=== PATIENT | male | born 1965 | race Caucasian/White ===

== ENCOUNTER → 2020-09-06 07:31 | Outpatient (BNVA) | payer OTHER, SELFPAY | PROVIDERS: PCP Internal Medicine; Referring Provider Internal Medicine; Visit Provider Internal Medicine Endocrinology, Diabetes & Metabolism | DX: E10.40 Type 1 diabetes mellitus with diabetic neuropathy, unspecified (principal); E10.319 Type 1 diabetes mellitus with unspecified diabetic retinopathy without macular edema; E29.1 Testicular hypofunction; E21.3 Hyperparathyroidism, unspecified; I10 Essential (primary) hypertension; E55.9 Vitamin D deficiency, unspecified; I25.10 Atherosclerotic heart disease of native coronary artery without angina pectoris; M81.0 Age-related osteoporosis without current pathological fracture; Z87.891 Personal history of nicotine dependence; Z79.899 Other long term (current) drug therapy | CPT/HCPCS: 99214 ==

== ENCOUNTER → 2020-10-17 13:52 | Outpatient (BNVA) | payer OTHER, SELFPAY | PROVIDERS: PCP Internal Medicine; Referring Provider Internal Medicine; Visit Provider Urology | DX: Z76.89 Persons encountering health services in other specified circumstances (principal) ==

== ENCOUNTER 2021-01-02 12:59 | Outpatient (REF) | payer OTHER, SELFPAY ==
[2021-01-02 14:35] LABS: Anion Gap 12 (12-20); Blood Urea Nitrogen 18 mg/dL (9-16); Calcium 9.3 mg/dL (8.4-10.2); Carbon Dioxide 26 mmol/L (22-29); Chloride 103 mmol/L (96-108); Estimated Glomerular Filt Rate 48; Phosphorus 2.6 mg/dL (2.7-4.5); Potassium 4.3 mmol/L (3.3-5.1); Sodium 137 mmol/L (135-145)
[2021-01-02 14:53] LABS: Renal w Reflex Lab Use Only Order verified
== END 2021-01-02 13:00 | disposition home or self-care (01) ==
LOC: HO.LAB 12:59
PROVIDERS: PCP Internal Medicine; Visit Provider Internal Medicine Nephrology
DX: I12.9 Hypertensive chronic kidney disease with stage 1 through stage 4 chronic kidney disease, or unspecified chronic kidney disease (principal); N18.30 Chronic kidney disease, stage 3 unspecified; R80.9 Proteinuria, unspecified; E10.29 Type 1 diabetes mellitus with other diabetic kidney complication
CPT/HCPCS: 36415; 80051; 82310; 82565; 84100; 84520

== ENCOUNTER 2021-03-10 11:28 | Outpatient (REF) | payer OTHER, SELFPAY ==
[2021-03-10 12:19] LABS: Hematocrit 39.5 % (42-52); Hemoglobin 13.6 g/dl (14.0-18.0)
[2021-03-10 13:09] LABS: Albumin Level 4.2 g/dL (3.5-5.0); Calcium 9.6 mg/dL (8.4-10.2); Cholesterol 109 mg/dL; HDL Cholesterol 52 mg/dL; LDL Cholesterol Calculated 42 mg/dl; Triglycerides 79 mg/dL
[2021-03-10 13:13] LABS: Alanine Aminotransferase 23 U/L (0-40); Albumin Level 4.2 g/dL (3.5-5.0); Alkaline Phosphatase 127 U/L (39-117); Anion Gap 13 (12-20); Aspartate Amino Transferase 19 U/L (5-37); Bilirubin Total 0.6 mg/dL (0.0-1.0); Blood Urea Nitrogen 21 mg/dL (9-16); Calcium 9.7 mg/dL (8.4-10.2); Carbon Dioxide 26 mmol/L (22-29); Chloride 104 mmol/L (96-108); Estimated Glomerular Filt Rate 47; Glucose Fasting 224 mg/dL (60-99); Potassium 4.7 mmol/L (3.3-5.1); Sodium 138 mmol/L (135-145); Total Protein 6.4 g/dL (6.5-8.0)
[2021-03-10 13:19] LABS: Phosphorus 3.1 mg/dL (2.7-4.5)
[2021-03-10 13:21] LABS: PSA,Total (Free>4and<10) 1.58 ng/mL (0.00-4.00); Vitamin D 25-OH Total 20.4 ng/mL (>30)
[2021-03-10 13:41] LABS: Renal w Reflex Lab Use Only Order verified
[2021-03-11 07:32] LABS: Follicle Stimulating Hormone 6.3 mIU/mL (1.6-8.0); Lutenizing Hormone 4.6 mIU/mL (1.5-9.3)
[2021-03-11 08:47] LABS: Sex Hormone Binding Globulin 80 nmol/L (22-77)
[2021-03-11 12:22] LABS: Calcium (PTHI) 9.6 mg/dL (8.6-10.3); PTHI 63 pg/mL (14-64)
[2021-03-12 21:37] LABS: Collagen Type I C-Telopeptide 142 pg/mL (87-345)
[2021-03-13 11:07] LABS: Alkaline Phosphatase Bone 10.4 mcg/L (7.6-14.9)
[2021-03-13 19:37] LABS: Testosterone-Albumin 4.3 g/dL (3.6-5.1); Testosterone-Bioavailable 98.9 ng/dL (110.0-575.0); Testosterone-Free 50.2 pg/mL (46.0-224.0); Testosterone-SHBG 58 nmol/L (22-77); Testosterone-Total 595 ng/dL (250-1100)
[2021-03-15 11:36] LABS: Testosterone, Free 60.4 pg/mL (35.0-155.0); Testosterone, Total 616 ng/dL (250-1100)
== END 2021-03-10 11:29 | disposition home or self-care (01) ==
LOC: HO.LAB 11:28
PROVIDERS: Absent Provider Internal Medicine Nephrology; PCP Internal Medicine; Visit Provider Internal Medicine Endocrinology, Diabetes & Metabolism
DX: I12.9 Hypertensive chronic kidney disease with stage 1 through stage 4 chronic kidney disease, or unspecified chronic kidney disease (principal); E10.22 Type 1 diabetes mellitus with diabetic chronic kidney disease; N18.30 Chronic kidney disease, stage 3 unspecified; E29.1 Testicular hypofunction; M81.0 Age-related osteoporosis without current pathological fracture; R80.9 Proteinuria, unspecified
CPT/HCPCS: 36415; 80053; 80061; 82040; 82306; 82310; 82523; 83001; 83002; 83970; 84075; 84100; 84153; 84270; 84402; 84403; 85014; 85018

== ENCOUNTER → 2021-03-11 15:11 | Outpatient (BNVA) | payer OTHER, SELFPAY | PROVIDERS: PCP Internal Medicine; Visit Provider Internal Medicine Endocrinology, Diabetes & Metabolism | DX: M81.0 Age-related osteoporosis without current pathological fracture (principal); E21.3 Hyperparathyroidism, unspecified; E29.1 Testicular hypofunction | CPT/HCPCS: 99212 ==

== ENCOUNTER → 2021-04-30 15:14 | Outpatient (BNVA) | payer OTHER, SELFPAY | PROVIDERS: PCP Internal Medicine; Visit Provider Internal Medicine | DX: I25.10 Atherosclerotic heart disease of native coronary artery without angina pectoris (principal); I25.2 Old myocardial infarction; E10.8 Type 1 diabetes mellitus with unspecified complications | CPT/HCPCS: 93005; 99212 ==

== ENCOUNTER 2021-05-05 11:38 | Day surgery (SDC) | payer OTHER, SELFPAY ==
[2021-05-01 09:22] VITALS: BMI 23.6
--- NOTE | 2021-05-01 16:52 | MHC.SHP ---
Pre-Procedural Eval Section A The patient is an INPATIENT: No The History & Physical has been completed within 30 days and I have reviewed it.: Yes Section B Chief Complaint: Other Mechanical Complications Allergies: Allergies Allergy/AdvReac Type Severity Reaction Status Date / Time No Known Allergies Allergy Unverified 04/30/21 15:25 Plan Diagnosis/Plan: Unchanged I have reviewed the history and physical and performed a pertinent physical examination on my patient. No changes have occurred unless specified.
--- NOTE | 2021-05-02 13:40 | HO.ANESPROP2 ---
Documented by User: Astrid Marquez 05/02/21 13:43 HPI - Anesthesia Eval Consult details Narrative: 55yo M for Left Scleral Buckle Revision PCP cleared Stable at yearly routine cardiac visit 04/30/21 Insulin pump in situ PMFSH Active Problems Active Problems: All Active Problems (Updated 05/02/21 @ 09:27 by Samira Quispe MD) Disorder of eye, left (Acute) Pre-op evaluation (Acute) Erectile dysfunction (Acute) Bladder outlet obstruction (Acute) Atherosclerotic cardiovascular disease (Acute) Type 1 diabetes mellitus with unspecified complications (Acute) History of non-ST elevation myocardial infarction (NSTEMI) (Acute) Hypogonadism in male (Acute) Hypogonadism (Acute) Blind left eye (Acute) Depression (Acute) Hypertension (Acute) Dyslipidemia (Acute) Diabetic neuropathy associated with type 1 diabetes mellitus (Acute) Coronary artery disease (Acute) Diabetic retinopathy associated with type 1 diabetes mellitus (Acute) Diabetes type 1, controlled (Acute) Osteoporosis (Acute) Hyperparathyroidism (Acute) Past Medical History Medical History Blind left eye Chronic renal insufficiency Coronary artery disease COVID-19 vaccine administered Depression Diabetes type 1, controlled Diabetic neuropathy associated with type 1 diabetes mellitus Diabetic retinopathy associated with type 1 diabetes mellitus Dyslipidemia Hx of fracture of tibia Hx of retinal detachment Hyperparathyroidism Hypertension Hypogonadism Hypogonadism in male Low vitamin B12 level Myocardial infarction Osteoporosis Family History Family History Father Cancer CVD (cardiovascular disease) Mother CVD (cardiovascular disease) Hypertension High cholesterol Surgical History Surgical History History of surgery Hx of colonoscopy Hx of excision of epidermal inclusion cyst Hx of eye surgery Hx of knee surgery Social History Social History Are you a primary acute care nurse to a significant other at home: No Do you presently have visiting nurse or other home services: Yes (has [employer]) Patient Tobacco Use Status: Former Tobacco user Quit Date: 2017 Tobacco use type: Cigarette Years Smoked: 28 Use of substances other than those prescribed or required for medical reasons: No Have you been hit, kicked, punched, or otherwise hurt by someone within the past year? If so, by whom?: No Are you DNR?: No Advance Directives Information Provided: No Advance Directives on File: No Recently lost weight without trying: No Eating poorly because of decreased appetite: No Nutrition Risks: No Nutritional Risk Poor oral hygiene: No (upper & lower partial) Meds Allergies Allergy/AdvReac Type Severity Reaction Status Date / Time No Known Allergies Allergy Unverified 05/02/21 09:09 Active Medications: Current Medications Generic Name Dose Route Start Last Admin Trade Name Mariah PRN Reason Stop Dose Admin Povidone Iodine 1 appl 05/05/21 00:01 Povidone Iodine 5 % Ophth Soln 30 Ml Bottle EYE-LEFT PREOP PRN Pre-Op Surgical Implant Prophy Tetracaine HCl 1 drop 05/05/21 00:01 Tetracaine Hcl/Pf 0.5% Oph Rachel 4 Ml Drops EYE-LEFT 05/05/21 00:02 PREOP ONE Home Medications Medication Instructions Recorded Confirmed Last Taken Type aspirin 81 mg tablet,delayed 81 mg PO DAILY 09/06/20 05/02/21 Unknown History release insulin lispro 100 unit/mL 1 sliding scale dose SUBCUT 09/06/20 05/02/21 Unknown History subcutaneous solution USEASDIRECTD lisinopril 2.5 mg tablet 2.5 mg PO DAILY 09/06/20 05/02/21 Unknown History triamcinolone acetonide 0.1 % appl TOPICAL DAILY PRN 02/26/21 05/02/21 Unknown History topical cream atorvastatin 40 mg PO BEDTIME 05/01/21 05/02/21 Unknown History bupropion HCl 150 mg PO BEDTIME 05/01/21 05/02/21 Unknown History Exam Exam Date and Time: May 02, 2021 1340 Height,Weight and Vital Signs: Height 5 ft 9 in Weight 72.575 kg Pertinent Lab Results Pertinent Lab Results: Laboratory Tests 05/21/20 03/10/21 03/10/21 10:45 11:50 11:50 WBC 6.0 Hgb 13.6 L Hct 39.5 L Plt Count 334 Sodium 138 Potassium 4.7 Chloride 104 Carbon Dioxide 26 BUN 21 H Creatinine 1.54 H Narrative Narrative: echocardiogram from 2019 with LVEF of 60-65% and otherwise unremarkable, no wall motion abnormalities EKG 04/30/21 shows sinus rhythm at 93/Min; no significant ST-T changes and otherwise unremarkable. Assessment and Plan Assessment Anesthesia Assessment: Chart Reviewed Documented by User: Matt Bejarano MD 05/05/21 12:57 PMFSH Past Medical History Medical History Blind left eye Chronic renal insufficiency Coronary artery disease COVID-19 vaccine administered Depression Diabetes type 1, controlled Diabetic neuropathy associated with type 1 diabetes mellitus Diabetic retinopathy associated with type 1 diabetes mellitus Dyslipidemia Hx of fracture of tibia Hx of retinal detachment Hyperparathyroidism Hypertension Hypogonadism Hypogonadism in male Low vitamin B12 level Myocardial infarction Osteoporosis Family History Family History Father Cancer CVD (cardiovascular disease) Mother CVD (cardiovascular disease) Hypertension High cholesterol Surgical History Surgical History History of surgery Hx of colonoscopy Hx of excision of epidermal inclusion cyst Hx of eye surgery Hx of knee surgery Social History Social History Are you a primary acute care nurse to a significant other at home: No Do you presently have visiting nurse or other home services: Yes (has [employer]) Patient Tobacco Use Status: Former Tobacco user Quit Date: 2017 Tobacco use type: Cigarette Years Smoked: 28 Use of substances other than those prescribed or required for medical reasons: No Have you been hit, kicked, punched, or otherwise hurt by someone within the past year? If so, by whom?: No Are you DNR?: No Advance Directives Information Provided: No Advance Directives on File: No Recently lost weight without trying: No Eating poorly because of decreased appetite: No Nutrition Risks: No Nutritional Risk Poor oral hygiene: No (upper & lower partial) Meds Allergies Allergy/AdvReac Type Severity Reaction Status Date / Time No Known Allergies Allergy Unverified 05/02/21 09:09 Home Medications Medication Instructions Recorded Confirmed Last Taken Type aspirin 81 mg tablet,delayed 81 mg PO DAILY 09/06/20 05/02/21 Unknown History release insulin lispro 100 unit/mL 1 sliding scale dose SUBCUT 09/06/20 05/02/21 Unknown History subcutaneous solution USEASDIRECTD lisinopril 2.5 mg tablet 2.5 mg PO DAILY 09/06/20 05/02/21 Unknown History triamcinolone acetonide 0.1 % appl TOPICAL DAILY PRN 02/26/21 05/02/21 Unknown History topical cream atorvastatin 40 mg PO BEDTIME 05/01/21 05/02/21 Unknown History bupropion HCl 150 mg PO BEDTIME 05/01/21 05/02/21 Unknown History Assessment and Plan Assessment Anesthesia Assessment: Anesthesia Plan Discussed and Chart Reviewed Final Anesthetic Review NPO: Yes ASA Class: III Final Preanesthetic Review: No Changes in Pt Med Stat, Meds/Allgs Chart Reviewed, Consent Obtained/Reviewed and Anes Risks/Benef Reviewed Patient Risk: Intermediate Procedure Risk: Low Anesthetic Plan Anesthetic Plan: MAC: Disposition: Standard PACU
[2021-05-05 12:41] VITALS: BP 166/85; PULSE 88; RESP 16; TEMP 36.5; O2SAT 97
[2021-05-05] MEDS: Lactated Ringers 500 ML 50 ML IV (12:48)
--- NOTE | 2021-05-05 12:49 | PC.NURSE ---
TETRACAINE TO BFE GIVEN IN THE OR PER CRYSTAL FULTON RN.
--- NOTE | 2021-05-05 14:10 | HO.PNOPHT ---
Ophthalmology Procedure Procedure Date of Service: 05/05/21 Ophthalmology Viscoelastic: Not Applicable Ophthalmology Lenses: Not Applicable Procedure Notes: Pre Op Dx; Exposed Scleral Buckle OS Post Op Dx; Same Anesthesia: MAC with Local Procedure: Removal of Sccleral Sponge with closure of Conjunctival laceration left eye After obtaining Informed consent the patient was brought to the OR. The left eye was prepped and draped in the usual fashion. Attention was directected to the left eye, a lid speculum was placed followed by injection of Lidocaine 1%, 0.5ml. subconjunctivally. The exposed was grasped with forceps.and removed. The conjunctival laceration was closed with a running 6-0 Vicryl suture. The speculum waq sremoved and Maxitrol Prashanth. placed. The patient tolerated the procedure and will be seen in F?U.
[2021-05-05 14:15] VITALS: BP 143/54; PULSE 76; RESP 18; TEMP 36.2; O2SAT 97
== END 2021-05-05 14:33 | disposition home or self-care (01) ==
PROVIDERS: PCP Internal Medicine; Visit Provider Ophthalmology
PROC: (CPT 67120; principal; 2021-05-05 14:10)
DX: T85.328A Displacement of other ocular prosthetic devices, implants and grafts, initial encounter (principal); S05.32XA Ocular laceration without prolapse or loss of intraocular tissue, left eye, initial encounter; Y83.2 Surgical operation with anastomosis, bypass or graft as the cause of abnormal reaction of the patient, or of later complication, without mention of misadventure at the time of the procedure; Y92.9 Unspecified place or not applicable
CPT/HCPCS: 67120; 65270; J2250; J3010

== ENCOUNTER 2021-07-04 15:45 | Outpatient (REF) | payer OTHER, SELFPAY | END 2021-07-04 15:46 | disposition home or self-care (01) | LOC: HO.LAB 15:45 | PROVIDERS: PCP Internal Medicine; Visit Provider Urology | DX: Z13.89 Encounter for screening for other disorder (principal) ==

== ENCOUNTER 2021-07-09 06:00 | Outpatient (REF) | payer OTHER, SELFPAY ==
--- NOTE | ~2021-07-09 | XR_ITS ---
EXAMINATION: XR HAND, LEFT CLINICAL INFORMATION: Left hand pain. COMPARISON: None TECHNIQUE: PA, lateral, and oblique views of the left hand. FINDINGS: The bones and soft tissues are normal. No fracture. Alignment is anatomic. Joint spaces are maintained. No erosions or soft tissue calcifications. XR/XR hand LT min 3V IMPRESSION: Unremarkable examination.
== END 2021-07-09 06:01 | disposition home or self-care (01) ==
LOC: HO.HOSX 06:00
PROVIDERS: Visit Provider Physician Assistant
DX: M65.312 Trigger thumb, left thumb (principal); Z87.891 Personal history of nicotine dependence
CPT/HCPCS: 20600; 73130; 99202; J1020

== ENCOUNTER 2021-07-09 15:34 | Outpatient (REF) | payer OTHER, SELFPAY ==
[2021-07-09 16:23] LABS: Anion Gap 13 (12-20); Blood Urea Nitrogen 22 mg/dL (9-16); Calcium 9.7 mg/dL (8.4-10.2); Carbon Dioxide 23 mmol/L (22-29); Chloride 106 mmol/L (96-108); Estimated Glomerular Filt Rate 43; Potassium 4.8 mmol/L (3.3-5.1); Sodium 137 mmol/L (135-145)
[2021-07-09 17:44] LABS: Protein/Creatinine Ratio, Ur 0.05 (<0.2); Total Protein Urine Random 10 mg/dL (<12)
== END 2021-07-09 15:35 | disposition home or self-care (01) ==
LOC: HO.LAB 15:34
PROVIDERS: PCP Internal Medicine; Visit Provider Internal Medicine Nephrology
DX: N18.31 Chronic kidney disease, stage 3a (principal)
CPT/HCPCS: 36415; 80051; 82310; 82565; 84156; 84520

== ENCOUNTER → 2021-10-21 14:30 | Outpatient (BNVA) | payer OTHER, SELFPAY | PROVIDERS: PCP Internal Medicine; Visit Provider Urology | DX: E11.69 Type 2 diabetes mellitus with other specified complication (principal); N52.1 Erectile dysfunction due to diseases classified elsewhere | CPT/HCPCS: 99212 ==

== ENCOUNTER 2022-01-01 16:36 | Outpatient (REF) | payer OTHER, SELFPAY ==
[2022-01-01 18:14] LABS: Anion Gap 11 (12-20); Blood Urea Nitrogen 16 mg/dL (9-16); Carbon Dioxide 28 mmol/L (22-29); Chloride 107 mmol/L (96-108); Estimated Glomerular Filt Rate 54; Sodium 141 mmol/L (135-145)
== END 2022-01-01 16:37 | disposition home or self-care (01) ==
LOC: HO.LAB 16:36
PROVIDERS: PCP Internal Medicine; Visit Provider Internal Medicine Nephrology
DX: N18.31 Chronic kidney disease, stage 3a (principal)
CPT/HCPCS: 36415; 80051; 82310; 82565; 84520

== ENCOUNTER → 2022-01-21 15:06 | Outpatient (BNVA) | payer OTHER, SELFPAY | PROVIDERS: PCP Internal Medicine; Visit Provider Urology | DX: N52.9 Male erectile dysfunction, unspecified (principal); E10.42 Type 1 diabetes mellitus with diabetic polyneuropathy; E10.22 Type 1 diabetes mellitus with diabetic chronic kidney disease; E10.319 Type 1 diabetes mellitus with unspecified diabetic retinopathy without macular edema; I12.9 Hypertensive chronic kidney disease with stage 1 through stage 4 chronic kidney disease, or unspecified chronic kidney disease; I25.10 Atherosclerotic heart disease of native coronary artery without angina pectoris; N18.9 Chronic kidney disease, unspecified; H54.62 Unqualified visual loss, left eye, normal vision right eye; E29.1 Testicular hypofunction; E53.8 Deficiency of other specified B group vitamins; M81.0 Age-related osteoporosis without current pathological fracture; F17.210 Nicotine dependence, cigarettes, uncomplicated | CPT/HCPCS: 51798; 99212 ==

== ENCOUNTER 2022-01-27 14:02 | Outpatient (REF) | payer OTHER, SELFPAY ==
[2022-01-27 15:18] LABS: Alanine Aminotransferase 23 U/L (0-40); Albumin Level 4.3 g/dL (3.5-5.0); Alkaline Phosphatase 86 U/L (39-117); Anion Gap 11 (12-20); Aspartate Amino Transferase 21 U/L (5-37); Bilirubin Total 0.6 mg/dL (0.0-1.0); Blood Urea Nitrogen 14 mg/dL (9-16); Calcium 10.1 mg/dL (8.4-10.2); Carbon Dioxide 25 mmol/L (22-29); Chloride 106 mmol/L (96-108); Estimated Glomerular Filt Rate 50; Glucose Random 105 mg/dL (60-115); Potassium 4.4 mmol/L (3.3-5.1); Sodium 138 mmol/L (135-145); Total Protein 6.6 g/dL (6.5-8.0)
[2022-01-27 15:25] LABS: PSA,Total (Free>4and<10) 1.83 ng/mL (0.00-4.00); Vitamin D 25-OH Total 31.5 ng/mL (>30)
[2022-01-28 08:46] LABS: Lutenizing Hormone 3.3 mIU/mL (1.5-9.3); Sex Hormone Binding Globulin 75 nmol/L (22-77)
[2022-01-31 09:36] LABS: Testosterone-Albumin 4.4 g/dL (3.6-5.1); Testosterone-Free 52.2 pg/mL (46.0-224.0); Testosterone-SHBG 73 nmol/L (22-77); Testosterone-Total 750 ng/dL (250-1100)
[2022-01-31 16:31] LABS: Collagen Type I C-Telopeptide 125 pg/mL (87-345)
[2022-01-31 18:27] LABS: Testosterone, Free 71.1 pg/mL (35.0-155.0); Testosterone, Total 718 ng/dL (250-1100)
== END 2022-01-27 14:03 | disposition home or self-care (01) ==
LOC: HO.LAB 14:02
PROVIDERS: PCP Internal Medicine; Visit Provider Internal Medicine Endocrinology, Diabetes & Metabolism
DX: Z12.5 Encounter for screening for malignant neoplasm of prostate (principal); E29.1 Testicular hypofunction; M81.0 Age-related osteoporosis without current pathological fracture
CPT/HCPCS: 36415; 80053; 82306; 82523; 83001; 83002; 84153; 84270; 84402; 84403

== ENCOUNTER 2022-01-28 15:19 | Outpatient (REF) | payer OTHER, SELFPAY ==
[2022-02-04 06:26] LABS: N-Telopeptide 17 (9-60); NTXCreaRU 76 mg/dL (20-320)
== END 2022-01-28 15:20 | disposition home or self-care (01) ==
LOC: HO.LNP 15:19
PROVIDERS: Visit Provider Internal Medicine Endocrinology, Diabetes & Metabolism
DX: M81.0 Age-related osteoporosis without current pathological fracture (principal)
CPT/HCPCS: 82523

== ENCOUNTER → 2022-02-23 15:07 | Outpatient (BNVA) | payer OTHER, SELFPAY | PROVIDERS: PCP Internal Medicine; Visit Provider Internal Medicine Endocrinology, Diabetes & Metabolism | DX: M81.0 Age-related osteoporosis without current pathological fracture (principal) | CPT/HCPCS: 99212 ==

== ENCOUNTER 2022-02-26 08:11 | Outpatient (REF) | payer OTHER, SELFPAY ==
--- NOTE | ~2022-02-26 | MM_ITS ---
EXAMINATION: BONE DENSITOMETRY CLINICAL INDICATION: Age-related osteoporosis without current pathological fracture. COMPARISON: Baseline BD dated 11/07/2019. TECHNIQUE: Using a [employer] DXA System (software version: 13.1) manufactured by [employer], dual-energy x-ray absorptiometry was performed of the lumbar spine and left hip. The images are of good technical quality. Summary results are attached. FINDINGS: AP SPINE L1-L4: Current: BMD 1.118 g/cm2, Z-score -0.5, T-score -0.8, normal, 4.1% increase from baseline (<5% change is not significant). Baseline: BMD 1.074 g/cm2. LEFT FEMUR, NECK: Current: BMD 0.675 g/cm2, Z-score -2.1, T-score -3.0, osteoporosis. Baseline: BMD 0.676 g/cm2. LEFT FEMUR, TOTAL: Current: BMD 0.735 g/cm2, Z-score -2.1, T-score -2.5, osteoporosis, 2.2% increase from baseline (<5% change is not significant). Baseline: BMD 0.719 g/cm2. IDENTIFIED RISK FACTORS: Secondary osteoporosis, history of fracture (adult), osteoporosis, renal, height loss, low calcium intake. HISTORY OF FRACTURE: Lower leg. MEDICATIONS: Calcium supplements or multivitamin, vitamin D. MM/XR DEXA axial skeleton IMPRESSION: 1. DIAGNOSIS: Osteoporosis based on the lowest T-score value of -3.0 in the femoral neck applying World Health Organization criteria. 2. 10-YEAR FRACTURE RISK PREDICTION, FRAX: According to the guidelines, FRAX calculation should only be performed on patients in the osteopenia bone density category. Therefore, FRAX was not performed on this patient. 3. Treatment Recommendations: NOF guidelines recommend consideration for treatment in postmenopausal women and men age 50 and older presenting with the following: -A hip or vertebral (clinical or morphometric) fracture. -T-score less than or equal to -2.5 at the femoral neck or spine after appropriate evaluation to exclude secondary causes. -Low bone mass at the hip or spine and a 10-year fracture probability by FRAX of greater than or equal to 3% for hip fracture or greater than or equal to 20% for major osteoporotic fracture based on the [place] adapted WHO algorithm. 4. Other Recommendations: All treatment decisions require clinical judgment and consideration of individual patient factors, including patient preferences, comorbidities, previous drug use, risk factors not captured in the FRAX model (e.g. frailty, falls, vitamin D deficiency, increased bone turnover, interval significant decline in bone density) and possible under or overestimation of fracture risk by FRAX. Additional medical evaluation for secondary cause of low bone mineral density may be appropriate. FUTURE SCAN RECOMMENDATION: People with diagnosed cases of osteoporosis or at high risk for fracture should have regular bone mineral density tests. For patients eligible for Medicare, routine testing is allowed once every 2 years. The testing frequency can be increased to one year for patients who have rapidly progressing disease, those who are receiving or discontinuing medical therapy to restore bone mass, or have additional risk factors.
== END 2022-02-26 08:12 | disposition home or self-care (01) ==
LOC: HO.MAMMO 08:11
PROVIDERS: Visit Provider Internal Medicine Endocrinology, Diabetes & Metabolism
DX: Z13.820 Encounter for screening for osteoporosis (principal); M81.0 Age-related osteoporosis without current pathological fracture; Z87.81 Personal history of (healed) traumatic fracture; Z79.899 Other long term (current) drug therapy
CPT/HCPCS: 77080

== ENCOUNTER → 2022-05-04 12:48 | Outpatient (BNVA) | payer OTHER, SELFPAY | PROVIDERS: PCP Internal Medicine; Referring Provider Internal Medicine; Visit Provider Internal Medicine | DX: I25.10 Atherosclerotic heart disease of native coronary artery without angina pectoris (principal); I25.2 Old myocardial infarction; E10.8 Type 1 diabetes mellitus with unspecified complications | CPT/HCPCS: 93005; 99212 ==

== ENCOUNTER → 2022-06-09 09:14 | Outpatient (REF) | payer OTHER, SELFPAY ==
--- NOTE | ~2022-06-09 | NM_ITS ---
Exercise Myocardial perfusion study Indication: Exertional shortness of breath with atherosclerotic heart disease to evaluate for myocardial ischemia Technique: The patient was brought in for an exercise perfusion study on 06/09/2022. Patient performed exercise as per Willard protocol and was injected 25 mCi of sestamibi was given intravenously one target HR was achieved. Images were obtained using the SPECT gamma camera interlaced with the gating device. Images were obtained in supine position. Resting perfusion study was performed on 06/10/2022. Patient was administered 25 mCi of sestamibi intravenously at rest. Images were then obtained in supine position. Images obtained with and without CT attenuation. Total DLP 78 mGy-cm. Images were processed with the software and compared side to side in short axis, horizontal long axis and vertical long axis views. Findings: The stress perfusion study showed non attenuated images show mildly reduced uptake in the inferior and apical wall of the LV myocardium. Remainder of the LV myocardium is normally perfused. Attenuation corrected images show mildly reduced uptake in the apex of the LV myocardium.. The gated study shows normal LV systolic function with calculated LVEF of 70%. LV cavity is normal in size. The gated study shows normal systolic wall thickening and contraction of all segments. There is no transient ischemic dilation. Resting study shows non attenuated images show improved uptake in the inferior and apical wall of the LV myocardium. Attenuation corrected images show improved uptake in the apical wall of the LV myocardium.. Gating at rest reveals normal systolic wall motion with ejection fraction at 70%. The findings are consistent with reversible apical defect suggestive of ischemia and possible inferior ischemia. NM/NM cardiolite stress test Impression: 1. Mild intensity apical ischemia with equivocal inferior wall ischemia 2. Gated LVEF is 70% 3. Transient ischemic dilatation not present Stress EKG is equivocal for ischemia
--- NOTE | 2022-06-09 09:18 | CA_ITS ---
Acquisition Time: 2022-06-09 09:24:37 Total Exercise Time: 00:05:59 Test Indications: Dyspnea Medications: ASA ATORVASTATIN BUPROPION ALENDRONATE INSULIN LISINOPRIL TADALFIL SILDENAFIL Protocol: DALIA Max HR: 144 BPM 89% of Pred: 161 BPM Max BP: 164/076 mmHG Max Work Load: 7.0 METS Exercise nuclear stress test using Dalia protocol, total of 5 min 59 se, METS 7and TAPHR up to 89%. Pt c/o SOB at the end of the second stage resolved in recovery. Mild scooped ST depressions seen in leads 2,3 and V3-V5. No CP. Nuclear images to follow. Normotensive response to exercise Test reviewed with Dr. Singletary Referred By: Darryl Leong Overread By: Olga Lidia Hendricks NP
== END ==
LOC: HO.CARD 09:14
PROVIDERS: Visit Provider Internal Medicine
DX: I25.10 Atherosclerotic heart disease of native coronary artery without angina pectoris (principal); E10.8 Type 1 diabetes mellitus with unspecified complications
CPT/HCPCS: 78452; 93017; A9500

== ENCOUNTER → 2022-06-30 13:05 | Outpatient (REF) | payer OTHER, SELFPAY ==
--- NOTE | 2022-06-30 13:08 | CA_ITS ---
Transthoracic Echocardiogram Patient (Last, First, Middle): Servando Tan M Gender: Male Date of : 1965 Age: 57 Procedure Date: 06/30/2022 Procedure Type: Transthoracic Echocardiogram Location: OP Height: 175.26 cm Weight: 74.84 kg BSA: 1.90 m2 Heart Rate: 72 bpm BP: 128 / 64 mmHg Prop Maker: SB Referring MD: Darryl Leong MD Parking Patroller: Jaswinder Singletary MD Symptoms: I25.10 - Atherosclerotic heart disease of [place] coronary artery without... Study Quality: Adequate ECG Rhythm: Sinus Conclusions: - 1. Normal LV systolic and diastolic function 2. Normal cardiac valvular Doppler 3. No gross pericardial effusion Findings Left Ventricle Normal left ventricular size, thickness, and systolic function. The visually estimated ejection fraction is between 60-65%. Spectral Doppler is indicative of a normal filling pattern. Peak GLS is -19.6%, within normal limits Right Ventricle Normal right ventricular cavity size and systolic function. Atria The left atrium is normal in size. There is lipomatous hypertrophy of the interatrial septum. There is no evidence of interatrial shunt. The right atrium is normal in size. Aortic Valve Normal aortic valve structure and function. There is no aortic valve stenosis. There is no aortic valve regurgitation. Mitral Valve Normal mitral valve structure and function. There is trace mitral valve regurgitation. There is no mitral valve stenosis. Pulmonic Valve The pulmonic valve was not well visualized. Tricuspid Valve Likely normal tricuspid valve structure and function. Tricuspid regurgitation envelope is inadequate for calculation of right ventricular systolic pressure. Normal right atrial pressure. Great Vessels All visible segments of the aorta are normal in size. The pulmonary artery was not well visualized. Venous The inferior vena cava is normal in size and collapses greater than 50% with inspiration. Pericardium/Pleural There is no evidence of pericardial effusion. Measurements 2D Linear Measurements IVSd: 0.96 0.6-0.9/0.6-1.0 cm LVIDd: 4.20 3.9-5.3/4.2-5.9 cm LVIDd Index: 2.21 2.4-3.2/2.2-3.1 cm/m2 LVIDs: 2.78 2.0-3.6 cm LVPWd: 0.85 0.7-1.1 cm LA Diam: 3.60 2.7-3.8/3.0-4.0 cm LAIDs Index: 1.89 1.5-2.3 cm/m2 LV Mass: 148.60 67-162/88-224 g LV Mass Index: 78.21 43-95/49-115 g/m2 LVOT Diam: 2.20 3.0+(-)1.3 cm 2D Systolic Function EF 4C: 64.50 >55% EF 2C: 55.50 >55% EF BiP: 60.20 >55% Mitral Valve MV Pk E: 1.06 MV PK A: 0.71 MV Decel Time: 162.00 E/A: 1.50 E'Lateral: 8.59 E'Medial: 7.18 E/E' Med: 14.80 E/E' Lat: 12.30 PHT: 48.00 MVA PHT: 4.58 Decel Bullitt: 6.53 Aortic Valve AoV Pk Raymundo: 1.01 AoV Mn Raymundo: 0.73 AoV VTI: 0.22 AoV Pk Grad: 4.00 Aov Mn Grad: 2.00 ALANA Cont.VTI: 3.91 LVOT LVOT Pk Raymundo: 0.89 LVOT Mn Raymundo: 0.64 LVOT VTI: 0.22 LVOT Pk Grad: 3.00 LVOT Mn Grad: 2.00 LVOT Diam: 2.20 LVOT Area: 3.80 Diastolic Function MV Pk E: 1.06 MV Pk A: 0.71 E/A: 1.50 E'Medial: 7.18 E/E' Med: 14.80 E' Laterial: 8.59 E/E' Lat: 12.30 Right Ventricle TAPSE (mm): 19.10 TVS' Raymundo: 16.80 Tricuspid Valve RA Press: 3.00 Great Vessels Aorta Sinus of Valsalva: 3.60 2.0-3.5 cm Ao Asc: 3.10 2.1-3.4 cm Pulmonary Veins Pulm Vein S/D 1.40 Pulmonary Valve PV Pk Raymundo: 0.74 Peak PV Grad: 2.00 Updated in Other Vendor System with Status of Final Jaswinder Singletary MD electronically signed on 07/01/2022 3:41:31 PM with status of Final
== END ==
LOC: HO.CARD 13:05
PROVIDERS: Visit Provider Internal Medicine
DX: I25.10 Atherosclerotic heart disease of native coronary artery without angina pectoris (principal)
CPT/HCPCS: 93306; 93356

== ENCOUNTER 2022-08-17 14:37 | Outpatient (REF) | payer OTHER, SELFPAY ==
[2022-08-17 15:44] LABS: Anion Gap 15 (12-20); Blood Urea Nitrogen 15 mg/dL (9-16); Calcium 10.1 mg/dL (8.4-10.2); Carbon Dioxide 24 mmol/L (22-29); Chloride 101 mmol/L (96-108); Estimated Glomerular Filt Rate 48; Potassium 4.8 mmol/L (3.3-5.1); Sodium 135 mmol/L (135-145)
[2022-08-17 15:56] LABS: Creatinine Urine 75.13 mg/dL; Total Protein Urine Random < 7 mg/dL (<12)
== END 2022-08-17 14:38 | disposition home or self-care (01) ==
LOC: HO.LAB 14:37
PROVIDERS: PCP Internal Medicine; Visit Provider Internal Medicine Nephrology
DX: N18.31 Chronic kidney disease, stage 3a (principal)
CPT/HCPCS: 36415; 80051; 82310; 82565; 84156; 84520

== ENCOUNTER 2022-09-25 14:32 | Outpatient (REF) | payer OTHER, SELFPAY ==
[2022-09-25 14:43] LABS: MANUAL DIFF FLAG NO
[2022-09-25 14:47] LABS: Basophils Absolute Auto 0.1 X10*3/uL (0.0-0.2); Basophils Percent Auto 0.8 % (0-2); Eosinophils Absolute Auto 0.4 X10*3/uL (0.0-0.4); Eosinophils Percent Auto 5.5 % (0-4); Hematocrit 38.6 % (42.0-52.0); Hemoglobin 13.5 g/dl (14.0-18.0); Imm Gran Abs Auto 0.04 X10*3/uL (0.00-0.03); Imm Gran Pct Auto 0.5 % (0.0-0.4); Lymphocytes Absolute Auto 1.2 X10*3/uL (1.2-4.9); Lymphocytes Percent Auto 16.4 % (20-40); Mean Corpuscular Hemoglobin 31.1 pg (27.0-33.0); Mean Corpuscular Volume 88.9 fL (80.0-98.0); Monocytes Absolute Auto 0.7 X10*3/uL (0.1-1.2); Monocytes Percent Auto 9.1 % (2-11); Neutrophils Absolute Auto 5.1 x10*3/uL (2.0-8.3); Neutrophils Percent Auto 67.7 % (45-73); Platelet Count 343 X10*3/uL (160-400); Red Blood Count 4.34 X10*6/uL (4.60-5.80); Red Cell Distribution Width 13.2 % (11.0-16.0); White Blood Count 7.5 X10*3/uL (4.8-10.8)
[2022-09-25 14:58] LABS: INTERNATIONAL NORM RATIO 0.9 (0.9-1.1)
[2022-09-25 15:14] LABS: Anion Gap 15 (12-20); Blood Urea Nitrogen 14 mg/dL (9-16); Calcium 9.5 mg/dL (8.4-10.2); Carbon Dioxide 25 mmol/L (22-29); Chloride 107 mmol/L (96-108); Estimated Glomerular Filt Rate 50; Glucose Random 111 mg/dL (60-115); Potassium 4.7 mmol/L (3.3-5.1); Sodium 142 mmol/L (135-145)
== END 2022-09-25 14:33 | disposition home or self-care (01) ==
LOC: HO.LAB 14:32
PROVIDERS: PCP Internal Medicine; Visit Provider Nurse Practitioner Family
DX: I25.10 Atherosclerotic heart disease of native coronary artery without angina pectoris (principal)
CPT/HCPCS: 36415; 80048; 85025; 85610

== ENCOUNTER 2022-10-31 10:52 | Outpatient (REF) | payer OTHER, SELFPAY ==
[2022-10-31 10:59] LABS: MANUAL DIFF FLAG NO
[2022-10-31 11:01] LABS: Basophils Absolute Auto 0.1 X10*3/uL (0.0-0.2); Eosinophils Absolute Auto 0.5 X10*3/uL (0.0-0.4); Eosinophils Percent Auto 7.4 % (0-4); Hematocrit 41.1 % (42.0-52.0); Hemoglobin 14.3 g/dl (14.0-18.0); Imm Gran Abs Auto 0.02 X10*3/uL (0.00-0.03); Imm Gran Pct Auto 0.3 % (0.0-0.4); Lymphocytes Absolute Auto 1.4 X10*3/uL (1.2-4.9); Lymphocytes Percent Auto 19.3 % (20-40); Mean Corpuscular HGB Conc 34.8 g/dl (31.0-36.0); Mean Corpuscular Hemoglobin 31.5 pg (27.0-33.0); Mean Corpuscular Volume 90.5 fL (80.0-98.0); Monocytes Absolute Auto 0.7 X10*3/uL (0.1-1.2); Monocytes Percent Auto 10.1 % (2-11); Neutrophils Absolute Auto 4.4 x10*3/uL (2.0-8.3); Neutrophils Percent Auto 61.9 % (45-73); Platelet Count 309 X10*3/uL (160-400); Red Blood Count 4.54 X10*6/uL (4.60-5.80); Red Cell Distribution Width 13.4 % (11.0-16.0)
[2022-10-31 11:08] LABS: INTERNATIONAL NORM RATIO 0.9 (0.9-1.1); Prothrombin Time 10.3 SEC (10.0-13.1)
[2022-10-31 11:17] LABS: Anion Gap 14 (12-20); Blood Urea Nitrogen 14 mg/dL (9-16); Calcium 9.9 mg/dL (8.4-10.2); Carbon Dioxide 29 mmol/L (22-29); Chloride 105 mmol/L (96-108); Estimated Glomerular Filt Rate 44; Glucose Random 128 mg/dL (60-115); Potassium 4.7 mmol/L (3.3-5.1); Sodium 143 mmol/L (135-145)
== END 2022-10-31 10:53 | disposition home or self-care (01) ==
LOC: HO.LAB 10:52
PROVIDERS: PCP Internal Medicine; Visit Provider Internal Medicine
DX: Z01.818 Encounter for other preprocedural examination (principal); R94.39 Abnormal result of other cardiovascular function study
CPT/HCPCS: 36415; 80048; 85025; 85610

== ENCOUNTER 2022-11-13 12:07 | Outpatient (REF) | payer OTHER, SELFPAY ==
[2022-11-13 13:03] LABS: Anion Gap 15 (12-20); Blood Urea Nitrogen 18 mg/dL (9-16); Calcium 10.1 mg/dL (8.4-10.2); Carbon Dioxide 26 mmol/L (22-29); Chloride 103 mmol/L (96-108); Estimated Glomerular Filt Rate 40; Glucose Random 143 mg/dL (60-115); Potassium 4.5 mmol/L (3.3-5.1); Sodium 139 mmol/L (135-145)
== END 2022-11-13 12:08 | disposition home or self-care (01) ==
LOC: HO.LAB 12:07
PROVIDERS: PCP Internal Medicine; Visit Provider Nurse Practitioner Family
DX: R94.39 Abnormal result of other cardiovascular function study (principal)
CPT/HCPCS: 36415; 80048

== ENCOUNTER → 2022-11-19 14:01 | Outpatient (BNVA) | payer OTHER, SELFPAY | PROVIDERS: PCP Internal Medicine; Referring Provider Internal Medicine; Visit Provider Nurse Practitioner Family | DX: I25.10 Atherosclerotic heart disease of native coronary artery without angina pectoris (principal); I10 Essential (primary) hypertension; R94.39 Abnormal result of other cardiovascular function study; Z98.890 Other specified postprocedural states | CPT/HCPCS: 99212 ==

== ENCOUNTER 2023-02-15 14:51 | Outpatient (REF) | payer OTHER, SELFPAY ==
[2023-01-21 13:15] VITALS: BP 118/64; BP 146/82; BMI 25.2
[2023-02-15 15:58] LABS: Anion Gap 13 (12-20); Blood Urea Nitrogen 10 mg/dL (9-16); Calcium 9.3 mg/dL (8.4-10.2); Carbon Dioxide 26 mmol/L (22-29); Chloride 109 mmol/L (96-108); Estimated Glomerular Filt Rate 56; Potassium 4.9 mmol/L (3.3-5.1); Sodium 143 mmol/L (135-145)
[2023-02-15 17:32] LABS: Creatinine Urine 182.39 mg/dL; Microalbum/Creatinine Ratio Ur 11.5 ug/mg cr
== END 2023-02-15 14:52 | disposition home or self-care (01) ==
LOC: HO.LAB 14:51
PROVIDERS: PCP Internal Medicine; Visit Provider Internal Medicine Nephrology
DX: N18.31 Chronic kidney disease, stage 3a (principal)
CPT/HCPCS: 36415; 80051; 82043; 82310; 82565; 84520

== ENCOUNTER → 2023-03-01 11:16 | Outpatient (BNVA) | payer OTHER, SELFPAY ==
[2023-01-21 13:15] VITALS: BP 118/64; BP 146/82
[2023-02-19 06:57] VITALS: BP 114/52; BMI 29.9
== END ==
PROVIDERS: PCP Internal Medicine; Referring Provider Internal Medicine; Visit Provider Internal Medicine
DX: I25.10 Atherosclerotic heart disease of native coronary artery without angina pectoris (principal); E10.8 Type 1 diabetes mellitus with unspecified complications
CPT/HCPCS: 93005; 99212

== ENCOUNTER → 2023-03-25 16:16 | Outpatient (BNVA) | payer OTHER, SELFPAY ==
[2023-01-21 13:15] VITALS: BP 118/64; BP 146/82
[2023-03-16 07:45] VITALS: BP 122/58; BMI 29.9
== END ==
PROVIDERS: PCP Internal Medicine; Visit Provider Internal Medicine Endocrinology, Diabetes & Metabolism
DX: M81.0 Age-related osteoporosis without current pathological fracture (principal)
CPT/HCPCS: 99212

== ENCOUNTER → 2023-03-30 14:57 | Outpatient (BNVA) | payer OTHER, SELFPAY ==
[2023-01-21 13:15] VITALS: BP 118/64; BP 146/82
[2023-03-16 07:45] VITALS: BP 122/58; BMI 29.9
== END ==
PROVIDERS: PCP Internal Medicine; Visit Provider Nurse Practitioner Family
DX: G47.10 Hypersomnia, unspecified (principal); R53.83 Other fatigue; E10.8 Type 1 diabetes mellitus with unspecified complications; E10.40 Type 1 diabetes mellitus with diabetic neuropathy, unspecified; E10.319 Type 1 diabetes mellitus with unspecified diabetic retinopathy without macular edema; I25.2 Old myocardial infarction; I10 Essential (primary) hypertension; Z95.5 Presence of coronary angioplasty implant and graft
CPT/HCPCS: 99202

== ENCOUNTER 2023-03-31 14:51 | Outpatient (REF) | payer OTHER, SELFPAY ==
[2023-01-21 13:15] VITALS: BP 118/64; BP 146/82
[2023-03-16 07:45] VITALS: BP 122/58; BMI 29.9
[2023-03-31 16:43] LABS: Folate 6.9 ng/mL (> or = 4.0); TSH reflex Free T4 1.05 uIU/mL (0.32-4.0); Vitamin B12 418 pg/mL (200-900)
[2023-04-04 15:58] LABS: Vitamin D 25-OH, D2 17 ng/mL; Vitamin D 25-OH, D3 20 ng/mL; Vitamin D 25-OH, Total 37 ng/mL (30-100)
[2023-04-08 05:58] LABS: N-Telopeptide 14 (9-60); NTXCreaRU 148 mg/dL (20-320)
== END 2023-03-31 14:52 | disposition home or self-care (01) ==
LOC: HO.LAB 14:51
PROVIDERS: Internal Medicine Endocrinology, Diabetes & Metabolism; PCP Internal Medicine; Visit Provider Nurse Practitioner Family
DX: G47.10 Hypersomnia, unspecified (principal); R53.83 Other fatigue; M81.0 Age-related osteoporosis without current pathological fracture
CPT/HCPCS: 36415; 82306; 82523; 82607; 82746; 84443

== ENCOUNTER 2023-04-16 15:43 | Emergency (ER) | payer OTHER, SELFPAY ==
[2023-01-21 13:15] VITALS: BP 118/64; BP 146/82
[2023-04-16 15:44] VITALS: BP 118/60; BMI 25.6
[2023-04-16 16:10] LABS: MANUAL DIFF FLAG NO
--- NOTE | 2023-04-16 16:11 | PC.NURSE ---
Initial blood glocuse in ED = 49. Patti Jaime MD to bedside. Pt. alert, skin pink, conversing.
[2023-04-16] MEDS: Dextrose 10 % 250 ML 750 ML IV ×2 (16:12→17:25)
[2023-04-16 16:14] LABS: Basophils Absolute Auto 0.1 X10*3/uL (0.0-0.2); Basophils Percent Auto 0.6 % (0-2); Eosinophils Absolute Auto 0.5 X10*3/uL (0.0-0.4); Eosinophils Percent Auto 4.6 % (0-4); Hematocrit 40.4 % (42.0-52.0); Hemoglobin 13.5 g/dl (14.0-18.0); Imm Gran Abs Auto 0.06 X10*3/uL (0.00-0.03); Imm Gran Pct Auto 0.6 % (0.0-0.4); Lymphocytes Percent Auto 10.7 % (20-40); Mean Corpuscular HGB Conc 33.4 g/dl (31.0-36.0); Mean Corpuscular Hemoglobin 31.1 pg (27.0-33.0); Mean Corpuscular Volume 93.1 fL (80.0-98.0); Mean Platelet Volume 10.3 fL (9.4-12.4); Monocytes Absolute Auto 0.9 X10*3/uL (0.1-1.2); Monocytes Percent Auto 9.3 % (2-11); Neutrophils Absolute Auto 7.2 x10*3/uL (2.0-8.3); Neutrophils Percent Auto 74.2 % (45-73); Platelet Count 362 X10*3/uL (160-400); Red Blood Count 4.34 X10*6/uL (4.60-5.80); Red Cell Distribution Width 13.3 % (11.0-16.0); White Blood Count 9.7 X10*3/uL (4.8-10.8)
--- NOTE | 2023-04-16 16:14 | PC.NURSE ---
D10 250cc bag administered per JAN.
--- NOTE | 2023-04-16 16:14 | PC.NURSE ---
Shabana Yee MD at bedside to reassess pt.
[2023-04-16 16:19] VITALS: BP 153/63; PULSE 70; RESP 14; O2SAT 100
--- NOTE | 2023-04-16 16:19 | ED_ITS ---
HPI - General Adult General Chief complaint: General Medical Stated complaint: hypogliceimia Time Seen by Provider: 04/16/23 16:05 Source: patient Mode of arrival: wheelchair Limitations: no limitations History of Present Illness HPI narrative: Patient comes to the emergency room complaining of low blood sugar. Patient is known to be type 1 diabetic, uses an insulin pump. Patient states that before coming to the hospital, he was in cardiac rehab doing exercises. His glucose monitor indicated him that his glucose was low, patient could also feel that he was a bit shaky. Patient states that he has a new insulin pump, it is supposed to only infuse basal insulin but not boluses. His glucometer indicated him that he received and a unit bolus which is not supposed to, 8 units of insulin aspart. Patient states that he immediately drank some juice and a crackers while he was in rehab. Even after eating, his glucose improved to 58. At this time, patient feeling better. Related Data Home Medications Medication Instructions Recorded Confirmed aspirin 81 mg tablet,delayed 81 mg PO DAILY 09/06/20 03/01/23 release (Adult Aspirin Regimen) lisinopril 2.5 mg tablet 2.5 mg PO DAILY 09/06/20 03/01/23 insulin lispro 100 unit/mL 60 sliding scale dose subcut 11/19/22 03/01/23 subcutaneous solution (Admelog USEASDIRECTD U-100 Insulin lispro) atorvastatin 80 mg tablet 80 mg PO DAILY 03/01/23 03/01/23 Previous Rx's Medication Instructions Recorded ticagrelor 90 mg tablet (Brilinta) 90 mg PO BID 90 days #180 tabs 09/29/22 alendronate 70 mg tablet 70 mg PO QWEEK #12 tabs 10/06/22 metoprolol succinate 25 mg 25 mg PO DAILY #90 tabs 12/02/22 tablet,extended release 24 hr bupropion HCl 300 mg 24 hr tablet, 300 mg PO BEDTIME 90 days #90 tabs 01/19/23 extended release calcium carbonate 500 mg calcium 500 mg PO BID #60 tabs 03/01/23 (1,250 mg) tablet glucagon 1 mg solution for 1 mg subcut Q20M PRN hypoglycemia 04/16/23 injection (GlucaGen HypoKit) #1 ea Allergies Allergy/AdvReac Type Severity Reaction Status Date / Time No Known Allergies Allergy Verified 03/30/23 15:08 Review of Systems Review of Systems: Constitutional : No Weight loss, No Fever, No Chills, No Night Sweats, No Fatigue, No Malaise ENT/Mouth : No Hearing loss, No Ear Pain, No Nasal Congestion, No Sinus Pain, No Hoarseness, No sore throat, No Rhinorrhea, No Swallowing Difficulty Eyes: No Eye Pain, No Swelling, No Redness, No Foreign Body, No Discharge, No Vision Changes Cardiovascular : No Chest Pain, No SOB, No Dyspnea on Exertion, No Orthopnea, No Edema, No Palpitations Respiratory : No Cough, No Sputum, No Wheezing, No Smoke Exposure, No Dyspnea Gastrointestinal : No Nausea, No Vomiting, No Diarrhea, No Constipation, No abdominal Pain, No Hematochezia, No Melena Genitourinary : no irregular bleeding, No Dysuria, No Urinary Frequency, No Hematuria, No Urinary Incontinence, No Urgency, No Flank Pain, No Urinary Flow Changes, No Hesitancy Musculoskeletal : No joint pain, No Myalgias, No Joint Swelling Skin : No Skin Lesions, No rash Neuro : No Weakness, No Numbness, No Paresthesias, No Loss of Consciousness, No Dizziness, No Headache Psych : No Anxiety/Panic, No Depression, No SI/HI/AH/VH, No Social Issues, Heme/Lymph: No Bruising, No Bleeding,No Lymphadenopathy Endocrine : No Polyuria, No Polydipsia, No Temperature Intolerance complaining of feeling jittery/hypoglycemic PMFSH Past Medical History Medical History Blind left eye Chronic renal insufficiency Coronary artery disease COVID-19 vaccine administered Depression Diabetes type 1, controlled Diabetic neuropathy associated with type 1 diabetes mellitus Diabetic retinopathy associated with type 1 diabetes mellitus Dyslipidemia Hx of fracture of tibia Hx of retinal detachment Hyperparathyroidism Hypertension Hypogonadism Hypogonadism in male Low vitamin B12 level Myocardial infarction Osteoporosis Surgical History H/O heart artery stent History of surgery Hx of colonoscopy Hx of excision of epidermal inclusion cyst Hx of eye surgery Hx of knee surgery S/P eye surgery Family History Family History Father Cancer CVD (cardiovascular disease) Mother CVD (cardiovascular disease) Hypertension High cholesterol Social History Social History Housing: Apartment Are you a primary human services care specialist to a significant other at home: No Do you presently have visiting nurse or other home services: Yes (has [employer]) Alcohol intake: never Patient Tobacco Use Status: Former Tobacco user Quit Date: 2017 Tobacco use type: Cigarette Years Smoked: 28 Smoked in Last 30 Days: No e-Cigarette/Vaping Use: Currently Using Use of substances other than those prescribed or required for medical reasons: No Advance Directives: No Advance Directives Information Provided: Yes Current occupational status: disabled Current occupation: rt handed Cognitive needs: No Hearing needs: No Vision needs: No Physical Exam ED Vital Signs: Vital Signs - 24 hr 04/16/23 16:19 04/16/23 16:27 04/16/23 18:10 Temperature 98.0 F 97.9 F Pulse Rate 70 72 71 Respiratory Rate 14 16 12 Blood Pressure 153/63 H 153/68 H 141/63 H Pulse Oximetry 100 100 100 Oxygen Delivery Method Room Air Room Air Room Air 04/16/23 19:03 Temperature 98.3 F Pulse Rate 66 Respiratory Rate 17 Blood Pressure 147/61 H Pulse Oximetry 100 Oxygen Delivery Method Room Air BMI result Body Mass Index 26.6 Const Other: Appearance: Alert. Oriented X3. No acute distress. Eyes: Pupils equal, round and reactive to light. ENT: Pharynx normal. Neck: Normal inspection. Neck supple. No lymph nodes noted. No crepitus CVS: Normal heart rate and rhythm. Pulses normal. Normal S1 and S2 Respiratory: No respiratory distress. Breath sounds normal. No Wheezing. No rales Abdomen: Soft and nontender. No rigidity. No distention. Skin: Skin warm and dry. Normal skin color. Normal skin turgor. Extremities: No lower extremity edema. No Lacerations. No Rash Neuro: Oriented X 3. No motor deficit. No sensory deficit. Moving all extremities. No slurred speech. CN 2 through 12 grossly intact Psych: calm, cooperative, normal affect Course Course Course Narrative: -patient receiving D10 IV fluids. -Glucose check at 16:26 was 121 -patient finished a bolus of D10. Glucose was rechecked, it dropped again to 74. Patient on getting another bolus of D10 (D50 equivalent) and starting IV infusion of D10 as well Medications Administered Generic Name Dose Route Start Last Admin Trade Name Mariah PRN Reason Stop Dose Admin Dextrose 1,000 mls @ 75 mls/hr 04/16/23 17:15 04/16/23 19:49 D10 IVCONT 0 mls/hr .[id number] ADAMARIS Infusion Dextrose 250 mls @ 750 mls/hr 04/16/23 17:13 04/16/23 17:58 D10 IV Infused Q15M PRN Infusion per Hypoglycemia Standing Ord. Discontinued Medications Generic Name Dose Route Start Last Admin Trade Name Freq PRN Reason Stop Dose Admin Dextrose 250 mls @ 750 mls/hr 04/16/23 15:51 04/16/23 16:55 D10 IV Infused Q15M PRN Infusion per Hypoglycemia Standing Ord. Medical Decision Making Medical Decision Making [facility] Narrative: -patient has been off D10 for over an hour, patient's glucose is now stable. -glucose check at 20:46 was 286. -patient shut off his pump, states that within less than 24 hours he can get a new pump from the company or insulin. Patient asymptomatic Lab Data 04/16/23 16:02 04/16/23 16:02 Labs: Lab Results 04/16/23 04/16/23 04/16/23 Range/Units 15:50 16:02 16:02 WBC 9.7 (4.8-10.8) X10*3/uL RBC 4.34 L (4.60-5.80) X10*6/uL Hgb 13.5 L (14.0-18.0) g/dl Hct 40.4 L (42.0-52.0) % MCV 93.1 (80.0-98.0) fL MCH 31.1 (27.0-33.0) pg MCHC 33.4 (31.0-36.0) g/dl RDW 13.3 (11.0-16.0) % Plt Count 362 (160-400) X10*3/uL MPV 10.3 (9.4-12.4) fL Immature Gran % (Auto) 0.6 H (0.0-0.4) % Neut % (Auto) 74.2 H (45-73) % Lymph % (Auto) 10.7 L (20-40) % [place] % (Auto) 9.3 (2-11) % Eos % (Auto) 4.6 H (0-4) % Baso % (Auto) 0.6 (0-2) % Lymph # (Auto) 1.0 L (1.2-4.9) X10*3/uL [place] # (Auto) 0.9 (0.1-1.2) X10*3/uL Eos # (Auto) 0.5 H (0.0-0.4) X10*3/uL Baso # (Auto) 0.1 (0.0-0.2) X10*3/uL Abs Immat Gran (auto) 0.06 H (0.00-0.03) X10*3/uL Absolute Neuts (auto) 7.2 (2.0-8.3) x10*3/uL Absolute Nucleated RBC 0.000 (0.0-0.012) X10*3/uL Nucleated RBC % (auto) 0.0 (0.0-0.2) /100WBC Sodium 143 (135-145) mmol/L Potassium 4.9 (3.3-5.1) mmol/L Chloride 107 (96-108) mmol/L Carbon Dioxide 29 (22-29) mmol/L Anion Gap 12 (12-20) BUN 13 (9-16) mg/dL Creatinine 1.35 (0.5-1.4) mg/dL Estim Creat Clear Calc 60.8 Estimated GFR 54 POC Glucose 49 L* (60-115) mg/dL Random Glucose 41 L* (60-115) mg/dL Calcium 10.0 D (8.4-10.2) mg/dL Total Bilirubin 0.9 (0.0-1.0) mg/dL AST 29 (5-37) U/L ALT 23 (0-40) U/L Alkaline Phosphatase 82 (39-117) U/L Total Protein 6.4 L (6.5-8.0) g/dL Albumin 4.1 (3.5-5.0) g/dL Lipase 23 (8-78) U/L Urine Color Urine Appearance Urine pH (5.0-9.0) Ur Specific [place] (1.005-1.025) Urine Protein (Neg-Trace) mg/dL Urine Glucose (UA) (Negative) mg/dL Urine Ketones (Negative) mg/dL Urine Blood (Negative) Urine Nitrite (Negative) Ur Leukocyte Esterase (Negative) 04/16/23 04/16/23 04/16/23 Range/Units 16:22 16:24 16:39 WBC (4.8-10.8) X10*3/uL RBC (4.60-5.80) X10*6/uL Hgb (14.0-18.0) g/dl Hct (42.0-52.0) % MCV (80.0-98.0) fL MCH (27.0-33.0) pg MCHC (31.0-36.0) g/dl RDW (11.0-16.0) % Plt Count (160-400) X10*3/uL MPV (9.4-12.4) fL Immature Gran % (Auto) (0.0-0.4) % Neut % (Auto) (45-73) % Lymph % (Auto) (20-40) % [place] % (Auto) (2-11) % Eos % (Auto) (0-4) % Baso % (Auto) (0-2) % Lymph # (Auto) (1.2-4.9) X10*3/uL [place] # (Auto) (0.1-1.2) X10*3/uL Eos # (Auto) (0.0-0.4) X10*3/uL Baso # (Auto) (0.0-0.2) X10*3/uL Abs Immat Gran (auto) (0.00-0.03) X10*3/uL Absolute Neuts (auto) (2.0-8.3) x10*3/uL Absolute Nucleated RBC (0.0-0.012) X10*3/uL Nucleated RBC % (auto) (0.0-0.2) /100WBC Sodium (135-145) mmol/L Potassium (3.3-5.1) mmol/L Chloride (96-108) mmol/L Carbon Dioxide (22-29) mmol/L Anion Gap (12-20) BUN (9-16) mg/dL Creatinine (0.5-1.4) mg/dL Estim Creat Clear Calc Estimated GFR POC Glucose 120 H 121 H 128 H (60-115) mg/dL Random Glucose (60-115) mg/dL Calcium (8.4-10.2) mg/dL Total Bilirubin (0.0-1.0) mg/dL AST (5-37) U/L ALT (0-40) U/L Alkaline Phosphatase (39-117) U/L Total Protein (6.5-8.0) g/dL Albumin (3.5-5.0) g/dL Lipase (8-78) U/L Urine Color Urine Appearance Urine pH (5.0-9.0) Ur Specific [place] (1.005-1.025) Urine Protein (Neg-Trace) mg/dL Urine Glucose (UA) (Negative) mg/dL Urine Ketones (Negative) mg/dL Urine Blood (Negative) Urine Nitrite (Negative) Ur Leukocyte Esterase (Negative) 04/16/23 04/16/23 04/16/23 Range/Units 16:59 17:27 17:55 WBC (4.8-10.8) X10*3/uL RBC (4.60-5.80) X10*6/uL Hgb (14.0-18.0) g/dl Hct (42.0-52.0) % MCV (80.0-98.0) fL MCH (27.0-33.0) pg MCHC (31.0-36.0) g/dl RDW (11.0-16.0) % Plt Count (160-400) X10*3/uL MPV (9.4-12.4) fL Immature Gran % (Auto) (0.0-0.4) % Neut % (Auto) (45-73) % Lymph % (Auto) (20-40) % [place] % (Auto) (2-11) % Eos % (Auto) (0-4) % Baso % (Auto) (0-2) % Lymph # (Auto) (1.2-4.9) X10*3/uL [place] # (Auto) (0.1-1.2) X10*3/uL Eos # (Auto) (0.0-0.4) X10*3/uL Baso # (Auto) (0.0-0.2) X10*3/uL Abs Immat Gran (auto) (0.00-0.03) X10*3/uL Absolute Neuts (auto) (2.0-8.3) x10*3/uL Absolute Nucleated RBC (0.0-0.012) X10*3/uL Nucleated RBC % (auto) (0.0-0.2) /100WBC Sodium (135-145) mmol/L Potassium (3.3-5.1) mmol/L Chloride (96-108) mmol/L Carbon Dioxide (22-29) mmol/L Anion Gap (12-20) BUN (9-16) mg/dL Creatinine (0.5-1.4) mg/dL Estim Creat Clear Calc Estimated GFR POC Glucose 74 154 H 142 H (60-115) mg/dL Random Glucose (60-115) mg/dL Calcium (8.4-10.2) mg/dL Total Bilirubin (0.0-1.0) mg/dL AST (5-37) U/L ALT (0-40) U/L Alkaline Phosphatase (39-117) U/L Total Protein (6.5-8.0) g/dL Albumin (3.5-5.0) g/dL Lipase (8-78) U/L Urine Color Urine Appearance Urine pH (5.0-9.0) Ur Specific [place] (1.005-1.025) Urine Protein (Neg-Trace) mg/dL Urine Glucose (UA) (Negative) mg/dL Urine Ketones (Negative) mg/dL Urine Blood (Negative) Urine Nitrite (Negative) Ur Leukocyte Esterase (Negative) 04/16/23 04/16/23 04/16/23 Range/Units 18:24 19:16 19:25 WBC (4.8-10.8) X10*3/uL RBC (4.60-5.80) X10*6/uL Hgb (14.0-18.0) g/dl Hct (42.0-52.0) % MCV (80.0-98.0) fL MCH (27.0-33.0) pg MCHC (31.0-36.0) g/dl RDW (11.0-16.0) % Plt Count (160-400) X10*3/uL MPV (9.4-12.4) fL Immature Gran % (Auto) (0.0-0.4) % Neut % (Auto) (45-73) % Lymph % (Auto) (20-40) % [place] % (Auto) (2-11) % Eos % (Auto) (0-4) % Baso % (Auto) (0-2) % Lymph # (Auto) (1.2-4.9) X10*3/uL [place] # (Auto) (0.1-1.2) X10*3/uL Eos # (Auto) (0.0-0.4) X10*3/uL Baso # (Auto) (0.0-0.2) X10*3/uL Abs Immat Gran (auto) (0.00-0.03) X10*3/uL Absolute Neuts (auto) (2.0-8.3) x10*3/uL Absolute Nucleated RBC (0.0-0.012) X10*3/uL Nucleated RBC % (auto) (0.0-0.2) /100WBC Sodium (135-145) mmol/L Potassium (3.3-5.1) mmol/L Chloride (96-108) mmol/L Carbon Dioxide (22-29) mmol/L Anion Gap (12-20) BUN (9-16) mg/dL Creatinine (0.5-1.4) mg/dL Estim Creat Clear Calc Estimated GFR POC Glucose 148 H 173 H (60-115) mg/dL Random Glucose (60-115) mg/dL Calcium (8.4-10.2) mg/dL Total Bilirubin (0.0-1.0) mg/dL AST (5-37) U/L ALT (0-40) U/L Alkaline Phosphatase (39-117) U/L Total Protein (6.5-8.0) g/dL Albumin (3.5-5.0) g/dL Lipase (8-78) U/L Urine Color Yellow Urine Appearance Clear Urine pH 7.0 (5.0-9.0) Ur Specific [place] <= 1.005 (1.005-1.025) Urine Protein Negative (Neg-Trace) mg/dL Urine Glucose (UA) 100 H (Negative) mg/dL Urine Ketones Negative (Negative) mg/dL Urine Blood Negative (Negative) Urine Nitrite Negative (Negative) Ur Leukocyte Esterase Negative (Negative) 04/16/23 04/16/23 04/16/23 Range/Units 19:47 20:23 20:46 WBC (4.8-10.8) X10*3/uL RBC (4.60-5.80) X10*6/uL Hgb (14.0-18.0) g/dl Hct (42.0-52.0) % MCV (80.0-98.0) fL MCH (27.0-33.0) pg MCHC (31.0-36.0) g/dl RDW (11.0-16.0) % Plt Count (160-400) X10*3/uL MPV (9.4-12.4) fL Immature Gran % (Auto) (0.0-0.4) % Neut % (Auto) (45-73) % Lymph % (Auto) (20-40) % [place] % (Auto) (2-11) % Eos % (Auto) (0-4) % Baso % (Auto) (0-2) % Lymph # (Auto) (1.2-4.9) X10*3/uL [place] # (Auto) (0.1-1.2) X10*3/uL Eos # (Auto) (0.0-0.4) X10*3/uL Baso # (Auto) (0.0-0.2) X10*3/uL Abs Immat Gran (auto) (0.00-0.03) X10*3/uL Absolute Neuts (auto) (2.0-8.3) x10*3/uL Absolute Nucleated RBC (0.0-0.012) X10*3/uL Nucleated RBC % (auto) (0.0-0.2) /100WBC Sodium (135-145) mmol/L Potassium (3.3-5.1) mmol/L Chloride (96-108) mmol/L Carbon Dioxide (22-29) mmol/L Anion Gap (12-20) BUN (9-16) mg/dL Creatinine (0.5-1.4) mg/dL Estim Creat Clear Calc Estimated GFR POC Glucose 245 H 275 H 286 H (60-115) mg/dL Random Glucose (60-115) mg/dL Calcium (8.4-10.2) mg/dL Total Bilirubin (0.0-1.0) mg/dL AST (5-37) U/L ALT (0-40) U/L Alkaline Phosphatase (39-117) U/L Total Protein (6.5-8.0) g/dL Albumin (3.5-5.0) g/dL Lipase (8-78) U/L Urine Color Urine Appearance Urine pH (5.0-9.0) Ur Specific [place] (1.005-1.025) Urine Protein (Neg-Trace) mg/dL Urine Glucose (UA) (Negative) mg/dL Urine Ketones (Negative) mg/dL Urine Blood (Negative) Urine Nitrite (Negative) Ur Leukocyte Esterase (Negative) Critical Care Time Critical Care Time Critical Care Time: Yes Total Critical Care Time: 60 Attestation: I have personally provided critical care time. Time includes review of lab data, radiology results, discussion with consultants, and monitoring for potential decompensation. Intervention performed as documented. Discharge Plan Discharge Clinical Impression: Accidental overdose of insulin Patient Disposition: Home, Self-Care Instructions: Hypoglycemia in a Person with Diabetes (ED) Additional Instructions: Please follow-up with your primary care physician tomorrow. If you have any worsening or new symptoms, please return to the emergency room or call 911 Prescriptions: New GlucaGen HypoKit 1 mg recon soln 1 mg subcut Q20M PRN (Reason: hypoglycemia) Qty: 1 0RF Rx Instructions: until target blood sugar attained. Use only in case of severe hypoglycemia, and not being able to eat or drink No Action Brilinta 90 mg tablet 90 mg PO BID 90 Days Qty: 180 3RF alendronate 70 mg tablet 70 mg PO QWEEK Qty: 12 2RF metoprolol succinate 25 mg tablet extended release 24 hr 25 mg PO DAILY Qty: 90 3RF calcium carbonate 500 mg calcium (1,250 mg) tablet 500 mg PO BID Qty: 60 6RF bupropion HCl 300 mg tablet extended release 24 hr 300 mg PO BEDTIME 90 Days Qty: 90 3RF lisinopril 2.5 mg tablet 2.5 mg PO DAILY aspirin [Adult Aspirin Regimen] 81 mg tablet,delayed release (DR/EC) 81 mg PO DAILY insulin lispro [Admelog U-100 Insulin lispro] 100 unit/mL solution 60 sliding scale dose subcut USEASDIRECTD Rx Instructions: via insulin pump atorvastatin 80 mg tablet 80 mg PO DAILY
--- NOTE | 2023-04-16 16:24 | PC.NURSE ---
Rechecked pt.'s POC x2 with Shabana Yee MD at bedside. POC on left hand was 120. Rechecked again immediately after on the right hand to compare sides per MD verbal orders, and that POC result was 121. MD aware and will continue to monitor POCs Q15 minutes.
[2023-04-16 16:27] VITALS: BP 153/68; PULSE 72; RESP 16; TEMP 36.7; O2SAT 100; BMI 26.6
[2023-04-16 16:30] LABS: Alanine Aminotransferase 23 U/L (0-40); Albumin Level 4.1 g/dL (3.5-5.0); Alkaline Phosphatase 82 U/L (39-117); Anion Gap 12 (12-20); Aspartate Amino Transferase 29 U/L (5-37); Bilirubin Total 0.9 mg/dL (0.0-1.0); Blood Urea Nitrogen 13 mg/dL (9-16); Carbon Dioxide 29 mmol/L (22-29); Chloride 107 mmol/L (96-108); Creatinine Clr Calc Pharmacy 60.8; Estimated Glomerular Filt Rate 54; Glucose Random 41 mg/dL (60-115); Lipase 23 U/L (8-78); Potassium 4.9 mmol/L (3.3-5.1); Sodium 143 mmol/L (135-145); Total Protein 6.4 g/dL (6.5-8.0)
--- NOTE | 2023-04-16 16:41 | PC.NURSE ---
Repeat POC 128. Shabana Yee MD notified and aware.
[2023-04-16 16:43] LABS: Glucose, Whole Blood 121 mg/dL (60-115)
[2023-04-16 16:43] LABS: Glucose, Whole Blood 49 mg/dL (60-115)
[2023-04-16 16:43] LABS: Glucose, Whole Blood 120 mg/dL (60-115)
[2023-04-16 16:44] LABS: Glucose, Whole Blood 128 mg/dL (60-115)
--- NOTE | 2023-04-16 17:00 | PC.NURSE ---
Rechecked pt.'s POC. POC down to 74 from 128. aware
[2023-04-16 17:03] LABS: Glucose, Whole Blood 74 mg/dL (60-115)
--- NOTE | 2023-04-16 17:05 | PC.NURSE ---
MD Joselito verbal orders- hang seocnd bag of D10 250cc. Awaiting MAR orders at this time.
[2023-04-16 17:32] LABS: Glucose, Whole Blood 154 mg/dL (60-115)
--- NOTE | 2023-04-16 17:32 | PC.NURSE ---
Repeat POC 154. still wants ordered D10 infusion. Called nursing wireline supervisor for 1L bag of D10 and awaiting its delivery to department at this time.
[2023-04-16] MEDS: Dextrose 10 % 1,000 ML 75 ML IVCONT (17:48)
[2023-04-16 17:58] LABS: Glucose, Whole Blood 142 mg/dL (60-115)
[2023-04-16 18:10] VITALS: BP 141/63; PULSE 71; RESP 12; TEMP 36.6; O2SAT 100
--- NOTE | 2023-04-16 18:26 | MHC.EDTECH ---
POC 148. Dr. Yee and GARTH perkins.
[2023-04-16 18:28] LABS: Glucose, Whole Blood 148 mg/dL (60-115)
[2023-04-16 19:03] VITALS: BP 147/61; PULSE 66; RESP 17; TEMP 36.8; O2SAT 100
[2023-04-16 19:21] LABS: Glucose, Whole Blood 173 mg/dL (60-115)
[2023-04-16 19:36] LABS: Appearance Urine Clear; Color Urine Yellow; Glucose Urine UA 100 mg/dL (Negative); Leukocyte Esterase Urine Negative (Negative); Nitrite Urine Negative (Negative); Specific Gravity - Urine <= 1.005 (1.005-1.025); Urine Blood Negative (Negative); Urine Ketones Negative (Negative); Urine Protein Negative (Neg-Trace)
--- NOTE | 2023-04-16 19:46 | PC.NURSE ---
this rn checked poc @ [address] sequeira order. poc 173. this rn made dr shah aware. per dr alyssa haas to do poc checks every 30 minutes.
--- NOTE | 2023-04-16 19:50 | PC.NURSE ---
poc recheck 245 at this time this rn made dr shah aware of poc result. per dr shah order. pause D10 gtt and recheck poc in 30 minutes
[2023-04-16 19:51] LABS: Glucose, Whole Blood 245 mg/dL (60-115)
[2023-04-16 20:27] LABS: Glucose, Whole Blood 275 mg/dL (60-115)
--- NOTE | 2023-04-16 20:39 | PC.NURSE ---
poc rechecked @ 2022 poc [address] shah made aware of poc result. per dr shah recheck poc in 20 minutes
[2023-04-16 20:49] LABS: Glucose, Whole Blood 286 mg/dL (60-115)
[2023-04-16 21:10] VITALS: BP 150/72; PULSE 77; RESP 13; TEMP 36.9; O2SAT 100
--- NOTE | 2023-04-16 21:14 | PC.NURSE ---
pt calm and cooperative. iv removed. vss. skin pwd. pt ambulatory at discharge. pt provided with discharge packet. pt verbalized understanding of discharge plan
== END 2023-04-16 21:17 | disposition home or self-care (01) ==
PROVIDERS: Emergency Medicine Emergency Medical Services; Emergency Provider Emergency Medicine; PCP Internal Medicine
DX: T38.3X1A Poisoning by insulin and oral hypoglycemic [antidiabetic] drugs, accidental (unintentional), initial encounter (principal); E10.649 Type 1 diabetes mellitus with hypoglycemia without coma; I25.10 Atherosclerotic heart disease of native coronary artery without angina pectoris; I10 Essential (primary) hypertension; Y92.9 Unspecified place or not applicable; Z79.899 Other long term (current) drug therapy; Z79.4 Long term (current) use of insulin; Z87.891 Personal history of nicotine dependence
CPT/HCPCS: 36415; 80053; 81003; 82947; 83690; 85025; 96365; 96366; 99284

== ENCOUNTER → 2023-05-06 20:30 | Outpatient (REF) | payer OTHER, SELFPAY ==
[2023-04-16 15:44] VITALS: BP 118/60; BMI 25.6
[2023-05-04 12:01] VITALS: BP 102/46; BP 134/60
== END ==
LOC: HO.SL 20:30
PROVIDERS: PCP Internal Medicine; Visit Provider Nurse Practitioner Family
DX: G47.33 Obstructive sleep apnea (adult) (pediatric) (principal)
CPT/HCPCS: 95810

== ENCOUNTER 2023-06-08 13:38 | Outpatient (AMB) | payer OTHER, SELFPAY ==
[2023-05-04 12:01] VITALS: BP 102/46; BP 134/60
[2023-06-08 13:39] VITALS: BP 120/76; PULSE 74; O2SAT 98; BMI 25.7
--- NOTE | 2023-06-08 13:39 | A.OFFPC_ITS ---
Vital Signs 06/08/23 13:39 Height 5 ft 10 in Weight 179 lb BMI 25.7 BP 120/76 Pulse 74 Pulse Source Pulse Oximeter Pulse Oximetry (%) 98 Oxygen Delivery Method Room Air Intake Visit Reasons: PE Allergies No Known Allergies Allergy (Verified 06/08/23 13:41) Medication List - Last Reconciled 06/08/23 by Samira Quispe MD alendronate 70 mg PO QWEEK aspirin (Adult Aspirin Regimen) 81 mg PO DAILY atorvastatin 80 mg PO DAILY glucagon (GlucaGen HypoKit) 1 mg subcut Q20M PRN insulin lispro (Admelog U-100 Insulin lispro) 60 sliding scale doses subcut USEASDIRECTD lisinopril 2.5 mg PO DAILY metoprolol succinate ER 25 mg PO DAILY ticagrelor (Brilinta) 90 mg PO BID 90 days Tobacco use date assessed: 06/08/23 Dental Screening Dental Screen Date: 06/08/23 Did you have a dental problem in the last 6 months where you did not have access to dental care?: No Was dental information given to patient?: No HPI PE HPI Details Physical exam appointment Patient is he had a colonoscopy 2 years ago He has stop taking Wellbutrin that he was taking for excessive sleep But since he has started using CPAP machine he is feeling better and has stop taking the medication No medications are coming from this office Labs are being done through cardiology office as per patient PFS Medical History Blind left eye Chronic renal insufficiency Coronary artery disease COVID-19 vaccine administered Depression Diabetes type 1, controlled Diabetic neuropathy associated with type 1 diabetes mellitus Diabetic retinopathy associated with type 1 diabetes mellitus Dyslipidemia Hx of fracture of tibia Hx of retinal detachment Hyperparathyroidism Hypertension Hypogonadism Hypogonadism in male Low vitamin B12 level Myocardial infarction Osteoporosis Surgical History H/O heart artery stent History of surgery Hx of colonoscopy Hx of excision of epidermal inclusion cyst Hx of eye surgery Hx of knee surgery S/P eye surgery Family History Father Cancer CVD (cardiovascular disease) Mother CVD (cardiovascular disease) Hypertension High cholesterol Social History Housing: Apartment Are you a primary child care to a significant other at home: No Do you presently have visiting nurse or other home services: Yes (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 How often do you have a drink containing alcohol?: Never 3. How often do you have six or more drinks on one occasion?: Never Total Score: 0 Score Reviewed/Action Taken: Yes PARMINDER-7 AMB Questionnaire PARMINDER-7 Date PARMINDER - 7 assessed: 09/01/22 Source: Developed by Drs. Jenaro Lopez, Adina Artis, Juancarlos Xiao and colleagues, with an educational alida from [employer]. Review of Systems Const Denies chills, Denies fever(s) and Denies headache(s) ENT Denies headache(s), Denies nasal discharge, Denies nasal obstruction, Denies odynophagia and Denies sinus pain Card Denies chest pain at rest and Denies chest pain with activity Resp Denies cough and Denies hemoptysis GI Denies diarrhea, Denies odynophagia, Denies vomiting and Denies hematemesis Reports as per HPI Musc Denies abnormal gait Skin/Breast Reports as per HPI Neuro Denies Neuro-related abnormal movements, Denies Abnormal speech present, Denies abnormal gait, Denies headache(s) and Denies Sensory deficit (Neuro) Psych Denies mood swings and Denies paranoia Endo Reports as per HPI Bimal/Lymph Reports as per HPI Aller/Immun Reports as per HPI Physical exam (Primary Care) Vital Signs: Last Vital Signs Pulse 74 06/08/23 13:39 BP 120/76 06/08/23 13:39 Pulse Ox 98 06/08/23 13:39 Oxygen Delivery Method Room Air 06/08/23 13:39 BMI result Body Mass Index 25.7 Tobacco/Smoking Status: Tobacco use Status Tobacco use date assessed 06/08/23 06/08/23 13:40 Patient Tobacco Use Status Former Tobacco user 06/08/23 13:40 Tobacco use type Cigarette 06/08/23 13:40 e-Cigarette/Vaping Use Currently Using 06/08/23 13:40 Thrive Assessment: Date of Thrive Assessment Date Thrive assessed 09/01/22 06/08/23 13:40 Const General: cooperative, comfortable and no acute distress Orientation/consciousness: patient oriented x3 HENMT Head: Yes normocephalic and Yes atraumatic Neck Neck: Yes supple and No lymphadenopathy Thyroid: Thyroid normal Lymphatic: no lymphadenopathy noted Resp Effort & Inspection: normal respiratory effort and able to speak in complete sentences Auscultation: clear to auscultation bilaterally Cardio Heart sounds: S1 normal heart sound present and S2 normal heart sound present GI Palpation (GI): Soft to palpation and nontender Auscultation: normal bowel sounds General: Yes no CVA tenderness Back/Spine/Pelvis Back: no CVA tenderness Skin General skin exam: elasticity normal and turgor normal Neuro General: patient oriented x3 and gait normal Speech: No Abnormal speech present Sensory Exam: No Sensory deficit (Neuro) Coordination: tandem gait normal and Romberg test negative Extrem General: Yes normal exam except as noted and No edema Assessment and Plan Assessment & Plan (1) Annual physical exam: Code(s): Z00.00 - Encounter for general adult medical examination without abnormal findings Plan Physical exam appointment Patient is he had a colonoscopy 2 years ago He has stop taking Wellbutrin that he was taking for excessive sleep But since he has started using CPAP machine he is feeling better and has stop taking the medication No medications are coming from this office Labs are being done through cardiology office as per patient Coding Level of Care Code Est Pt Prev Care 40-64y(28851) Diagnoses Annual physical exam Z00.00
== END 2023-06-08 14:42 | disposition home or self-care (01) ==
PROVIDERS: Visit Provider Internal Medicine
DX: Z00.00 Encounter for general adult medical examination without abnormal findings (principal)
CPT/HCPCS: 99396

== ENCOUNTER 2023-06-22 15:07 | Outpatient (AMB) | payer OTHER, SELFPAY ==
[2023-01-21 13:15] VITALS: BP 118/64; BP 146/82
[2023-03-16 07:45] VITALS: BP 122/58; BMI 29.9
[2023-05-04 12:01] VITALS: BP 102/46; BP 134/60
--- NOTE | 2023-06-22 15:09 | A.OFFVIS_ITS ---
Intake Vital Signs 06/22/23 15:12 BP 122/60 Blood Pressure Location Rt brachial Position Sitting Pulse 79 Pulse Source Pulse Oximeter Pulse Oximetry (%) 96 Oxygen Delivery Method Room Air Intake Visit Reasons: 2 mnts f/u for sleep - Confirmed Intake Note: Patient presents for 2 month follow up Allergies No Known Allergies Allergy (Verified 06/22/23 15:11) HPI HPI Comments History of Present Illness Details 58 y/o male patient presents for follow up of sleep study. The PSG sleep study result was significant for mild degree of sleep apnea. The AHI was 7/hr and oxygen liborio was 88%. Pt started APAP [id number]. The CPAP compliance and therapy response ( 05/24/23-06/22/23 )reviewed. The usage days 21 days, and the average usage hours 7 hours 20 min. The mean pressure was 7.0 and the AHI was 2.2/hr. Pt reports that he has not taking a nap since he start using CPAP. He sleeps well from 3-4 am to 1 pm, that is his routine sleep schedule. He is more physically active during daytime, able to spend more time outside. [facility] Medical History Blind left eye Chronic renal insufficiency Coronary artery disease COVID-19 vaccine administered Depression Diabetes type 1, controlled Diabetic neuropathy associated with type 1 diabetes mellitus Diabetic retinopathy associated with type 1 diabetes mellitus Dyslipidemia Hx of fracture of tibia Hx of retinal detachment Hyperparathyroidism Hypertension Hypogonadism Hypogonadism in male Low vitamin B12 level Myocardial infarction Osteoporosis Surgical History H/O heart artery stent History of surgery Hx of colonoscopy Hx of excision of epidermal inclusion cyst Hx of eye surgery Hx of knee surgery S/P eye surgery Family History Father Cancer CVD (cardiovascular disease) Mother CVD (cardiovascular disease) Hypertension High cholesterol Social History Housing: Apartment Are you a primary memory care director to a significant other at home: No Do you presently have visiting nurse or other home services: Yes (has HOME HEALTH PHYSICAL THERAPIST) Alcohol intake: never Patient Tobacco Use Status: Former Tobacco user Quit Date: 2017 Tobacco use type: Cigarette Years Smoked: 28 e-Cigarette/Vaping Use: Currently Using Current occupational status: disabled Current occupation: rt handed Cognitive needs: No Hearing needs: No Vision needs: No Review of Systems Const All systems reviewed & are unremarkable except as noted in HPI and below ENT Reports Normal hearing present Neuro Reports Normal hearing present Physical Exam Vital Signs: Last Vital Signs Pulse 79 06/22/23 15:12 BP 122/60 06/22/23 15:12 Pulse Ox 96 06/22/23 15:12 Oxygen Delivery Method Room Air 06/22/23 15:12 Const General: cooperative Nutritional Appearance: average body habitus Orientation/consciousness: patient oriented x3 Neck Neck: Yes full ROM and Yes supple Resp Effort & Inspection: normal respiratory effort and able to speak in complete sentences Neuro Other: left eye blind. General: patient oriented x3 Cranial nerves: Yes Normal facial strength present, Yes Midline tongue present, Yes Symmetric palate elevation present, Yes Normal hearing present, Yes Ability to bilaterally rotate head present and Yes Ability to bilaterally elevate shoulders present Cognition (Neuro): normal cognition Motor exam (neuro): 5/5 motor strength present throughout, Pronator motor function not present and no tremor noted Psych Appearance: grossly normal Mental Status: mental status grossly normal Affect: normal affect Attitude: cooperative Assessment & Plan Assessment & Plan (1) ERIC on CPAP: Code(s): G47.33 - Obstructive sleep apnea (adult) (pediatric) Plan Continue to use APAP [id number] as patient experiences good clinical result, better quality sleep and less daytime tiredness. Stressed compliance, use CPAP nightly and more than 4 hours. Clean mask and tubing regularly. Continue to practice good sleep hygiene and active during daytime. Coding Level of Care Code Est Pt Level 3 (77731) Diagnoses ERIC on CPAP G47.33
[2023-06-22 15:12] VITALS: BP 122/60; PULSE 79; O2SAT 96
== END 2023-06-22 15:23 | disposition home or self-care (01) ==
LOC: HO.HSMC 15:07
PROVIDERS: PCP Internal Medicine; Visit Provider Nurse Practitioner Family
DX: G47.33 Obstructive sleep apnea (adult) (pediatric) (principal)
CPT/HCPCS: 99213

== ENCOUNTER → 2023-06-22 15:07 | Outpatient (BNVA) | payer OTHER, SELFPAY ==
[2023-05-04 12:01] VITALS: BP 102/46; BP 134/60
== END ==
PROVIDERS: PCP Internal Medicine; Visit Provider Nurse Practitioner Family
DX: G47.33 Obstructive sleep apnea (adult) (pediatric) (principal); Z99.89 Dependence on other enabling machines and devices
CPT/HCPCS: 99212

== ENCOUNTER 2023-07-28 15:44 | Outpatient (AMB) | payer OTHER, SELFPAY ==
[2023-05-04 12:01] VITALS: BP 102/46; BP 134/60
--- NOTE | 2023-07-28 15:52 | MHC.OFFVIS ---
Intake Intake Visit Reasons: ED- yearly follow up Intake Note: Patient is present for Follow Up Urology Med: none Antibiotic Allergy:None Blood Thinner: Aspirin Pharmacy: [facility] Allergies No Known Allergies Allergy (Verified 07/28/23 15:56) HPI HPI Comments History of Present Illness Details Servando is a pleasant male. He is a patient of Dr. Quispe. He seen for the following urologic issues - erectile dysfunction Current sexual activity is on hold Will call when needs refill Discussed normal testosterone and PSA 12 month follow-up Prior PSA 03/19 1.6, 02/17 1.8 T 620 normal pituitary hormones HbA1c 05/19 7.1 Erectile dysfunction: Diabetic type 1 He presents today for for continued evaluation and management of erectile dysfunction Symptoms have been present for/since since 2015. Procedure(s)/Diagnosis causing dysfunction include diabetes - type 1 for 50 years. Current treatment includes daily tadalafil 10 mg - with on demand sildenafil Treatment side effects include none Prior therapies include oral medications - attenuated response to maximum dose sildenafil At this time he experiences erections 10/15 are partial and adequate for vaginal penetration, that undergo detumesence prior to penetration, ABIMBOLA 12-16 Mild-Moderate ED /18 , are partial and adequate for vaginal penetration. Nocturnal erections do occur. Currently they are in a stable relationship. Associated problems hypertension Yes diabetes Yes - longstanding type 1 diabetic since age 2 Medications include(s) antidepressant medication, antihypertensive medication. Overall he is satisfied with the current management. Therapeutic plan includes trial daily tadalafil PFSH Medical History Blind left eye Chronic renal insufficiency Coronary artery disease COVID-19 vaccine administered Depression Diabetes type 1, controlled Diabetic neuropathy associated with type 1 diabetes mellitus Diabetic retinopathy associated with type 1 diabetes mellitus Dyslipidemia Hx of fracture of tibia Hx of retinal detachment Hyperparathyroidism Hypertension Hypogonadism Hypogonadism in male Low vitamin B12 level Myocardial infarction Osteoporosis Surgical History H/O heart artery stent History of surgery Hx of colonoscopy Hx of excision of epidermal inclusion cyst Hx of eye surgery Hx of knee surgery S/P eye surgery Family History Father Cancer CVD (cardiovascular disease) Mother CVD (cardiovascular disease) Hypertension High cholesterol Social History Housing: Apartment Are you a primary care information associate to a significant other at home: No Do you presently have visiting nurse or other home services: Yes (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) Alcohol intake: never Patient Tobacco Use Status: Former Tobacco user Quit Date: 2017 Tobacco use type: Cigarette Years Smoked: 28 e-Cigarette/Vaping Use: Currently Using Current occupational status: disabled Current occupation: rt handed Cognitive needs: No Hearing needs: No Vision needs: No Review of Systems Const Denies chills and Denies fever(s) Card Reports no additional complaints and Denies syncope Resp Denies cough GI Denies abdominal pain and Denies heartburn Reports as per HPI and Denies change in libido Neuro Denies syncope Psych Denies change in libido Endo Denies change in libido Physical Exam Const General: cooperative, healthy appearing, comfortable and no acute distress Orientation/consciousness: patient oriented x3 HEENT Face and sinus: Yes normal facial exam Mouth: moist mucous membranes Neck Neck: Yes normal visual inspection, Yes full ROM and Yes trachea midline Chest Chest palpation & inspection: normal inspection of the chest Resp Effort & Inspection: normal respiratory effort, able to speak in complete sentences and no respiratory distress GI Inspection: Yes normal to inspection Back/Spine/Pelvis Cervical Spine: normal cervical lordosis Thoracic/Lumbar Spine: thoracic and lumbar spine normal to inspection Skin General skin exam: no rashes or lesions noted Neuro General: patient oriented x3, gait normal, tone normal and moves all extremities Extrem General: Yes normal to inspection and Yes capillary refill normal Assessment & Plan Assessment & Plan (1) Erectile dysfunction due to diabetes mellitus: Code(s): E11.69 - Type 2 diabetes mellitus with other specified complication; N52.1 - Erectile dysfunction due to diseases classified elsewhere Plan Twelve month follow-up Patient Instructions: Imaging studies, laboratory and physical exam results were discussed and reviewed in detail. No major barriers to patient understanding were identified. An opportunity to ask questions regarding the treatment plan was provided. All questions were answered. The patient expressed understanding and agreement with the above treatment plan. The patient is aware they should contact our office by phone for worsening of their current condition or the appearance of new urologic symptoms. Compliance is encouraged with any medications and followup testing that is ordered. It is a privilege to participate in the urologic care of your patient. If you have any questions or concerns regarding treatment for the above conditions, or other urologic issues, please do not hesitate to contact me. The office telephone contact is [phone]. This note is constructed using voice recognition software. While every effort has been made to ensure accuracy deaf/hard of hearing specialist errors may have been included. Yours sincerely, Dr Wilfrido Hurst MD, [facility] - Urology Providers of Expert, Compassionate Care for the Genitourinary System Coding Level of Care Code Est Pt Level 4 (61212) Diagnoses Erectile dysfunction due to diabetes mellitus E11.69; N52.1
== END 2023-07-28 16:09 | disposition home or self-care (01) ==
PROVIDERS: PCP Internal Medicine; Visit Provider Urology
DX: E11.69 Type 2 diabetes mellitus with other specified complication (principal); N52.1 Erectile dysfunction due to diseases classified elsewhere
CPT/HCPCS: 99213

== ENCOUNTER → 2023-07-28 15:44 | Outpatient (BNVA) | payer OTHER, SELFPAY ==
[2023-05-04 12:01] VITALS: BP 102/46; BP 134/60
== END ==
PROVIDERS: Visit Provider Urology

== ENCOUNTER 2023-08-23 17:00 | Outpatient (REF) | payer OTHER, SELFPAY ==
[2023-05-04 12:01] VITALS: BP 102/46; BP 134/60
[2023-08-23 18:05] LABS: Anion Gap 12 (12-20); Blood Urea Nitrogen 13 mg/dL (9-16); Calcium 9.6 mg/dL (8.4-10.2); Carbon Dioxide 23 mmol/L (22-29); Chloride 107 mmol/L (96-108); Estimated Glomerular Filt Rate 59; Potassium 5.2 mmol/L (3.3-5.1); Sodium 137 mmol/L (135-145)
[2023-08-23 18:07] LABS: Creatinine Urine 124.07 mg/dL; Protein/Creatinine Ratio, Ur 0.08 (<0.2); Total Protein Urine Random 10 mg/dL (<12)
== END 2023-08-23 17:01 | disposition home or self-care (01) ==
LOC: HO.LAB 17:00
PROVIDERS: PCP Internal Medicine; Visit Provider Internal Medicine Nephrology
DX: N18.31 Chronic kidney disease, stage 3a (principal)
CPT/HCPCS: 36415; 80051; 82310; 82565; 82570; 84156; 84520

== ENCOUNTER 2023-12-07 12:37 | Outpatient (AMB) | payer OTHER, SELFPAY ==
[2023-01-21 13:15] VITALS: BP 118/64; BP 146/82
[2023-02-19 06:57] VITALS: BP 114/52; BMI 29.9
[2023-05-04 12:01] VITALS: BP 102/46; BP 134/60
--- NOTE | 2023-12-07 12:42 | MHC.OFFVIS ---
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: No Accompanied by: Self / Same As Patient Allergies No Known Allergies Allergy (Verified 07/28/23 15:56) Medication List - Last Reconciled 12/07/23 by Darryl Leong MD aspirin (Adult Aspirin Regimen) 81 mg PO DAILY atorvastatin 80 mg PO DAILY calcium carbonate (Oyster Shell Calcium 500) 500 mg PO BID glucagon (GlucaGen HypoKit) 1 mg subcut Q20M PRN insulin lispro (Admelog U-100 Insulin lispro) 60 sliding scale doses subcut USEASDIRECTD insulin pump cart,automated,BT (Omnipod 5 G6 Pods (Gen 5) subcutaneous cartridge) As directed lisinopril 2.5 mg PO DAILY metoprolol succinate ER 25 mg PO DAILY tadalafil 10 mg PO DAILY 30 days ticagrelor (Brilinta) 90 mg PO BID 90 days HPI HPI Comments History of Present Illness Details Servando returns for follow-up regarding coronary disease. Due to long history of type 1 diabetes, he underwent ischemia workup. He was also complaining of shortness of breath with activity. Stress test was positive, and that in turn led to coronary CTA and diagnostic catheterization. He has undergone multivessel PCI about a year ago. Since last seen, generally doing well. No anginal-type symptoms. Sometimes he feel as though he can not take a deep breath but sounds very nonspecific. No clear-cut angina or anginal equivalents otherwise. Compliant with all his medications. PENDING SALE TO [facility] Medical History Blind left eye Chronic renal insufficiency Coronary artery disease COVID-19 vaccine administered Depression Diabetes type 1, controlled Diabetic neuropathy associated with type 1 diabetes mellitus Diabetic retinopathy associated with type 1 diabetes mellitus Dyslipidemia Hx of fracture of tibia Hx of retinal detachment Hyperparathyroidism Hypertension Hypogonadism Hypogonadism in male Low vitamin B12 level Myocardial infarction Osteoporosis Surgical History H/O heart artery stent S/P eye surgery History of surgery Hx of eye surgery Hx of knee surgery Hx of excision of epidermal inclusion cyst Hx of colonoscopy Family History Father Cancer CVD (cardiovascular disease) Mother CVD (cardiovascular disease) Hypertension High cholesterol Social History Housing: Apartment Are you a primary care management associate to a significant other at home: No Do you presently have visiting nurse or other home services: Yes (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 LACQUERER) Alcohol intake: never Patient Tobacco Use Status: Former Tobacco user Quit Date: 2017 Tobacco use type: Cigarette Years Smoked: 28 e-Cigarette/Vaping Use: Currently Using Current occupational status: disabled Current occupation: rt handed Cognitive needs: No Hearing needs: No Vision needs: No Review of Systems Const Denies weakness ENT Denies dizziness Card Denies chest pain, Denies chest pain with activity, Denies syncope, Denies rapid heart rate, Denies pedal edema, Denies edema, Denies leg edema, Denies lightheadedness, Denies palpitations, Reports dyspnea, Reports dyspnea on exertion and Denies orthopnea Resp Denies cough, Reports dyspnea and Reports dyspnea on exertion GI Denies hematochezia and Denies change in stool character Musc Denies abnormal gait, Denies muscle cramps, Denies muscle weakness, Denies numbness, Denies radiating pain into limb and Denies tingling Neuro Denies abnormal gait, Denies dizziness, Denies syncope, Denies numbness, Denies tingling and Denies weakness Endo Denies palpitations Physical Exam Vital Signs: Last Vital Signs Pulse 74 12/07/23 12:43 BP 120/56 L 12/07/23 12:43 BMI result Body Mass Index 26.8 Const General: comfortable and no acute distress Orientation/consciousness: patient oriented x3 HEENT Other: Unremarkable Head: Yes normal to inspection Neck Neck: Yes normal visual inspection Chest Chest palpation & inspection: normal inspection of the chest Resp Auscultation: clear to auscultation bilaterally Cardio Palpation: normal PMI Heart sounds: S1 normal heart sound present, S2 normal heart sound present, no gallops, no murmurs and no rubs GI Palpation (GI): Soft to palpation Back/Spine/Pelvis Other: unremarkable Skin General skin exam: no rashes or lesions noted Neuro General: patient oriented x3 Extrem General: Yes normal to inspection Psych Mental Status: mental status grossly normal Assessment & Plan Assessment & Plan (1) Atherosclerotic cardiovascular disease: Code(s): I25.10 - Atherosclerotic heart disease of [place] coronary artery without angina pectoris (2) Type 1 diabetes mellitus with unspecified complications: Code(s): E10.8 - Type 1 diabetes mellitus with unspecified complications Plan Cardiac studies summarized as below. Myocardial perfusion imaging study shows mild intensity apical ischemia/equivocal inferior wall ischemia. In the coronary CTA, multivessel disease identified as well as a patent foramina ovale. Cardiac catheterization data reviewed. He has undergone PCI to LAD, circumflex and RCA. Clinically, he is doing okay and does not have any recurrent concerning symptoms. We can continue aspirin indefinitely, but as it has been more than a year since PCI, we can stop the Brilinta. We discussed about this today. Continue beta-blockers and high-dose statins. Lipids well controlled. LDL 42 mg/dL. Triglycerides 79 mg/dL. Optimal diabetes control. Follow-up in 6 months time. Medications: Refilled metoprolol succinate ER 25 mg PO DAILY 90 tabs 3RF Discontinued ticagrelor (Brilinta) Discontinued Reason: Doctor's Order 90 mg PO BID 90 days 180 tabs 3RF Coding Level of Care Code Est Pt Level 4 (20806) Diagnoses Atherosclerotic cardiovascular disease I25.10 Type 1 diabetes mellitus with unspecified complications E10.8
[2023-12-07 12:43] VITALS: BP 120/56; PULSE 74; BMI 26.8
== END 2023-12-07 12:58 | disposition home or self-care (01) ==
PROVIDERS: Visit Provider Internal Medicine
DX: I25.10 Atherosclerotic heart disease of native coronary artery without angina pectoris (principal); E10.8 Type 1 diabetes mellitus with unspecified complications
CPT/HCPCS: 99214

== ENCOUNTER → 2023-12-07 12:37 | Outpatient (BNVA) | payer OTHER, SELFPAY ==
[2023-05-04 12:01] VITALS: BP 102/46; BP 134/60
== END ==
PROVIDERS: Visit Provider Internal Medicine
DX: I25.10 Atherosclerotic heart disease of native coronary artery without angina pectoris (principal); E10.8 Type 1 diabetes mellitus with unspecified complications
CPT/HCPCS: 99212

== ENCOUNTER 2024-02-08 13:18 | Outpatient (REF) | payer OTHER, SELFPAY ==
[2023-05-04 12:01] VITALS: BP 102/46; BP 134/60
[2024-02-08 14:23] LABS: Estimated Average Glucose 151 mg/dL; Hemoglobin A1c % 6.9 % (<6.0)
[2024-02-08 14:48] LABS: Anion Gap 9 (12-20); Blood Urea Nitrogen 11 mg/dL (9-16); Carbon Dioxide 28 mmol/L (22-29); Chloride 109 mmol/L (96-108); Estimated Glomerular Filt Rate > 60; Potassium 4.6 mmol/L (3.3-5.1); Sodium 141 mmol/L (135-145)
[2024-02-08 14:54] LABS: Creatinine Urine 184.65 mg/dL; Protein/Creatinine Ratio, Ur 0.06 (<0.2); Total Protein Urine Random 11 mg/dL (<12)
== END 2024-02-08 13:19 | disposition home or self-care (01) ==
LOC: HO.LAB 13:18
PROVIDERS: PCP Internal Medicine; Visit Provider Internal Medicine Nephrology
DX: N18.30 Chronic kidney disease, stage 3 unspecified (principal)
CPT/HCPCS: 36415; 80051; 82565; 82570; 83036; 84156; 84520

== ENCOUNTER 2024-02-09 15:08 | Outpatient (AMB) | payer OTHER, SELFPAY ==
[2023-05-04 12:01] VITALS: BP 102/46; BP 134/60
--- NOTE | 2024-02-09 15:12 | HO.NEPHOV ---
HPI HPI Comments History of Present Illness Details I had the privilege of seeing Servando in follow-up of his chronic kidney disease. His blood sugar is pretty well controlled. He is on insulin pump. He does not have any significant proteinuria. He denies taking nonsteroidal anti-inflammatories. His blood pressure has been at goal. He has no urinary symptoms or orthostatic symptoms. He does not have any chest pain, shortness of breath, hypoglycemia, pedal edema, hematuria, shortness of breath or any new symptoms. He is compliant with his medications. There were no active issues at the time this office visit [facility] Medical History Blind left eye Chronic renal insufficiency Coronary artery disease COVID-19 vaccine administered Depression Diabetes type 1, controlled Diabetic neuropathy associated with type 1 diabetes mellitus Diabetic retinopathy associated with type 1 diabetes mellitus Dyslipidemia Hx of fracture of tibia Hx of retinal detachment Hyperparathyroidism Hypertension Hypogonadism Hypogonadism in male Low vitamin B12 level Myocardial infarction Osteoporosis Surgical History H/O heart artery stent S/P eye surgery History of surgery Hx of eye surgery Hx of knee surgery Hx of excision of epidermal inclusion cyst Hx of colonoscopy Family History Father Cancer CVD (cardiovascular disease) Mother CVD (cardiovascular disease) Hypertension High cholesterol Social History Housing: Apartment Are you a primary laboratory animal care veterinarian to a significant other at home: No Do you presently have visiting nurse or other home services: Yes (has DIRECTOR SELECTION AND ADMINISTRATION) Alcohol intake: never Patient Tobacco Use Status: Former Tobacco user Quit Date: 2017 Tobacco use type: Cigarette Years Smoked: 28 e-Cigarette/Vaping Use: Currently Using Current occupational status: disabled Current occupation: rt handed Cognitive needs: No Hearing needs: No Vision needs: No Vital Signs 02/09/24 15:14 Height 5 ft 9 in Weight 180 lb 6 oz BMI 26.6 BP 110/60 Blood Pressure Location Lt brachial Position Sitting Pulse 70 Pulse Source Pulse Oximeter Pulse Oximetry (%) 96 Oxygen Delivery Method Room Air Physical Exam Vital Signs: Last Vital Signs Pulse 70 02/09/24 15:14 BP 110/60 02/09/24 15:14 Pulse Ox 96 02/09/24 15:14 Oxygen Delivery Method Room Air 02/09/24 15:14 BMI result Body Mass Index 26.6 Const General: comfortable and no acute distress Orientation/consciousness: patient oriented x3 HEENT Head: Yes normocephalic Mouth: Normal oral and palatal mucosa present Neck Neck: Yes supple Resp Auscultation: clear to auscultation bilaterally Cardio Jugular venous distension: no JVD Rate: regular rate GI Palpation (GI): Soft to palpation Auscultation: normal bowel sounds General: Yes no CVA tenderness Back/Spine/Pelvis Back: no CVA tenderness Skin General skin exam: no rashes or lesions noted Neuro General: patient oriented x3 and moves all extremities Extrem General: Yes no pedal edema Assessment & Plan Assessment & Plan (1) CKD (chronic kidney disease) stage 3, GFR 30-59 ml/min: Code(s): N18.30 - Chronic kidney disease, stage 3 unspecified Qualifiers: Chronic kidney disease stage 3 subtype: stage 3a (GFR 45-59) Qualified Code(s): N18.31 - Chronic kidney disease, stage 3a (2) Hypertension: Code(s): I10 - Essential (primary) hypertension Qualifiers: Hypertension type: primary hypertension Qualified Code(s): I10 - Essential (primary) hypertension Plan Servando is type 1 diabetic. His renal functions are stable. He does not have any proteinuria. He is on KAELYN-inhibitor. His serum potassium is normal. He is on insulin pump. He maintains good hydration. He avoids nonsteroidal anti-inflammatories. He has history of coronary artery disease needing stenting. He is not a candidate for Innobits or Endovention. I did not make any medication changes today. I discussed all his lab work in detail. I answered all his questions. Follow-up appointment given. Orders: Orders Creatinine 02/09/24 N18.30 - Chronic kidney disease, stage 3 unspecified Blood Urea Nitrogen 02/09/24 N18.30 - Chronic kidney disease, stage 3 unspecified Electrolytes 02/09/24 N18.30 - Chronic kidney disease, stage 3 unspecified Protein Creatinine Ratio, Ur 02/09/24 N18.30 - Chronic kidney disease, stage 3 unspecified Coding Level of Care Code Est Pt Level 4 (03917) Diagnoses Stage 3a chronic kidney disease N18.31 Chronic kidney disease stage 3 subtype: stage 3a (GFR 45-59) Primary hypertension I10 Hypertension type: primary hypertension Results Reviewed Nephrology Results: Hgb 13.5 g/dl (14.0-18.0) L 04/16/23 WBC 9.7 X10*3/uL (4.8-10.8) 04/16/23 Plt Count 362 X10*3/uL (160-400) 04/16/23 Sodium 141 mmol/L (135-145) 02/08/24 Potassium 4.6 mmol/L (3.3-5.1) 02/08/24 Chloride 109 mmol/L (96-108) H 02/08/24 Carbon Dioxide 28 mmol/L (22-29) 02/08/24 BUN 11 mg/dL (9-16) 02/08/24 Creatinine 1.20 mg/dL (0.5-1.4) 02/08/24 Calcium 9.6 mg/dL (8.4-10.2) 08/23/23 Urine Protein Negative mg/dL (Neg-Trace) 04/16/23 Urine Creatinine 184.65 mg/dL 02/08/24 Protein/Creatinin Ratio 0.06 (<0.2) 02/08/24
[2024-02-09 15:14] VITALS: BP 110/60; PULSE 70; O2SAT 96; BMI 26.6
== END 2024-02-09 15:48 | disposition home or self-care (01) ==
PROVIDERS: PCP Internal Medicine; Visit Provider Internal Medicine Nephrology
DX: N18.31 Chronic kidney disease, stage 3a (principal); I10 Essential (primary) hypertension
CPT/HCPCS: 99214

== ENCOUNTER → 2024-02-09 15:08 | Outpatient (BNVA) | payer OTHER, SELFPAY ==
[2023-05-04 12:01] VITALS: BP 102/46; BP 134/60
== END ==
PROVIDERS: PCP Internal Medicine; Visit Provider Internal Medicine Nephrology
DX: I12.9 Hypertensive chronic kidney disease with stage 1 through stage 4 chronic kidney disease, or unspecified chronic kidney disease (principal); E10.22 Type 1 diabetes mellitus with diabetic chronic kidney disease; N18.30 Chronic kidney disease, stage 3 unspecified; Z96.41 Presence of insulin pump (external) (internal); Z79.4 Long term (current) use of insulin
CPT/HCPCS: 99212

== ENCOUNTER 2024-03-31 13:43 | Outpatient (REF) | payer OTHER, SELFPAY ==
[2023-05-04 12:01] VITALS: BP 102/46; BP 134/60
--- NOTE | ~2024-03-31 | MM_ITS ---
EXAMINATION: BONE DENSITOMETRY CLINICAL INDICATION: Age-related osteoporosis without current pathological fracture. COMPARISON: Previous BD dated 02/26/2022 and baseline BD dated 11/07/2019. TECHNIQUE: Using a [employer] DXA System (software version: 13.1) manufactured by [employer], dual-energy x-ray absorptiometry was performed of the lumbar spine and left hip. The images are of good technical quality. Summary results are attached. FINDINGS: LEFT FEMUR, NECK: Current: BMD 0.722 g/cm2, Z-score -1.7, T-score -2.7, osteoporosis. Prior: BMD 0.675 g/cm2. Baseline: BMD 0.676 g/cm2. LEFT FEMUR, TOTAL: Current: BMD 0.764 g/cm2, Z-score -1.8, T-score -2.3, osteopenia, 3.9% increase from previous, 6.3% increase from baseline (<5% change is not significant). Prior: BMD 0.735 g/cm2. Baseline: BMD 0.719 g/cm2. AP SPINE L1-L3 (excluding L4): The data of L1-L4 has been changed to exclude the L4 vertebral body, because metallic artifact at this level may cause overestimation of lumbar spine density. Current: BMD 1.191 g/cm2, Z-score 0.2, T-score -0.2, normal, 10.8% increase from previous, 16.8% increase from baseline (<5% change is not significant). Prior: BMD 1.075 g/cm2. Baseline: BMD 1.020 g/cm2. IDENTIFIED RISK FACTORS: Height loss, history of fracture (adult), osteoporosis, kidney disease, secondary osteoporosis (type 1 diabetes). HISTORY OF FRACTURE: Other. MEDICATIONS: Calcium, bisphosphonate. MM/XR DEXA axial skeleton IMPRESSION: 1. DIAGNOSIS: Osteoporosis based on the lowest T-score value of -2.7 in the femoral neck applying World Health Organization criteria. 2. 10-YEAR FRACTURE RISK PREDICTION, FRAX: According to the guidelines, FRAX calculation should only be performed on patients in the osteopenia bone density category. Therefore, FRAX was not performed on this patient. 3. Treatment Recommendations: NOF guidelines recommend consideration for treatment in postmenopausal women and men age 50 and older presenting with the following: -A hip or vertebral (clinical or morphometric) fracture. -T-score less than or equal to -2.5 at the femoral neck or spine after appropriate evaluation to exclude secondary causes. -Low bone mass at the hip or spine and a 10-year fracture probability by FRAX of greater than or equal to 3% for hip fracture or greater than or equal to 20% for major osteoporotic fracture based on the [place] adapted WHO algorithm. 4. Other Recommendations: All treatment decisions require clinical judgment and consideration of individual patient factors, including patient preferences, comorbidities, previous drug use, risk factors not captured in the FRAX model (e.g. frailty, falls, vitamin D deficiency, increased bone turnover, interval significant decline in bone density) and possible under or overestimation of fracture risk by FRAX. Additional medical evaluation for secondary cause of low bone mineral density may be appropriate. FUTURE SCAN RECOMMENDATION: People with diagnosed cases of osteoporosis or at high risk for fracture should have regular bone mineral density tests. For patients eligible for Medicare, routine testing is allowed once every 2 years. The testing frequency can be increased to one year for patients who have rapidly progressing disease, those who are receiving or discontinuing medical therapy to restore bone mass, or have additional risk factors.
== END 2024-03-31 13:44 | disposition home or self-care (01) ==
LOC: HO.MAMMO 13:43
PROVIDERS: PCP Internal Medicine; Visit Provider Internal Medicine Endocrinology, Diabetes & Metabolism
DX: Z13.820 Encounter for screening for osteoporosis (principal); M81.0 Age-related osteoporosis without current pathological fracture
CPT/HCPCS: 77080

== ENCOUNTER 2024-04-18 14:43 | Outpatient (AMB) | payer OTHER, SELFPAY ==
[2023-05-04 12:01] VITALS: BP 102/46; BP 134/60
[2024-04-18 14:45] VITALS: BP 88/42; PULSE 74; BMI 27.1
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
== END 2024-04-18 14:58 | disposition home or self-care (01) ==
PROVIDERS: PCP Internal Medicine; Visit Provider Internal Medicine Endocrinology, Diabetes & Metabolism
DX: M81.0 Age-related osteoporosis without current pathological fracture (principal)
CPT/HCPCS: 99213

== ENCOUNTER → 2024-04-18 14:43 | Outpatient (BNVA) | payer OTHER, SELFPAY ==
[2023-05-04 12:01] VITALS: BP 102/46; BP 134/60
== END ==
PROVIDERS: PCP Internal Medicine; Visit Provider Internal Medicine Endocrinology, Diabetes & Metabolism
DX: M81.0 Age-related osteoporosis without current pathological fracture (principal)
CPT/HCPCS: 99212

== ENCOUNTER 2024-06-09 12:37 | Outpatient (AMB) | payer OTHER, SELFPAY ==
[2023-05-04 12:01] VITALS: BP 102/46; BP 134/60
[2024-06-09 12:39] VITALS: BP 106/46; PULSE 71; O2SAT 98; BMI 25.1
--- NOTE | 2024-06-09 12:39 | MHC.PC.OV ---
Vital Signs 06/09/24 12:39 Height 5 ft 9 in Weight 170 lb 4 oz BMI 25.1 BP 106/46 L Blood Pressure Location Rt brachial Position Sitting Pulse 71 Pulse Source Pulse Oximeter Pulse Oximetry (%) 98 Oxygen Delivery Method Room Air Intake Visit Reasons: Annual PE Allergies No Known Allergies Allergy (Verified 06/09/24 12:42) Medication List - Last Reconciled 06/09/24 by Samira Quispe MD alendronate 70 mg PO QWEEK aspirin (Adult Aspirin Regimen) 81 mg PO DAILY atorvastatin 80 mg PO DAILY calcium carbonate (Oyster Shell Calcium 500) 500 mg PO BID clopidogrel (Plavix) 75 mg PO DAILY glucagon (GlucaGen HypoKit) 1 mg subcut Q20M PRN insulin lispro (Admelog U-100 Insulin lispro) 60 sliding scale doses subcut USEASDIRECTD insulin pump cart,automated,BT (Omnipod 5 G6 Pods (Gen 5) subcutaneous cartridge) As directed lisinopril 2.5 mg PO DAILY metoprolol succinate ER 25 mg PO DAILY Tobacco use date assessed: 06/09/24 Dental Screening Dental Screen Date: 06/09/24 Did you have a dental visit in the last 12 months?: No Did you have a dental problem in the last 6 months where you did not have access to dental care?: No Was dental information given to patient?: Patient has dentist HPI Annual PE HPI Details Physical exam appointment Patient is he had a colonoscopy 3 years ago, 2020 using CPAP machine he is feeling better No medications are coming from this office Labs are being done through cardiology office as per patient For osteoporosis patient is seeing Dr. Carrasco [facility], [facility] [place] [facility], last hemoglobin A1c was 6.9 in January of this year Last cardiology visit Dr. Leong was early this year Patient underwent cardiac workup, Stress test was positive, and that in turn led to coronary CTA and diagnostic catheterization. He has undergone multivessel PCI 2022 He is now doing well Physical exam 1 year [facility] Medical History Hx of fracture of tibia Hx of retinal detachment Chronic renal insufficiency COVID-19 vaccine administered Myocardial infarction Low vitamin B12 level Hypogonadism in male Hypogonadism Blind left eye Depression Hypertension Dyslipidemia Diabetic neuropathy associated with type 1 diabetes mellitus Coronary artery disease Diabetic retinopathy associated with type 1 diabetes mellitus Diabetes type 1, controlled Osteoporosis Hyperparathyroidism Surgical History H/O heart artery stent S/P eye surgery History of surgery Hx of eye surgery Hx of knee surgery Hx of excision of epidermal inclusion cyst Hx of colonoscopy Family History Father Cancer CVD (cardiovascular disease) Mother CVD (cardiovascular disease) Hypertension High cholesterol Social History Housing: Apartment Are you a primary home care and home health aides teacher to a significant other at home: No Do you presently have visiting nurse or other home services: Yes (has ADVERTISING SALES 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 How often do you have a drink containing alcohol?: Never 3. How often do you have six or more drinks on one occasion?: Never Total Score: 0 Score Reviewed/Action Taken: Yes PARMINDER-7 AMB Questionnaire PARMINDER-7 Date PARMINDER - 7 assessed: 09/01/22 Source: Developed by Drs. Jenaro Lopez, Adina Artis, Juancarlos Xiao and colleagues, with an educational alida from [employer]. Review of Systems Const Denies chills, Denies fever(s) and Denies headache(s) ENT Denies headache(s), Denies nasal discharge, Denies nasal obstruction, Denies odynophagia and Denies sinus pain Card Denies chest pain at rest and Denies chest pain with activity Resp Denies cough and Denies hemoptysis GI Denies diarrhea, Denies odynophagia, Denies vomiting and Denies hematemesis Reports as per HPI Musc Denies abnormal gait Skin/Breast Reports as per HPI Neuro Denies Neuro-related abnormal movements, Denies Abnormal speech present, Denies abnormal gait, Denies headache(s) and Denies Sensory deficit (Neuro) Psych Denies mood swings and Denies paranoia Endo Reports as per HPI Bimal/Lymph Reports as per HPI Aller/Immun Reports as per HPI Physical exam (Primary Care) Vital Signs: Last Vital Signs Pulse 71 06/09/24 12:39 BP 106/46 L 06/09/24 12:39 Pulse Ox 98 06/09/24 12:39 Oxygen Delivery Method Room Air 06/09/24 12:39 BMI result Body Mass Index 25.1 Tobacco/Smoking Status: Tobacco use Status Tobacco use date assessed 06/09/24 06/09/24 12:42 Patient Tobacco Use Status Former Tobacco user 06/09/24 12:42 Tobacco use type Cigarette 06/09/24 12:42 e-Cigarette/Vaping Use Currently Using 06/09/24 12:42 Thrive Assessment: Date of Thrive Assessment Date Thrive assessed 09/01/22 06/09/24 12:42 Const General: cooperative, comfortable and no acute distress Orientation/consciousness: patient oriented x3 HENMT Head: Yes normocephalic and Yes atraumatic Neck Neck: Yes supple and No lymphadenopathy Thyroid: Thyroid normal Lymphatic: no lymphadenopathy noted Resp Effort & Inspection: normal respiratory effort and able to speak in complete sentences Auscultation: clear to auscultation bilaterally Cardio Heart sounds: S1 normal heart sound present and S2 normal heart sound present GI Palpation (GI): Soft to palpation and nontender Auscultation: normal bowel sounds General: Yes no CVA tenderness Back/Spine/Pelvis Back: no CVA tenderness Skin General skin exam: elasticity normal and turgor normal Neuro General: patient oriented x3 and gait normal Speech: No Abnormal speech present Sensory Exam: No Sensory deficit (Neuro) Coordination: tandem gait normal and Romberg test negative Extrem General: Yes normal exam except as noted and No edema Assessment and Plan Assessment & Plan (1) Annual physical exam: Code(s): Z00.00 - Encounter for general adult medical examination without abnormal findings Plan Physical exam appointment Patient is he had a colonoscopy 3 years ago, 2020 using CPAP machine he is feeling better No medications are coming from this office Labs are being done through cardiology office as per patient For osteoporosis patient is seeing Dr. Carrasco [facility], [facility] [place] for diabetes management, last hemoglobin A1c was 6.9 in January of this year Last cardiology visit Dr. Leong was early this year Patient underwent cardiac workup, Stress test was positive, and that in turn led to coronary CTA and diagnostic catheterization. He has undergone multivessel PCI 2022 He is now doing well Physical exam 1 year Coding Level of Care Code Est Pt Prev Care 40-64y(36878) Diagnoses Annual physical exam Z00.00
== END 2024-06-09 13:06 | disposition home or self-care (01) ==
PROVIDERS: PCP Internal Medicine; Visit Provider Internal Medicine
DX: Z00.00 Encounter for general adult medical examination without abnormal findings (principal)
CPT/HCPCS: 99396

== ENCOUNTER 2024-07-26 15:48 | Outpatient (AMB) | payer OTHER, SELFPAY ==
[2023-05-04 12:01] VITALS: BP 102/46; BP 134/60
--- NOTE | 2024-07-26 16:31 | A.OFFVIS_ITS ---
Intake Visit Reasons: 1y follow up Allergies No Known Allergies Allergy (Verified 06/09/24 12:42) Medication List - Last Reconciled 07/26/24 by Wilfrido Hurst MD alendronate 70 mg PO QWEEK aspirin (Adult Aspirin Regimen) 81 mg PO DAILY atorvastatin 80 mg PO DAILY calcium carbonate (Oyster Shell Calcium 500) 500 mg PO BID clopidogrel (Plavix) 75 mg PO DAILY glucagon (GlucaGen HypoKit) 1 mg subcut Q20M PRN insulin lispro (Admelog U-100 Insulin lispro) 60 sliding scale doses subcut USEASDIRECTD insulin pump cart,automated,BT (Omnipod 5 G6 Pods (Gen 5) subcutaneous cartridge) As directed lisinopril 2.5 mg PO DAILY metoprolol succinate ER 25 mg PO DAILY HPI Comments Details: Servando is a pleasant male. He is a patient of Dr. Quispe. He seen for the following urologic issues - erectile dysfunction - lower urinary tract symptoms Urgency and control of bladder have improved substantially with tadalafil Uses 10 mg tadalafil every 2-3 days Also effective for erections Would like refill 12 month follow-up Prior PSA 03/19 1.6, 02/17 1.8 T 620 normal pituitary hormones HbA1c 05/19 7.1, 02/19 6.9% Erectile dysfunction: Diabetic type 1 He presents today for for continued evaluation and management of erectile dysfunction Symptoms have been present for/since since 2015. Procedure(s)/Diagnosis causing dysfunction include diabetes - type 1 for 50 years. Current treatment includes daily tadalafil 10 mg - with on demand sildenafil Treatment side effects include none Prior therapies include oral medications - attenuated response to maximum dose sildenafil At this time he experiences erections 10/15 are partial and adequate for vaginal penetration, that undergo detumesence prior to penetration, ABIMBOLA 12-16 Mild-Moderate ED 10/16 , are partial and adequate for vaginal penetration. Nocturnal erections do occur. Currently they are in a stable relationship. Associated problems hypertension Yes diabetes Yes - longstanding type 1 diabetic since age 2 Medications include(s) antidepressant medication, antihypertensive medication. Overall he is satisfied with the current management. Therapeutic plan includes trial daily tadalafil PFSH Medical History Hx of fracture of tibia Hx of retinal detachment Chronic renal insufficiency COVID-19 vaccine administered Myocardial infarction Low vitamin B12 level Hypogonadism in male Hypogonadism Blind left eye Depression Hypertension Dyslipidemia Diabetic neuropathy associated with type 1 diabetes mellitus Coronary artery disease Diabetic retinopathy associated with type 1 diabetes mellitus Diabetes type 1, controlled Osteoporosis Hyperparathyroidism Surgical History H/O heart artery stent S/P eye surgery History of surgery Hx of eye surgery Hx of knee surgery Hx of excision of epidermal inclusion cyst Hx of colonoscopy Family History Father Cancer CVD (cardiovascular disease) Mother CVD (cardiovascular disease) Hypertension High cholesterol Social History Housing: Apartment Are you a primary critical care cns to a significant other at home: No Do you presently have visiting nurse or other home services: Yes (has GROUP RESERVATIONS COORDINATOR) Alcohol intake: never Patient Tobacco Use Status: Former Tobacco user Tobacco use type: Cigarette Years Smoked: 28 e-Cigarette/Vaping Use: Currently Using Current occupational status: disabled Current occupation: rt handed Cognitive needs: No Hearing needs: No Vision needs: No Review of Systems Const Denies chills and Denies fever(s) Card Reports no additional complaints and Denies syncope Resp Denies cough GI Denies abdominal pain and Denies heartburn Reports as per HPI and Denies change in libido Neuro Denies syncope Psych Denies change in libido Endo Denies change in libido Physical Exam Const General: cooperative, healthy appearing, comfortable and no acute distress Orientation/consciousness: patient oriented x3 HEENT Face and sinus: Yes normal facial exam Mouth: moist mucous membranes Neck Neck: Yes normal visual inspection, Yes full ROM and Yes trachea midline Chest Chest palpation & inspection: normal inspection of the chest Resp Effort & Inspection: normal respiratory effort, able to speak in complete sentences and no respiratory distress GI Inspection: Yes normal to inspection Back/Spine/Pelvis Cervical Spine: normal cervical lordosis Thoracic/Lumbar Spine: thoracic and lumbar spine normal to inspection Skin General skin exam: no rashes or lesions noted Neuro General: patient oriented x3, gait normal, tone normal and moves all extremities Extrem General: Yes normal to inspection and Yes capillary refill normal Assessment & Plan Assessment & Plan (1) Erectile dysfunction due to diabetes mellitus: Code(s): E11.69 - Type 2 diabetes mellitus with other specified complication; N52.1 - Erectile dysfunction due to diseases classified elsewhere Category: Medical (2) Bladder outlet obstruction: Code(s): N32.0 - Bladder-neck obstruction Category: Medical Plan Twelve month follow-up Medications: New tadalafil 10 mg PO DAILY 90 days 90 tabs 1RF sexual activity E11.69 - Type 2 diabetes mellitus with other specified complication, N52.1 - Erectile dysfunction due to diseases classified elsewhere Patient Instructions: Imaging studies, laboratory and physical exam results were discussed and reviewed in detail. No major barriers to patient understanding were identified. An opportunity to ask questions regarding the treatment plan was provided. All questions were answered. The patient expressed understanding and agreement with the above treatment plan. The patient is aware they should contact our office by phone for worsening of their current condition or the appearance of new urologic symptoms. Compliance is encouraged with any medications and followup testing that is ordered. It is a privilege to participate in the urologic care of your patient. If you have any questions or concerns regarding treatment for the above conditions, or other urologic issues, please do not hesitate to contact me. The office telephone contact is [phone]. This note is constructed using voice recognition software. While every effort has been made to ensure accuracy press tender star signal errors may have been included. Yours sincerely, Dr Wilfrido Hurst MD, [facility] - Urology Providers of Expert, Compassionate Care for the Genitourinary System Coding Level of Care Code Est Pt Level 4 (23108) Diagnoses Erectile dysfunction due to diabetes mellitus E11.69; N52.1 Bladder outlet obstruction N32.0
== END 2024-07-26 16:39 | disposition home or self-care (01) ==
PROVIDERS: PCP Internal Medicine; Visit Provider Urology
DX: E11.69 Type 2 diabetes mellitus with other specified complication (principal); N52.1 Erectile dysfunction due to diseases classified elsewhere; N32.0 Bladder-neck obstruction
CPT/HCPCS: 99214

== ENCOUNTER → 2024-07-26 15:48 | Outpatient (BNVA) | payer OTHER, SELFPAY ==
[2023-05-04 12:01] VITALS: BP 102/46; BP 134/60
== END ==
PROVIDERS: PCP Internal Medicine; Visit Provider Urology
DX: E10.69 Type 1 diabetes mellitus with other specified complication (principal); N52.1 Erectile dysfunction due to diseases classified elsewhere; N32.0 Bladder-neck obstruction; Z96.41 Presence of insulin pump (external) (internal); Z79.4 Long term (current) use of insulin; Z79.899 Other long term (current) drug therapy
CPT/HCPCS: 99212

== ENCOUNTER 2024-08-03 13:17 | Outpatient (REF) | payer OTHER, SELFPAY ==
[2023-05-04 12:01] VITALS: BP 102/46; BP 134/60
[2024-08-03 15:30] LABS: Creatinine Urine 134.43 mg/dL; Total Protein Urine Random < 7 mg/dL (<12)
[2024-08-09 15:38] LABS: N-Telopeptide 25 (see note); NTXCreaRU 131 mg/dL (20-320)
== END 2024-08-03 13:18 | disposition home or self-care (01) ==
LOC: HO.LAB 13:17
PROVIDERS: Internal Medicine Endocrinology, Diabetes & Metabolism; PCP Internal Medicine; Visit Provider Internal Medicine Nephrology
DX: M81.0 Age-related osteoporosis without current pathological fracture (principal); N18.30 Chronic kidney disease, stage 3 unspecified
CPT/HCPCS: 82523; 82570; 84156

== ENCOUNTER 2024-08-07 14:44 | Outpatient (AMB) | payer OTHER, SELFPAY ==
[2023-05-04 12:01] VITALS: BP 102/46; BP 134/60
[2024-08-07 15:01] VITALS: BP 114/52; PULSE 76; BMI 24.4
--- NOTE | 2024-08-07 15:01 | A.OFFVIS_ITS ---
Vital Signs 08/07/24 15:01 Height 5 ft 9 in Weight 165 lb 5.547 oz BMI 24.4 BP 114/52 L Blood Pressure Location Lt brachial Position Sitting Pulse 76 Pulse Source Monitor Intake Visit Reasons: 6 month follow up rs from 07/17/24 Neurological Surgeon Required: No Allergies No Known Allergies Allergy (Verified 08/07/24 15:02) Medication List - Last Reconciled 08/07/24 by Bozena Todd, SENIOR CONSTRUCTION MANAGER-C alendronate 70 mg PO QWEEK aspirin (Adult Aspirin Regimen) 81 mg PO DAILY atorvastatin 80 mg PO DAILY calcium carbonate (Oyster Shell Calcium 500) 500 mg PO BID clopidogrel (Plavix) 75 mg PO DAILY glucagon (GlucaGen HypoKit) 1 mg subcut Q20M PRN insulin lispro (Admelog U-100 Insulin lispro) 60 sliding scale doses subcut USEASDIRECTD insulin pump cart,automated,BT (Omnipod 5 G6 Pods (Gen 5) subcutaneous cartridge) As directed lisinopril 2.5 mg PO DAILY metoprolol succinate ER 25 mg PO DAILY tadalafil 10 mg PO DAILY 90 days HPI HPI 6 month follow up rs from 07/17/24: Details: Servando is a 59-year-old male with past medical history of hypertension, hyperlipidemia, diabetes, prior smoking, CAD with multivessel coronary stents who presents for follow-up. Today he reports he has been doing well since his last visit 12/07/2023. Denies any chest discomfort at rest or with activity. He denies shortness of breath, PND, orthopnea or edema. No lightheadedness, presyncope, syncope, falls. He reports good activity tolerance. He is working on projects in his home and works on his car. He takes all his meds as directed. [facility] Medical History Hx of fracture of tibia Hx of retinal detachment Chronic renal insufficiency COVID-19 vaccine administered Myocardial infarction Low vitamin B12 level Hypogonadism in male Hypogonadism Blind left eye Depression Hypertension Dyslipidemia Diabetic neuropathy associated with type 1 diabetes mellitus Coronary artery disease Diabetic retinopathy associated with type 1 diabetes mellitus Diabetes type 1, controlled Osteoporosis Hyperparathyroidism Surgical History H/O heart artery stent S/P eye surgery History of surgery Hx of eye surgery Hx of knee surgery Hx of excision of epidermal inclusion cyst Hx of colonoscopy Family History Father Cancer CVD (cardiovascular disease) Mother CVD (cardiovascular disease) Hypertension High cholesterol Social History Housing: Apartment Are you a primary daytime caregiver to a significant other at home: No Do you presently have visiting nurse or other home services: Yes (has INSTRUCTOR HAIRSPRING) Alcohol intake: never Patient Tobacco Use Status: Former Tobacco user Tobacco use type: Cigarette Years Smoked: 28 e-Cigarette/Vaping Use: Currently Using Current occupational status: disabled Current occupation: rt handed Cognitive needs: No Hearing needs: No Vision needs: No Review of Systems Const All systems reviewed & are unremarkable except as noted in HPI and below ENT Denies dizziness Card Denies chest pain, Denies chest pain at rest, Denies chest pain with activity, Denies rapid heart rate, Denies pedal edema, Denies edema, Denies leg edema, Denies lightheadedness, Denies palpitations, Denies dyspnea, Denies dyspnea on exertion and Denies orthopnea Resp Denies cough, Denies dyspnea and Denies dyspnea on exertion GI Denies hematochezia and Denies change in stool character Musc Denies abnormal gait, Denies limited range of motion, Denies muscle cramps, Denies muscle weakness, Denies numbness, Denies radiating pain into limb, Denies stiffness and Denies tingling Neuro Denies abnormal gait, Denies dizziness, Denies numbness and Denies tingling Endo Denies palpitations Physical Exam Vital Signs: Last Vital Signs Pulse 76 08/07/24 15:01 BP 114/52 L 08/07/24 15:01 BMI result Body Mass Index 24.4 Const General: cooperative, healthy appearing, comfortable and no acute distress Orientation/consciousness: patient oriented x3 Neck Neck: Yes normal visual inspection Resp Effort & Inspection: normal respiratory effort Auscultation: clear to auscultation bilaterally, no crackles, no rales, no rhonchi and no wheezes Cardio Jugular venous distension: no JVD Rate: regular rate Rhythm: regular rhythm Heart sounds: S1 normal heart sound present, S2 normal heart sound present, no murmurs and no rubs Neuro General: patient oriented x3 Extrem General: Yes normal to inspection, No no pedal edema and No calf tenderness Psych Appearance: grossly normal Mental Status: mental status grossly normal Speech and movement: Normal speech and movement present Office Procedures EKG Details: Today, read by me, normal sinus rhythm, no acute ST or T-wave abnormalities, QTC 396 milliseconds [id number], Complete Assessment & Plan Assessment & Plan (1) Coronary artery disease: Code(s): I25.10 - Atherosclerotic heart disease of [place] coronary artery without angina pectoris Category: Medical Plan: History of CAD. In 2021 he had increasing shortness of breath with activity. His nuclear stress test was abnormal followed by CTA of the coronary arteries showing at least moderate CAD. He had cardiac catheterization 09/29/2022 showing mid LAD, 1st OM and mid RCA each with significant stenosis, ALYCIA was placed to the RCA at that time. He had a repeat cardiac catheterization on 11/03/2022 and ALYCIA was placed to the mid LAD and 1st OM. He has done well since that time. Last echo was 06/30/2022 showing normal EF, normal valves. Today he reports no anginal symptoms. He has good activity tolerance. He has longstanding history of diabetes type 1 and tells me it has been under control. His blood pressure is well controlled at 114/52. Will have him continue on aspirin indefinitely, continue Plavix. Continue high-dose atorvastatin with ideal LDL goal less than 70. Cholesterol had been well controlled but I do not see a recent lipid profile, will order. Continue metoprolol XL and low-dose lisinopril. Signs and symptoms of angina reviewed. Cardiology follow-up 6 months, sooner if needed. (2) S/P cardiac catheterization: Comment: 11/03/2022, angioplasty and ALYCIA placed to the mid LAD, angioplasty and ALYCIA placed to the 1st OM Code(s): Z98.890 - Other specified postprocedural states Category: Surgical Plan: As above (3) S/P cardiac catheterization: Comment: 09/29/2022, left main normal, mid LAD 90% stenosis, left circumflex 1st OM 70% stenosis, RCA mid 95% stenosis, balloon angioplasty and ALYCIA placed. Code(s): Z98.890 - Other specified postprocedural states Category: Surgical Plan: As above (4) Stented coronary artery: Code(s): Z95.5 - Presence of coronary angioplasty implant and graft Category: Surgical Plan: Stents in the RCA, lad and 1st OM (5) Hypertension: Code(s): I10 - Essential (primary) hypertension Category: Medical Qualifiers: Hypertension type: primary hypertension Qualified Code(s): I10 - Essential (primary) hypertension Plan: Well controlled. No med changes made (6) Dyslipidemia: Code(s): E78.5 - Hyperlipidemia, unspecified Category: Medical Plan: [place] LDL goal less than 70. Will order a fasting lipid profile. (7) Type 1 diabetes mellitus with unspecified complications: Code(s): E10.8 - Type 1 diabetes mellitus with unspecified complications Category: Medical Plan: Hemoglobin A1c goal less than 7. Labs done 02/08/2024 showed hemoglobin A1c 6.9. Followed by his PCP. Plan Time spent on chart review, documentation, interview and assessment Orders: Orders Lipid Panel 08/07/24 Z95.5 - Presence of coronary angioplasty implant and graft Coding Level of Care Code Est Pt Level 4 (63563) Diagnoses Coronary artery disease I25.10 S/P cardiac catheterization Z98.890 Stented coronary artery Z95.5 Primary hypertension I10 Hypertension type: primary hypertension Dyslipidemia E78.5 Type 1 diabetes mellitus with unspecified complications E10.8 CPT Codes EKG - CPT: [id number], Complete ([id number]) Time Spent (min) 30
== END 2024-08-07 15:34 | disposition home or self-care (01) ==
PROVIDERS: PCP Internal Medicine; Visit Provider Nurse Practitioner Family
DX: I25.10 Atherosclerotic heart disease of native coronary artery without angina pectoris (principal); Z98.890 Other specified postprocedural states
CPT/HCPCS: 93010; 99214

== ENCOUNTER → 2024-08-07 14:44 | Outpatient (BNVA) | payer OTHER, SELFPAY ==
[2023-05-04 12:01] VITALS: BP 102/46; BP 134/60
== END ==
PROVIDERS: PCP Internal Medicine; Visit Provider Nurse Practitioner Family
DX: I10 Essential (primary) hypertension (principal); E78.5 Hyperlipidemia, unspecified; I25.10 Atherosclerotic heart disease of native coronary artery without angina pectoris; E10.8 Type 1 diabetes mellitus with unspecified complications; Z87.891 Personal history of nicotine dependence; Z95.5 Presence of coronary angioplasty implant and graft; Z98.890 Other specified postprocedural states
CPT/HCPCS: 93005; 99212

== ENCOUNTER 2024-08-11 14:48 | Outpatient (AMB) | payer OTHER, SELFPAY ==
[2023-05-04 12:01] VITALS: BP 102/46; BP 134/60
--- NOTE | 2024-08-11 15:00 | HO.NEPHOV ---
Vital Signs 08/11/24 15:02 Height 5 ft 9 in Weight 166 lb BMI 24.5 BP 100/60 Blood Pressure Location Rt brachial Position Sitting Pulse 74 Pulse Source Pulse Oximeter Pulse Oximetry (%) 98 Oxygen Delivery Method Room Air Intake Visit Reasons: CKD/ 6 MO FU- Conf Physical Fitness Teacher Required: No Accompanied by: Self / Same As Patient Allergies No Known Allergies Allergy (Verified 08/11/24 15:03) HPI Comments Details: I had the privilege of seeing Servando in follow-up of his chronic kidney disease. His blood sugar is pretty well controlled. He is on insulin pump. He does not have any significant proteinuria. He denies taking nonsteroidal anti-inflammatories. His blood pressure has been at goal. He has no urinary symptoms or orthostatic symptoms. He does not have any chest pain, shortness of breath, hypoglycemia, pedal edema, hematuria, shortness of breath or any new symptoms. He is compliant with his medications. There were no active issues at the time this office visit [facility] Medical History Hx of fracture of tibia Hx of retinal detachment Chronic renal insufficiency COVID-19 vaccine administered Myocardial infarction Low vitamin B12 level Hypogonadism in male Hypogonadism Blind left eye Depression Hypertension Dyslipidemia Diabetic neuropathy associated with type 1 diabetes mellitus Coronary artery disease Diabetic retinopathy associated with type 1 diabetes mellitus Diabetes type 1, controlled Osteoporosis Hyperparathyroidism Surgical History H/O heart artery stent S/P eye surgery History of surgery Hx of eye surgery Hx of knee surgery Hx of excision of epidermal inclusion cyst Hx of colonoscopy Family History Father Cancer CVD (cardiovascular disease) Mother CVD (cardiovascular disease) Hypertension High cholesterol Social History Housing: Apartment Are you a primary animal care attendant to a significant other at home: No Do you presently have visiting nurse or other home services: Yes (has BIOCHEMISTRY SPECIALIST) Alcohol intake: never Patient Tobacco Use Status: Former Tobacco user Tobacco use type: Cigarette Years Smoked: 28 e-Cigarette/Vaping Use: Currently Using Current occupational status: disabled Current occupation: rt handed Cognitive needs: No Hearing needs: No Vision needs: No Review of Systems Const All systems reviewed & are unremarkable except as noted in HPI and below Physical Exam Vital Signs: Last Vital Signs Pulse 74 08/11/24 15:02 BP 100/60 08/11/24 15:02 Pulse Ox 98 08/11/24 15:02 Oxygen Delivery Method Room Air 08/11/24 15:02 BMI result Body Mass Index 24.5 Const General: comfortable and no acute distress Orientation/consciousness: patient oriented x3 HEENT Head: Yes normocephalic Mouth: Normal oral and palatal mucosa present Eyes EOM: EOMs intact bilaterally Neck Neck: Yes supple Resp Auscultation: clear to auscultation bilaterally Cardio Jugular venous distension: no JVD Rate: regular rate GI Palpation (GI): Soft to palpation Auscultation: normal bowel sounds General: Yes no CVA tenderness Back/Spine/Pelvis Back: no CVA tenderness Skin General skin exam: no rashes or lesions noted Neuro General: patient oriented x3 and moves all extremities Extrem General: Yes no pedal edema Results Reviewed Nephrology Results: Urine Creatinine 131 mg/dL (20-320) 08/03/24 Protein/Creatinin Ratio TNP 08/03/24 Assessment & Plan Assessment & Plan (1) CKD (chronic kidney disease) stage 3, GFR 30-59 ml/min: Code(s): N18.30 - Chronic kidney disease, stage 3 unspecified Category: Medical Qualifiers: Chronic kidney disease stage 3 subtype: stage 3a (GFR 45-59) Qualified Code(s): N18.31 - Chronic kidney disease, stage 3a Plan Servando is type 1 diabetic. His renal functions are stable. He does not have any proteinuria. He is on KAELYN-inhibitor. His serum potassium is normal. He is on insulin pump. He maintains good hydration. He avoids nonsteroidal anti-inflammatories. He has history of coronary artery disease needing stenting. He is not a candidate for EQO or IMAGINATE - [employer]. I did not make any medication changes today. I discussed all his lab work in detail. I answered all his questions. Follow-up appointment given. Orders: Orders Creatinine 8 Months N18.31 - Chronic kidney disease, stage 3a Electrolytes 8 Months N18.31 - Chronic kidney disease, stage 3a Blood Urea Nitrogen Today N18.31 - Chronic kidney disease, stage 3a Creatinine Today N18.31 - Chronic kidney disease, stage 3a Blood Urea Nitrogen 8 Months N18.31 - Chronic kidney disease, stage 3a Protein Creatinine Ratio, Ur 8 Months N18.31 - Chronic kidney disease, stage 3a Electrolytes Today N18.31 - Chronic kidney disease, stage 3a Coding Level of Care Code Est Pt Level 4 (86202) Diagnoses Stage 3a chronic kidney disease N18.31 Chronic kidney disease stage 3 subtype: stage 3a (GFR 45-59)
[2024-08-11 15:02] VITALS: BP 100/60; PULSE 74; O2SAT 98; BMI 24.5
== END 2024-08-11 15:37 | disposition home or self-care (01) ==
PROVIDERS: PCP Internal Medicine; Visit Provider Internal Medicine Nephrology
DX: N18.31 Chronic kidney disease, stage 3a (principal)
CPT/HCPCS: 99214

== ENCOUNTER → 2024-08-11 14:48 | Outpatient (BNVA) | payer OTHER, SELFPAY ==
[2023-05-04 12:01] VITALS: BP 102/46; BP 134/60
== END ==
PROVIDERS: PCP Internal Medicine; Visit Provider Internal Medicine Nephrology
DX: E11.22 Type 2 diabetes mellitus with diabetic chronic kidney disease (principal); N18.31 Chronic kidney disease, stage 3a; Z96.41 Presence of insulin pump (external) (internal); Z79.4 Long term (current) use of insulin
CPT/HCPCS: 99212

== ENCOUNTER 2025-01-11 23:42 | Emergency (ER) | payer OTHER, SELFPAY ==
[2023-05-04 12:01] VITALS: BP 102/46; BP 134/60
--- NOTE | ~2025-01-11 | XR_ITS ---
CLINICAL HISTORY: shortness of breath 1 view chest x-ray Comparison: CR - CHEST 2 VIEWS - 10/03/18 17:00 EST Findings: Minimal right basilar atelectasis. No significant pleural effusion or pneumothorax. Heart size is normal. No acute fracture. IMPRESSION: Minimal right basilar atelectasis. This document has been electronically signed by: Farooq Marquis MD on 01/12/2025 02:57:22
[2025-01-11 23:55] VITALS: BP 85/45; BP 86/47; PULSE 88; PULSE 93; RESP 15; TEMP 36.7; O2SAT 100; O2SAT 99; BMI 24.3
--- NOTE | 2025-01-12 00:09 | ECG_ITS ---
Test Reason : dizziness Blood Pressure : */* mmHG Vent. Rate : 86 BPM Atrial Rate : 86 BPM P-R Int : 160 ms QRS Dur : 74 ms QT Int : 348 ms P-R-T Axes : 82 62 64 degrees QTcB Int : 416 ms Normal sinus rhythm Normal ECG When compared with ECG of 02-Sep-2011 06:57, MANUAL COMPARISON REQUIRED PREVIOUS ECG IS INCOMPATIBLE Referred By: Generic ED Physician Electronically Signed By: TREASURE YANCEY MD
[2025-01-12 00:25] VITALS: BP 100/52; PULSE 87; RESP 11
[2025-01-12 00:44] LABS: Basophils Absolute Auto 0.1 X10*3/uL (0.0-0.2); Basophils Percent Auto 0.7 % (0-2); Eosinophils Absolute Auto 0.3 X10*3/uL (0.0-0.4); Eosinophils Percent Auto 3.8 % (0-4); Hematocrit 32.7 % (42.0-52.0); Imm Gran Abs Auto 0.05 X10*3/uL (0.00-0.03); Imm Gran Pct Auto 0.6 % (0.0-0.4); Lymphocytes Absolute Auto 0.8 X10*3/uL (1.2-4.9); Lymphocytes Percent Auto 9.1 % (20-40); MANUAL DIFF FLAG NO; Mean Corpuscular HGB Conc 33.6 g/dl (31.0-36.0); Mean Corpuscular Hemoglobin 26.6 pg (27.0-33.0); Mean Corpuscular Volume 79.2 fL (80.0-98.0); Mean Platelet Volume 9.9 fL (9.4-12.4); Monocytes Absolute Auto 0.6 X10*3/uL (0.1-1.2); Monocytes Percent Auto 6.8 % (2-11); Neutrophils Absolute Auto 6.9 x10*3/uL (2.0-8.3); Platelet Count 373 X10*3/uL (160-400); Red Blood Count 4.13 X10*6/uL (4.60-5.80); Red Cell Distribution Width 13.9 % (11.0-16.0); White Blood Count 8.7 X10*3/uL (4.8-10.8)
[2025-01-12 01:04] LABS: Alanine Aminotransferase 21 U/L (0-40); Albumin Level 4.3 g/dL (3.5-5.0); Anion Gap 16 (12-20); Aspartate Amino Transferase 24 U/L (5-37); B Type Natriuretic Peptide < 10 pg/mL (<100); Bilirubin Total 0.4 mg/dL (0.0-1.0); Blood Urea Nitrogen 21 mg/dL (9-16); Calcium 11.1 mg/dL (8.4-10.2); Carbon Dioxide 25 mmol/L (22-29); Chloride 104 mmol/L (96-108); Creatinine Clr Calc Pharmacy 37.8; Estimated Glomerular Filt Rate 33; Glucose Random 127 mg/dL (60-115); Potassium 4.8 mmol/L (3.3-5.1); Sodium 140 mmol/L (135-145); Total Protein 7.1 g/dL (6.5-8.0); Troponin-I High Sensitivity 5.6 ng/L (<3.5-35.0)
[2025-01-12 01:22] LABS: Alkaline Phosphatase 70 U/L (39-117)
--- NOTE | 2025-01-12 01:45 | ED_ITS ---
HPI - General Adult General Chief complaint: Dizziness Stated complaint: lightheaded, hx of cardio issues Time Seen by Provider: 01/12/25 01:45 History of Present Illness ED Provider: Ovidio ROJAS narrative: The patient is a type 1 diabetic with an insulin pump. He says he did a fair amount of outdoor work today and then went inside and tried to do some indoor projects. He says that he was sitting down using his hands doing projects when he started to feel that he was having intermittent episodes of lightheadedness and shortness of breath. Ultimately he called his girlfriend and he described his symptoms. She told him to call an ambulance and he was brought to the hospital. He has a history of coronary disease. He says he has several coronary stents. He says he does not think he has ever actually had a heart attack. Ultimately he called 911 and was found to be hypotensive by paramedics. He denies a fever. He denies cough or sputum. He denies abdominal pain, nausea, vomiting. He says aside from the feeling of lightheadedness he does not feel ill or unwell otherwise. Related Data Home Medications ?Medication ?Instructions ?Recorded ?Confirmed insulin lispro 100 unit/mL 60 sliding scale dose subcut 11/19/22 08/07/24 subcutaneous solution (Admelog USEASDIRECTD U-100 Insulin lispro) insulin pump cart,automated,BT #5 ea 07/28/23 08/07/24 (Omnipod 5 G6 Pods (Gen 5) subcutaneous cartridge) Previous Rx's ?Medication ?Instructions ?Recorded glucagon 1 mg solution for 1 mg subcut Q20M PRN hypoglycemia 04/16/23 injection (GlucaGen HypoKit) #1 ea metoprolol succinate 25 mg 25 mg PO DAILY #90 tabs 12/07/23 tablet,extended release 24 hr alendronate 70 mg tablet 70 mg PO QWEEK #12 tabs 02/18/24 calcium carbonate (Oyster Shell 500 mg PO BID #180 tabs 04/18/24 Calcium 500) atorvastatin 80 mg tablet 80 mg PO DAILY #90 tabs 04/28/24 aspirin 81 mg tablet,delayed 81 mg PO DAILY #90 tabs 06/05/24 release (Adult Aspirin Regimen) tadalafil 10 mg tablet 10 mg PO DAILY sexual activity 90 07/26/24 days #90 tabs lisinopril 2.5 mg tablet 2.5 mg PO DAILY #90 tabs 08/25/24 clopidogrel 75 mg tablet 75 mg PO DAILY #90 tabs 11/28/24 Allergies Allergy/AdvReac Type Severity Reaction Status Date / Time No Known Allergies Allergy Verified 01/12/25 00:12 Review of Systems 2 Review of Systems: Yes all other systems are reviewed and are negative PMFSH Past Medical History Medical History Hx of fracture of tibia Hx of retinal detachment Chronic renal insufficiency COVID-19 vaccine administered Myocardial infarction Low vitamin B12 level Hypogonadism in male Hypogonadism Blind left eye Depression Hypertension Dyslipidemia Diabetic neuropathy associated with type 1 diabetes mellitus Coronary artery disease Diabetic retinopathy associated with type 1 diabetes mellitus Diabetes type 1, controlled Osteoporosis Hyperparathyroidism Surgical History H/O heart artery stent S/P eye surgery History of surgery Hx of eye surgery Hx of knee surgery Hx of excision of epidermal inclusion cyst Hx of colonoscopy Family History Family History Father Cancer CVD (cardiovascular disease) Mother CVD (cardiovascular disease) Hypertension High cholesterol Social History Social History Housing: Apartment Are you a primary manager care to a significant other at home: No Do you presently have visiting nurse or other home services: Yes (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) Alcohol intake: never Patient Tobacco Use Status: Former Tobacco user Tobacco use type: Cigarette Years Smoked: 28 Smoked in Last 30 Days: No e-Cigarette/Vaping Use: Currently Using Advance Directives: No Advance Directives Information Provided: Yes Do you have a plan to hurt others: No Plan Current occupational status: disabled Current occupation: rt handed Cognitive needs: No Hearing needs: No Vision needs: No Physical Exam ED Vital Signs: Vital Signs - 24 hr 01/11/25 23:55 01/12/25 00:25 01/12/25 02:00 Temperature 98.1 F Pulse Rate 93 87 80 Respiratory Rate 15 11 L 15 Blood Pressure 85/45 L 100/52 L 114/62 Pulse Oximetry 99 Oxygen Delivery Method Room Air 01/12/25 04:00 01/12/25 06:21 Temperature 97.8 F Pulse Rate 77 88 Respiratory Rate 11 L 16 Blood Pressure 113/52 L 125/62 Pulse Oximetry 96 Oxygen Delivery Method Room Air BMI result Body Mass Index 24.3 Const Other: The patient is a very pleasant 59-year-old. He is awake and alert. He looks somewhat chronically ill but he did not seem obviously acutely ill. HENMT Other: Face is symmetrical. Mucous membranes moist. Eyes Other: Right eye shows a round pupil with good eye movements and a clear conjunctiva. Left eye is prosthetic. Neck Neck: Yes full ROM, Yes no lymphadenopathy and Yes no JVD Resp Effort & Inspection: normal respiratory effort Auscultation: clear to auscultation bilaterally Cardio Rate: regular rate Rhythm: regular rhythm Heart sounds: S1 normal heart sound present and S2 normal heart sound present GI Other: Abdomen is soft and nontender Skin Other: Skin is pale and dry Neuro Other: The patient is awake and alert with a normal mental status. He has a prosthetic left eye. Cranial nerves are otherwise unremarkable. He moves his extremities normally and appropriately. Extrem Other: He has some mild pitting edema both lower legs. He says this is chronic. Medications Administered Discontinued Medications Generic Name Dose Route Start Last Admin Trade Name Freq PRN Reason Stop Dose Admin Sodium Chloride 1,000 mls @ 999 mls/hr 01/12/25 02:00 01/12/25 03:21 Ns IV 01/12/25 03:00 Infused .Q1H1M ADAMARIS Infusion Lactated Ringer's 1,000 mls @ 999 mls/hr 01/12/25 03:00 01/12/25 07:11 Lr IV 01/12/25 04:00 Infused .Q1H1M ADAMARIS Infusion Lactated Ringer's 1,000 mls @ 999 mls/hr 01/12/25 04:45 01/12/25 07:11 Lr IV 01/12/25 05:45 Infused .Q1H1M ADAMARIS Infusion Magnesium Sulfate 2 gm in 50 mls @ 150 mls/hr 01/12/25 07:02 01/12/25 07:18 Magnesium Sulfate/H2o IV 01/12/25 07:21 150 mls/hr ONCE ONE Administration Medical Decision Making Medical Decision Making MDM Narrative: The patient is a type 1 diabetic who has an insulin pump and I believe he normally manages his diabetes quite well. He presents with a sense of lightheadedness and some intermittent feelings of shortness of breath. He was hypotensive. He has no chest pain. EKG is nonischemic. His labs show creatinine of 2.05 and a BUN of 21. These are higher than his baseline. His baseline creatinine seems to be around 1.2-1.3. He was given 3 L of crystalloid in the emergency department. He felt much better. He no longer felt lightheaded. Blood pressure improved. He was also given magnesium replacement. His troponins are flat. He does not seem infected or septic. 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 Zhang. I will advise him to hold his lisinopril until he follows up with his instrument and controls technician. Lab Data 01/12/25 00:39 01/12/25 06:21 Labs: Lab Results 01/12/25 01/12/25 01/12/25 Range/Units 00:39 02:39 06:21 WBC 8.7 (4.8-10.8) X10*3/uL RBC 4.13 L (4.60-5.80) X10*6/uL Hgb 11.0 L (14.0-18.0) g/dl Hct 32.7 L (42.0-52.0) % MCV 79.2 L (80.0-98.0) fL MCH 26.6 L (27.0-33.0) pg MCHC 33.6 (31.0-36.0) g/dl RDW 13.9 (11.0-16.0) % Plt Count 373 (160-400) X10*3/uL MPV 9.9 (9.4-12.4) fL Immature Gran % (Auto) 0.6 H (0.0-0.4) % Neut % (Auto) 79.0 H (45-73) % Lymph % (Auto) 9.1 L (20-40) % [place] % (Auto) 6.8 (2-11) % Eos % (Auto) 3.8 (0-4) % Baso % (Auto) 0.7 (0-2) % Lymph # (Auto) 0.8 L (1.2-4.9) X10*3/uL [place] # (Auto) 0.6 (0.1-1.2) X10*3/uL Eos # (Auto) 0.3 (0.0-0.4) X10*3/uL Baso # (Auto) 0.1 (0.0-0.2) X10*3/uL Abs Immat Gran (auto) 0.05 H (0.00-0.03) X10*3/uL Absolute Neuts (auto) 6.9 (2.0-8.3) x10*3/uL Absolute Nucleated RBC 0.000 (0.0-0.012) X10*3/uL Nucleated RBC % (auto) 0.0 (0.0-0.2) /100WBC Sodium 140 138 (135-145) mmol/L Potassium 4.8 5.0 (3.3-5.1) mmol/L Chloride 104 107 (96-108) mmol/L Carbon Dioxide 25 23 (22-29) mmol/L Anion Gap 16 13 (12-20) BUN 21 H 21 H (9-16) mg/dL Creatinine 2.05 H 1.51 H (0.5-1.4) mg/dL Estim Creat Clear Calc 37.8 51.3 Estimated GFR 33 47 Random Glucose 127 H 125 H (60-115) mg/dL Calcium 11.1 H D 9.3 D (8.4-10.2) mg/dL Magnesium 1.3 L* (1.6-2.6) mg/dL Total Bilirubin 0.4 (0.0-1.0) mg/dL AST 24 (5-37) U/L ALT 21 (0-40) U/L Alkaline Phosphatase 70 (39-117) U/L Troponin I High Sens 5.6 5.4 (<3.5-35.0) ng/L B-Natriuretic Peptide < 10 (<100) pg/mL Total Protein 7.1 (6.5-8.0) g/dL Albumin 4.3 (3.5-5.0) g/dL Influenza Type A (PCR) NEGATIVE (Negative) Influenza Type B (PCR) NEGATIVE (Negative) RSV RNA Qual (PCR) NEGATIVE (Negative) SARS-CoV-2 RNA (RT-PCR) NEGATIVE (Negative) Discharge Plan Discharge Clinical Impression: Lightheadedness, Acute dehydration, Hypomagnesemia, Type 1 diabetes Patient Disposition: Home, Self-Care Additional Instructions: I think you were fairly dehydrated. You were given IV fluids to correct this. Also your magnesium level was somewhat low. You were given IV magnesium as well. Please plan on contacting your regular doctor and your kidney doctor to arrange prompt follow up to discuss this episode further. My hope is that you will be seen either by your regular doctor or your kidney doctor next week for a recheck and repeat labs. In the meantime continue your usual medications with the exception of your lisinopril. Please hold your lisinopril until you speak to your primary care doctor or your kidney doctor. Drink a lot of fluids. Return to the emergency room if you feel significantly worse. Prescriptions: No Action alendronate 70 mg tablet 70 mg PO QWEEK Qty: 12 5RF atorvastatin 80 mg tablet 80 mg PO DAILY Qty: 90 3RF aspirin [Adult Aspirin Regimen] 81 mg tablet,delayed release (DR/EC) 81 mg PO DAILY Qty: 90 3RF lisinopril 2.5 mg tablet 2.5 mg PO DAILY Qty: 90 3RF clopidogrel 75 mg tablet 75 mg PO DAILY Qty: 90 3RF GlucaGen HypoKit 1 mg recon soln 1 mg subcut Q20M PRN (Reason: hypoglycemia) Qty: 1 0RF Rx Instructions: until target blood sugar attained. Use only in case of severe hypoglycemia, and not being able to eat or drink insulin lispro [Admelog U-100 Insulin lispro] 100 unit/mL solution 60 sliding scale dose subcut USEASDIRECTD Rx Instructions: via insulin pump (DME) Omnipod 5 G6 Pods (Gen 5) Cartridge See Rx Instructions subcut Q OTHER DAY Qty: 5 Rx Instructions: As directed metoprolol succinate 25 mg tablet extended release 24 hr 25 mg PO DAILY Qty: 90 3RF tadalafil 10 mg tablet 10 mg PO DAILY 90 Days Qty: 90 1RF calcium carbonate [Oyster Shell Calcium 500] 500 mg calcium (1,250 mg) tablet 500 mg PO BID Qty: 180 2RF Referrals: Vicente Hammer MD [Physician] - Samira Quispe MD [Primary Care Provider] - Print Language: Armenian
[2025-01-12] MEDS: 0.9 % Sodium Chloride 1,000 ML 999 ML IV (01:49)
[2025-01-12 02:00] VITALS: BP 114/62; PULSE 80; RESP 15
[2025-01-12] MEDS: Lactated Ringers 1,000 ML 999 ML IV ×2 (03:21→05:26)
[2025-01-12 03:28] LABS: Influenza A PCR NEGATIVE (Negative); Influenza B PCR NEGATIVE (Negative); Resp Syncy Virus RNA Qual PCR NEGATIVE (Negative); SARS COV2 PCR INHOUSE NEGATIVE (Negative)
[2025-01-12 04:00] VITALS: BP 113/52; PULSE 77; RESP 11
[2025-01-12 06:21] VITALS: BP 125/62; PULSE 88; RESP 16; TEMP 36.6; O2SAT 96
[2025-01-12 06:53] LABS: Anion Gap 13 (12-20); Blood Urea Nitrogen 21 mg/dL (9-16); Calcium 9.3 mg/dL (8.4-10.2); Carbon Dioxide 23 mmol/L (22-29); Chloride 107 mmol/L (96-108); Creatinine Clr Calc Pharmacy 51.3; Estimated Glomerular Filt Rate 47; Glucose Random 125 mg/dL (60-115); Magnesium 1.3 mg/dL (1.6-2.6); Sodium 138 mmol/L (135-145)
[2025-01-12] MEDS: Magnesium Sulfate/H2O 2 GM/50 ML PIGGYBACK IV (07:18)
[2025-01-12 07:57] LABS: Troponin-I High Sensitivity 5.4 ng/L (<3.5-35.0)
[2025-01-12 08:00] VITALS: BP 140/74; PULSE 84; RESP 18; TEMP 36.9; O2SAT 97
[2025-01-12 09:35] VITALS: BP 140/73; PULSE 62; RESP 18; TEMP 37.1; O2SAT 97
== END 2025-01-12 09:36 | disposition home or self-care (01) ==
PROVIDERS: Emergency Provider Emergency Medicine; PCP Internal Medicine
DX: E86.0 Dehydration (principal); R42 Dizziness and giddiness; E83.42 Hypomagnesemia; E10.9 Type 1 diabetes mellitus without complications; R11.2 Nausea with vomiting, unspecified; R06.02 Shortness of breath; Z79.899 Other long term (current) drug therapy; Z03.818 Encounter for observation for suspected exposure to other biological agents ruled out; Z87.891 Personal history of nicotine dependence
CPT/HCPCS: 0241U; 36415; 71045; 80048; 80053; 83735; 83880; 84484; 85025; 93005; 96361; 96374; 99285; J3475; J7120

== ENCOUNTER → 2025-01-12 00:09 | Outpatient (BNV) | payer OTHER, SELFPAY ==
[2023-05-04 12:01] VITALS: BP 102/46; BP 134/60
== END ==
PROVIDERS: Emergency Provider Emergency Medicine; PCP Internal Medicine; Visit Provider Internal Medicine Cardiovascular Disease
DX: R42 Dizziness and giddiness (principal)
CPT/HCPCS: 93010

== ENCOUNTER → 2025-01-12 02:20 | Outpatient (BNV) | payer OTHER, SELFPAY ==
[2023-05-04 12:01] VITALS: BP 102/46; BP 134/60
== END ==
PROVIDERS: Emergency Provider Emergency Medicine; PCP Internal Medicine; Visit Provider Radiology Diagnostic Radiology
DX: R06.02 Shortness of breath (principal)
CPT/HCPCS: 71045

== ENCOUNTER 2025-01-19 15:59 | Outpatient (AMB) | payer OTHER, SELFPAY ==
[2023-05-04 12:01] VITALS: BP 102/46; BP 134/60
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
--- NOTE | 2025-01-19 16:02 | HO.NEPHOV ---
Vital Signs 01/19/25 16:05 Height 5 ft 9 in Weight 167 lb BMI 24.7 BP 100/50 L Blood Pressure Location Rt brachial Position Sitting Pulse 89 Pulse Source Pulse Oximeter Pulse Oximetry (%) 98 Oxygen Delivery Method Room Air Intake Visit Reasons: [facility] [place] [facility] Stage Director Required: No Accompanied by: Self / Same As Patient Allergies No Known Allergies Allergy (Verified 01/19/25 16:05) HPI Comments Details: Servando was seen in follow-up of his chronic kidney disease. His blood sugar is pretty well controlled. He is a type 1 diabetic on insulin pump. Recently he did a fair amount of outdoor work and then went inside and tried to do some indoor projects. At that time he was sitting down using his hands doing projects , when he started to feel that he was having intermittent episodes of lightheadedness and shortness of breath. He has a history of coronary disease needing PCI and stent insertion. He does not have any significant proteinuria. He denies taking nonsteroidal anti-inflammatories. He has no urinary symptoms . He does not have any chest pain, shortness of breath, hypoglycemia, pedal edema, hematuria, shortness of breath or any new symptoms. He is compliant with his medications. Recently he was found to have MINERVA as well as hypomagnesemia. His ACEI was held and was given IV fluids with improvement in renal function. [facility] Medical History Hx of fracture of tibia Hx of retinal detachment Chronic renal insufficiency COVID-19 vaccine administered Myocardial infarction Low vitamin B12 level Hypogonadism in male Hypogonadism Blind left eye Depression Hypertension Dyslipidemia Diabetic neuropathy associated with type 1 diabetes mellitus Coronary artery disease Diabetic retinopathy associated with type 1 diabetes mellitus Diabetes type 1, controlled Osteoporosis Hyperparathyroidism Surgical History H/O heart artery stent S/P eye surgery History of surgery Hx of eye surgery Hx of knee surgery Hx of excision of epidermal inclusion cyst Hx of colonoscopy Family History Father Cancer CVD (cardiovascular disease) Mother CVD (cardiovascular disease) Hypertension High cholesterol Social History Housing: Apartment Are you a primary physician assistant primary care to a significant other at home: No Do you presently have visiting nurse or other home services: Yes (has STOREHOUSE CLERK) Alcohol intake: never Patient Tobacco Use Status: Former Tobacco user Tobacco use type: Cigarette Years Smoked: 28 e-Cigarette/Vaping Use: Currently Using Current occupational status: disabled Current occupation: rt handed Cognitive needs: No Hearing needs: No Vision needs: No Review of Systems Const All systems reviewed & are unremarkable except as noted in HPI and below Physical Exam Vital Signs: Last Vital Signs Pulse 89 01/19/25 16:05 BP 100/50 L 01/19/25 16:05 Pulse Ox 98 01/19/25 16:05 Oxygen Delivery Method Room Air 01/19/25 16:05 BMI result Body Mass Index 24.7 Const General: comfortable and no acute distress Orientation/consciousness: patient oriented x3 HEENT Head: Yes normocephalic Mouth: Normal oral and palatal mucosa present Neck Neck: Yes supple Resp Auscultation: clear to auscultation bilaterally Cardio Jugular venous distension: no JVD Rate: regular rate GI Palpation (GI): Soft to palpation Auscultation: normal bowel sounds General: Yes no CVA tenderness Back/Spine/Pelvis Back: no CVA tenderness Skin General skin exam: no rashes or lesions noted Neuro General: patient oriented x3 and moves all extremities Extrem General: Yes no pedal edema Results Reviewed Nephrology Results: Hgb 11.0 g/dl (14.0-18.0) L 01/12/25 WBC 8.7 X10*3/uL (4.8-10.8) 01/12/25 Plt Count 373 X10*3/uL (160-400) 01/12/25 Sodium 138 mmol/L (135-145) 01/12/25 Potassium 5.0 mmol/L (3.3-5.1) 01/12/25 Chloride 107 mmol/L (96-108) 01/12/25 Carbon Dioxide 23 mmol/L (22-29) 01/12/25 BUN 21 mg/dL (9-16) H 01/12/25 Creatinine 1.51 mg/dL (0.5-1.4) H 01/12/25 Calcium 9.3 mg/dL (8.4-10.2) 01/12/25 Urine Creatinine 131 mg/dL (20-320) 09/05/24 Protein/Creatinin Ratio TNP 08/03/24 Assessment & Plan Assessment & Plan (1) CKD (chronic kidney disease) stage 3, GFR 30-59 ml/min: Code(s): N18.30 - Chronic kidney disease, stage 3 unspecified Category: Medical Qualifiers: Chronic kidney disease stage 3 subtype: stage 3a (GFR 45-59) Qualified Code(s): N18.31 - Chronic kidney disease, stage 3a (2) Hypomagnesemia: Code(s): E83.42 - Hypomagnesemia Category: Medical (3) Acute kidney injury superimposed on CKD: Code(s): N17.9 - Acute kidney failure, unspecified; N18.9 - Chronic kidney disease, unspecified Category: Medical Plan Servando is type 1 diabetic. He recently developed MINERVA due to compromise in renal perfusion . His ACEI was held and was given IV fluids with improvement in renal function but not close to baseline yet. He does not have any proteinuria. His serum potassium is high normal. He is on insulin pump. He maintains good hydration. He avoids nonsteroidal anti-inflammatories. He has history of coronary artery disease needing stenting. He is not a candidate for [employer] or [employer]. I ordered Mg replacement. I did not make any medication changes today. I discussed all his lab work in detail. I answered all his questions. Follow-up appointment given. Orders: Orders Creatinine 1 Month Vicente Hammer MD E83.42 - Hypomagnesemia, N18.31 - Chronic kidney disease, stage 3a Electrolytes 1 Month Vicente Hammer MD E83.42 - Hypomagnesemia, N18.31 - Chronic kidney disease, stage 3a Calcium 1 Month Vicente Hammer MD E83.42 - Hypomagnesemia, N18.31 - Chronic kidney disease, stage 3a Blood Urea Nitrogen 1 Month Vicente Hammer MD E83.42 - Hypomagnesemia, N18.31 - Chronic kidney disease, stage 3a Magnesium 1 Month Vicente Hammer MD E83.42 - Hypomagnesemia, N18.31 - Chronic kidney disease, stage 3a Protein Creatinine Ratio, Ur 1 Month Vicente Hammer MD E83.42 - Hypomagnesemia, N18.31 - Chronic kidney disease, stage 3a Medications: New magnesium oxide 400 mg PO DAILY 30 tabs 3RF Vicente Hammer MD On Hold lisinopril Hold Comment: Doctor's Order 2.5 mg PO DAILY 90 tabs 3RF Gali Bishop MA Coding Level of Care Code Est Pt Level 4 (83380) Diagnoses Stage 3a chronic kidney disease N18.31 Chronic kidney disease stage 3 subtype: stage 3a (GFR 45-59) Hypomagnesemia E83.42 Acute kidney injury superimposed on CKD N17.9; N18.9
[2025-01-19 16:05] VITALS: BP 100/50; PULSE 89; O2SAT 98; BMI 24.7
== END 2025-01-19 16:30 | disposition home or self-care (01) ==
PROVIDERS: PCP Internal Medicine; Visit Provider Internal Medicine Nephrology
DX: N18.31 Chronic kidney disease, stage 3a (principal); E83.42 Hypomagnesemia; N17.9 Acute kidney failure, unspecified; N18.9 Chronic kidney disease, unspecified
CPT/HCPCS: 99214

== ENCOUNTER → 2025-01-19 15:59 | Outpatient (BNVA) | payer OTHER, SELFPAY ==
[2023-05-04 12:01] VITALS: BP 102/46; BP 134/60
== END ==
PROVIDERS: PCP Internal Medicine; Visit Provider Internal Medicine Nephrology
DX: N18.31 Chronic kidney disease, stage 3a (principal); E83.42 Hypomagnesemia; N17.9 Acute kidney failure, unspecified
CPT/HCPCS: 99212

== ENCOUNTER 2025-02-14 15:56 | Outpatient (REF) | payer MEDICAID, SELFPAY ==
[2023-05-04 12:01] VITALS: BP 102/46; BP 134/60
[2025-02-14 17:21] LABS: Creatinine Urine 222.56 mg/dL; Protein/Creatinine Ratio, Ur 0.06 (<0.2); Total Protein Urine Random 13 mg/dL (<12)
[2025-02-14 17:30] LABS: Anion Gap 10 (12-20); Blood Urea Nitrogen 15 mg/dL (9-16); Calcium 9.2 mg/dL (8.4-10.2); Carbon Dioxide 25 mmol/L (22-29); Chloride 109 mmol/L (96-108); Estimated Glomerular Filt Rate 59; Magnesium 1.6 mg/dL (1.6-2.6); Potassium 4.6 mmol/L (3.3-5.1); Sodium 139 mmol/L (135-145)
== END 2025-02-14 15:57 | disposition home or self-care (01) ==
LOC: HO.LAB 15:56
PROVIDERS: PCP Internal Medicine; Visit Provider Internal Medicine Nephrology
DX: N18.31 Chronic kidney disease, stage 3a (principal); E83.42 Hypomagnesemia
CPT/HCPCS: 36415; 80051; 82310; 82565; 82570; 83735; 84156; 84520

== ENCOUNTER 2025-02-16 11:12 | Outpatient (AMB) | payer OTHER, SELFPAY ==
[2023-05-04 12:01] VITALS: BP 102/46; BP 134/60
--- NOTE | 2025-02-16 11:16 | HO.NEPHOV ---
Vital Signs 02/16/25 11:17 Height 5 ft 9 in Weight 167 lb BMI 24.7 BP 124/56 L Blood Pressure Location Rt brachial Position Sitting Pulse 74 Pulse Source Pulse Oximeter Pulse Oximetry (%) 99 Oxygen Delivery Method Room Air Intake Visit Reasons: CKD-Conf Disposition Clerk Required: No Accompanied by: Self / Same As Patient Allergies No Known Allergies Allergy (Verified 02/16/25 11:17) HPI Comments Details: Servando was seen in follow-up of his chronic kidney disease. His blood sugar is pretty well controlled. He is a type 1 diabetic on insulin pump.He has a history of coronary disease needing PCI and stent insertion. He does not have any significant proteinuria. He denies taking nonsteroidal anti-inflammatories. He has no urinary symptoms . He does not have any chest pain, shortness of breath, hypoglycemia, pedal edema, hematuria, shortness of breath or any new symptoms. He is compliant with his medications. Recently he was found to have MINERVA as well as hypomagnesemia. His ACEI was held and was given IV fluids with improvement in renal function. [facility] Medical History Hx of fracture of tibia Hx of retinal detachment Chronic renal insufficiency COVID-19 vaccine administered Myocardial infarction Low vitamin B12 level Hypogonadism in male Hypogonadism Blind left eye Depression Hypertension Dyslipidemia Diabetic neuropathy associated with type 1 diabetes mellitus Coronary artery disease Diabetic retinopathy associated with type 1 diabetes mellitus Diabetes type 1, controlled Osteoporosis Hyperparathyroidism Surgical History H/O heart artery stent S/P eye surgery History of surgery Hx of eye surgery Hx of knee surgery Hx of excision of epidermal inclusion cyst Hx of colonoscopy Family History Father Cancer CVD (cardiovascular disease) Mother CVD (cardiovascular disease) Hypertension High cholesterol Social History Housing: Apartment Are you a primary healthcare marketer to a significant other at home: No Do you presently have visiting nurse or other home services: Yes (has LABORATORY MILLER) Alcohol intake: never Patient Tobacco Use Status: Former Tobacco user Tobacco use type: Cigarette Years Smoked: 28 e-Cigarette/Vaping Use: Currently Using Current occupational status: disabled Current occupation: rt handed Cognitive needs: No Hearing needs: No Vision needs: No Review of Systems Const All systems reviewed & are unremarkable except as noted in HPI and below Physical Exam Vital Signs: Last Vital Signs Pulse 74 02/16/25 11:17 BP 124/56 L 02/16/25 11:17 Pulse Ox 99 02/16/25 11:17 Oxygen Delivery Method Room Air 02/16/25 11:17 BMI result Body Mass Index 24.7 Const General: comfortable and no acute distress Orientation/consciousness: patient oriented x3 HEENT Head: Yes normocephalic Mouth: Normal oral and palatal mucosa present Eyes EOM: EOMs intact bilaterally Neck Neck: Yes supple Resp Auscultation: clear to auscultation bilaterally Cardio Jugular venous distension: no JVD Rate: regular rate GI Palpation (GI): Soft to palpation Auscultation: normal bowel sounds General: Yes no CVA tenderness Back/Spine/Pelvis Back: no CVA tenderness Skin General skin exam: no rashes or lesions noted Neuro General: patient oriented x3 and moves all extremities Extrem General: Yes no pedal edema Results Reviewed Nephrology Results: Hgb 11.0 g/dl (14.0-18.0) L 01/12/25 WBC 8.7 X10*3/uL (4.8-10.8) 01/12/25 Plt Count 373 X10*3/uL (160-400) 01/12/25 Sodium 139 mmol/L (135-145) 02/14/25 Potassium 4.6 mmol/L (3.3-5.1) 02/14/25 Chloride 109 mmol/L (96-108) H 02/14/25 Carbon Dioxide 25 mmol/L (22-29) 02/14/25 BUN 15 mg/dL (9-16) 02/14/25 Creatinine 1.25 mg/dL (0.5-1.4) 02/14/25 Calcium 9.2 mg/dL (8.4-10.2) 02/14/25 Urine Creatinine 222.56 mg/dL 02/14/25 Protein/Creatinin Ratio 0.06 (<0.2) 02/14/25 Assessment & Plan Assessment & Plan (1) Acute kidney injury superimposed on CKD: Code(s): N17.9 - Acute kidney failure, unspecified; N18.9 - Chronic kidney disease, unspecified Category: Medical (2) CKD (chronic kidney disease) stage 3, GFR 30-59 ml/min: Code(s): N18.30 - Chronic kidney disease, stage 3 unspecified Category: Medical Qualifiers: Chronic kidney disease stage 3 subtype: stage 3a (GFR 45-59) Qualified Code(s): N18.31 - Chronic kidney disease, stage 3a (3) Hypertension: Code(s): I10 - Essential (primary) hypertension Category: Medical Qualifiers: Hypertension type: primary hypertension Qualified Code(s): I10 - Essential (primary) hypertension Plan Servando is type 1 diabetic. He recently developed MINERVA due to compromise in renal perfusion which has resolved . His ACEI was held and was given IV fluids with improvement in renal function which is at baseline now. He does not have any proteinuria. His serum potassium is normal. He is on insulin pump. He maintains good hydration. He avoids nonsteroidal anti-inflammatories. He has history of coronary artery disease needing stenting. He is not a candidate for [employer] or [employer]. I plan to initiate him on ACEI @ next visit. I did not make any medication changes today. I discussed all his lab work in detail. I answered all his questions. Follow-up appointment given. Orders: Orders Creatinine 2 Months N18.31 - Chronic kidney disease, stage 3a Blood Urea Nitrogen 2 Months N18.31 - Chronic kidney disease, stage 3a Electrolytes 2 Months N18.31 - Chronic kidney disease, stage 3a Coding Level of Care Code Est Pt Level 4 (09541) Diagnoses Acute kidney injury superimposed on CKD N17.9; N18.9 Stage 3a chronic kidney disease N18.31 Chronic kidney disease stage 3 subtype: stage 3a (GFR 45-59) Primary hypertension I10 Hypertension type: primary hypertension
[2025-02-16 11:17] VITALS: BP 124/56; PULSE 74; O2SAT 99; BMI 24.7
== END 2025-02-16 11:34 | disposition home or self-care (01) ==
LOC: HO.HKA 11:12
PROVIDERS: PCP Internal Medicine; Visit Provider Internal Medicine Nephrology
DX: N17.9 Acute kidney failure, unspecified (principal); I12.9 Hypertensive chronic kidney disease with stage 1 through stage 4 chronic kidney disease, or unspecified chronic kidney disease; N18.31 Chronic kidney disease, stage 3a
CPT/HCPCS: 99214

== ENCOUNTER → 2025-02-16 11:12 | Outpatient (BNVA) | payer OTHER, SELFPAY ==
[2023-05-04 12:01] VITALS: BP 102/46; BP 134/60
== END ==
PROVIDERS: PCP Internal Medicine; Visit Provider Internal Medicine Nephrology
DX: I12.9 Hypertensive chronic kidney disease with stage 1 through stage 4 chronic kidney disease, or unspecified chronic kidney disease (principal); N18.31 Chronic kidney disease, stage 3a; N17.9 Acute kidney failure, unspecified
CPT/HCPCS: 99212

== ENCOUNTER 2025-02-21 12:59 | Outpatient (AMB) | payer OTHER, SELFPAY ==
[2023-05-04 12:01] VITALS: BP 102/46; BP 134/60
--- NOTE | 2025-02-21 13:17 | MHC.OFFVIS ---
Vital Signs 02/21/25 13:18 Height 5 ft 9 in Weight 160 lb 14.999 oz BMI 23.8 BP 126/62 Blood Pressure Location Lt brachial Position Sitting Pulse 78 Pulse Source Pulse Oximeter Intake Visit Reasons: 6 mth fu r/s 02-13-25 Allergies No Known Allergies Allergy (Verified 02/16/25 11:17) Medication List - Last Reconciled 02/21/25 by Darryl Leong MD alendronate 70 mg PO QWEEK aspirin (Adult Aspirin Regimen) 81 mg PO DAILY atorvastatin 80 mg PO DAILY calcium carbonate (Oyster Shell Calcium 500) 500 mg PO BID clopidogrel 75 mg PO DAILY glucagon (GlucaGen HypoKit) 1 mg subcut Q20M PRN insulin lispro (Admelog U-100 Insulin lispro) 60 sliding scale doses subcut USEASDIRECTD insulin pump cart,automated,BT (Omnipod 5 G6 Pods (Gen 5) subcutaneous cartridge) As directed lisinopril 2.5 mg PO DAILY magnesium oxide 400 mg PO DAILY metoprolol succinate ER 25 mg PO DAILY tadalafil 10 mg PO DAILY 90 days HPI Comments Details: Servando returns for follow-up regarding coronary disease. Due to long history of type 1 diabetes, he underwent ischemia workup. He was also complaining of shortness of breath with activity. Stress test was positive, and that in turn led to coronary CTA and diagnostic catheterization. He has undergone multivessel PCI. Overall, he states he feels well. No new concerns. Compliant with all his medications. [facility] Medical History Hx of fracture of tibia Hx of retinal detachment Chronic renal insufficiency COVID-19 vaccine administered Myocardial infarction Low vitamin B12 level Hypogonadism in male Hypogonadism Blind left eye Depression Hypertension Dyslipidemia Diabetic neuropathy associated with type 1 diabetes mellitus Coronary artery disease Diabetic retinopathy associated with type 1 diabetes mellitus Diabetes type 1, controlled Osteoporosis Hyperparathyroidism Surgical History H/O heart artery stent S/P eye surgery History of surgery Hx of eye surgery Hx of knee surgery Hx of excision of epidermal inclusion cyst Hx of colonoscopy Family History Father Cancer CVD (cardiovascular disease) Mother CVD (cardiovascular disease) Hypertension High cholesterol Social History Housing: Apartment Are you a primary md do resident urgent care to a significant other at home: No Do you presently have visiting nurse or other home services: Yes (has RESISTANCE WELDER) Alcohol intake: never Patient Tobacco Use Status: Former Tobacco user Tobacco use type: Cigarette Years Smoked: 28 e-Cigarette/Vaping Use: Currently Using Current occupational status: disabled Current occupation: rt handed Cognitive needs: No Hearing needs: No Vision needs: No Review of Systems Const Denies weakness ENT Denies dizziness Card Denies chest pain, Denies chest pain with activity, Denies syncope, Denies rapid heart rate, Denies pedal edema, Denies edema, Denies leg edema, Denies lightheadedness, Denies palpitations, Denies dyspnea, Denies dyspnea on exertion and Denies orthopnea Resp Denies cough, Denies dyspnea and Denies dyspnea on exertion GI Denies hematochezia and Denies change in stool character Musc Denies abnormal gait, Denies muscle cramps, Denies muscle weakness, Denies numbness, Denies radiating pain into limb and Denies tingling Neuro Denies abnormal gait, Denies dizziness, Denies syncope, Denies numbness, Denies tingling and Denies weakness Endo Denies palpitations Physical Exam Vital Signs: Last Vital Signs Pulse 78 02/21/25 13:18 BP 126/62 02/21/25 13:18 BMI result Body Mass Index 23.8 Const General: comfortable and no acute distress Orientation/consciousness: patient oriented x3 HEENT Other: Unremarkable Head: Yes normal to inspection Neck Neck: Yes normal visual inspection Chest Chest palpation & inspection: normal inspection of the chest Resp Auscultation: clear to auscultation bilaterally Cardio Palpation: normal PMI Heart sounds: S1 normal heart sound present, S2 normal heart sound present, no gallops, no murmurs and no rubs GI Palpation (GI): Soft to palpation Back/Spine/Pelvis Other: unremarkable Skin General skin exam: no rashes or lesions noted Neuro General: patient oriented x3 Extrem General: Yes normal to inspection Psych Mental Status: mental status grossly normal Assessment & Plan Assessment & Plan (1) Atherosclerotic cardiovascular disease: Code(s): I25.10 - Atherosclerotic heart disease of [place] coronary artery without angina pectoris Category: Medical (2) Type 1 diabetes mellitus with unspecified complications: Code(s): E10.8 - Type 1 diabetes mellitus with unspecified complications Category: Medical Plan Cardiac studies summarized as below. Myocardial perfusion imaging study shows mild intensity apical ischemia/equivocal inferior wall ischemia. In the coronary CTA, multivessel disease identified as well as a patent foramina ovale. Cardiac catheterization data reviewed. He has undergone PCI to LAD, circumflex and RCA. Clinically, doing well. Continue long-term aspirin. He is on Plavix and we will decide on duration but may continue for now. Continue beta-blockers and statins. Advised to check lipids and there is already an order from last time. Optimal management of diabetes. Hemoglobin A1c from 2023-6.9%. Otherwise, seems stable. Follow-up in 6 months. Coding Level of Care Code Est Pt Level 4 (07839) Complex EM visit Add On G2211 Diagnoses Atherosclerotic cardiovascular disease I25.10 Type 1 diabetes mellitus with unspecified complications E10.8
[2025-02-21 13:18] VITALS: BP 126/62; PULSE 78; BMI 23.8
--- OUTSIDE RECORDS SUMMARY | 2025-02-21 15:25 | XMS_ITS | Clinical Summary ---
Author Organization [facility] Address [address] [place] [address] [place] [address] Phone Care Team Providers Care Drosser Name Role Phone Samira Quispe MD Primary Care Provider [phone] Allergies No known active allergies Medications aspirin [...] Plan: Followed by Dr. Anthony Delaney at [facility] Had follow up last month Blindness in [...] Dexcom to G6, this will work with [employer] once this launches; we discussed other insulin [...] % PVNMA 05/21/2020 us [facility] Conversion LAB [id number] LICITED RESULTS Final Result PVNMA from Last 3 Months or Most Recently Relevant to Health Maintenance Insurance [facility] MEDICAID [facility] MEDICAID Member Subscriber Plan / Payer (Ef fective 2020-Present) Name:Servando Tan Relation to Subscriber:Self Name:DanishloreServando Payer ID:Not on file Group ID:[id number] Type:Not on file Address: [place] [id number] Care Teams Drosser Relationship Specialty Start Date End Date Samira Quispe MD [address] [place] [address] PCP - General 12/09/20
== END 2025-02-21 13:36 | disposition home or self-care (01) ==
LOC: HO.HCS 12:59
PROVIDERS: PCP Internal Medicine; Visit Provider Internal Medicine
DX: I25.10 Atherosclerotic heart disease of native coronary artery without angina pectoris (principal); E10.8 Type 1 diabetes mellitus with unspecified complications
CPT/HCPCS: 99214; G2211

== ENCOUNTER → 2025-02-21 12:59 | Outpatient (BNVA) | payer OTHER, SELFPAY ==
[2023-05-04 12:01] VITALS: BP 102/46; BP 134/60
== END ==
PROVIDERS: PCP Internal Medicine; Visit Provider Internal Medicine
DX: I25.10 Atherosclerotic heart disease of native coronary artery without angina pectoris (principal); E10.8 Type 1 diabetes mellitus with unspecified complications
CPT/HCPCS: 99212

== ENCOUNTER 2025-04-04 15:39 | Outpatient (REF) | payer MEDICAID, SELFPAY ==
[2023-05-04 12:01] VITALS: BP 102/46; BP 134/60
--- OUTSIDE RECORDS SUMMARY | 2025-04-04 16:24 | XMS_ITS | Clinical Summary ---
Author Organization [facility] Address [address] [place] [place] [address] Phone Care Team Providers Care Horticultural Therapist Name Role Phone Samira Quispe MD Primary Care Provider [phone] Allergies No known active allergies Medications aspirin [...] Plan: Followed by Dr. Anthony Delaney at [facility] Had follow up last month Blindness in [...] Dexcom to G6, this will work with [employer] once this launches; we discussed other insulin [...] Blood pressure control is excellent today Immunizations Immunization Administration Dates Next Due Influenza TIV (IM) [...] Colorectal Cancer Screening: Sigmoidoscopy 2012 Pneumococcal Vaccine: 50+ Years (2 of 2 - PCV) 02/23/2016 02/22/2015 Diabetes: Ophthalmology Exam 12/29/2020 Diabetes: Pedal Pulse Checked 12/29/2020 Diabetes: Sensory Foot Exam 12/29/2020 Diabetes: Visual Foot Exam 12/29/2020 Diabetes: Hemoglobin A1C 09/16/2023 023, 12/11/2022, 06/17/2022, Additional history exists Influenza Vaccine (Season Ended) 2025 08/31/2022, 08/29/2021, 08/28/2020, Additional history exists Pneumococcal Vaccine: Peds (0 to 5 Years) and At-Risk Patients (6 to 49 Years) Discontinued 02/22/2015 Hepatitis B Vaccine Aged Out No longe [...] % PVNMA 05/21/2020 us [facility] Conversion LAB [id number] LICITED RESULTS Final Result PVNMA from Last 3 Months or Most Recently Relevant to Health Maintenance Insurance [facility] Medicaid Member Subscriber Plan / Payer (Ef fective 2020-Present) Name:Servando Tan Relation to Subscriber:Self Name:Servando Tan Payer ID:Not on file Group ID:[id number] Type:Not on file Address: [address] [facility] Medicaid Care Teams Horticultural Therapist Relationship Specialty Start Date End Date Samira Quispe MD [facility] [place] [address] PCP - General 12/09/20
[2025-04-04 16:45] LABS: Anion Gap 12 (12-20); Blood Urea Nitrogen 22 mg/dL (9-16); Carbon Dioxide 25 mmol/L (22-29); Chloride 108 mmol/L (96-108); Estimated Glomerular Filt Rate > 60; Potassium 4.5 mmol/L (3.3-5.1); Sodium 140 mmol/L (135-145)
== END 2025-04-04 15:40 | disposition home or self-care (01) ==
LOC: HO.LAB 15:39
PROVIDERS: PCP Internal Medicine; Visit Provider Internal Medicine Nephrology
DX: N18.31 Chronic kidney disease, stage 3a (principal)
CPT/HCPCS: 36415; 80051; 82565; 84520

== ENCOUNTER 2025-04-18 12:59 | Outpatient (AMB) | payer OTHER, SELFPAY ==
[2023-05-04 12:01] VITALS: BP 102/46; BP 134/60
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
[2025-04-18 13:09] VITALS: BP 122/56; PULSE 76; O2SAT 100; BMI 23.1
--- OUTSIDE RECORDS SUMMARY | 2025-04-18 13:36 | XMS_ITS | Clinical Summary ---
Author Organization [facility] Address [address] [place] [address] [place] [address] Phone Care Team Providers Care Ncr Operator Name Role Phone Samira Quispe MD Primary Care Provider Allergies No known active allergies Medications aspirin [...] Plan: Followed by Dr. Anthony Delaney at [facility] Had follow up last month Blindness [...] Dexcom to G6, this will work with [employer] once this launches; we discussed other insulin [...] % PVNMA 05/21/2020 us [facility] Conversion LAB [id number] LICITED RESULTS Final Result PVNMA from Last 3 Months or Most Recently Relevant to Health Maintenance Insurance [facility] Medicaid Member Subscriber Plan / Payer (Ef fective 2020-Present) Name:Servando Tan Relation to Subscriber:Self Name:Servando Tan Payer ID:Not on file Group ID:[id number] Type:Not on file Address: [address] [facility] Medicaid Care Teams Ncr Operator Relationship Specialty Start Date End Date Samira Quispe MD [facility] [place] [address] PCP - General 12/09/20
== END 2025-04-18 13:47 | disposition home or self-care (01) ==
LOC: HO.ENCR 13:00
PROVIDERS: PCP Internal Medicine; Visit Provider Internal Medicine Endocrinology, Diabetes & Metabolism
DX: M81.0 Age-related osteoporosis without current pathological fracture (principal)
CPT/HCPCS: 99213

== ENCOUNTER → 2025-04-18 12:59 | Outpatient (BNVA) | payer OTHER, SELFPAY ==
[2023-05-04 12:01] VITALS: BP 102/46; BP 134/60
== END ==
PROVIDERS: PCP Internal Medicine; Visit Provider Internal Medicine Endocrinology, Diabetes & Metabolism
DX: M81.0 Age-related osteoporosis without current pathological fracture (principal)
CPT/HCPCS: 99212

== ENCOUNTER 2025-04-20 13:24 | Outpatient (AMB) | payer OTHER, SELFPAY ==
[2023-05-04 12:01] VITALS: BP 102/46; BP 134/60
--- OUTSIDE RECORDS SUMMARY | 2025-04-20 13:27 | XMS_ITS | Clinical Summary ---
Author Organization [facility] Address [address] [place] [address] [place] [address] Phone Care Team Providers Care Precision Instrument Maker Name Role Phone Samira Quispe MD Primary Care Provider [phone] Allergies No known active allergies Medications aspirin [...] Plan: Followed by Dr. Anthony Delaney at [facility] Had follow up last month Blindness [...] Dexcom to G6, this will work with [facility] once this launches; we discussed other insulin [...] % PVNMA 05/21/2020 us [facility] Conversion LAB [id number] LICITED RESULTS Final Result PVNMA from Last 3 Months or Most Recently Relevant to Health Maintenance Insurance [facility] Medicaid Member Subscriber Plan / Payer (Ef fective 2020-Present) Name:Servando Tan Relation to Subscriber:Self Name:Servando Tan Payer ID:Not on file Group ID:[id number] Type:Not on file Address: [address] [facility] Medicaid Care Teams Precision Instrument Maker Relationship Specialty Start Date End Date Samira Quispe MD [place] [address] PCP - General 12/09/20
--- NOTE | 2025-04-20 13:34 | HO.NEPHOV ---
Vital Signs 04/20/25 13:35 Height 5 ft 9 in Weight 161 lb 2 oz BMI 23.8 BP 124/54 L Blood Pressure Location Rt brachial Position Sitting Pulse 73 Pulse Source Pulse Oximeter Pulse Oximetry (%) 99 Oxygen Delivery Method Room Air Intake Visit Reasons: 2 MO FU-[facility] Biometric Fingerprinting Technician Required: No Accompanied by: Self / Same As Patient Allergies No Known Allergies Allergy (Verified 04/20/25 13:35) HPI Comments Details: Servando was seen in follow-up of his chronic kidney disease. His blood sugar is pretty well controlled. He is a type 1 diabetic on insulin pump.He has a history of coronary disease needing PCI and stent insertion. He does not have any significant proteinuria. He denies taking nonsteroidal anti-inflammatories. He has no urinary symptoms . He does not have any chest pain, shortness of breath, hypoglycemia, pedal edema, hematuria, shortness of breath or any new symptoms. He is compliant with his medications. Recently he was found to have MINERVA as well as hypomagnesemia. His ACEI was held and was given IV fluids with improvement in renal function. [facility] Medical History Hx of fracture of tibia Hx of retinal detachment Chronic renal insufficiency COVID-19 vaccine administered Myocardial infarction Low vitamin B12 level Hypogonadism in male Hypogonadism Blind left eye Depression Hypertension Dyslipidemia Diabetic neuropathy associated with type 1 diabetes mellitus Coronary artery disease Diabetic retinopathy associated with type 1 diabetes mellitus Diabetes type 1, controlled Osteoporosis Hyperparathyroidism Surgical History H/O heart artery stent S/P eye surgery History of surgery Hx of eye surgery Hx of knee surgery Hx of excision of epidermal inclusion cyst Hx of colonoscopy Family History Father Cancer CVD (cardiovascular disease) Mother CVD (cardiovascular disease) Hypertension High cholesterol Social History Housing: Apartment Are you a primary urgent care nurse practitioner to a significant other at home: No Do you presently have visiting nurse or other home services: Yes (has GL ACCOUNTANT) Alcohol intake: never Patient Tobacco Use Status: Former Tobacco user Tobacco use type: Cigarette Years Smoked: 28 e-Cigarette/Vaping Use: Currently Using Current occupational status: disabled Current occupation: rt handed Cognitive needs: No Hearing needs: No Vision needs: No Review of Systems Const All systems reviewed & are unremarkable except as noted in HPI and below Physical Exam Vital Signs: Last Vital Signs Pulse 73 04/20/25 13:35 BP 124/54 L 04/20/25 13:35 Pulse Ox 99 04/20/25 13:35 Oxygen Delivery Method Room Air 04/20/25 13:35 BMI result Body Mass Index 23.8 Const General: comfortable and no acute distress Orientation/consciousness: patient oriented x3 HEENT Head: Yes normocephalic Mouth: Normal oral and palatal mucosa present Eyes EOM: EOMs intact bilaterally Neck Neck: Yes supple Resp Auscultation: clear to auscultation bilaterally Cardio Jugular venous distension: no JVD Rate: regular rate GI Palpation (GI): Soft to palpation Auscultation: normal bowel sounds General: Yes no CVA tenderness Back/Spine/Pelvis Back: no CVA tenderness Skin General skin exam: no rashes or lesions noted Neuro General: patient oriented x3 and moves all extremities Extrem General: Yes no pedal edema Results Reviewed Nephrology Results: Hgb 11.0 g/dl (14.0-18.0) L 01/12/25 WBC 8.7 X10*3/uL (4.8-10.8) 01/12/25 Plt Count 373 X10*3/uL (160-400) 01/12/25 Sodium 140 mmol/L (135-145) 04/04/25 Potassium 4.5 mmol/L (3.3-5.1) 04/04/25 Chloride 108 mmol/L (96-108) 04/04/25 Carbon Dioxide 25 mmol/L (22-29) 04/04/25 BUN 22 mg/dL (9-16) H 04/04/25 Creatinine 1.22 mg/dL (0.5-1.4) 04/04/25 Calcium 9.2 mg/dL (8.4-10.2) 02/14/25 Urine Creatinine 222.56 mg/dL 02/14/25 Protein/Creatinin Ratio 0.06 (<0.2) 02/14/25 Assessment & Plan Assessment & Plan (1) CKD (chronic kidney disease) stage 3, GFR 30-59 ml/min: Code(s): N18.30 - Chronic kidney disease, stage 3 unspecified Category: Medical Qualifiers: Chronic kidney disease stage 3 subtype: stage 3a (GFR 45-59) Qualified Code(s): N18.31 - Chronic kidney disease, stage 3a (2) Hypertension: Code(s): I10 - Essential (primary) hypertension Category: Medical Qualifiers: Hypertension type: primary hypertension Qualified Code(s): I10 - Essential (primary) hypertension Obdulio Al is type 1 diabetic. He recently developed MINERVA due to compromise in renal perfusion which has resolved . He does not have any proteinuria. His serum potassium is normal. He is on insulin pump. He maintains good hydration. He avoids nonsteroidal anti-inflammatories. He has history of coronary artery disease needing stenting. He is not a candidate for Farxiga or Jardiance. ( Type 1 DM). I started him on lisinopril 1.25 mg daily. I did not make any other medication changes today. I discussed all his lab work in detail. I answered all his questions. Follow-up appointment given. Orders: Orders Blood Urea Nitrogen 4 Months I10 - Essential (primary) hypertension, N18.31 - Chronic kidney disease, stage 3a Creatinine 4 Months I10 - Essential (primary) hypertension, N18.31 - Chronic kidney disease, stage 3a Electrolytes 4 Months I10 - Essential (primary) hypertension, N18.31 - Chronic kidney disease, stage 3a Magnesium 4 Months I10 - Essential (primary) hypertension, N18.31 - Chronic kidney disease, stage 3a Coding Level of Care Code Est Pt Level 4 (28927) Diagnoses Stage 3a chronic kidney disease N18.31 Chronic kidney disease stage 3 subtype: stage 3a (GFR 45-59) Primary hypertension I10 Hypertension type: primary hypertension
[2025-04-20 13:35] VITALS: BP 124/54; PULSE 73; O2SAT 99; BMI 23.8
== END 2025-04-20 13:55 | disposition home or self-care (01) ==
LOC: HO.HKA 13:25
PROVIDERS: PCP Internal Medicine; Visit Provider Internal Medicine Nephrology
DX: N18.31 Chronic kidney disease, stage 3a (principal); I10 Essential (primary) hypertension
CPT/HCPCS: 99214

== ENCOUNTER → 2025-04-20 13:24 | Outpatient (BNVA) | payer OTHER, SELFPAY ==
[2023-05-04 12:01] VITALS: BP 102/46; BP 134/60
== END ==
PROVIDERS: PCP Internal Medicine; Visit Provider Internal Medicine Nephrology
DX: E10.22 Type 1 diabetes mellitus with diabetic chronic kidney disease (principal); I12.9 Hypertensive chronic kidney disease with stage 1 through stage 4 chronic kidney disease, or unspecified chronic kidney disease; N18.31 Chronic kidney disease, stage 3a; Z96.41 Presence of insulin pump (external) (internal); Z79.4 Long term (current) use of insulin
CPT/HCPCS: 99212

== ENCOUNTER 2025-06-20 13:59 | Outpatient (AMB) | payer OTHER, SELFPAY ==
[2023-05-04 12:01] VITALS: BP 102/46; BP 134/60
[2025-06-20 14:01] VITALS: BP 102/60; PULSE 63; O2SAT 96; BMI 22.9
--- NOTE | 2025-06-20 14:01 | A.OFFPC_ITS ---
Vital Signs 06/20/25 14:01 Height 5 ft 9 in Weight 155 lb BMI 22.9 BP 102/60 Blood Pressure Location Lt brachial Position Sitting Pulse 63 Pulse Source Pulse Oximeter Pulse Oximetry (%) 96 Oxygen Delivery Method Room Air Intake Visit Reasons: Annual PE Disaster Recovery Specialist Required: No Allergies No Known Allergies Allergy (Verified 06/20/25 14:02) Medication List - Last Reconciled 06/20/25 by Samira Quispe MD aspirin (Adult Aspirin Regimen) 81 mg PO DAILY atorvastatin 80 mg PO DAILY calcium carbonate (Oyster Shell Calcium 500) 500 mg PO BID clopidogrel 75 mg PO DAILY glucagon (GlucaGen HypoKit) 1 mg subcut Q20M PRN insulin lispro (Admelog U-100 Insulin lispro) 60 sliding scale doses subcut USEASDIRECTD insulin pump cart,automated,BT (Omnipod 5 G6 Pods (Gen 5) subcutaneous cartridge) As directed lisinopril 1.25 mg PO DAILY magnesium oxide 400 mg PO DAILY metoprolol succinate ER 25 mg PO DAILY tadalafil 10 mg PO DAILY 90 days Tobacco use date assessed: 06/20/25 Dental Screening Dental Screen Date: 06/20/25 Did you have a dental visit in the last 12 months?: Yes Did you have a dental problem in the last 6 months where you did not have access to dental care?: No Was dental information given to patient?: Patient has dentist HPI Annual PE HPI Details Physical exam appointment - The patient is a 60-year-old male came in today for annual physical exam - Chronic Kidney Disease, Stage 3: Last follow-up was in March; patient was temporarily taken off lisinopril due to dehydration; by commercial door installer, latest kidney function was reported as normal. - Hypertension: Managed with lisinopril, recently resumed at a half-dose after acute kidney function spike due to dehydration. - Right Hand, Middle Finger Tenosynoviti s: Patient requires ongoing care; pre viously received cortisone injections. Patient has a provider - Anemia: Previous hemoglobin reading wa s 11.0; suspicion of iron deficiency; patient instructed on potential iron supplementation. - Cyst on Back: Previously removed but n ot entirely excised; it has recurred. - Blindness in Left Eye: Without new dev elopments. - Hemorrhoids: Present for years but rep ortedly non-bleeding. Medical History: - Chronic Kidney Disease, Stage 3 - Hypertension - Anemia - Blindness in Left Eye - Hemorrhoids Surgical History: - Previous excision of cyst on the back. Health Maintenance - Tetanus vaccine last administered in ; renewal scheduled today. - Pneumonia vaccination (Pneumonia 20) a dvised to be done at pharmacy. - Scheduled blood test for CBC to monito r hemoglobin levels. - Colonoscopy: Last performed at [facility] approximately three years ago; patient?s record check with gastroenterology is pending. [place] of Care - Patient was under the care of Dr. Eleazar Cesar Nephrology - Referral to hand specialist for middle finger issue management. - and surgery for the cyst removal in e back Patient Instructions - Schedule follow-ups with the hand spec ialist directly. - Advised to manage ongoing cyst on back with surgical consultation arranged. - Continue monitoring blood pressure and sugar levels. - Schedule blood work (CBC) to reassess hemoglobin levels. - Receive tetanus vaccine during today?s visit. - Obtain new pneumonia vaccine at the [facility]. - Follow up on colonoscopy records from [facility]. Review of Systems - General: No fever no chills - Neurological: No headaches no dizzin ess - Ear nose throat: No sore throat no hearing difficulty no ear pain - Cardiovascular: No syncope, no chest pain, no palpitations - Gastrointestinal: No nausea vomiting or diarrhea - Endocrine: No polyuria polydipsia no heat intolerance - Genitourinary: No dysuria - Skin: No new complaints Physical Exam General: Cooperative, healthy appearing, comfortable, no acute distress Orientation: Patient oriented x3 Head: Normal to inspection Ears: Within normal limit Nose: Normal external nose present Face and sinus: Normal facial exam Eyes: Blind in left eye, right eye normal, extraocular movement intact pupils reactive Neck: Normal visual inspection and supple Respiratory: Normal respiratory effort and able to speak in complete sentences. Clear to auscultation, no stridor Cardiovascular: S1 and S2 RRR GI: Normal to inspection. Soft to palpation and nontender Skin: Turgor normal, no acute findings, epidermal cyst upper right back size of pond nontender Neuro: Patient oriented x3, motor sensory intact, balance intact, tandem pass Extremities: No edema right hand middle finger range of motion limited [facility] Medical History Hx of fracture of tibia Hx of retinal detachment Chronic renal insufficiency COVID-19 vaccine administered Myocardial infarction Low vitamin B12 level Hypogonadism in male Hypogonadism Blind left eye Depression Hypertension Dyslipidemia Diabetic neuropathy associated with type 1 diabetes mellitus Coronary artery disease Diabetic retinopathy associated with type 1 diabetes mellitus Diabetes type 1, controlled Osteoporosis Hyperparathyroidism Surgical History H/O heart artery stent S/P eye surgery History of surgery Hx of eye surgery Hx of knee surgery Hx of excision of epidermal inclusion cyst Hx of colonoscopy Family History Father Cancer CVD (cardiovascular disease) Mother CVD (cardiovascular disease) Hypertension High cholesterol Social History Housing: Apartment Are you a primary skin care specialist to a significant other at home: No Do you presently have visiting nurse or other home services: Yes (has [employer]) Alcohol intake: never Patient Tobacco Use Status: Former Tobacco user Tobacco use type: Cigarette Years Smoked: 28 e-Cigarette/Vaping Use: Currently Using Current occupational status: disabled Current occupation: rt handed Cognitive needs: No Hearing needs: No Vision needs: No Questionnaire PHQ-9 Over the last 2 weeks, how often have you been bothered by any of the following problems? 1. Little interest or pleasure in doing things: not at all 2. Feeling down, depressed, or hopeless: not at all 3. Trouble falling or staying asleep, or sleeping too much: not at all 4. Feeling tired or having little energy: not at all 5. Poor appetite or overeating: not at all 6. Feeling bad about yourself - or that you are a failure or have let yourself or your family down: not at all 7. Trouble concentrating on things, such as reading the newspaper or watching television: not at all 8. Moving or speaking so slowly that other people could have noticed. Or the opposite - being so fidgety or restless that you have been moving around a lot more than usual: not at all 9. Thoughts that you would be better off or of hurting yourself in some way: not at all Total score: 0 Depression Screening Interpretation: Negative Depression Screening Done: Yes 13629 - PHQ-9 Billing: Yes Source: Developed by Adina Scott.W. Chandra, Juancarlos Xiao and colleagues, with an educational alida from [employer]. Thrive Questionnaire Date Thrive assessed: 06/20/25 I am a: Patient What is your living situation today?: I choose not to answer this question Within the past 12 months, did the food you bought not last and you didn't have the money to get more?: I choose not to answer this question Within the past 12 months, did you worry whether your food would run out before you got money to buy more?: I choose not to answer this question Do you have trouble paying for medicines?: I choose not to answer this question Do you have trouble getting transportation to medical appointments?: I choose not to answer this question Do you have trouble paying your heating and electricity bill?: I choose not to answer this question Do you have trouble taking care of your child, family member or friend?: I choose not to answer this question Do you have trouble with day-to-day activities such as bathing, preparing meals, shopping, managing finances, etc.?: I choose not to answer this question Are you currently unemployed and looking for a job?: I choose not to answer this question Are you interested in more education?: I choose not to answer this question Please select the resources that you would like help with: None Currently or been in a relationship where the following occur: I choose not to answer THRIVE Score: 0 AUDIT C Alcohol Use Questionnaire (AUDIT-C) 1. How often do you have a drink containing alcohol?: Never 3. How often do you have six or more drinks on one occasion?: Never Total Score: 0 Score Reviewed/Action Taken: Yes PARMINDER-7 AMB Questionnaire PARMINDER-7 Date PARMINDER - 7 assessed: 06/20/25 Feeling nervous, anxious, or on edge: 0 = Not at all Not being able to stop or control worryin = Not at all Worrying too much about different things: 0 = Not at all Trouble relaxin = Not at all Being so restless that it is hard to sit still: 0 = Not at all Becoming easily annoyed or irritable: 0 = Not at all Feeling afraid as if something awful might happen: 0 = Not at all Total PARMINDER-7 score (0-4 normal; 5-9 mild; 10-14 moderate; 15-21 severe): 0 Source: Developed by Drs. Jenaro Lopez, Adina Artis, Juancarlos Xiao and colleagues, with an educational alida from [employer]. PARMINDER-7 Assessment Billing PARMINDER-7 Assessment Tool: PARMINDER-7 Assessment 68101 Physical exam (Primary Care) Vital Signs: Last Vital Signs Pulse 63 06/20/25 14:01 BP 102/60 06/20/25 14:01 Pulse Ox 96 06/20/25 14:01 Oxygen Delivery Method Room Air 06/20/25 14:01 BMI result Body Mass Index 22.9 Tobacco/Smoking Status: Tobacco use Status Tobacco use date assessed 06/20/25 06/20/25 14:02 Patient Tobacco Use Status Former Tobacco user 06/20/25 14:02 Tobacco use type Cigarette 06/20/25 14:02 e-Cigarette/Vaping Use Currently Using 06/20/25 14:02 PHQ-9: PHQ-9 Score PHQ-9: Total score 0 06/20/25 14:37 Depression Screening Interpretation: Negative Thrive Assessment: Date of Thrive Assessment Date Thrive assessed 06/20/25 06/20/25 14:02 Currently or been in a relationship where the following occur: I choose not to answer Immunizations Boostrix Tdap 2.5 Lf unit-8 mcg-5 Lf/0.5 mL intramuscular syringe Performing Provider: Samira Quispe MD Performing Location: [facility] Administered by: Alex Gorman CMA on 06/20/25 14:37 Dose Route Admin Location Dispensed Lot Number Expiration Date [facility] Retail Loss Prevention Specialist 0.5 mL IM Right Deltoid 0.5 mL [id number] 07/28/27 06980-222-10 [employer] Total Dispensed Waste 0.5 mL 0 % VIS Given Date VIS Provided VIS Publication Date 06/20/25 Single Vaccine 21 Eligibility Eligibility Date Funding Source Not [facility] Eligible 06/20/25 Private Coding Level of Care Code Est Pt Level 4 (98947) Est Pt Prev Care 40-64y(81241) Diagnoses Encounter for general adult medical examination with abnormal findings Z00.01 Microcytic anemia D50.9 Epidermoid cyst of skin of back L72.0 Primary hypertension I10 Hypertension type: primary hypertension Lipid disorder E78.9 Diabetes type 1, controlled E10.9 Mild nonproliferative diabetic retinopathy associated with type 1 diabetes mellitus, macular edema presence unspecified, unspecified laterality E10.3299 Laterality: unspecified laterality Diabetic retinopathy severity: with mild nonproliferative retinopathy Diabetes mellitus macular edema: macular edema presence unspecified Stage 3a chronic kidney disease N18.31 Chronic kidney disease stage 3 subtype: stage 3a (GFR 45-59) Additional Codes PARMINDER-7 Assessment Billing - PARMINDER-7 Assessment Tool: PARMINDER-7 Assessment 49284 ([id number]) PHQ-9 - 93672 - PHQ-9 Billing: Yes ([id number]) Assessment & Plan Assessment & Plan (1) Encounter for general adult medical examination with abnormal findings: Code(s): Z00.01 - Encounter for general adult medical examination with abnormal findings Category: Medical (2) Microcytic anemia: Code(s): D50.9 - Iron deficiency anemia, unspecified Category: Medical (3) Epidermoid cyst of skin of back: Code(s): L72.0 - Epidermal cyst Category: Medical (4) Hypertension: Code(s): I10 - Essential (primary) hypertension Category: Medical Qualifiers: Hypertension type: primary hypertension Qualified Code(s): I10 - Essential (primary) hypertension (5) Lipid disorder: Code(s): E78.9 - Disorder of lipoprotein metabolism, unspecified Category: Medical (6) Diabetes type 1, controlled: Code(s): E10.9 - Type 1 diabetes mellitus without complications Category: Medical (7) Diabetic retinopathy associated with type 1 diabetes mellitus: Code(s): E10.319 - Type 1 diabetes mellitus with unspecified diabetic retinopathy without macular edema Category: Medical Qualifiers: Laterality: unspecified laterality Diabetic retinopathy severity: with mild nonproliferative retinopathy Diabetes mellitus macular edema: macular edema presence unspecified Qualified Code(s): E10.3299 - Type 1 diabetes mellitus with mild nonproliferative diabetic retinopathy without macular edema, unspecified eye (8) CKD (chronic kidney disease) stage 3, GFR 30-59 ml/min: Code(s): N18.30 - Chronic kidney disease, stage 3 unspecified Category: Medical Qualifiers: Chronic kidney disease stage 3 subtype: stage 3a (GFR 45-59) Qualified Code(s): N18.31 - Chronic kidney disease, stage 3a Plan Physical exam appointment - The patient is a 60-year-old male came in today for annual physical exam - Chronic Kidney Disease, Stage 3: Last follow-up was in March; patient was temporarily taken off lisinopril due to dehydration; by commercial door installer, latest kidney function was reported as normal. - Hypertension: Managed with lisinopril, recently resumed at a half-dose after acute kidney function spike due to dehydration. - Right Hand, Middle Finger Tenosynovitis: Patient requires ongoing care; previously received cortisone injections. Patient has a provider - Anemia: Previous hemoglobin reading was 11.0; suspicion of iron deficiency; patient instructed on potential iron supplementation. - Cyst on Back: Previously removed but not entirely excised; it has recurred. - Blindness in Left Eye: Without new developments. - Hemorrhoids: Present for years but reportedly non-bleeding. Medical History: - Chronic Kidney Disease, Stage 3 - Hypertension - Anemia - Blindness in Left Eye - Hemorrhoids Surgical History: - Previous excision of cyst on the back. Health Maintenance - Tetanus vaccine last administered in 2011; renewal scheduled today. - Pneumonia vaccination (Pneumonia 20) advised to be done at pharmacy. - Scheduled blood test for CBC to monitor hemoglobin levels. - Colonoscopy: Last performed at [facility] approximately three years ago; patient?s record check with gastroenterology is pending. [place] of Care - Patient was under the care of Dr. Harman Cesar Nephrology - Referral to hand specialist for middle finger issue management. - and surgery for the cyst removal in the back Patient Instructions - Schedule follow-ups with the hand specialist directly. - Advised to manage ongoing cyst on back with surgical consultation arranged. - Continue monitoring blood pressure and sugar levels. - Schedule blood work (CBC) to reassess hemoglobin levels. - Receive tetanus vaccine during today?s visit. - Obtain new pneumonia vaccine at the pharmacy. - Follow up on colonoscopy records from [facility]. Orders: Orders LDL Cholesterol Direct Today D50.9 - Iron deficiency anemia, unspecified, E10.319 - Type 1 diabetes mellitus with unspecified diabetic retinopathy without macular edema, E10.9 - Type 1 diabetes mellitus without complications, E78.9 - Disorder of lipoprotein metabolism, unspecified, I10 - Essential (primary) hypertension, N18.31 - Chronic kidney disease, stage 3a, Z00.01 - Encounter for general adult medical examination with abnormal findings TDaP Immunization Today Z23 - Encounter for immunization Complete Blood Count Auto Diff Today D50.9 - Iron deficiency anemia, unspecified, E10.319 - Type 1 diabetes mellitus with unspecified diabetic retinopathy without macular edema, E10.9 - Type 1 diabetes mellitus without complications, E78.9 - Disorder of lipoprotein metabolism, unspecified, I10 - Essential (primary) hypertension, N18.31 - Chronic kidney disease, stage 3a, Z00.01 - Encounter for general adult medical examination with abnormal findings Comprehensive Met. Panel Today D50.9 - Iron deficiency anemia, unspecified, E10.319 - Type 1 diabetes mellitus with unspecified diabetic retinopathy without macular edema, E10.9 - Type 1 diabetes mellitus without complications, E78.9 - Disorder of lipoprotein metabolism, unspecified, I10 - Essential (primary) hypertension, N18.31 - Chronic kidney disease, stage 3a, Z00.01 - Encounter for general adult medical examination with abnormal findings Hemoglobin A1c Today E10.9 - Type 1 diabetes mellitus without complications Referrals General Surgery Referral L72.0 - Epidermal cyst
--- OUTSIDE RECORDS SUMMARY | 2025-06-20 14:42 | XMS_ITS | Encounter Summary ---
Author Organization [facility] Address [address] [place] [id number] Phone Care Team Providers Care Director Of Consulting Services Name Role Phone Alan Armando MD Primary Care Provider [phone] Radha Dunn ART GLASS DESIGNER Unavailable Unavailable Quoc Gallardo Unavailable Maureen Chang NP Unavailable Benjamín Younger MD Unavailable Orly Wilson MD Unavailable [phone] Alan Armando MD Unavailable [phone] Mary Crenshaw MD Unavailable [phone] Don Rao MD Unavailable Brittani Madison RN Primary Care Provider [facility] [place] Brittani Madison RN Unavailable Unavailable Alan Armando MD Primary Care Provider [phone] Samira Quispe MD Primary Care Provider Encounter Details Date Type Department Care Team (Late st Contact Info) Description 09/02/2017 Orders Only VIRTUAL DEPARTMENT Interface Provider, Scanning Social History Tobacco Use Types Packs/Day Years Used Date Smoking Tobacco: Never Assessed Sex and Gender Information Value Date Recorded Sex Assigned at Male 08/27/2019 2:28 PM EDT Legal Sex Male 9:44 PM EDT Gender Identity Male 08/27/2019 2:28 PM EDT Sexual Orientation Straight 06/16/2023 2: 36 AM EDT documented as of this encounter Plan of Treatment Upcoming Encounters Date Type Department Care Team (Late st Contact Info) Description 07/17/2025 3:00 PM EDT Office Visit [facility] [address] [place] [address] Orly Wilson MD [address] [address] 10/04/2025 3:00 PM EST Nutrition [facility] [address] [place] [address] [address] [place] [address] Radha Morales LDN [address] [address] documented as of this encounter Procedures Procedure Name Priority Date/Time Associated Diagnosis Comments OUTSIDE LAB Routine 09/02/2017 documented in this encounter Results * Outside Lab (09/02/2017) us Historical Provider LAB BLOOD ORDERABLES Alyssa l Result documented in this encounter Visit Diagnoses Not on filedocumented in this encounter Care Teams Director Of Consulting Services Relationship Specialty Start Date End Date Alan Armando MD PCP - General 09/14/17 10/12/17 Brittani Madison RN [address] [place] [address] PCP - General 10/13/17 10/13/17 Alan Armando MD PCP - General Internal Medicine 10/14/17 03/11/20 Samira Quispe MD [address] [place] [address] [place] [address] PCP - General Internal Medicine 03/12/20 Radha Dunn NP [address] [place] [address] Historical LMR Provider 09/14/1702/27 Quoc Gallardo PA [address] [place] [address] Historical LMR Provider 09/14/17 2 Maureen Chang NP [address] [place] [address] [place] [address] Historical LMR Provider 09/14/1703/11 Benjamín Younger MD [address] [place] [address] Historical LMR Provider 09/14/1703/11 Orly Wilson MD [address] [place] [address], [address] [place] [address] [email or web address] Historical LMR Provider 09/14/17 Alan Armando MD [address] [place] [address] [email or web address] Historical LMR Provider 09/14/17 03/11/20 Mary Crenshaw MD [address] [place] [address] [facility], [place] [address] Historical LMR Provider 09/14/17 Don Rao MD [address] [place] [address] Historical LMR Provider 09/14/17 Brittani Madison RN [address] [place] [address] Registered Nurse 10/13/17 documented as of this encounter Additional Source Comments The information contained in this document represents components of the legal health record. It is not the complete legal health record.[facility]
--- OUTSIDE RECORDS SUMMARY | 2025-06-20 14:42 | XMS_ITS | Clinical Summary ---
Author Organization [facility] Address [address] [place] [address] [place] [address] Phone Care Team Providers Care Reinforcing Rod Layer Name Role Phone Samira Quispe MD Primary Care Provider [phone] Allergies No known active allergies Medications aspirin [...] Plan: Followed by Dr. Anthony Delaney at [facility] Had follow up last month Blindness [...] Dexcom to G6, this will work with Kynogon once this launches; we discussed other insulin [...] 06/17/2022, Additional history exists Influenza Vaccine (#1) 2025 2, 08/29/2021, 08/28/2020, Additional history exists Pneumococcal Vaccine: [...] % PVNMA 05/21/2020 us Rtama Conversion LAB [id number] LICITED RESULTS Final Result PVNMA from Last 3 Months or Most Recently Relevant to Health Maintenance Insurance [facility] Medicaid Member Subscriber Plan / Payer (Ef fective 2020-Present) Name:Servando Tan Relation to Subscriber:Self Name:Servando Tan Payer ID:Not on file Group ID:[id number] Type:Not on file Address: [address] [facility] Medicaid Care Teams Reinforcing Rod Layer Relationship Specialty Start Date End Date Samira Quispe MD [facility] [place] [address] PCP - General 12/09/20
== END 2025-06-20 14:37 | disposition home or self-care (01) ==
LOC: HO.HMCC 14:00
PROVIDERS: PCP Internal Medicine; Visit Provider Internal Medicine
DX: Z00.01 Encounter for general adult medical examination with abnormal findings (principal); I12.9 Hypertensive chronic kidney disease with stage 1 through stage 4 chronic kidney disease, or unspecified chronic kidney disease; E10.9 Type 1 diabetes mellitus without complications; E10.3299 Type 1 diabetes mellitus with mild nonproliferative diabetic retinopathy without macular edema, unspecified eye; N18.31 Chronic kidney disease, stage 3a; L72.0 Epidermal cyst; D50.9 Iron deficiency anemia, unspecified; E78.9 Disorder of lipoprotein metabolism, unspecified; Z23 Encounter for immunization

== ENCOUNTER → 2025-06-20 13:59 | Outpatient (BNVA) | payer OTHER, SELFPAY ==
[2023-05-04 12:01] VITALS: BP 102/46; BP 134/60
== END ==
PROVIDERS: PCP Internal Medicine; Visit Provider Internal Medicine
DX: Z00.01 Encounter for general adult medical examination with abnormal findings (principal); E10.22 Type 1 diabetes mellitus with diabetic chronic kidney disease; E10.3299 Type 1 diabetes mellitus with mild nonproliferative diabetic retinopathy without macular edema, unspecified eye; I12.9 Hypertensive chronic kidney disease with stage 1 through stage 4 chronic kidney disease, or unspecified chronic kidney disease; N18.31 Chronic kidney disease, stage 3a; D50.9 Iron deficiency anemia, unspecified; M65.941 Unspecified synovitis and tenosynovitis, right hand; L72.9 Follicular cyst of the skin and subcutaneous tissue, unspecified; H54.62 Unqualified visual loss, left eye, normal vision right eye; K64.9 Unspecified hemorrhoids; L72.0 Epidermal cyst; E78.9 Disorder of lipoprotein metabolism, unspecified; Z23 Encounter for immunization
CPT/HCPCS: 90471; 90715; 96127; 99212; 99396

== ENCOUNTER 2025-06-28 09:20 | Outpatient (AMB) | payer OTHER, SELFPAY ==
[2023-05-04 12:01] VITALS: BP 102/46; BP 134/60
[2025-06-28 09:29] VITALS: BP 128/70; PULSE 82; BMI 22.9
--- NOTE | 2025-06-28 09:29 | MHC.OFFVIS ---
Vital Signs 06/28/25 09:29 Height 5 ft 9 in Weight 155 lb BMI 22.9 BP 128/70 Blood Pressure Location Lt brachial Position Sitting Pulse 82 Pulse Source Monitor Intake Visit Reasons: pt tired sob needs ekg Allergies No Known Allergies Allergy (Verified 06/20/25 14:02) Medication List - Last Reconciled 06/28/25 by Darryl Leong MD aspirin (Adult Aspirin Regimen) 81 mg PO DAILY atorvastatin 80 mg PO DAILY calcium carbonate (Oyster Shell Calcium 500) 500 mg PO BID clopidogrel 75 mg PO DAILY glucagon (GlucaGen HypoKit) 1 mg subcut Q20M PRN insulin lispro (Admelog U-100 Insulin lispro) 60 sliding scale doses subcut USEASDIRECTD insulin pump cart,automated,BT (Omnipod 5 G6 Pods (Gen 5) subcutaneous cartridge) As directed lisinopril 1.25 mg PO DAILY magnesium oxide 400 mg PO DAILY metoprolol succinate ER 25 mg PO DAILY tadalafil 10 mg PO DAILY 90 days HPI Comments Details: Servando returns for follow-up regarding coronary disease. Due to long history of type 1 diabetes, he underwent ischemia workup. He was also complaining of shortness of breath with activity. Stress test was positive, and that in turn led to coronary CTA and diagnostic catheterization. He has undergone multivessel PCI. He states he was doing okay but recently noticing shortness of breath even with minimal activity. He feels extremely tired. However, no clear-cut angina. Hence he is concerned if there is an issue with the stents. [facility] Medical History Hx of fracture of tibia Hx of retinal detachment Chronic renal insufficiency COVID-19 vaccine administered Myocardial infarction Low vitamin B12 level Hypogonadism in male Hypogonadism Blind left eye Depression Hypertension Dyslipidemia Diabetic neuropathy associated with type 1 diabetes mellitus Coronary artery disease Diabetic retinopathy associated with type 1 diabetes mellitus Diabetes type 1, controlled Osteoporosis Hyperparathyroidism Surgical History H/O heart artery stent S/P eye surgery History of surgery Hx of eye surgery Hx of knee surgery Hx of excision of epidermal inclusion cyst Hx of colonoscopy Family History Father Cancer CVD (cardiovascular disease) Mother CVD (cardiovascular disease) Hypertension High cholesterol Social History Housing: Apartment Are you a primary career services director to a significant other at home: No Do you presently have visiting nurse or other home services: Yes (has [employer]) Alcohol intake: never Patient Tobacco Use Status: Former Tobacco user Tobacco use type: Cigarette Years Smoked: 28 e-Cigarette/Vaping Use: Currently Using Current occupational status: disabled Current occupation: rt handed Cognitive needs: No Hearing needs: No Vision needs: No Review of Systems Const Reports fatigue and Reports weakness ENT Denies dizziness Card Denies chest pain, Denies chest pain with activity, Denies syncope, Denies rapid heart rate, Denies pedal edema, Denies edema, Denies leg edema, Denies lightheadedness, Denies palpitations, Reports dyspnea, Reports dyspnea on exertion and Reports orthopnea Resp Denies cough, Reports dyspnea and Reports dyspnea on exertion GI Denies hematochezia and Denies change in stool character Musc Denies abnormal gait, Denies muscle cramps, Denies muscle weakness, Denies numbness, Denies radiating pain into limb and Denies tingling Neuro Denies abnormal gait, Denies dizziness, Denies syncope, Denies numbness, Denies tingling and Reports weakness Endo Reports fatigue and Denies palpitations Physical Exam Vital Signs: Last Vital Signs Pulse 82 06/28/25 09:29 BP 128/70 06/28/25 09:29 BMI result Body Mass Index 22.9 Const General: comfortable and no acute distress Orientation/consciousness: patient oriented x3 HEENT Other: Unremarkable Head: Yes normal to inspection Neck Neck: Yes normal visual inspection Chest Chest palpation & inspection: normal inspection of the chest Resp Auscultation: clear to auscultation bilaterally Cardio Palpation: normal PMI Heart sounds: S1 normal heart sound present, S2 normal heart sound present, no gallops, no murmurs and no rubs GI Palpation (GI): Soft to palpation Back/Spine/Pelvis Other: unremarkable Skin General skin exam: no rashes or lesions noted Neuro General: patient oriented x3 Extrem General: Yes normal to inspection Psych Mental Status: mental status grossly normal Office Procedures EKG Details: EKG with underlying sinus rhythm at 82/Min; no ischemic changes; [place] [id number]-[id number], Complete Assessment & Plan Assessment & Plan (1) Atherosclerotic cardiovascular disease: Code(s): I25.10 - Atherosclerotic heart disease of [place] coronary artery without angina pectoris Category: Medical (2) Type 1 diabetes mellitus with unspecified complications: Code(s): E10.8 - Type 1 diabetes mellitus with unspecified complications Category: Medical Plan Cardiac studies summarized as below. Myocardial perfusion imaging study shows mild intensity apical ischemia/equivocal inferior wall ischemia. In the coronary CTA, multivessel disease identified as well as a patent foramina ovale. Cardiac catheterization data reviewed. He has undergone PCI to LAD, circumflex and RCA. With regard to his concerns of extreme fatigue and shortness of breath, we will revisit cardiac workup. Complete an echocardiogram and exercise stress perfusion imaging study. For medications, continue aspirin and Plavix. Otherwise, remains on beta-blockers and statins. No recent lipids in in system but in the past, they were very well controlled. They were actually ordered to be repeated but not yet completed. With regard to diabetes, last hemoglobin A1c is 6.9%. Follow-up after the above testing. Discussion Notes I discussed with the patient the need for a cardiac ultrasound and stress test to assess his heart function, given his symptoms and history of coronary artery disease. We talked about the importance of continuing his current medication regimen, including metoprolol, and the need to monitor his blood glucose levels closely to manage his diabetes effectively. Patient was informed and verbally consented to the use of an ambient scribe for clinic note documentation during this visit. Orders: Orders CA echo transthoracic complete Today I25.10 - Atherosclerotic heart disease of [place] coronary artery without angina pectoris CA stress test Today I25.10 - Atherosclerotic heart disease of [place] coronary artery without angina pectoris, R07.2 - Precordial pain NM cardiolite stress test Today I25.10 - Atherosclerotic heart disease of [place] coronary artery without angina pectoris, R07.2 - Precordial pain Patient Instructions: - Continue taking all current medications, including metoprolol, as prescribed. - Monitor blood sugar levels closely and adjust insulin as needed. - Attend scheduled cardiac ultrasound and stress test appointments. - if any worsening symptoms, contact us immediately or seek emergency help. Coding Level of Care Code Est Pt Level 4 (94373) Complex EM visit Add On G2211 Diagnoses Atherosclerotic cardiovascular disease I25.10 Type 1 diabetes mellitus with unspecified complications E10.8 CPT Codes EKG - CPT: 78688-[id number], Complete ([id number])
--- OUTSIDE RECORDS SUMMARY | 2025-06-28 09:36 | XMS_ITS | Encounter Summary ---
Author Organization [facility] Address [address] [place] [id number] Phone Care Team Providers Care Call Center Manager Name Role Phone Alan Armando MD Primary Care Provider [phone] Radha Dunn INSIDE BARREL LATHE OPERATOR Unavailable Unavailable Quoc Gallardo Unavailable [phone] Maureen Chang NP Unavailable Benjamín Younger MD Unavailable Orly Wilson MD Unavailable [phone] Alan Armando MD Unavailable [phone] Mary Crenshaw MD Unavailable [phone] Don Rao MD Unavailable [phone] Brittani Madison RN Primary Care Provider Unavaila [facility] [place]ani Madison RN Unavailable Unavailable Alan Armando MD Primary Care Provider [phone] Samira Quispe MD Primary Care Provider [phone] Encounter Details Date Type Department Care Team [...] Description 07/17/2025 3:00 PM EDT Office Visit [facility] [address] [place] [address] Orly Wilson MD [address] [address] 10/04/2025 3:00 PM EST Nutrition [facility] [address] [place] [id number] Radha Mor[address] [place] [address] Radha Morales LDN [address] [address] documented as of this encounter Procedures Procedure Name Priority Date/Time Associated Diagnosis Comments OUTSIDE LAB Routine 09/02/2017 documented in this encounter Results * Outside Lab (09/02/2017) us Historical Provider LAB BLOOD ORDERABLES Alyssa l Result documented in this encounter Visit Diagnoses Not on filedocumented in this encounter Care Teams Call Center Manager Relationship Specialty Start Date End Date Alan Armando MD PCP - General 09/14/17 10/12/17 Brittani Madison RN [address] [place] [address] PCP - General 10/13/17 10/13/17 Alan Armando MD PCP - General Internal Medicine 10/14/17 03/11/20 Samira Quispe MD [address] [place] [address] [place] [address] PCP - General Internal Medicine 03/12/20 Radha Dunn NP [address] [place] [address] Historical LMR Provider 09/14/1702/27 Quoc Gallardo PA [address] [place] [address] Historical LMR Provider 09/14/17 2 Maureen Chang NP [address] [place] [address] [place] [address] Historical LMR Provider 09/14/1703/11 Benjamín Younger MD [address] [place] [address] Historical LMR Provider 09/14/1703/11 Orly Wilson MD [address] [place] [address], [address] [place] [address] [email or web address] Historical LMR Provider 09/14/17 Alan Armando MD [address] [place] [address] [email or web address] Historical LMR Provider 09/14/17 03/11/20 Mary Crenshaw MD [address] [place] [address] [facility], [place] [address] Historical LMR Provider 09/14/17 Don Rao MD [address] [place] [address] Historical LMR Provider 09/14/17 [place]ani Madison RN [address] [place] [address] Registered Nurse 10/13/17 documented as of this encounter Additional Source Comments The information contained in this document represents components of the legal health record. It is not the complete legal health record.[facility]
--- OUTSIDE RECORDS SUMMARY | 2025-06-28 09:36 | XMS_ITS | Clinical Summary ---
Author Organization [facility] Address [address] [place] [address] [place] [address] Phone Care Team Providers Care Metal Shaping Machine Operator Name Role Phone Samira Quispe MD Primary Care Provider [phone] Allergies No known active allergies Medications aspirin [...] Plan: Followed by Dr. Anthony Delaney at [facility] Had follow up last month Blindness [...] Dexcom to G6, this will work with Bkam once this launches; we discussed other insulin [...] % PVNMA 05/21/2020 us [facility] Conversion LAB [id number] LICITED RESULTS Final Result PVNMA from Last 3 Months or Most Recently Relevant to Health Maintenance Insurance [facility] Medicaid Member Subscriber Plan / Payer (Ef fective 2020-Present) Name:Servando Tan Relation to Subscriber:Self Name:Servando Tan Payer ID:Not on file Group ID:[id number] Type:Not on file Address: [address] [facility] Medicaid Care Teams Metal Shaping Machine Operator Relationship Specialty Start Date End Date Samira Quispe MD [facility] [place] [address] PCP - General 12/09/20
== END 2025-06-28 09:56 | disposition home or self-care (01) ==
LOC: HO.HCS 09:21
PROVIDERS: PCP Internal Medicine; Visit Provider Internal Medicine
DX: I25.10 Atherosclerotic heart disease of native coronary artery without angina pectoris (principal); E10.8 Type 1 diabetes mellitus with unspecified complications
CPT/HCPCS: 93010; 99214

== ENCOUNTER → 2025-06-28 09:20 | Outpatient (BNVA) | payer OTHER, SELFPAY ==
[2023-05-04 12:01] VITALS: BP 102/46; BP 134/60
== END ==
PROVIDERS: PCP Internal Medicine; Visit Provider Internal Medicine
DX: R07.2 Precordial pain (principal); I25.10 Atherosclerotic heart disease of native coronary artery without angina pectoris; I10 Essential (primary) hypertension; E10.8 Type 1 diabetes mellitus with unspecified complications
CPT/HCPCS: 93005; 99212

== ENCOUNTER → 2025-07-26 15:12 | Outpatient (REF) | payer OTHER, SELFPAY ==
[2023-05-04 12:01] VITALS: BP 102/46; BP 134/60
--- NOTE | 2025-07-26 15:15 | CA_ITS ---
Transthoracic Echocardiogram Patient (Last, First, Middle): Servando Tan M Gender: Male Date of : 1965 Age: 60 Procedure Date: 07/26/2025 Procedure Type: Transthoracic Echocardiogram Location: OP Height: 175.26 cm Weight: 70.31 kg BSA: 1.85 m2 Heart Rate: bpm BP: 120 / 70 mmHg Administrative Resources Associate: EFRAIN Referring MD: Darryl Leong MD Symptoms: I25.10 - Atherosclerotic heart disease of [place] coronary artery without... Study Quality: Adequate Conclusions: - The left ventricular systolic function is normal. The calculated ejection fraction is 62% by biplane method. - No obvious valvular pathology seen on this study. Findings Left Ventricle Normal left ventricular cavity size. There is normal left ventricular wall thickness. The left ventricular systolic function is normal. The calculated ejection fraction is 62% by biplane method. There is no evidence of regional wall motion abnormalities. Diastolic function is normal for age. Right Ventricle Normal right ventricular cavity size and systolic function. Atria Both atria are normal in size. Aortic Valve There is a normal trileaflet aortic valve. There is no aortic valve stenosis. There is no aortic valve regurgitation. Mitral Valve The mitral valve appears normal. There is no mitral valve regurgitation. There is no mitral valve stenosis. Pulmonic Valve There is trace pulmonic valve regurgitation. Tricuspid Valve There is trace tricuspid valve regurgitation. There is no evidence of pulmonary hypertension. Great Vessels The asc aorta is normal in size. Moderate plaque is seen in the sino tubular ridge. Venous The inferior vena cava is mildly dilated and collapses greater than 50% with inspiration. Pericardium/Pleural There is no evidence of pericardial effusion. Prior Study Comparison No significant change compared to prior study dated: 06/30/2022. Recommendations, Care & Conclusions No obvious valvular pathology seen on this study. Measurements 2D Linear Measurements IVSd: 0.81 0.6-0.9/0.6-1.0 cm LVIDd: 4.35 3.9-5.3/4.2-5.9 cm LVIDd Index: 2.35 2.4-3.2/2.2-3.1 cm/m2 LVIDs: 2.63 2.0-3.6 cm LVPWd: 0.85 0.7-1.1 cm LA Diam: 3.50 2.7-3.8/3.0-4.0 cm LAIDs Index: 1.89 1.5-2.3 cm/m2 LV Mass: 139.15 67-162/88-224 g LV Mass Index: 75.21 43-95/49-115 g/m2 LVOT Diam: 2.10 3.0+(-)1.3 cm 2D Systolic Function EF 4C: 60.30 >55% EF 2C: 66.20 >55% EF BiP: 62.10 >55% Mitral Valve MV Pk E: 0.90 MV PK A: 0.99 MV Decel Time: 238.00 E/A: 0.90 E'Lateral: 11.00 E'Medial: 7.62 E/E' Med: 11.80 E/E' Lat: 8.20 PHT: 70.00 MVA PHT: 3.14 Decel [place]: 3.77 Aortic Valve AoV Pk Ray[place]: 1.24 AoV Mn [place]: 0.80 AoV VTI: 0.29 AoV Pk Grad: 6.00 Aov Mn Grad: 3.00 ALANA Cont.VTI: 2.87 LVOT LVOT Pk [place]: 1.00 LVOT Mn [place]: 0.64 LVOT VTI: 0.24 LVOT Pk Grad: 4.00 LVOT Mn Grad: 2.00 LVOT Diam: 2.10 LVOT Area: 3.46 Diastolic Function MV Pk E: 0.90 MV Pk A: 0.99 E/A: 0.90 E'Medial: 7.62 E/E' Med: 11.80 E' Laterial: 11.00 E/E' Lat: 8.20 Right Ventricle TAPSE (mm): 26.00 TVS' Raymundo: 14.90 Tricuspid Valve TR Pk [place]: 2.24 TR Pk Grad: 20.00 RA Press: 8.00 RVSP: 28.00 Great Vessels Aorta Sinus of Valsalva: 3.75 2.0-3.[address] Ridge: 2.90 1.7-3.4 cm Ao Asc: 3.30 2.1-3.4 cm Pulmonary Veins Pulm Vein S/D 1.50 Updated in Other Vendor System with Status of Final Darryl Leong MD electronically signed on 07/28/2025 10:46:24 AM with status of Final
--- OUTSIDE RECORDS SUMMARY | 2025-07-26 15:49 | XMS_ITS | Clinical Summary ---
Author Organization [facility] Address [address] [place] [id number] Phone Care Team Providers Care Chip Washer Name Role Phone Orly Wilson MD Unavailable [phone] Brittani Madison RN Unavailable Unavailable Samira Quispe MD Primary Care Provider [phone] Allergies No known active allergies Medications lisinopril (PRINIVIL,ZESTRIL) 2.5 MG tablet Take by mouth daily. Active aspirin 81 MG EC tablet Take 81 mg by mouth daily. Active FREESTYLE LITE METER meter kitIndications:Typ e 1 diabetes mellitus with polyneuropathy Use to check BG in times of CGM failure, up to 2x/day 1 each 3 Active alendronate 70 mg TbEF Take 70 mg by mouth every 7 days. Active calcium carbonate-vitamin D3 500 mg-400 units per tablet Take 1 tablet by mouth daily. Active OMNIPOD 5 G6 PODS, GEN 5, CrtgIndications:Ty pe 1 diabetes mellitus with polyneuropathy Inject 1 each under the skin every other day. 15 each 11 3 Active ACCU-CHEK SOFTCLIX LANCETSIndications :Type 1 diabetes mellitus with polyneuropathy USE TO TEST BLOOD SUGAR 1-2 TIMES DAILY 50 each 2 4 Active OMNIPOD 5 G6-G7 PODS, GEN 5, CrtgIndications:Ty pe 1 diabetes mellitus with diabetic polyneuropathy INJECT 1 EACH UNDER THE SKIN EVERY OTHER DAY. 15 each 11 4 Active insulin lispro (ADMELOG, HUMALOG) 100 unit/mL injection vialIndications:Ty pe 1 diabetes mellitus with polyneuropathy INJECT 60 UNITS DAILY VIA INSULIN PUMP. 20 mL 11 5 Active magnesium oxide (MAG-OX) 400 mg (241.3 mg elemental) tablet Take 1 tablet by mouth every morning. 5 Active metoprolol succinate (TOPROL-XL) 25 MG 24 hr tablet Take 1 tablet by mouth every morning. 5 Active DEXCOM G7 SENSOR DeviIndications:Ty pe 1 diabetes mellitus with polyneuropathy Apply as directed every 10 days E10.42 9 each 3 5 Active FREESTYLE LITE Strp stripsIndications: Type 1 diabetes mellitus with polyneuropathy Use to check BG in times of CGM failure, up to 2x/day 100 strip 3 5 Active atorvastatin (LIPITOR) 80 MG tablet Take 80 mg by mouth daily. Active insulin pump cart,auto,BT-cntr (OMNIPOD 5 G6 INTRO KIT, GEN 5,) CrtgIndications:Ty pe 1 diabetes mellitus with polyneuropathy Inject 1 each under the skin daily. 1 each 3 025 Discontin ued(No longer taking) FREESTYLE LITE Strp stripsIndications: Type 1 diabetes mellitus with polyneuropathy Use to check BG in times of CGM failure, up to 2x/day 200 strip 3 3 025 Discontin ued(Reord er) ticagrelor (BRILINTA) 90 mg Tab Take 90 mg by mouth 2 (two) times a day. 025 Discontin ued(No longer taking) Active Problems Problem Noted Date Diagnosed Date Other osteoporosis without current pathological fracture 03/12/2020 Assessment & Plan (03/12/2020 3:05 PM EDT): Followed by Dr. Anthony Delaney at [facility] Had follow up last month Blindness of one eye 09/12/[address] 01/07/2018 Assessment & Plan (07/19/2025 6:11 PM EDT): Deidra has had weight loss and this may impact insulin requirement We discussed that continued adjustment of settings as needed but we did not adjust these today based on current patterns Overnight patterns are more variable due to irregular sleep wake schedule, Deidra is advised of benefits of making this more consistent Deidra is encouraged to continue to hydrate well and to continue his efforts at healthy lifestyle habits, he has been having some challenging symptoms which affect his activity and will have stress test soon Deidra is doing well on the OP5 automated system Assessment & Plan (01/18/2025 10:23 AM EST): Current insulin pump setting Time Basal Rates? Time ICR Time ISF Time Target IOB 12am 0.60u/hr 12am 9 12am 39 12am 120 mg/dl 5hrs 7am 0.65 Waylon Thresh TOTAL 15.3u/day 130 We discussed current settings, IC ratio and ISF are more conservative than at our last visit and this was likely adjusted due to increased insulin sensitivity during the summer months, we discussed adjusting these back however Deidra feels that current IC ratio is working well, he reduced ISF modestly but completely back to previous setting We discussed that continued adjustment of the ISF may help to reduce the persistence of elevated readings by making correction doses more effective, if postprandial rise becomes an issue then the IC ratio should be adjusted Deidra is encouraged to hydrate well and to continue his efforts at healthy lifestyle habits Deidra is encouraged to reach out with any questions regarding pump options Assessment & Plan (03/16/2024 6:48 PM EDT): Current insulin pump setting Time Basal Rates? Time ICR Time ISF Time Target IOB 12am 0.55u/hr 12am 7 12am 37 12am 100mg/dl 5hrs 7am 0.60 TOTAL 14.1u/day We had discussed optimizing the target glucose to 100 at our last visit, Deidra did not make this change and feels comfortable with the target set at 120 Correction threshold is currently at 130, this too will remain the same for now There is one manual bolus of 20 units very early one morning which was followed by a significant drop in glucose, Deidra does not recall why he would have given himself that much as a manual bolus, it is possible that he was having a 20g snack prior to going to bed in the early am and entered this as 20u but this is not known, advised to try to be careful with manual boluses Deidra is encouraged to reach out with any questions regarding pump options Assessment & Plan (09/13/2023 11:01 PM EDT): New insulin pump setting Time Basal Rates? Time ICR Time ISF Time Target IOB 12am 0.55u/hr 12am 7 12am 37 12am 100mg/dl 5hrs 7am 0.60 TOTAL 14.1u/day We discussed optimizing the target glucose to 100 which is likely to make automation more effective for Deidra Correction threshold is currently at 130, adjusting this lower will ensure correction doses even at lower glucose readings optimizing doses prior to meals and for corrections We also discussed consideration for a less aggressive I:C ratio in late night to reduce risk for postprandial hypoglycemia Encouraged Deidra to reach out with any questions regarding pump options Assessment & Plan (03/11/2023 5:24 PM EDT): Current insulin pump setting Time Basal Rates? Time ICR Time ISF Time Target IOB 12am 0.55u/hr 12am 7 12am 37 12am 125mg/dl 5hrs 7am 0.60 TOTAL 14.1u/day Reviewed differences between automated vs manual modes, encouraging Deidra to stay in automated as much as able to protect from hypoglycemia Since Deidra appreciates the extended bolus feature and feels that the automation does not help with hyperglycemia in a timely manner, we discussed the Tandem x2 insulin pump as an option that would both allow for extended boluses and provide larger auto corrections while in its automation. Deidra will consider this as an option. Because OP5 is pharmacy benefit, it is not locked into a usual pump warranty so this is a potential option if Deidra continues not to like the OP5 system Deidra is also interested in a DIY looping pump, but wants to make sure we would be able to download this. I told Deidra I would look more into this, advising we have tidepool download capability, but am unaware of Xdrip. Discussed pros and cons to DIY looped pumps. Deidra is still researching this as an option. Encouraged Deidra to reach out with any questions regarding pump options and to reach out as soon as possible if decides to move forward with a DIY looped pump. Assessment & Plan (01/11/2023 4:38 PM EST): Current insulin pump setting (winter) Time Basal Rates? Time ICR Time ISF Time Target IOB 12am 0.55u/hr 12am 7 12am 37 12am 125mg/dl 5hrs 7am 0.60 TOTAL 14.1u/day Reviewed modifications for improved diabetes management. Deidra agrees to the treatment plan outlined below. 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 Reviewed insulin pump troubleshooting and back up plan I will check in with Deidra later this week to follow up on first 48-72 hours of using the pump We will follow up in 4 weeks for review use of Auto basal, pump/CGM, advanced features and glucose control, calling sooner as needed. Assessment & Plan (09/10/2022 12:09 AM EDT): New insulin pump setting (summer) Time Basal Rates? Time ICR Time ISF Time Target IOB 12am 0.55u/hr 12am 7 12am 37 12am 125mg/dl 5hrs 7am 0.60 TOTAL 14.1u/day May be running higher due to summer settings which run lower basal rates due to usual increase in activity, Deidra has been less active until recently, will be changing to his winter basal settings which are higher due to less activity during winter usually Orders for Omnipod 5 are in process, the automated insulin delivery will likely result in more stable control with higher TIR and lower TBR, will return for training when receives his supplies Assessment & Plan (03/09/2022 3:46 PM EDT): New insulin pump setting (summer) Time Basal Rates? Time ICR Time ISF Time Target IOB 12am 0.55u/hr 12am 9 12am 35 12am 125mg/dl 5hrs 7am 0.60 TOTAL 14.1u/day Encouraged to change to summer basal settings, this will likely result in lower hypoglycemia frequency Encouraged to think about Omnipod 5, I think that the automated insulin delivery in this system will likely result in more stable control with higher TIR and lower TBR, also encouraged to let me know if he has questions related to this Assessment & Plan (09/08/2021 4:50 PM EDT): Current insulin pump setting Time Basal Rates? Time ICR Time ISF Time Target IOB 12am 0.55u/hr 12am 9 12am 35 12am 125mg/dl 5hrs 7am 0.60 TOTAL 14.1u/day We did not adjust insulin pump settings today, current settings appear to be working well Advised to consider an increase in 7am basal rate if rise in glucose prior to breakfast is more consistent Assessment & Plan (10/31/2020 10:40 PM EST): We did not adjust insulin pump settings today since excursions in blood sugars are not of a consistent pattern Given information on how to evaluate basal rates, I:C ratio and ISF; encouraged to look for patterns and to contact me with any questions Assessment & Plan (09/12/2019 8:14 PM EDT): Insulin pump settings have been adjusted as noted, particularly the ISF and I:C ratio Deidra has adjusted the basal rates in the recent past and we did not adjust these further today Comfortable making adjustments to insulin pump settings as needed and is encouraged to continue to do so, also encouraged to call with any questions related to this Assessment & Plan (06/06/2019 10:08 PM EDT): We did not make changes to insulin pump settings today Assessment & Plan (03/09/2019 9:14 AM EDT): We did not make changes to insulin pump settings today Encouraged to continue to monitor blood sugar/CGM patterns and make adjustments as needed Assessment & Plan (01/24/2019 3:49 PM EST): Comfortable making adjustments to insulin pump settings independently, advised to continue No adjustments suggested at today's visit We discussed transition to Omnipod Dash if Medicare approves this otherwise will remain on current system with Dexcom G5 Participated in group education visit today, will return in 3 months Assessment & Plan (01/07/2018 2:41 PM EST): On insulin pump therapy since 2010, will be due for update , discussed future Yekraip[employer] Guard technology which will incorporate hypo/hyper minimizer with Dexcom CGM No changes made to insulin pump settings today Hypercholesterolemia 01/07/2018 Assessment & Plan (07/19/2025 6:02 PM EDT): Continues on statin at high intensity LDL goal is <55 given CAD history Recent routine labs are not available for review Assessment & Plan (01/18/2025 10:16 AM EST): Not currently on statin therapy per record LDL goal is <70 Recent routine labs are not available for review Assessment & Plan (03/16/2024 6:44 PM EDT): Not currently on statin therapy per record LDL goal is <70 Recent routine labs are not available for review Assessment & Plan (09/13/2023 10:52 PM EDT): Continues on statin therapy, high intensity LDL goal is <70 No recent labs available for review Assessment & Plan (09/10/2022 12:09 AM EDT): Continues on statin therapy, high intensity LDL goal is <70 No recent labs available for review but these are up to date per Deidra Assessment & Plan (03/09/2022 3:46 PM EDT): Continues on statin therapy, high intensity LDL goal is <70 No recent labs available for review but these are up to date per Deidra Assessment & Plan (09/08/2021 6:02 PM EDT): Continues on statin therapy, high intensity LDL goal is <70 No recent labs available for review but these are up to date per Deidra Assessment & Plan (10/31/2020 10:30 PM EST): Continues on statin therapy, high intensity LDL goal is <70 No recent labs available for review but these are up to date per Deidra Assessment & Plan (06/06/2019 10:09 PM EDT): Continues on statin therapy, high intensity No recent labs available for review but these are up to date per Deidra Assessment & Plan (01/24/2019 3:46 PM EST): Reports routine lipid panel UTD, no results available for review Continues on low intensity statin Assessment & Plan (07/21/2018 9:16 PM EDT): Continues on statin therapy, given DM and CAD history LDL goal is <70 Routine labs including lipids UTD ordered by PCP regularly per Deidra, we do not have most recent results for review Assessment & Plan (01/07/2018 2:47 PM EST): Appropriately managed on statin therapy No recent lipid data is available, LDL was in excellent control in 2013 per our most recent results Essential hypertension 01/07/2018 Assessment & Plan (07/19/2025 6:01 PM EDT): Continues on ACEi therapy at low dose Blood pressure remains in excellent range [place] blood pressure goal given CAD and CKD is <130/80 Assessment & Plan (01/18/2025 10:17 AM EST): Continued on ACEi therapy at low dose until recently, during recent ED evaluation was told to discuss ACEi with renal provider, has not yet done this, previously with low normal blood pressure on low dose ACEi Blood pressure remains in good range historically, this is borderline today and this may be due to omission of ACEi [place] blood pressure goal given CAD and CKD is <130/80 Assessment & Plan (03/16/2024 6:38 PM EDT): Continues on ACEi therapy at low dose Blood pressure remains in very good range, at low end of normal today but not symptomatic Overall blood pressure goal is <130/80 Assessment & Plan (09/13/2023 10:49 PM EDT): Continues on ACEi therapy at low dose Blood pressure is in very good range today, goal is <130/80 Assessment & Plan (09/09/2022 11:58 PM EDT): Continues on ACEi therapy Blood pressure is in good range today, goal is <130/80 Assessment & Plan (03/09/2022 3:41 PM EDT): Continues on ACEi therapy Blood pressure is borderline today, overall goal is <130/80 Assessment & Plan (09/08/2021 4:47 PM EDT): Continues on ACEi therapy Blood pressure is in excellent control today Assessment & Plan (10/31/2020 10:29 PM EST): Continues on ACEi therapy Blood pressure is in excellent control today Assessment & Plan (01/24/2019 3:46 PM EST): Blood pressure is well controlled Continues on ACEi Assessment & Plan (07/21/2018 9:08 PM EDT): Excellent blood pressure control, continues on ACEi Assessment & Plan (01/07/2018 2:40 PM EST): Excellent blood pressure control on current medication regimen which includes ACEI 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 01/07/2018 Assessment & Plan (07/19/2025 6:03 PM EDT): Routine eye care is up to date Blood pressure is excellent today, continues on ACEi at low dose Blood sugar control is also good and variability has been lower Assessment & Plan (01/18/2025 10:33 AM EST): Routine eye care is up to date Blood pressure is borderline today, advised to discuss ACEi with extension agent Blood sugar control is also in good control and variability has been lower and is now in target range at the last 3 visits Assessment & Plan (03/16/2024 6:49 PM EDT): Routine eye care is up to date Blood pressure is in good control Blood sugar control is also in good control though variability remains above target Assessment & Plan (09/13/2023 11:04 PM EDT): Routine eye care is up to date Blood pressure is in good control Blood sugar control is also in good control though variability is above target in recent past Assessment & Plan (03/11/2023 5:25 PM EDT): Routine eye care is up to date Blood pressure is in good control Blood sugar control is also good Assessment & Plan (09/10/2022 12:10 AM EDT): Routine eye care is up to date Blood pressure is in good control Blood sugar control is also good though more challenges with this in the recent past Assessment & Plan (03/09/2022 3:46 PM EDT): Routine eye care is up to date Blood pressure is in good control Blood sugar control is also very good Assessment & Plan (09/08/2021 6:03 PM EDT): Routine eye care is up to date Blood pressure is in good control Blood sugar control is also very good Assessment & Plan (10/31/2020 10:28 PM EST): Routine eye care is up to date Blood pressure is in good control Assessment & Plan (03/12/2020 3:05 PM EDT): Has upcoming routine visit scheduled with eye care provider Routine eye care is up to date Assessment & Plan (09/12/2019 8:12 PM EDT): Routine eye care is up to date Blood pressure is elevated and blood sugar control is suboptimal We made changes in insulin pump settings to optimize insulin delivery as noted Assessment & Plan (06/06/2019 10:09 PM EDT): Routine eye care is up to date Assessment & Plan (03/09/2019 9:15 AM EDT): Routine eye care is up to date Blood pressure is well controlled Glucose control is good overall Assessment & Plan (01/24/2019 3:48 PM EST): Routine eye care is UTD Blood pressure management is excellent Assessment & Plan (07/21/2018 9:08 PM EDT): Routine eye are is up to date Blood pressure is well controlled Type 1 diabetes mellitus with nephropathy 2017 Assessment & Plan (07/19/2025 6:04 PM EDT): Has continued on ACEi therapy at modest dosage Blood pressure is in excellent control today Goal is <130/80 We do not have most recent renal function data on file for review Follows with nephrology Assessment & Plan (01/18/2025 10:31 AM EST): Has been on ACEi therapy at modest dosage but most recently was told by ED provider during evaluation for dehydration to discuss this therapy with his extension agent, Deidra has not yet done this Blood pressure is borderline today Goal is <130/80 We do not have most recent renal function data on file for review Assessment & Plan (03/16/2024 6:49 PM EDT): Continues on ACEi therapy at modest dosage Blood pressure in excellent though low normal range today Goal is <130/80 Most recent GFR on file is 40 Assessment & Plan (09/13/2023 11:05 PM EDT): Continues on ACEi therapy at modest dosage Blood pressure in excellent range today Goal is <130/80 Most recent GFR on file is 40 Assessment & Plan (03/11/2023 5:25 PM EDT): Continues on ACEi therapy Blood pressure in excellent range today Goal is <130/80 Assessment & Plan (01/11/2023 4:38 PM EST): Continues on ACEi therapy Blood pressure not collected today for insulin pump training Goal is <130/80 Assessment & Plan (09/10/2022 12:10 AM EDT): Continues on ACEi therapy Blood pressure control is borderline today, goal is <130/80 Assessment & Plan (03/09/2022 3:47 PM EDT): Continues on ACEi therapy Blood pressure control is borderline today, goal is <130/80 Assessment & Plan (09/08/2021 6:03 PM EDT): Continues on ACEi therapy Blood pressure control is excellent today Assessment & Plan (10/31/2020 10:29 PM EST): Continues on ACEi therapy Blood pressure control is excellent today Assessment & Plan (09/12/2019 8:11 PM EDT): Continues on ACEi Blood pressure is elevated today Blood sugar control is poor compared to Deidra' usual control since his hospitalization Assessment & Plan (06/06/2019 10:10 PM EDT): Continues on ACEi No recent labs available for review Assessment & Plan (03/09/2019 9:14 AM EDT): Blood pressure is well controlled Continues on ACEi Assessment & Plan (01/24/2019 3:48 PM EST): bp well controlled Continues on ACEi Assessment & Plan (07/21/2018 9:17 PM EDT): Blood pressure well controlled Continues on ACEi Coronary artery disease invo [place]ving [place] coronary artery of [place] heart without angina pectoris 01/07/2018 Assessment & Plan (07/19/2025 6:00 PM EDT): Follows with cardiology Has upcoming stress test schedule next month due to recent symptoms Advised to seek evaluation sooner if symptoms worsen Continues on statin therapy at high intensity Blood pressure is in excellent control Type 1 diabetes mellitus with polyneuropathy Overview (01/07/2018): DIABETES HISTORY Diagnosis -- type 1 diabetes, age 2; through much of his childhood and young adulthood he did very little to take care of blood sugars - Lantus not every day, blood sugars often very high, rare monitoring Treatment -- started on pump therapy and CGM in 2010 Assessment & Plan (07/19/2025 6:10 PM EDT): Overall modestly variable trends during the day, variability is increased in overnight period due to irregularity in activity in late night and eating patterns at that time, Deidra has difficulty getting to sleep at reasonable hour, TIR is above 80% Encouraged to continue efforts at healthy eating, has been hydrating well Activity has been impacted by recent issues with dyspnea which come and go, Deidra has stress test scheduled and has 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 with 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 sorter 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 about these symptoms, he is advised to go to ED for evaluation should anything worsen Deidra has had unintentional weight loss, he reports good appetite and intake, he will continue to monitor this, his insulin requirement may be affected by this and we discussed considerations for this today Deidra is currently using the Omnipod 5 automated system, he continues to find it helpful overall, took some time to get adjusted to it and for system to get to know him CGM use is helpful since hypoglycemia symptoms are not predictable Encouraged to contact me with any questions or concerns, Deidra will return in 3 months to meet with Radha Morales and in 6 months to meet with me Assessment & Plan (01/18/2025 10:28 AM EST): Overall modestly variable trends, variability has decreased since our last visit and has been stable since most recent visit in September, TIR remains in low 70% range Encouraged to continue efforts at healthy eating, recent ED visit for dehydration, we discussed importance of this in general but also attention to electrolyte containing fluids when more active Deidra is currently using the Omnipod 5 automated system, he continues to find it helpful overall, took some time to get adjusted to it and for system to get to know him CGM use is helpful since hypoglycemia symptoms are not predictable Encouraged to contact me with any questions or concerns, Deidra will return in 3 months to meet with Radha Morales and in 6 months to meet with me Assessment & Plan (03/16/2024 6:41 PM EDT): Overall variable trends mostly due to erratic sleep wake cycle, variability remains high, GMI 7.2% Encouraged to continue efforts at healthy eating Deidra is currently using the Omnipod 5 automated system, he reported that he found it underwhelming at our last visit, he is ok with it as the algorithm has seemed to adjust to him CGM use is helpful since hypoglycemia symptoms are not predictable Encouraged to contact me with any questions or concerns, will return in 3 months to meet with Joselin Tripp and in 6 months to meet with me Assessment & Plan (09/13/2023 11:17 PM EDT): Overall variable trends due to recent travel, variability remains high, GMI 7.1% Encouraged to continue efforts at healthy eating, may need less insulin for meals in middle of the night if continues to have low readings after late night meals Deidra is currently using the Omnipod 5 automated system and finding it underwhelming, we discussed some changes to the settings today which may prove more effective We discussed novel insulin pump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
--- OUTSIDE RECORDS SUMMARY | 2025-07-26 15:49 | XMS_ITS | Clinical Summary ---
Author Organization [facility] Address [address] [place] [address] [place] [address] Phone Care Team Providers Care Newsroom Intern Name Role Phone Samira Quispe MD Primary Care Provider [phone] Allergies No known active allergies Medications aspirin [...] Plan: Followed by Dr. Anthony Delaney at [facility] Had follow up last month Blindness [...] Dexcom to G6, this will work with [employer] once this launches; we discussed other insulin [...] % PVNMA 05/21/2020 us Rtama Conversion LAB [id number] LICITED RESULTS Final Result PVNMA from Last 3 Months or Most Recently Relevant to Health Maintenance Insurance [facility] Medicaid Member Subscriber Plan / Payer (Ef fective 2020-Present) Name:Servando Tan Relation to Subscriber:Self Name:Servando Tan Payer ID:Not on file Group ID:[id number] Type:Not on file Address: [address] [facility] Medicaid Care Teams Newsroom Intern Relationship Specialty Start Date End Date Samira Quispe MD [facility] [place] [address] PCP - General 12/09/20
--- OUTSIDE RECORDS SUMMARY | 2025-07-26 15:49 | XMS_ITS | Encounter Summary ---
Author Organization [facility] Address [address] [place] [address] Phone Care Team Providers Care Drug Safety Specialist Name Role Phone Alan Armando MD Primary Care Provider [phone] Radha Dunn DAIRY PROCESSING EQUIPMENT OPERATOR Unavailable Unavailable Quoc Gallardo Unavailable Maureen Chang NP Unavailable Benjamín Younger MD Unavailable Orly Wilson MD Unavailable [phone] Alan Armando MD Unavailable Mary Crenshaw MD Unavailable [phone] Don Rao MD Unavailable Brittani Madison RN Primary Care Provider [facility] Brittani Madison RN Unavailable Unavailable Alan Armando MD Primary Care Provider [phone] Samira Quispe MD Primary Care Provider Encounter [...] Info) Description 10/04/2025 3:00 PM EST Nutrition [facility] [address] [place] [address] [place] [address] Radha Morales LDN [address] [address] 01/08/2026 2:40 PM EST Office Visit [facility] [address] [place] [address] Orly Wilson MD [address] [address] documented as of this encounter Procedures Procedure Name Priority Date/Time Associated Diagnosis Comments OUTSIDE LAB Routine 09/02/2017 documented in this encounter Results * Outside Lab (09/02/2017) us Historical Provider LAB BLOOD ORDERABLES Alyssa l Result documented in this encounter Visit Diagnoses Not on filedocumented in this encounter Care Teams Drug Safety Specialist Relationship Specialty Start Date End Date Alan Armando MD PCP - General 09/14/17 10/12/17 Brittani Madison RN [address] [place] [address] PCP - General 10/13/17 10/13/17 Alan Armando MD PCP - General Internal Medicine 10/14/17 03/11/20 Samira Quispe MD [address] [place] [address] [place] [address] PCP - General Internal Medicine 03/12/20 Radha Dunn NP [address] [place] [address] Historical LMR Provider 09/14/1702/27 Quoc Gallardo PA [address] [place] [address] Historical LMR Provider 09/14/17 2 Maureen Chang NP [address] [place] [address] [place] [address] Historical LMR Provider 09/14/1703/11 Benjamín Younger MD [address] [place] [address] Historical LMR Provider 09/14/1703/11 Orly Wilson MD [address] [place] [address], [address] [place] [address] [email or web address] Historical LMR Provider 09/14/17 Alan Armando MD [address] [place] [address] Historical LMR Provider 09/14/17 03/11/20 Mary Crenshaw MD [address] [place] [address] [facility], [place] [address] Historical LMR Provider 09/14/17 Don Rao MD [address] [place] [address] Historical LMR Provider 09/14/17 Brittani Madison RN [address] [place] [address] Registered Nurse 10/13/17 documented as of this encounter Additional Source Comments The information contained in this document represents components of the legal health record. It is not the complete legal health record.[facility]
== END ==
LOC: HO.CARD 15:12
PROVIDERS: PCP Internal Medicine; Visit Provider Internal Medicine
DX: I25.10 Atherosclerotic heart disease of native coronary artery without angina pectoris (principal)
CPT/HCPCS: 93306

== ENCOUNTER → 2025-07-26 15:15 | Outpatient (BNV) | payer OTHER, SELFPAY ==
[2023-05-04 12:01] VITALS: BP 102/46; BP 134/60
== END ==
PROVIDERS: PCP Internal Medicine; Visit Provider Internal Medicine
DX: I25.10 Atherosclerotic heart disease of native coronary artery without angina pectoris (principal)
CPT/HCPCS: 93306

== ENCOUNTER 2025-07-31 14:41 | Outpatient (AMB) | payer OTHER, SELFPAY ==
[2023-05-04 12:01] VITALS: BP 102/46; BP 134/60
--- NOTE | 2025-07-31 14:43 | A.OFFVIS_ITS ---
Intake Visit Reasons: 1y follow up Intake Note: Patient is present for 1 yr Follow Up Urology Med: Tadalafil Antibiotic Allergy:None Blood Thinner: Aspirin ,clopidogrel Control Director Required: No Accompanied by: Self / Same As Patient Allergies No Known Allergies Allergy (Verified 07/31/25 14:44) HPI Comments Details: Servando is a pleasant male. He is a patient of Dr. Quispe. He seen for the following urologic issues - erectile dysfunction - lower urinary tract symptoms Yearly follow-up Urgency and control of bladder have improved substantially with tadalafil Uses 10 mg tadalafil every 2-3 days Has been effective for bladder stability at erections Prior PSA 03/19 1.6, 02/17 1.8 T 620 normal pituitary hormones HbA1c 05/19 7.1, 02/19 6.9% Twelve month follow-up PSA Erectile dysfunction: Diabetic type 1 He presents today for for continued evaluation and management of erectile dysfunction Symptoms have been present for/since since 2015. Procedure(s)/Diagnosis causing dysfunction include diabetes - type 1 for 50 years. Current treatment includes daily tadalafil 10 mg - with on demand sildenafil Treatment side effects include none Prior therapies include oral medications - attenuated response to maximum dose sildenafil At this time he experiences erections /17 are partial and adequate for vaginal penetration, that undergo detumesence prior to penetration, ABIMBOLA 12-16 Mild-Moderate ED /18 , are partial and adequate for vaginal penetration. Nocturnal erections do occur. Currently they are in a stable relationship. Associated problems hypertension Yes diabetes Yes - longstanding type 1 diabetic since age 2 Medications include(s) antidepressant medication, antihypertensive medication. Overall he is satisfied with the current management. Therapeutic plan includes trial daily tadalafil PFSH Medical History Hx of fracture of tibia Hx of retinal detachment Chronic renal insufficiency COVID-19 vaccine administered Myocardial infarction Low vitamin B12 level Hypogonadism in male Hypogonadism Blind left eye Depression Hypertension Dyslipidemia Diabetic neuropathy associated with type 1 diabetes mellitus Coronary artery disease Diabetic retinopathy associated with type 1 diabetes mellitus Diabetes type 1, controlled Osteoporosis Hyperparathyroidism Surgical History H/O heart artery stent S/P eye surgery History of surgery Hx of eye surgery Hx of knee surgery Hx of excision of epidermal inclusion cyst Hx of colonoscopy Family History Father Cancer CVD (cardiovascular disease) Mother CVD (cardiovascular disease) Hypertension High cholesterol Social History Housing: Apartment Are you a primary child adolescent care to a significant other at home: No Do you presently have visiting nurse or other home services: Yes (has [employer]PER[employer]) Alcohol intake: never Patient Tobacco Use Status: Former Tobacco user Tobacco use type: Cigarette Years Smoked: 28 e-Cigarette/Vaping Use: Currently Using Current occupational status: disabled Current occupation: rt handed Cognitive needs: No Hearing needs: No Vision needs: No Review of Systems Const Denies chills and Denies fever(s) Card Reports no additional complaints and Denies syncope Resp Denies cough GI Denies abdominal pain and Denies heartburn Reports as per HPI and Denies change in libido Neuro Denies syncope Psych Denies change in libido Endo Denies change in libido Physical Exam Const General: cooperative, healthy appearing, comfortable and no acute distress Orientation/consciousness: patient oriented x3 HEENT Face and sinus: Yes normal facial exam Mouth: moist mucous membranes Neck Neck: Yes normal visual inspection, Yes full ROM and Yes trachea midline Chest Chest palpation & inspection: normal inspection of the chest Resp Effort & Inspection: normal respiratory effort, able to speak in complete sentences and no respiratory distress GI Inspection: Yes normal to inspection Back/Spine/Pelvis Cervical Spine: normal cervical lordosis Thoracic/Lumbar Spine: thoracic and lumbar spine normal to inspection Skin General skin exam: no rashes or lesions noted Neuro General: patient oriented x3, gait normal, tone normal and moves all extremities Extrem General: Yes normal to inspection and Yes capillary refill normal Results AMB Urinalysis, Automated UA Leukoctes 0 Mary/uL Last Edit by HUMBLE Lyman on 07/31/25 14:56 UA Nitrite Negative Last Edit by HUMBLE Lyman on 07/31/25 14:56 UA Urobilinogen 3.5 mg/dL Last Edit by HUMBLE Lyman on 07/31/25 14:5 6 UA Protein 15 mg/dL Last Edit by HUMBLE Lyman on 07/31/25 14:56 UA pH 5.5 Last Edit by HUMBLE Lyman on 07/31/25 14:56 UA Blood 0 Isaias/uL Last Edit by HUMBLE Lyman on 07/31/25 14:56 UA Specific [place] 1.020 Last Edit by HUMBLE Lyman on 07/31/25 14: 56 UA Ketone Positive Last Edit by HUMBLE Lyman on 07/31/25 14:56 UA Bilirubin 17 mg/dL Last Edit by Alejandrina Oneil CCM on 07/31/25 14:56 UA Glucose 0 mg/dL Last Edit by HUMBLE Lyman on 07/31/25 14:56 Results Reviewed Results Reviewed: Laboratory Last Values Urine pH (Auto) 5.5 07/31/25 14:56 Specific [place] (Auto) 1.020 07/31/25 14:56 Urine Protein (Auto) 15 mg/dL 07/31/25 14:56 Glucose (UA)(Auto) 0 mg/dL 07/31/25 14:56 Urine Ketones (Auto) Positive 07/31/25 14:56 Urine Blood (Auto) 0 Isaias/uL 07/31/25 14:56 Urine Nitrite (Auto) Negative 07/31/25 14:56 Urine Bilirubin (Auto) 17 mg/dL 07/31/25 14:56 Urine Urobilinogen (Auto) 3.5 mg/dL 07/31/25 14:56 Leukocyte Esterase (Auto) 0 Mary/uL 07/31/25 14:56 Assessment & Plan Assessment & Plan (1) Bladder outlet obstruction: Code(s): N32.0 - Bladder-neck obstruction Category: Medical (2) Erectile dysfunction due to diabetes mellitus: Code(s): E11.69 - Type 2 diabetes mellitus with other specified complication; N52.1 - Erectile dysfunction due to diseases classified elsewhere Category: Medical Plan Twelve month follow-up PSA Orders: Orders AMB Urinalysis Automated Today Z13.9 - Encounter for screening, unspecified Prostate Specific Antigen 12 Months E11.69 - Type 2 diabetes mellitus with other specified complication, N52.1 - Erectile dysfunction due to diseases classified elsewhere Patient Instructions: This note is constructed using voice recognition software. While every effort has been made to ensure accuracy continuous improvement coordinator errors may have been included. Imaging studies, laboratory and physical exam results were discussed and reviewed in detail. No major barriers to patient understanding were identified. An opportunity to ask questions regarding the treatment plan was provided. All questions were answered. The patient expressed understanding and agreement with the above treatment plan. The patient is aware they should contact our office by phone for worsening of their current condition or the appearance of new urologic symptoms. Compliance is encouraged with any medications and followup testing that is ordered. It is a privilege to participate in the urologic care of your patient. If you have any questions or concerns regarding treatment for the above conditions, or other urologic issues, please do not hesitate to contact me. The office telephone contact is [phone]. Sincerely, Dr Wilfrido Hurst MD, [facility] - Urology Compassionate Specialist Care for the Genitourinary System Coding Level of Care Code Est Pt Level 4 (82159) Complex EM visit Add On G2211 Diagnoses Bladder outlet obstruction N32.0 Erectile dysfunction due to diabetes mellitus E11.69; N52.1
--- OUTSIDE RECORDS SUMMARY | 2025-07-31 15:56 | XMS_ITS | Clinical Summary ---
Author Organization [facility] Address [address] [place] [address] Phone Care Team Providers Care Bulk Plant Operator Name Role Phone Samira Quispe MD Primary Care Provider [phone] Allergies No known active allergies Medications aspirin [...] Plan: Followed by Dr. Anthony Delaney at [facility] Had follow up last month Blindness in [...] Dexcom to G6, this will work with [employer] once this launches; we discussed other insulin [...] % PVNMA 05/21/2020 us Rtama Conversion LAB [id number] LICITED RESULTS Final Result PVNMA from Last 3 Months or Most Recently Relevant to Health Maintenance Insurance [facility] Medicaid Member Subscriber Plan / Payer (Ef fective 2020-Present) Name:Servando Tan Relation to Subscriber:Self Name:Servando Tan Payer ID:Not on file Group ID:[id number] Type:Not on file Address: [address] [facility] Medicaid Care Teams Bulk Plant Operator Relationship Specialty Start Date End Date Samira Quispe MD [facility] [place] [address] PCP - General 12/09/20
--- OUTSIDE RECORDS SUMMARY | 2025-07-31 15:56 | XMS_ITS | Encounter Summary ---
Author Organization [facility] Address [address] [place] [address] Phone Care Team Providers Care Environmental Air Specialist Name Role Phone Alan Armando MD Primary Care Provider [phone] Radha Dunn ELIGIBILITY CONSULTANT Unavailable Unavailable Quoc Gallrado Unavailable Maureen Chang NP Unavailable Benjamín Younger MD Unavailable Orly Wilson MD Unavailable [phone] Alan Armando MD Unavailable Mary Crenshaw MD Unavailable [phone] Don Rao MD Unavailable Brittani Madison RN Primary Care Provider [facility]a [facility] Brittani Madison RN Unavailable Unavailable Alan Armando MD Primary Care Provider [phone] Samira Quispe MD Primary Care Provider Encounter [...] Info) Description 10/04/2025 3:00 PM EST Nutrition [facility] [address] [place] [address] [place] [address] Radha Morales LDN [address] [address] 01/08/2026 2:40 PM EST Office Visit [facility] [address] [place] [address] Orly Wilson MD [address] [address] documented as of this encounter Procedures Procedure Name Priority Date/Time Associated Diagnosis Comments OUTSIDE LAB Routine 09/02/2017 documented in this encounter Results * Outside Lab (09/02/2017) us Historical Provider LAB BLOOD ORDERABLES Alyssa l Result documented in this encounter Visit Diagnoses Not on filedocumented in this encounter Care Teams Environmental Air Specialist Relationship Specialty Start Date End Date Alan Armando MD PCP - General 09/14/17 10/12/17 Brittani Madison RN [address] [place] [address] PCP - General 10/13/17 10/13/17 Alan Armando MD PCP - General Internal Medicine 10/14/17 03/11/20 Samira Quispe MD [address] [place] [address] [place] [address] PCP - General Internal Medicine 03/12/20 Radha Dunn NP [address] [place] [address] Historical LMR Provider 09/14/1702/27 Quoc Gallardo PA [address] [place] [address] Historical LMR Provider 09/14/17 2 Maureen Chang NP [address] [place] [address] [place] [address] Historical LMR Provider 09/14/1703/11 Benjamín Younger MD [address] [place] [address] Historical LMR Provider 09/14/1703/11 Orly Wilson MD [address] [place] [address], 1[address] [place] [address] [email or web address] Historical LMR Provider 09/14/17 Alan Armando MD [address] [place] [address] Historical LMR Provider 09/14/17 03/11/20 Mary Crenshaw MD [address] [place] [address] [facility] Medicine, [place] [address] Historical LMR Provider 09/14/17 Don Rao MD [address] [place] [address] Historical LMR Provider 09/14/17 Brittani Madison RN [address] [place] [address] Registered Nurse 10/13/17 documented as of this encounter Additional Source Comments The information contained in this document represents components of the legal health record. It is not the complete legal health record.[facility]
--- OUTSIDE RECORDS SUMMARY | 2025-07-31 15:56 | XMS_ITS | Clinical Summary ---
Author Organization [facility] Address [address] [place] [address] Phone Care Team Providers Care Fast Food Crew Member Name Role Phone Orly Wilson MD Unavailable [phone] Brittani Madison RN Unavailable Unavailable Samira Quispe MD Primary Care Provider [phone] Allergies No known active allergies Medications lisinopril [...] EDT): Followed by Dr. Anthony Delaney at [facility] Had follow up last month Blindness of [...] glucose alerts as set on Dexcom G6 raise driller Automated Mode started today, though we reviewed [...] be due for update , discussed future [employer] technology which will incorporate hypo/hyper minimizer with [...] dose Blood pressure remains in excellent range [place] blood pressure goal given CAD and CKD [...] may be due to omission of ACEi [place] blood pressure goal given CAD and CKD [...] borderline today, advised to discuss ACEi with imposer Blood sugar control is also in good [...] dehydration to discuss this therapy with his imposer, Deidra has not yet done this Blood [...] on ACEi Coronary artery disease invo lving hydaburg coronary artery of [place] heart without angina pectoris 01/07/2018 Assessment & [...] test scheduled and has met with his leverman about these symptoms, he is advised to [...] Unable to obtain download due to no [employer] account, attempted to set this up today [...] Dexcom to G6, this will work with [employer] once this launches; we discussed other insulin [...] Description 07/17/2025 3:00 PM EDT Office Visit [facility] [address] [place] [address] Orly Wilson MD Type 1 diabetes mellitus with polyneuropathy (Primary Dx); Type 1 diabetes mellitus with nephropathy; 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, macular edema presence unspecified; Insulin pump in place; Hypercholesterolemia; Essential hypertension; Coronary artery disease involving [place]urg coronary artery of [place] heart without angina pectoris 06/05/2025 Refill [facility] [address] [place] [address] Orly Wilson MD Medication Refill from Last [...] Info) Description 10/04/2025 3:00 PM EST Nutrition [facility] [address] [place] [address] [address] [place] [address] Radha Morales LDN [address] [place] [address] 01/08/2026 2:40 PM EST Office Visit [facility] [address] [place] [address] Orly Wilson MD [address] [place] [address] Health Maintenance Due Date Last Done Comments [...] LEVEL 03/23/2024 03/23/2023 POTASSIUM LEVEL 03/23/2024 03/23/2023 INFLUENZA VACCINE (#1) 2025 , 08/29/2021, 08/28/2020, Additional history exists COVID-19 VACCINE (2024- season) 2025 11/08/2023, 08/31/2022, 12/24/2021, Additional history exists BLOOD PRESSURE 01/17/2026 07/17/2025 [...] Most Recently Relevant to Health Maintenance Insurance [place] [address] [facility] [place] [address] [place] [address] [place] [address] [place] [address] [place] [address] [place] [address] [place] [place] [address] ACO [employer] Care Teams Fast Food Crew Member Relationship Specialty Start Date End Date Samira Quispe MD [address] [place] [address] PCP - General Internal Medicine 03/12/20 Orly Wilson MD [address] [address] [email or web address] Historical LMR Provider 09/14/17 Brittani Madison RN [address] [address] Registered Nurse 10/13/17 Additional Source Comments The information contained in this document represents components of the legal health record. It is not the complete legal health record.[facility]
== END 2025-07-31 15:30 | disposition home or self-care (01) ==
LOC: HO.HUSH 14:42
PROVIDERS: PCP Internal Medicine; Visit Provider Urology
DX: N32.0 Bladder-neck obstruction (principal); E11.69 Type 2 diabetes mellitus with other specified complication; N52.1 Erectile dysfunction due to diseases classified elsewhere; Z13.9 Encounter for screening, unspecified
CPT/HCPCS: 99214

== ENCOUNTER → 2025-07-31 14:41 | Outpatient (BNVA) | payer OTHER, SELFPAY ==
[2023-05-04 12:01] VITALS: BP 102/46; BP 134/60
== END ==
PROVIDERS: PCP Internal Medicine; Visit Provider Urology
DX: N32.1 Vesicointestinal fistula (principal); N52.1 Erectile dysfunction due to diseases classified elsewhere; E11.69 Type 2 diabetes mellitus with other specified complication
CPT/HCPCS: 81003; 99212

== ENCOUNTER 2025-08-10 15:54 | Outpatient (REF) | payer OTHER, SELFPAY ==
[2023-05-04 12:01] VITALS: BP 102/46; BP 134/60
[2025-08-10 16:08] LABS: MANUAL DIFF FLAG NO
[2025-08-10 16:55] LABS: Hematocrit 25.1 % (42.0-52.0); Hemoglobin 7.2 g/dl (14.0-18.0); Imm Gran Abs Auto 0.02 X10*3/uL (0.00-0.03); Imm Gran Pct Auto 0.4 % (0.0-0.4); Lymphocytes Absolute Auto 0.7 X10*3/uL (1.2-4.9); Mean Corpuscular HGB Conc 28.7 g/dl (31.0-36.0); Mean Corpuscular Hemoglobin 20.9 pg (27.0-33.0); Mean Corpuscular Volume 73.0 fL (80.0-98.0); NRBC Abs Auto 0.000 X10*3/uL (0.0-0.012); NRBC Pct Auto 0.0 /100WBC (0.0-0.2); Platelet Count 314 X10*3/uL (160-400); Red Blood Count 3.44 X10*6/uL (4.60-5.80); White Blood Count 4.7 X10*3/uL (4.8-10.8)
[2025-08-10 17:05] LABS: Hemoglobin A1C 106.8148 umol/L; Total Hemoglobin (HGBA1C) 1915.1830 umol/L
[2025-08-10 17:26] LABS: Alanine Aminotransferase 19 U/L (0-40); Albumin Level 4.2 g/dL (3.5-5.0); Alkaline Phosphatase 90 U/L (39-117); Anion Gap 14 (12-20); Aspartate Amino Transferase 30 U/L (5-37); Blood Urea Nitrogen 18 mg/dL (9-16); Calcium 8.9 mg/dL (8.4-10.2); Carbon Dioxide 24 mmol/L (22-29); Chloride 111 mmol/L (96-108); Estimated Glomerular Filt Rate 60; Magnesium 1.8 mg/dL (1.6-2.6); Potassium 4.8 mmol/L (3.3-5.1); Sodium 144 mmol/L (135-145); Total Protein 6.1 g/dL (6.5-8.0)
--- OUTSIDE RECORDS SUMMARY | 2025-08-10 17:47 | XMS_ITS | Clinical Summary ---
Author Organization [facility] Address [address] [place] [address] Phone Care Team Providers Care Counting Machine Operator Name Role Phone Samira Quispe MD Primary Care Provider [phone] Allergies No known active allergies Medications aspirin [...] Plan: Followed by Dr. Anthony Delaney at [facility] Had follow up last month Blindness [...] Dexcom to G6, this will work with [employer] once this launches; we discussed other insulin [...] % PVNMA 05/21/2020 us Rtama Conversion LAB [id number] LICITED RESULTS Final Result PVNMA from Last 3 Months or Most Recently Relevant to Health Maintenance Insurance [facility] Medicaid Member Subscriber Plan / Payer (Ef fective 2020-Present) Name:Servando Tan Relation to Subscriber:Self Name:Servando Tan Payer ID:Not on file Group ID:[id number] Type:Not on file Address: [address] [facility] Medicaid Care Teams Counting Machine Operator Relationship Specialty Start Date End Date Samira Quispe MD [facility] [place] [address] PCP - General 12/09/20
--- OUTSIDE RECORDS SUMMARY | 2025-08-10 17:47 | XMS_ITS | Encounter Summary ---
Author Organization [facility] Address [address] [place] [address] Phone Care Team Providers Care Assignment Manager Name Role Phone Alan Armando MD Primary Care Provider [phone] Radha Dunn LEAD JAVASCRIPT DEVELOPER Unavailable Unavailable Quoc Gallardo Unavailable [phone] Maureen Chang NP Unavailable Benjamín Younger MD Unavailable Orly Wilson MD Unavailable [phone] Alan Armando MD Unavailable Mary Crenshaw MD Unavailable [phone] Don Rao MD Unavailable [phone] Brittani Madison RN Primary Care Provider Unavaila [facility] Brittani Madison RN Unavailable Unavailable Alan Armando MD Primary Care Provider [phone] Samira Quispe MD Primary Care Provider [phone] Encounter Details Date Type Department Care Team [...] Info) Description 10/04/2025 3:00 PM EST Nutrition [facility] [address] [place] [address] [place] [address] Radha Morales LDN [address] [address] 01/08/2026 2:40 PM EST Office Visit [facility] [address] [place] [address] Orly Wilson MD [address] [address] documented as of this encounter Procedures Procedure Name Priority Date/Time Associated Diagnosis Comments OUTSIDE LAB Routine 09/02/2017 documented in this encounter Results * Outside Lab (09/02/2017) us Historical Provider LAB BLOOD ORDERABLES Alyssa l Result documented in this encounter Visit Diagnoses Not on filedocumented in this encounter Care Teams Assignment Manager Relationship Specialty Start Date End Date Alan Armando MD PCP - General 09/14/17 10/12/17 Brittani Madison RN [address] [place] [address] PCP - General 10/13/17 10/13/17 Alan Armando MD PCP - General Internal Medicine 10/14/17 03/11/20 Samira Quispe MD [address] [place] [address] [place] [address] PCP - General Internal Medicine 03/12/20 Radha Dunn NP [address] [place] [address] Historical LMR Provider 09/14/1702/27 Quoc Gallardo PA [address] [place] [address] Historical LMR Provider 09/14/17 2 Maureen Chang NP [address] [place] [address] [place] [address] Historical LMR Provider 09/14/1703/11 Benjamín Younger MD [address] [place] [address] Historical LMR Provider 09/14/1703/11 Orly Wilson MD [address] [place] [address], 1[address] [place] [address] [email or web address] Historical LMR Provider 09/14/17 Alan Armando MD [address] [place] [address] Historical LMR Provider 09/14/17 03/11/20 Mary Crenshaw MD [address] [place] [address] [facility], [place] [address] Historical LMR Provider 09/14/17 Don Rao MD [address] [place] [address] Historical LMR Provider 09/14/17 Brittani Madison RN [address] [place] [address] Registered Nurse 10/13/17 documented as of this encounter Additional Source Comments The information contained in this document represents components of the legal health record. It is not the complete legal health record.[facility]
--- OUTSIDE RECORDS SUMMARY | 2025-08-10 17:48 | XMS_ITS | Clinical Summary ---
Author Organization [facility] Address [address] [place] [address] Phone Care Team Providers Care Airline Reservation Agent Name Role Phone Orly Wilson MD Unavailable [phone] Brittani Madison RN Unavailable Unavailable Samira Quispe MD Primary Care Provider [phone] Allergies No known active allergies Medications lisinopril [...] EDT): Followed by Dr. Anthony Delaney at [facility] Had follow up last month Blindness of [...] glucose alerts as set on Dexcom G6 automation analyst Automated Mode started today, though we reviewed [...] be due for update , discussed future [employer] technology which will incorporate hypo/hyper minimizer with [...] dose Blood pressure remains in excellent range [place] blood pressure goal given CAD and CKD [...] may be due to omission of ACEi [place] blood pressure goal given CAD and CKD [...] borderline today, advised to discuss ACEi with shot hole shooter Blood sugar control is also in good [...] dehydration to discuss this therapy with his shot hole shooter, Deidra has not yet done this Blood [...] on ACEi Coronary artery disease invo lving [place] coronary artery of [place] heart without angina pectoris 01/07/2018 Assessment & [...] test scheduled and has met with his resume writer about these symptoms, he is advised to [...] Unable to obtain download due to no Intoo[employer]o account, attempted to set this up today [...] Dexcom to G6, this will work with hipix once this launches; we discussed other insulin [...] Description 07/17/2025 3:00 PM EDT Office Visit [facility] [address] [place] [address] Orly Wilson MD Type 1 diabetes mellitus with polyneuropathy (Primary Dx); Type 1 diabetes mellitus with nephropathy; 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, macular edema presence unspecified; Insulin pump in place; Hypercholesterolemia; Essential hypertension; Coronary artery disease involving [place] coronary artery of [place] heart without angina pectoris 06/05/2025 Refill [facility] [address] [place] [address] Orly Wilson MD Medication Refill from Last [...] Info) Description 10/04/2025 3:00 PM EST Nutrition [facility] [address] [place] [address] Radha [address] [place] [address] Radha Morales LDN [address] [place] [address] 01/08/2026 2:40 PM EST Office Visit [facility] [address] [place] [phone] Orly Wilson MD [address] [place] [address] Health Maintenance Due Date Last Done Comments [...] Most Recently Relevant to Health Maintenance [place] [address] [address] [facility]CO [facility] [place] [address] [place] [address] [place] [address] [place] [address] [address] [place] [address] [place] [address] [place] [address] [place] [address] [place] [address] ACO [employer] Care Teams Airline Reservation Agent Relationship Specialty Start Date End Date Samira Quispe MD [address] [facility] [place] [address] PCP - General Internal Medicine 03/12/20 Orly Wilson MD [address] [address] [email or web address] Historical LMR Provider 09/14/17 Brittani Madison RN [address] [address] Registered Nurse 10/13/17 Additional Source Comments The information contained in this document represents components of the legal health record. It is not the complete legal health record.[facility]
== END 2025-08-10 15:55 | disposition home or self-care (01) ==
LOC: HO.LAB 15:54
PROVIDERS: PCP Internal Medicine; Visit Provider Internal Medicine Nephrology
DX: Z00.01 Encounter for general adult medical examination with abnormal findings (principal); E78.9 Disorder of lipoprotein metabolism, unspecified; E10.319 Type 1 diabetes mellitus with unspecified diabetic retinopathy without macular edema; D50.9 Iron deficiency anemia, unspecified; E10.22 Type 1 diabetes mellitus with diabetic chronic kidney disease; I12.9 Hypertensive chronic kidney disease with stage 1 through stage 4 chronic kidney disease, or unspecified chronic kidney disease; N18.31 Chronic kidney disease, stage 3a
CPT/HCPCS: 36415; 80053; 83036; 83721; 83735; 85025

== ENCOUNTER 2025-08-23 08:55 | Outpatient (AMB) | payer OTHER, SELFPAY ==
[2023-05-04 12:01] VITALS: BP 102/46; BP 134/60
--- OUTSIDE RECORDS SUMMARY | 2025-08-23 09:38 | XMS_ITS | Clinical Summary ---
Author Organization [facility] Address [address] [place] [address] Phone Care Team Providers Care Senior Sales Assistant Name Role Phone Orly Wilson MD Unavailable [phone] Brittani Madison RN Unavailable Unavailable Samira Quispe MD Primary Care Provider [phone] Allergies No known active allergies Medications lisinopril (PRINIVIL,ZESTRIL) 2.5 MG tablet Take by mouth daily. Active aspirin 81 MG EC tablet Take 81 mg by mouth daily. Active FREESTYLE LITE METER meter kitIndications:Type 1 diabetes mellitus with polyneuropathy Use to check BG in times of CGM failure, up to 2x/day 1 each 3 Active alendronate 70 mg TbEF Take 70 mg by mouth every 7 days. Active calcium carbonate-vitamin D3 500 mg-400 units per tablet Take 1 tablet by mouth daily. Active OMNIPOD 5 G6 PODS, GEN 5, CrtgIndications:Typ e 1 diabetes mellitus with polyneuropathy Inject 1 each under the skin every other day. 15 each 11 3 Active ACCU-CHEK SOFTCLIX LANCETSIndications: Type 1 diabetes mellitus with polyneuropathy USE TO TEST BLOOD SUGAR 1-2 TIMES DAILY 50 each 2 4 Active OMNIPOD 5 G6-G7 PODS, GEN 5, CrtgIndications:Typ e 1 diabetes mellitus with diabetic polyneuropathy INJECT 1 EACH UNDER THE SKIN EVERY OTHER DAY. 15 each 11 4 Active insulin lispro (ADMELOG, HUMALOG) 100 unit/mL injection vialIndications:Typ e 1 diabetes mellitus with polyneuropathy INJECT 60 UNITS DAILY VIA INSULIN PUMP. 20 mL 11 5 Active magnesium oxide (MAG-OX) 400 mg (241.3 mg elemental) tablet Take 1 tablet by mouth every morning. 5 Active metoprolol succinate (TOPROL-XL) 25 MG 24 hr tablet Take 1 tablet by mouth every morning. 5 Active DEXCOM G7 SENSOR DeviIndications:Typ e 1 diabetes mellitus with polyneuropathy Apply as directed every 10 days E10.42 9 each 3 5 Active FREESTYLE LITE Strp stripsIndications:T ype 1 diabetes mellitus with polyneuropathy Use to check BG in times of CGM failure, up to 2x/day 100 strip 3 5 Active atorvastatin (LIPITOR) 80 MG tablet Take 80 mg by mouth daily. Active Active Problems Problem Noted Date Diagnosed Date Other osteoporosis without current pathological fracture 03/12/2020 Assessment & Plan (03/12/2020 3:05 PM EDT): Followed by Dr. Anthony Delaney at [facility] Had follow up last month [...] glucose alerts as set on Dexcom G6 formal wear rental clerk Automated Mode started today, though we reviewed [...] be due for update , discussed future Omnipod Horizon technology which will incorporate hypo/hyper minimizer with [...] available, LDL was in excellent control in 2014 per our most recent results Essential hypertension 01/07/2018 Assessment & Plan (07/19/2025 6:01 PM EDT): Continues on ACEi therapy at low dose Blood pressure remains in excellent range [place] blood pressure goal given CAD and CKD [...] may be due to omission of ACEi [place] blood pressure goal given CAD and CKD [...] borderline today, advised to discuss ACEi with planer tailer Blood sugar control is also in good [...] dehydration to discuss this therapy with his planer tailer, Deidra has not yet done this Blood [...] on ACEi Coronary artery disease invo lving [place] coronary artery of [place] heart without angina pectoris 01/07/2018 Assessment & [...] test scheduled and has met with his catering operations manager about these symptoms, he is advised to [...] Unable to obtain download due to no Fl[employer]iar account, attempted to set this up today [...] and Deidra has been in touch with [employer] regarding transitioning to this system, orders are [...] Dexcom to G6, this will work with Hittite [employer] Horizon once this launches; we discussed other insulin [...] Description 07/17/2025 3:00 PM EDT Office Visit [facility] [address] [place] [address] Orly Wilson MD Type 1 diabetes mellitus with polyneuropathy (Primary Dx); Type 1 diabetes mellitus with nephropathy; 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, macular edema presence unspecified; Insulin pump in place; Hypercholesterolemia; Essential hypertension; Coronary artery disease involving [place] coronary artery of [place] heart without angina pectoris 06/05/2025 Refill [facility] [address] [place] [address] Orly Wilson MD Medication Refill from Last [...] Info) Description 10/04/2025 3:00 PM EST Nutrition [facility] [address] [place] [address] Radha Morales, HOLLIS [address] [place] [address] Radha Morales LDN [address] [place] [address] 01/08/2026 2:40 PM EST Office Visit [facility] [address] [place] [address] Orly Wilson MD [address] [place] [address] Health Maintenance Due Date Last Done Comments [...] Most Recently Relevant to Health Maintenance [place] [address] [place] [address] [place] [place] [address] [place] [address] [place] [address] [place] [address] [place] [address] [place] [address] [place] [address] [employer] Care Teams Senior Sales Assistant Relationship Specialty Start Date End Date Samira Quispe MD [address] [facility] [place] [address] PCP - General Internal Medicine 03/12/20 Orly Wilson MD [address] [place] [address] [email or web address] Historical LMR Provider 09/14/17 Brittani Madison RN [address] [place] [address] Registered Nurse 10/13/17 Additional Source Comments The information contained in this document represents components of the legal health record. It is not the complete legal health record.[facility]
--- OUTSIDE RECORDS SUMMARY | 2025-08-23 09:38 | XMS_ITS | Clinical Summary ---
Author Organization [facility] Address [address] [place] [address] [facility] [place] [address] Phone Care Team Providers Care Crimping Press Operator Name Role Phone Samira Quispe MD Primary Care Provider [phone] Allergies No known active allergies Medications aspirin [...] Plan: Followed by Dr. Anthony Delaney at [facility] Had follow up last month Blindness in [...] Dexcom to G6, this will work with [employer] once this launches; we discussed other insulin [...] % PVNMA 05/21/2020 us [facility] Conversion LAB [id number] LICITED RESULTS Final Result PVNMA from Last 3 Months or Most Recently Relevant to Health Maintenance Insurance [facility] Medicaid Member Subscriber Plan / Payer (Ef fective 2020-Present) Name:Servando Tan Relation to Subscriber:Self Name:Servando Tan Payer ID:Not on file Group ID:[id number] Type:Not on file Address: [address] [facility] Medicaid Care Teams Crimping Press Operator Relationship Specialty Start Date End Date Samira Quispe MD [facility] [place] [address] PCP - General 12/09/20
--- OUTSIDE RECORDS SUMMARY | 2025-08-23 09:38 | XMS_ITS | Encounter Summary ---
Author Organization [facility] Address [address] [place] [address] Phone Care Team Providers Care Business Development Professional Name Role Phone Alan Armando MD Primary Care Provider [phone] Radha Dunn REALTIME REPORTER Unavailable Unavailable Quoc Gallardo Unavailable [phone] Maureen Chang NP Unavailable Benjamín Younger MD Unavailable Orly Wilson MD Unavailable [phone] Alan Armando MD Unavailable [phone] Mary Crenshaw MD Unavailable [phone] Don Rao MD Unavailable Brittani Madison RN Primary Care Provider [facility] Brittani Madison RN Unavailable Unavailable Alan Armando MD Primary Care Provider [phone] Samira Quispe MD Primary Care Provider Encounter [...] Info) Description 10/04/2025 3:00 PM EST Nutrition [facility] [address] [place] [address] [place] [address] Radha Morales LDN [address] [address] 01/08/2026 2:40 PM EST Office Visit [facility] [address] [place] [address] Orly Wilson MD [address] [address] documented as of this encounter Procedures Procedure Name Priority Date/Time Associated Diagnosis Comments OUTSIDE LAB Routine 09/02/2017 documented in this encounter Results * Outside Lab (09/02/2017) us Historical Provider LAB BLOOD ORDERABLES Alyssa l Result documented in this encounter Visit Diagnoses Not on filedocumented in this encounter Care Teams Business Development Professional Relationship Specialty Start Date End Date Alan Armando MD PCP - General 09/14/17 10/12/17 Brittani Madison RN [address] [place] [address] PCP - General 10/13/17 10/13/17 Alan Armando MD PCP - General Internal Medicine 10/14/17 03/11/20 Samira Quispe MD [address] [place] [address] [place] [address] PCP - General Internal Medicine 03/12/20 Radha Dunn NP [address] [place] [address] Historical LMR Provider 09/14/1702/27 Quoc Gallardo PA [address] [place] [address] Historical LMR Provider 09/14/17 2 Maureen Chang NP [address] [place] [address] [place] [address] Historical LMR Provider 09/14/1703/11 Benjamín Younger MD [address] [place] [address] Historical LMR Provider 09/14/1703/11 Orly Wilson MD [address] [place] [address], [address] [place] [address] [email or web address] Historical LMR Provider 09/14/17 Alan Armando MD [address] [place] [address] Historical LMR Provider 09/14/17 03/11/20 Mary Crenshaw MD [address] [place] [address] Orth[facility] Sports Medicine, [place] [address] Historical LMR Provider 09/14/17 Don Rao MD [address] [place] [address] Historical LMR Provider 09/14/17 Brittani Madison RN [address] [place] [address] Registered Nurse 10/13/17 documented as of this encounter Additional Source Comments The information contained in this document represents components of the legal health record. It is not the complete legal health record.[facility]
--- NOTE | 2025-08-23 10:35 | MHC.PC.OV ---
Intake Visit Reasons: lab result Allergies No Known Allergies Allergy (Verified 07/31/25 14:44) Medication List - Last Reconciled 08/23/25 by Samira Quispe MD aspirin 81 mg PO DAILY atorvastatin 80 mg PO DAILY calcium carbonate 500 mg PO BID clopidogrel 75 mg PO DAILY glucagon (GlucaGen HypoKit) 1 mg subcut Q20M PRN insulin lispro (Admelog U-100 Insulin lispro) 60 sliding scale doses subcut USEASDIRECTD insulin pump cart,automated,BT (Omnipod 5 G6 Pods (Gen 5) subcutaneous cartridge) As directed lisinopril 1.25 mg PO DAILY magnesium oxide 400 mg PO DAILY metoprolol succinate ER 25 mg PO DAILY tadalafil 10 mg PO DAILY 90 days Tobacco use date assessed: 06/20/25 Dental Screening Dental Screen Date: 06/20/25 HPI lab result HPI Details History of Present Illness The patient is a 60-year-old male presenting for evaluation of a significant drop in hemoglobin levels. Anemia: - Reports a decrease in hemoglobin from 13.5 in December to 7.2 most recently. - No reports of bleeding or hemorrhoids that might contribute to low hemoglobin levels. - Requires evaluation by a hospitalist medical director to determine the underlying cause of anemia. Diagnostic Results: - Labs: Recent hemoglobin level noted to be 7.2, down from a previous value of 11 in December and 13.5 before December. Problem List - Anemia Patient Instructions - Schedule an appointment with the hematology department for further evaluation. - Obtain an additional blood test to check hemoglobin, iron, and B12 levels. - Discuss recent lab results with Dr. Harman Cesar during the upcoming appointment. - Call the hematology department with the number [phone] with referral information. Review of Systems - General: No fever no chills - Neurological: No headaches no dizziness - Ear nose throat: No sore throat no hearing difficulty no ear pain - Cardiovascular: No syncope, no chest pain, no palpitations - Gastrointestinal: No nausea vomiting or diarrhea PFSH Medical History Hx of fracture of tibia Hx of retinal detachment Chronic renal insufficiency COVID-19 vaccine administered Myocardial infarction Low vitamin B12 level Hypogonadism in male Hypogonadism Blind left eye Depression Hypertension Dyslipidemia Diabetic neuropathy associated with type 1 diabetes mellitus Coronary artery disease Diabetic retinopathy associated with type 1 diabetes mellitus Diabetes type 1, controlled Osteoporosis Hyperparathyroidism Surgical History H/O heart artery stent S/P eye surgery History of surgery Hx of eye surgery Hx of knee surgery Hx of excision of epidermal inclusion cyst Hx of colonoscopy Family History Father Cancer CVD (cardiovascular disease) Mother CVD (cardiovascular disease) Hypertension High cholesterol Social History Housing: Apartment Are you a primary customer care coordinator to a significant other at home: No Do you presently have visiting nurse or other home services: Yes (has 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) Alcohol intake: never Patient Tobacco Use Status: Former Tobacco user Tobacco use type: Cigarette Years Smoked: 28 e-Cigarette/Vaping Use: Currently Using Current occupational status: disabled Current occupation: rt handed Cognitive needs: No Hearing needs: No Vision needs: No Questionnaire Thrive Questionnaire Date Thrive assessed: 06/14/25 I am a: Patient What is your living situation today?: I choose not to answer this question Within the past 12 months, did the food you bought not last and you didn't have the money to get more?: I choose not to answer this question Within the past 12 months, did you worry whether your food would run out before you got money to buy more?: I choose not to answer this question Do you have trouble paying for medicines?: I choose not to answer this question Do you have trouble getting transportation to medical appointments?: I choose not to answer this question Do you have trouble paying your heating and electricity bill?: I choose not to answer this question Do you have trouble taking care of your child, family member or friend?: I choose not to answer this question Do you have trouble with day-to-day activities such as bathing, preparing meals, shopping, managing finances, etc.?: I choose not to answer this question Are you currently unemployed and looking for a job?: I choose not to answer this question Are you interested in more education?: I choose not to answer this question Please select the resources that you would like help with: None Currently or been in a relationship where the following occur: I choose not to answer THRIVE Score: 0 AUDIT C Alcohol Use Questionnaire (AUDIT-C) 2. How many drinks containing alcohol do you have on a typical day when you are drinking?: 3 or 4 3. How often do you have six or more drinks on one occasion?: Never Total Score: 1 PARMINDER-7 AMB Questionnaire PARMINDER-7 Date PARMINDER - 7 assessed: 06/20/25 Source: Developed by Drs. Jenaro Lopez, Adina Artis, Juancarlos Xiao and colleagues, with an educational alida from [employer]. Physical exam (Primary Care) Tobacco/Smoking Status: Tobacco use Status Tobacco use date assessed 06/20/25 08/23/25 10:35 Patient Tobacco Use Status Former Tobacco user 08/23/25 10:35 Tobacco use type Cigarette 08/23/25 10:35 e-Cigarette/Vaping Use Currently Using 08/23/25 10:35 Thrive Assessment: Date of Thrive Assessment Date Thrive assessed 06/14/25 08/23/25 10:35 Currently or been in a relationship where the following occur: I choose not to answer Telehealth Telehealth Telehealth Platform: [facility] Location of provider rendering services: practice address Location of patient: address on file Patient Identification confirmed using: Name, : Yes Telehealth method: video (attempted) Patient verbally consented to treatment: Yes Patient verbally consented to billing insurance company: Yes Patient informed of any privacy concerns related to visit: Yes Minutes spent on Phone/Video with Pt.: 14 Coding Level of Care Code Tele Est Pt Level 3 (04897) Diagnoses Microcytic anemia D50.9 Stage 3a chronic kidney disease N18.31 Chronic kidney disease stage 3 subtype: stage 3a (GFR 45-59) Assessment & Plan Assessment & Plan (1) Microcytic anemia: Code(s): D50.9 - Iron deficiency anemia, unspecified Category: Medical (2) CKD (chronic kidney disease) stage 3, GFR 30-59 ml/min: Code(s): N18.30 - Chronic kidney disease, stage 3 unspecified Category: Medical Qualifiers: Chronic kidney disease stage 3 subtype: stage 3a (GFR 45-59) Qualified Code(s): N18.31 - Chronic kidney disease, stage 3a Plan History of Present Illness The patient is a 60-year-old male presenting for evaluation of a significant drop in hemoglobin levels. Anemia: - Reports a decrease in hemoglobin from 13.5 in December to 7.2 most recently. - No reports of bleeding or hemorrhoids that might contribute to low hemoglobin levels. - Requires evaluation by a hospitalist medical director to determine the underlying cause of anemia. Diagnostic Results: - Labs: Recent hemoglobin level noted to be 7.2, down from a previous value of 11 in December and 13.5 before December. Problem List - Anemia Patient Instructions - Schedule an appointment with the hematology department for further evaluation. - Obtain an additional blood test to check hemoglobin, iron, and B12 levels. - Discuss recent lab results with Dr. Harman Cesar during the upcoming appointment. - Call the hematology department with the number [phone] with referral information. Review of Systems - General: No fever no chills - Neurological: No headaches no dizziness - Ear nose throat: No sore throat no hearing difficulty no ear pain - Cardiovascular: No syncope, no chest pain, no palpitations - Gastrointestinal: No nausea vomiting or diarrhea Orders: Orders Hematocrit Today D50.9 - Iron deficiency anemia, unspecified Ferritin Today D50.9 - Iron deficiency anemia, unspecified Hemoglobin Today D50.9 - Iron deficiency anemia, unspecified Folate Today D50.9 - Iron deficiency anemia, unspecified Vitamin B12 Today D50.9 - Iron deficiency anemia, unspecified Referrals Hematology & Oncology Referral D50.9 - Iron deficiency anemia, unspecified
== END 2025-08-23 10:55 | disposition home or self-care (01) ==
LOC: HO.HMCC 08:55
PROVIDERS: PCP Internal Medicine; Visit Provider Internal Medicine
DX: D50.9 Iron deficiency anemia, unspecified (principal); N18.31 Chronic kidney disease, stage 3a

== ENCOUNTER 2025-08-24 14:09 | Outpatient (AMB) | payer OTHER, SELFPAY ==
[2023-05-04 12:01] VITALS: BP 102/46; BP 134/60
--- NOTE | 2025-08-24 14:06 | HO.NEPHOV ---
Vital Signs 08/24/25 14:08 Height 5 ft 9 in Weight 160 lb BMI 23.6 Intake Visit Reasons: 4mon follow-up w/labs-Conf Manager Of Regulatory Affairs Required: No Accompanied by: Self / Same As Patient Allergies No Known Allergies Allergy (Verified 08/24/25 14:07) HPI Comments Details: Servando was seen by [facility] in follow-up of his chronic kidney disease. His blood sugar is pretty well controlled. He is a type 1 diabetic on insulin pump.He has a history of coronary disease needing PCI and stent insertion. He does not have any significant proteinuria. He denies taking nonsteroidal anti-inflammatories. He has no urinary symptoms . He does not have any chest pain, shortness of breath, hypoglycemia, pedal edema, hematuria, but has SOBE, black stools and extreme fatigue. He is compliant with his medications. He takes anticoagulants PFSH Medical History Hx of fracture of tibia Hx of retinal detachment Chronic renal insufficiency COVID-19 vaccine administered Myocardial infarction Low vitamin B12 level Hypogonadism in male Hypogonadism Blind left eye Depression Hypertension Dyslipidemia Diabetic neuropathy associated with type 1 diabetes mellitus Coronary artery disease Diabetic retinopathy associated with type 1 diabetes mellitus Diabetes type 1, controlled Osteoporosis Hyperparathyroidism Surgical History H/O heart artery stent S/P eye surgery History of surgery Hx of eye surgery Hx of knee surgery Hx of excision of epidermal inclusion cyst Hx of colonoscopy Family History Father Cancer CVD (cardiovascular disease) Mother CVD (cardiovascular disease) Hypertension High cholesterol Social History Housing: Apartment Are you a primary care professional to a significant other at home: No Do you presently have visiting nurse or other home services: Yes (has FIL[employer] DEVELOPER) Alcohol intake: never Patient Tobacco Use Status: Former Tobacco user Tobacco use type: Cigarette Years Smoked: 28 e-Cigarette/Vaping Use: Currently Using Current occupational status: disabled Current occupation: rt handed Cognitive needs: No Hearing needs: No Vision needs: No Review of Systems Const All systems reviewed & are unremarkable except as noted in HPI and below Physical Exam Vital Signs: BMI result Body Mass Index 23.6 Telehealth Telehealth Telehealth Platform: Telephone Location of provider rendering services: practice address Location of patient: address on file Patient Identification confirmed using: Name, : Yes Telehealth method: voice only Patient verbally consented to treatment: Yes Patient verbally consented to billing insurance company: Yes Patient informed of any privacy concerns related to visit: No Minutes spent on Phone/Video with Pt.: 10 Results Reviewed Nephrology Results: Hgb, (14.0-18.0) 7.2 g/dl L Δ 08/10/25 WBC, (4.8-10.8) 4.7 X10*3/uL L 08/10/25 Plt Count, (160-400) 314 X10*3/uL 08/10/25 Sodium, (135-145) 144 mmol/L 08/10/25 Potassium, (3.3-5.1) 4.8 mmol/L 08/10/25 Chloride, (96-108) 111 mmol/L H 08/10/25 Carbon Dioxide, (22-29) 24 mmol/L 08/10/25 BUN, (9-16) 18 mg/dL H 08/10/25 Creatinine, (0.5-1.4) 1.23 mg/dL 08/10/25 Calcium, (8.4-10.2) 8.9 mg/dL 08/10/25 Assessment & Plan Assessment & Plan (1) CKD (chronic kidney disease) stage 3, GFR 30-59 ml/min: Code(s): N18.30 - Chronic kidney disease, stage 3 unspecified Category: Medical Qualifiers: Chronic kidney disease stage 3 subtype: stage 3a (GFR 45-59) Qualified Code(s): N18.31 - Chronic kidney disease, stage 3a (2) Diabetic nephropathy: Code(s): E11.21 - Type 2 diabetes mellitus with diabetic nephropathy Category: Medical Qualifiers: Diabetes mellitus type: type 1 Qualified Code(s): E10.21 - Type 1 diabetes mellitus with diabetic nephropathy (3) Anemia: Code(s): D64.9 - Anemia, unspecified Category: Medical Qualifiers: Anemia type: unspecified type Qualified Code(s): D64.9 - Anemia, unspecified Plan Servando is type 1 diabetic. He has H/O MINERVA due to compromise in renal perfusion which has resolved . He does not have any proteinuria. His serum potassium is normal. He is on insulin pump. He maintains good hydration. He avoids nonsteroidal anti-inflammatories. He has history of coronary artery disease needing stenting. He is not a candidate for Farxiga or Jardisharon. ( Type 1 DM). He is tolerating lisinopril 1.25 mg daily. I discussed all his lab work in detail. I am concerned that he has an ongoing GIB. He needs hospitalization, repeat labs including hemolytic W/U , transfusion, GI consult and endoscopy during hospitalization. I did not make any other medication changes today. He was asked to come to ER for admission , evaluation and further care. Shall follow-up in office in a few months. Orders: Orders Electrolytes 3 Months D64.9 - Anemia, unspecified, E10.21 - Type 1 diabetes mellitus with diabetic nephropathy, N18.31 - Chronic kidney disease, stage 3a Creatinine 3 Months D64.9 - Anemia, unspecified, E10.21 - Type 1 diabetes mellitus with diabetic nephropathy, N18.31 - Chronic kidney disease, stage 3a Magnesium 3 Months D64.9 - Anemia, unspecified, E10.21 - Type 1 diabetes mellitus with diabetic nephropathy, N18.31 - Chronic kidney disease, stage 3a Blood Urea Nitrogen 3 Months D64.9 - Anemia, unspecified, E10.21 - Type 1 diabetes mellitus with diabetic nephropathy, N18.31 - Chronic kidney disease, stage 3a Coding Level of Care Code Tele Est Pt Level 4 (23327) Diagnoses Stage 3a chronic kidney disease N18.31 Chronic kidney disease stage 3 subtype: stage 3a (GFR 45-59) Diabetic nephropathy associated with type 1 diabetes mellitus E10.21 Diabetes mellitus type: type 1 Anemia, unspecified type D64.9 Anemia type: unspecified type
[2025-08-24 14:08] VITALS: BMI 23.6
--- OUTSIDE RECORDS SUMMARY | 2025-08-24 15:17 | XMS_ITS | Clinical Summary ---
Author Organization [facility] Address [address] [place] [address] [facility] [address] Phone Care Team Providers Care Catering Administrative Assistant Name Role Phone Samira Quispe MD Primary Care Provider [phone] Allergies No known active allergies Medications aspirin [...] Plan: Followed by Dr. Anthony Delaney at [facility] Had follow up last month Blindness [...] Dexcom to G6, this will work with [employer] once this launches; we discussed other insulin [...] % PVNMA 05/21/2020 us Rtama Conversion LAB [id number] LICITED RESULTS Final Result PVNMA from Last 3 Months or Most Recently Relevant to Health Maintenance Insurance [facility] Medicaid Member Subscriber Plan / Payer (Ef fective 2020-Present) Name:Servando Tan Relation to Subscriber:Self Name:Servando Tan Payer ID:Not on file Group ID:[id number] Type:Not on file Address: [address] [facility] Medicaid Care Teams Catering Administrative Assistant Relationship Specialty Start Date End Date Samira Quispe MD [facility] [place] [address] PCP - General 12/09/20
--- OUTSIDE RECORDS SUMMARY | 2025-08-24 15:17 | XMS_ITS | Clinical Summary ---
Author Organization [facility] Address [address] [place] [address] Phone Care Team Providers Care Vulcanizing Press Operator Name Role Phone Orly Wilson MD Unavailable [phone] Brittani Madison RN Unavailable Unavailable Samira Quispe MD Primary Care Provider [phone] Allergies No known active allergies Medications lisinopril [...] EDT): Followed by Dr. Anthony Delaney at [facility] Had follow up last month Blindness [...] glucose alerts as set on Dexcom G6 welt edge rounder Automated Mode started today, though we reviewed [...] dose Blood pressure remains in excellent range [place] blood pressure goal given CAD and CKD [...] may be due to omission of ACEi [place] blood pressure goal given CAD and CKD [...] borderline today, advised to discuss ACEi with medical officer psychiatry Blood sugar control is also in good [...] dehydration to discuss this therapy with his medical officer psychiatry, Deidra has not yet done this Blood [...] on ACEi Coronary artery disease invo lving [place] coronary artery of [place] heart without angina pectoris 01/07/2018 Assessment & [...] test scheduled and has met with his shelf drier operator about these symptoms, he is advised to [...] Unable to obtain download due to no [employer] account, attempted to set this up today [...] Dexcom to G6, this will work with [employer] once this launches; we discussed other [...] Description 07/17/2025 3:00 PM EDT Office Visit [facility] [address] [place] [address] Orly Wilson MD Type 1 diabetes mellitus with polyneuropathy (Primary Dx); Type 1 diabetes mellitus with nephropathy; 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, macular edema presence unspecified; Insulin pump in place; Hypercholesterolemia; Essential hypertension; Coronary artery disease involving [place] coronary artery of [place] heart without angina pectoris 06/05/2025 [address] [facility] [address] [place] [address] Orly Wilson MD Medication Refill from Last [...] Info) Description 10/04/2025 3:00 PM EST Nutrition [facility] [address] [place] [address] Radha Morales, HOLLIS [address] [place] [address] Radha Morales LDN [address] [place] [address] 01/08/2026 2:40 PM EST Office Visit [facility] [address] [place] [address] Orly Wilson MD [address] [place] [address] Health Maintenance Due Date Last Done Comments [...] Most Recently Relevant to Health Maintenance [place] [address] [place] [address] [place] [address] [place] [address] [place] [address] [place] [address] [place] [address] [place] [address] [place] [address] [employer] Care Teams Vulcanizing Press Operator Relationship Specialty Start Date End Date Samira Quispe MD [address] [place] [address] PCP - General Internal Medicine 03/12/20 Orly Wilson MD [address] [place] [address] [email or web address] Historical LMR Provider 09/14/17 Brittani Madison RN [address] [place] [address] Registered Nurse 10/13/17 Additional Source Comments The information contained in this document represents components of the legal health record. It is not the complete legal health record.[facility]
--- OUTSIDE RECORDS SUMMARY | 2025-08-24 15:17 | XMS_ITS | Encounter Summary ---
Author Organization [facility] Address [address] [place] [address] Phone Care Team Providers Care Finger Cobbler Name Role Phone Alan Armando MD Primary Care Provider [phone] Radha Dunn LAND RECLAMATION SPECIALIST Unavailable Unavailable Quoc Gallardo Unavailable Maureen Chang NP Unavailable Benjamín Younger MD Unavailable Orly Wilson MD Unavailable [phone] Alan Armando MD Unavailable Mary Crenshaw MD Unavailable [phone] Don Rao MD Unavailable Brittani Madison RN Primary Care Provider [facility] Brittani Madison RN Unavailable Unavailable Alan Armando MD Primary Care Provider [phone] Samira Quispe MD Primary Care Provider [phone] Encounter Details Date Type Department Care Team [...] Info) Description 10/04/2025 3:00 PM EST Nutrition [facility] [address] [place] [address] [place] [address] Radha Morales LDN [address] [address] 01/08/2026 2:40 PM EST Office Visit [facility] [address] [place] [address] Orly Wilson MD [address] [address] documented as of this encounter Procedures Procedure Name Priority Date/Time Associated Diagnosis Comments OUTSIDE LAB Routine 09/02/2017 documented in this encounter Results * Outside Lab (09/02/2017) us Historical Provider LAB BLOOD ORDERABLES Alyssa l Result documented in this encounter Visit Diagnoses Not on filedocumented in this encounter Care Teams Finger Cobbler Relationship Specialty Start Date End Date Alan Armando MD PCP - General 09/14/17 10/12/17 Brittani Madison RN [address] [place] [address] PCP - General 10/13/17 10/13/17 Alan Armando MD PCP - General Internal Medicine 10/14/17 03/11/20 Samira Quispe MD [address] [place] [address] [place] [address] PCP - General Internal Medicine 03/12/20 Radha Dunn NP [address] [place] [address] Historical LMR Provider 09/14/1702/27 Quoc Gallardo PA [address] [place] [address] Historical LMR Provider 09/14/17 2 Maureen Chang NP [address] [place] [address] [place] [address] Historical LMR Provider 09/14/1703/11 Benjamín Younger MD [address] [place] [address] Historical LMR Provider 09/14/1703/11 Orly Wilson MD [address] [place] [address], [address] [place] [address] [email or web address] Historical LMR Provider 09/14/17 Alan Armando MD [address] [place] [address] Historical LMR Provider 09/14/17 03/11/20 Mary Crenshaw MD [address] [place] [address] [facility], [place] [address] Historical LMR Provider 09/14/17 Don Rao MD [address] [place] [address] Historical LMR Provider 09/14/17 Brittani Madison RN [address] [place] [address] Registered Nurse 10/13/17 documented as of this encounter Additional Source Comments The information contained in this document represents components of the legal health record. It is not the complete legal health record.[facility]
== END 2025-08-24 14:49 | disposition home or self-care (01) ==
LOC: HO.HKA 14:10
PROVIDERS: PCP Internal Medicine; Visit Provider Internal Medicine Nephrology
DX: N18.31 Chronic kidney disease, stage 3a (principal); E10.21 Type 1 diabetes mellitus with diabetic nephropathy; D64.9 Anemia, unspecified
CPT/HCPCS: 99214

== ENCOUNTER 2025-08-24 17:33 | Inpatient (IN) | payer OTHER, SELFPAY ==
[2023-05-04 12:01] VITALS: BP 102/46; BP 134/60
--- NOTE | ~2025-08-24 | CT_ITS ---
CLINICAL HISTORY: anemia, weight loss CT abdomen and pelvis without contrast Comparison: US - ABDOMEN ULTRASOUND [id number] - 10/05/18 14:37 EST Findings: See same day CT of the chest for more details. Unremarkable gallbladder and solid organs. No urolithiasis. No bowel obstruction, pneumoperitoneum, or pneumatosis. Urinary bladder underdistended, limiting evaluation. Prostatomegaly. Normal appendix. No pathologically enlarged lymph nodes. Diffusely hypodense aortic lumen consistent with given history of anemia. The bones are intact. IMPRESSION: No acute findings or causes for anemia on this noncontrast examination This document has been electronically signed by: Waldemar Dowell MD on 08/25/2025 01:35:01
--- NOTE | ~2025-08-24 | CT_ITS ---
CLINICAL HISTORY: weight loss CT chest without contrast Comparison: None provided Findings: The heart size is normal. The cardiac chambers and aortic lumen are hypodense consistent with given history of anemia. The visualized thyroid and mediastinum are unremarkable. No hilar or axillary lymphadenopathy. Markedly hyperinflated lungs with increased anterior-posterior diameter, as well as jones acinar cystic airspace disease, consistent with emphysema. No consolidation or effusion. 0.5 cm left lower lobe nodule (series 6, image 124). See same day CT of the abdomen and pelvis for more details. The bones are intact. IMPRESSION: No acute findings and no cause for anemia on this noncontrast examination Emphysema 0.5 cm left lower lobe nodule. Follow-up per Fleischner criteria. This document has been electronically signed by: Waldemar Dowell MD on 08/25/2025 01:42:17
[2025-08-24 17:39] VITALS: BP 135/63; PULSE 82; RESP 20; TEMP 36.7; O2SAT 99; BMI 22.0
--- NOTE | 2025-08-24 17:42 | ED_ITS ---
HPI - General Adult General Chief complaint: Recheck/Abnormal Lab/Rx Stated complaint: ?Low hemoglobin, sent by pcp Time Seen by Provider: 08/24/25 21:08 History of Present Illness HPI narrative: Patient is a 60-year-old male presented today with having generalized malaise weakness. Weight loss since beginning of the year. Low hemoglobin. Sent in for further evaluation. There is no chest pain there is some coughing upper respiratory symptoms for the last 2 days. Feel very short of breath when he ambulates. Patient denies noticing any black stool. Currently not on any NSAIDs. No history of drinking. Patient from home. Had a previous history of diabetes, hypertension, high cholesterol. History of coronary artery disease status post stents. Currently on Plavix. Related Data Home Medications ?Medication ?Instructions ?Recorded ?Confirmed insulin lispro 100 unit/mL 60 sliding scale dose subcu t 11/19/22 08/23/25 subcutaneous solution (Admelog USEASDIRECTD U-100 Insulin lispro) insulin pump cart,automated,BT #5 ea 07/28/23 08/23/25 (Omnipod 5 G6 Pods (Gen 5) subcutaneous cartridge) lisinopril 2.5 mg tablet 1.25 mg PO DAILY 06/20/25 Previous Rx's ?Medication ?Instructions ?Recorded glucagon 1 mg solution for 1 mg subcut Q20M PRN hypogl ycemia 04/16/23 injection (GlucaGen HypoKit) #1 ea clopidogrel 75 mg tablet 75 mg PO DAILY #90 tabs 10/31 12/22 metoprolol succinate 25 mg 25 mg PO DAILY #90 tabs tablet,extended release 24 hr tadalafil 10 mg tablet 10 mg PO DAILY sexual activi ty 90 02/05/25 days #90 tabs magnesium oxide 400 mg (241.3 mg 400 mg PO DAILY #90 t abs 04/16/25 magnesium) tablet atorvastatin 80 mg tablet 80 mg PO DAILY #90 tabs 08/23 calcium carbonate 500 mg PO BID #180 tabs 05/23 aspirin 81 mg tablet,delayed 81 mg PO DAILY #90 tabs 0 07/13/25 release Allergies Allergy/AdvReac Type Severity Reaction Status Date / Time No Known Allergies Allergy Verified 08/24/25 17:43 Review of Systems 2 Review of Systems: Positive generalized malaise PMFSH Past Medical History Attestation statement: The following information was validated with the patient. Medical History Hx of fracture of tibia Hx of retinal detachment Chronic renal insufficiency COVID-19 vaccine administered Myocardial infarction Low vitamin B12 level Hypogonadism in male Hypogonadism Blind left eye Depression Hypertension Dyslipidemia Diabetic neuropathy associated with type 1 diabetes mellitus Coronary artery disease Diabetic retinopathy associated with type 1 diabetes mellitus Diabetes type 1, controlled Osteoporosis Hyperparathyroidism Surgical History H/O heart artery stent S/P eye surgery History of surgery Hx of eye surgery Hx of knee surgery Hx of excision of epidermal inclusion cyst Hx of colonoscopy Family History Family History Father Cancer CVD (cardiovascular disease) Mother CVD (cardiovascular disease) Hypertension High cholesterol Social History Social History Housing: Apartment Are you a primary care transitions manager to a significant other at home: No Do you presently have visiting nurse or other home services: Yes (has [employer]) Alcohol intake: never Patient Tobacco Use Status: Former Tobacco user Tobacco use type: Cigarette Years Smoked: 28 Smoked in Last 30 Days: No e-Cigarette/Vaping Use: Currently Using Use of substances other than those prescribed or required for medical reasons: No Advance Directives: No Advance Directives Information Provided: No Current occupational status: disabled Current occupation: rt handed Cognitive needs: No Hearing needs: No Vision needs: No Physical Exam ED Exam Exam: Appearance: Alert. Oriented X3. No acute distress. Eyes: Pupils equal, round and reactive to light. ENT: Pharynx normal. Neck: Normal inspection. Neck supple. No lymph nodes noted. No crepitus CVS: Normal heart rate and rhythm. Pulses normal. Normal S1 and S2 Respiratory: No respiratory distress. Breath sounds normal. No Wheezing. No rales Abdomen: Soft and nontender. No rigidity. No distention. good BS x4 Skin: Skin warm and dry. Normal skin color. Normal skin turgor. Extremities: No lower extremity edema. Neurovascular intact to all extremities. No Lacerations. No Rash Neuro: Oriented X 3. No motor deficit. No sensory deficit. Moving all extermities. No slurred speech Vital Signs: Vital Signs - 24 hr 08/24/25 17:39 08/24/25 19:54 08/24/25 20:00 Temperature 98.0 F Pulse Rate 82 81 78 Respiratory Rate 20 16 16 Blood Pressure 135/63 162/73 H 150/61 H Pulse Oximetry 99 100 100 Oxygen Delivery Method Room Air Room Air Room Air BMI result Body Mass Index 22.0 Course Course Course Narrative: RME, this is a rapid medical exam performed by Joseph Escalera please refer to primary provider for complete H&P- 60-year-old male with past medical history significant for diabetes, anemia, chronic kidney disease, depression, coronary artery disease, hypertension presents for evaluation of weakness and fatigue. He denies any significant pain, plan for basic labs Medical Decision Making Medical Decision Making [facility] Narrative: Well-appearing no acute distress. Patient's hemoglobin is actually low today. I did a rectal exam grossly there was no blood. It was brown stool we sent it off for guaiac. Patient's blood was typed and screen. Will transfuse times unit risk and benefit of transfusion explained to patient. Has a history of significant coronary artery disease. Status post stent and is diabetic. Has a low hemoglobin. Has symptom of shortness of breath on ambulation. Patient to be admitted for further evaluation and blood transfusion. Also patient has coughing upper respiratory symptoms we did a COVID test that came back positive. Will require monitoring. He has previously been vaccinated. He is not hypoxic. Differential Diagnosis Differential Diagnoses: The differential diagnosis associated with the presentation includes COVID flu RSV anemia Admission/Observation Consideration of admission/observation: Escalation of care including admission/observation considered Consult Healthcare Provider Management of the patient was discussed with: Hospitalist Lab Data [facility] Lab Attestation statement: I reviewed the patient's lab results. 08/24/25 18:25 08/24/25 18:25 Labs: Lab Results 08/24/25 08/24/25 08/24/25 Range/Units 18:24 18:25 18:26 WBC 3.2 L (4.8-10.8) X10*3/uL RBC 3.55 L (4.60-5.80) X10*6/uL Hgb 7.5 L (14.0-18.0) g/dl Hct 25.0 L (42.0-52.0) % MCV 70.4 L (80.0-98.0) fL MCH 21.1 L (27.0-33.0) pg MCHC 30.0 L (31.0-36.0) g/dl RDW 17.4 H (11.0-16.0) % Plt Count 230 D (160-400) X10*3/uL MPV 9.8 (9.4-12.4) fL Immature Gran % (Auto) 0.0 (0.0-0.4) % Neut % (Auto) 68.5 (45-73) % Lymph % (Auto) 17.9 L (20-40) % [place] % (Auto) 7.4 (2-11) % Eos % (Auto) 5.9 H (0-4) % Baso % (Auto) 0.3 (0-2) % Lymph # (Auto) 0.6 L (1.2-4.9) X10*3/uL [place] # (Auto) 0.2 (0.1-1.2) X10*3/uL Eos # (Auto) 0.2 (0.0-0.4) X10*3/uL Baso # (Auto) 0.0 (0.0-0.2) X10*3/uL Abs Immat Gran (auto) 0.00 (0.00-0.03) X10*3/uL Absolute Neuts (auto) 2.2 (2.0-8.3) x10*3/uL Absolute Nucleated RBC 0.000 (0.0-0.012) X10*3/uL Nucleated RBC % (auto) 0.0 (0.0-0.2) /100WBC Sodium 135 (135-145) mmol/L Potassium 4.8 (3.3-5.1) mmol/L Chloride 103 (96-108) mmol/L Carbon Dioxide 25 (22-29) mmol/L Anion Gap 12 (12-20) BUN 18 H (9-16) mg/dL Creatinine 1.53 H (0.5-1.4) mg/dL Estim Creat Clear Calc 47.8 Estimated GFR 46 Random Glucose 262 H (60-115) mg/dL Calcium 9.3 (8.4-10.2) mg/dL Total Bilirubin 0.5 (0.0-1.0) mg/dL AST 30 (5-37) U/L ALT 14 (0-40) U/L Alkaline Phosphatase 68 (39-117) U/L Troponin I High Sens 6.2 (<3.5-35.0) ng/L Total Protein 6.5 (6.5-8.0) g/dL Albumin 4.2 (3.5-5.0) g/dL Lipase 9 (8-78) U/L Urine Color Dark Yellow Urine Appearance Clear Urine pH 5.0 (5.0-9.0) Ur Specific [place] 1.020 (1.005-1.025) Urine Protein Trace (Neg-Trace) mg/dL Urine Glucose (UA) 250 H (Negative) mg/dL Urine Ketones Trace (Negative) mg/dL Urine Blood Negative (Negative) Urine Nitrite Negative (Negative) Ur Leukocyte Esterase Trace H (Negative) Urine RBC 0-2 (0-2) /HPF Urine WBC 0-5 (0-5) /HPF Ur Squamous Epith Cells 0-2 (0-2) /HPF Urine Bacteria None Seen (None Seen) Hyaline Casts 11-20 (0-2) /LPF Stool Occult Blood (NEGATIVE) COVID-19 (AMINA) Positive A (Negative) COVID-19 Clin Com See Note Influenza Type A (TONE) Negative (Negative) Influenza Type B (TONE) Negative (Negative) Influenza A & B Note See Note Blood Type O Negative Antibody Screen NEGATIVE Crossmatch See Detail 08/24/25 Range/Units 23:47 WBC (4.8-10.8) X10*3/uL RBC (4.60-5.80) X10*6/uL Hgb (14.0-18.0) g/dl Hct (42.0-52.0) % MCV (80.0-98.0) fL MCH (27.0-33.0) pg MCHC (31.0-36.0) g/dl RDW (11.0-16.0) % Plt Count (160-400) X10*3/uL MPV (9.4-12.4) fL Immature Gran % (Auto) (0.0-0.4) % Neut % (Auto) (45-73) % Lymph % (Auto) (20-40) % [place] % (Auto) (2-11) % Eos % (Auto) (0-4) % Baso % (Auto) (0-2) % Lymph # (Auto) (1.2-4.9) X10*3/uL [place] # (Auto) (0.1-1.2) X10*3/uL Eos # (Auto) (0.0-0.4) X10*3/uL Baso # (Auto) (0.0-0.2) X10*3/uL Abs Immat Gran (auto) (0.00-0.03) X10*3/uL Absolute Neuts (auto) (2.0-8.3) x10*3/uL Absolute Nucleated RBC (0.0-0.012) X10*3/uL Nucleated RBC % (auto) (0.0-0.2) /100WBC Sodium (135-145) mmol/L Potassium (3.3-5.1) mmol/L Chloride (96-108) mmol/L Carbon Dioxide (22-29) mmol/L Anion Gap (12-20) BUN (9-16) mg/dL Creatinine (0.5-1.4) mg/dL Estim Creat Clear Calc Estimated GFR Random Glucose (60-115) mg/dL Calcium (8.4-10.2) mg/dL Total Bilirubin (0.0-1.0) mg/dL AST (5-37) U/L ALT (0-40) U/L Alkaline Phosphatase (39-117) U/L Troponin I High Sens (<3.5-35.0) ng/L Total Protein (6.5-8.0) g/dL Albumin (3.5-5.0) g/dL Lipase (8-78) U/L Urine Color Urine Appearance Urine pH (5.0-9.0) Ur Specific [place] (1.005-1.025) Urine Protein (Neg-Trace) mg/dL Urine Glucose (UA) (Negative) mg/dL Urine Ketones (Negative) mg/dL Urine Blood (Negative) Urine Nitrite (Negative) Ur Leukocyte Esterase (Negative) Urine RBC (0-2) /HPF Urine WBC (0-5) /HPF Ur Squamous Epith Cells (0-2) /HPF Urine Bacteria (None Seen) Hyaline Casts (0-2) /LPF Stool Occult Blood POSITIVE (NEGATIVE) COVID-19 (AMINA) (Negative) COVID-19 Clin Com Influenza Type A (TONE) (Negative) Influenza Type B (TONE) (Negative) Influenza A & B Note Blood Type Antibody Screen Crossmatch Independent Interpretation I performed an independent interpretation of an: EKG External Record Review External record reviewed: Outpatient record Chronic Conditions Patient?s care impacted by: Diabetes cad Social Determinants Patient?s care significantly limited by Social Determinants of Health including: Problems related to primary support group Critical Care Time Critical Care Time Critical Care Time: Yes Total Critical Care Time: 40 Attestation: I have personally provided 40 minutes of critical care time exclusive of time spent on separately billable procedures. ?Time includes review of lab data, radiology results, discussion with consultants, and monitoring for potential decompensation. ?Interventions were performed as documented above Discharge Plan Discharge Clinical Impression: Anemia Patient Disposition: Admitted As Inpatient
[2025-08-24 18:34] LABS: MANUAL DIFF FLAG NO
[2025-08-24 18:35] LABS: Hematocrit 25.0 % (42.0-52.0); Hemoglobin 7.5 g/dl (14.0-18.0); Imm Gran Abs Auto 0.00 X10*3/uL (0.00-0.03); Imm Gran Pct Auto 0.0 % (0.0-0.4); Lymphocytes Absolute Auto 0.6 X10*3/uL (1.2-4.9); Mean Corpuscular HGB Conc 30.0 g/dl (31.0-36.0); Mean Corpuscular Hemoglobin 21.1 pg (27.0-33.0); Mean Corpuscular Volume 70.4 fL (80.0-98.0); NRBC Abs Auto 0.000 X10*3/uL (0.0-0.012); NRBC Pct Auto 0.0 /100WBC (0.0-0.2); Platelet Count 230 X10*3/uL (160-400); Red Blood Count 3.55 X10*6/uL (4.60-5.80); White Blood Count 3.2 X10*3/uL (4.8-10.8)
[2025-08-24 18:43] LABS: Appearance Urine Clear; Glucose Urine UA 250 mg/dL (Negative); PH 5.0 (5.0-9.0); Specific Gravity - Urine 1.020 (1.005-1.025); UMIC TRIGGER UACC YES
[2025-08-24 18:52] LABS: IDNOW Serial# 55D5AD1C; Influenza B2 Negative (Negative)
[2025-08-24 18:55] LABS: Alanine Aminotransferase 14 U/L (0-40); Albumin Level 4.2 g/dL (3.5-5.0); Alkaline Phosphatase 68 U/L (39-117); Anion Gap 12 (12-20); Aspartate Amino Transferase 30 U/L (5-37); Blood Urea Nitrogen 18 mg/dL (9-16); COVID-19 Test Positive (Negative); Calcium 9.3 mg/dL (8.4-10.2); Carbon Dioxide 25 mmol/L (22-29); Chloride 103 mmol/L (96-108); Creatinine Clr Calc Pharmacy 47.8; Estimated Glomerular Filt Rate 46; IDNOW Serial# 08D9AD1C; Lipase 9 U/L (8-78); Potassium 4.8 mmol/L (3.3-5.1); Sodium 135 mmol/L (135-145); Total Protein 6.5 g/dL (6.5-8.0)
[2025-08-24 19:54] VITALS: BP 162/73; PULSE 81; RESP 16; O2SAT 100
[2025-08-24 20:00] VITALS: BP 150/61; PULSE 78; RESP 16; O2SAT 100
--- NOTE | 2025-08-24 20:32 | PC.NURSE ---
Patient is a 60 yo male who was sent for a low hgb. Alert and oriented. Lungs clear bilat. Respirations even and non-labored. Denies any pain. Abdomen soft, non-tender with positive bowel sounds. Positive pedal pulses with no edema noted. Denies any complaints at this time Medical History Hx of fracture of tibia Hx of retinal detachment Chronic renal insufficiency COVID-19 vaccine administered Myocardial infarction Low vitamin B12 level Hypogonadism in male Hypogonadism Blind left eye Depression Hypertension Dyslipidemia Diabetic neuropathy associated with type 1 diabetes mellitus Coronary artery disease Diabetic retinopathy associated with type 1 diabetes mellitus Diabetes type 1, controlled Osteoporosis Hyperparathyroidism
--- NOTE | 2025-08-24 23:52 | ECG_ITS ---
Test Reason : SHORTNESS OF BREATH Blood Pressure : */* mmHG Vent. Rate : 74 BPM Atrial Rate : 74 BPM P-R Int : 166 ms QRS Dur : 76 ms QT Int : 378 ms P-R-T Axes : 81 47 55 degrees QTcB Int : 419 ms Normal sinus rhythm Normal ECG When compared with ECG of 12-Jan-2025 00:14, No significant change was found Referred By: Laney Rodriges Electronically Signed By: Tevin Garcia
[2025-08-25] VITALS (8 sets, daily range): BP systolic 99–152; BP diastolic 40–76; PULSE 67–85; RESP 16–20; TEMP 36–36.3; O2SAT 98
[2025-08-25 00:10] LABS: OBS Int Ctl Valid YES; OBS1 POSITIVE (NEGATIVE)
[2025-08-25 00:14] LABS: Troponin-I High Sensitivity 6.2 ng/L (<3.5-35.0)
--- NOTE | 2025-08-25 00:22 | P.HPHOSP_ITS ---
History of Present Illness Date of Service: 08/25/25 Attending physician on admission: Gaurang Chapman Chief Complaint: anemia Patient is a 60-year-old male with a past medical history significant for hypertension, hyper lipidemia, diabetes, CAD/stent on plavix, who presented to the ED due to abnormal labs with a hemoglobin of 7.2 with shortness of breath for the past 7 months with about a 20 lb weight loss over the past 9 months. The patient reports worsening shortness of breath with ambulation. He has been feeling malaise, weakness and cough for the past 2 days. He denies any melena, abdominal pain, fever, chills, nausea, vomiting or urinary symptoms including frequency, urgency or dysuria. just came back from [facility] to [place], drove both ways. Workup in the ED with microcytic anemia, hemoglobin 7.5, positive occult blood stool. Patient also COVID positive with MINERVA on CKD. Order for 2 units PRBC placed in ED. Review of Systems 2 Constitutional: Constitutional: Denies body ache(s), Denies chills, Reports fatigue, Denies fever(s) and Denies headache(s) Eyes: Eyes: Denies change in vision ENT: Denies headache(s), Denies nasal discharge and Denies sore throat Cardiovascular: Cardiovascular: Denies chest pain, Denies rapid heart rate, Denies leg edema, Denies lightheadedness and Reports dyspnea Respiratory: Respiratory: Reports chest congestion, Reports cough, Reports dyspnea and Denies wheezing Gastrointestinal: Gastrointestinal: Denies abdominal pain, Denies diarrhea, Denies nausea and Denies hematemesis Genitourinary: Genitourinary: Denies dysuria and Denies urinary urgency Musculoskeletal: Musculoskeletal: Denies myalgias Integumentary/Breasts: Skin/Breast: Denies rash Neurologic: Denies confusion and Denies headache(s) Psychiatric: Psychiatric: Denies confusion Endocrine: Endocrine: Reports fatigue Hematologic/Lymphatic: Hematologic/Lymphatic: Denies easy bleeding and Denies easy bruising Allergic/Immunologic: Allergic/Immunologic: Denies wheezing [facility] Medical History Hx of fracture of tibia Hx of retinal detachment Chronic renal insufficiency COVID-19 vaccine administered Myocardial infarction Low vitamin B12 level Hypogonadism in male Hypogonadism Blind left eye Depression Hypertension Dyslipidemia Diabetic neuropathy associated with type 1 diabetes mellitus Coronary artery disease Diabetic retinopathy associated with type 1 diabetes mellitus Diabetes type 1, controlled Osteoporosis Hyperparathyroidism Functional capacity: independent ambulation Family History Father Cancer CVD (cardiovascular disease) Mother CVD (cardiovascular disease) Hypertension High cholesterol Surgical History H/O heart artery stent S/P eye surgery History of surgery Hx of eye surgery Hx of knee surgery Hx of excision of epidermal inclusion cyst Hx of colonoscopy Social History Housing: Apartment Are you a primary day care center director to a significant other at home: No Do you presently have visiting nurse or other home services: Yes (has [employer]) Alcohol intake: never Patient Tobacco Use Status: Former Tobacco user Tobacco use type: Cigarette Years Smoked: 28 Smoked in Last 30 Days: No e-Cigarette/Vaping Use: Currently Using Use of substances other than those prescribed or required for medical reasons: No Advance Directives: No Advance Directives Information Provided: No Current occupational status: disabled Current occupation: rt handed Cognitive needs: No Hearing needs: No Vision needs: No Meds Allergies Allergy/AdvReac Type Severity Reaction Status Date / Time No Known Allergies Allergy Verified 08/24/25 17:43 Active Medications: Current Medications Acetaminophen (Acetaminophen 325 Mg Tablet) 975 mg PO Q6H PRN PRN Reason: Pain, Mild 1-3,fever,headache Calcium Carbonate (Calcium Carbonate 750 Mg Tab.Chew) 750 mg PO Q4H PRN PRN Reason: Heartburn Magnesium Hydroxide (Milk Of Magnesia 30 Ml Oral.Susp) 30 ml PO DAILY PRN PRN Reason: Constipation Melatonin (Melatonin 3 Mg Tablet) 6 mg PO BEDTIME PRN PRN Reason: Insomnia Ondansetron HCl (Ondansetron Hcl 4 Mg/2 Ml Vial) 4 mg IVPUSH Q8H PRN PRN Reason: Nausea and Vomiting Oxycodone HCl (Oxycodone Hcl Immed Release 5 Mg Tablet) 5 mg PO Q6H PRN PRN Reason: Pain, Severe (Pain Scale 7-10) Sodium Chloride (0.9 % Sodium Chloride Flush 3 Ml Syringe) 3 ml IVFLUSH QSHIFT ADAMARIS Tramadol HCl (Tramadol Hcl 50 Mg Tablet) 50 mg PO Q6H PRN PRN Reason: Pain, Moderate(Pain Scale 4-6) Home Medications ?Medication ?Instructions ?Recorded ?Confirmed ?Last Taken ?Type insulin lispro 100 unit/mL 60 sliding scale dose subcu t 11/19/22 08/23/25 Unknown History subcutaneous solution (Admelog USEASDIRECTD U-100 Insulin lispro) insulin pump cart,automated,BT #5 ea 07/28/23 08/23/25 Unknown History (Omnipod 5 G6 Pods (Gen 5) subcutaneous cartridge) lisinopril 2.5 mg tablet 1.25 mg PO DAILY 06/20/25 Unknown History Physical Exam 2 Vital Signs and Narrative: Vital Signs: Last Vital Signs Temp 98.0 F 08/24/25 17:39 Pulse 78 08/24/25 20:00 Resp 16 08/24/25 20:00 BP 150/61 H 08/24/25 20:00 Pulse Ox 100 08/24/25 20:00 O2 Del Method Room Air 08/24/25 20:00 BMI result Body Mass Index 22.0 General: AOx3, no acute distress Resp: CTA bilaterally CVS: S1, S2, RRR GI: +BS, NT, no distention Skin: Warm, dry Neuro: Cranial nerves II-XII grossly intact bilaterally. Motor grossly intact bilaterally Extremities: No pitting edema Psych: Appropriate affect Const: General: No confusion Orientation/consciousness: No confusion Neuro: General: No confusion Results Labs 08/24/25 18:25 08/24/25 18:25 Labs: Laboratory Results - last 24 hr 08/24/25 08/24/25 08/24/25 18:24 18:25 18:26 MCV 70.4 L MCH 21.1 L MCHC 30.0 L RDW 17.4 H Plt Count 230 D MPV 9.8 Immature Gran % (Auto) 0.0 Neut % (Auto) 68.5 Lymph % (Auto) 17.9 L [place] % (Auto) 7.4 Eos % (Auto) 5.9 H Baso % (Auto) 0.3 Lymph # (Auto) 0.6 L [place] # (Auto) 0.2 Eos # (Auto) 0.2 Baso # (Auto) 0.0 Abs Immat Gran (auto) 0.00 Absolute Neuts (auto) 2.2 Absolute Nucleated RBC 0.000 Nucleated RBC % (auto) 0.0 Anion Gap 12 Estim Creat Clear Calc 47.8 Estimated GFR 46 Random Glucose 262 H Calcium 9.3 Total Bilirubin 0.5 AST 30 ALT 14 Alkaline Phosphatase 68 Troponin I High Sens 6.2 Total Protein 6.5 Albumin 4.2 Lipase 9 Urine Color Dark Yellow Urine Appearance Clear Urine pH 5.0 Ur Specific [place] 1.020 Urine Protein Trace Urine Glucose (UA) 250 H Urine Ketones Trace Urine Blood Negative Urine Nitrite Negative Ur Leukocyte Esterase Trace H Urine RBC 0-2 Urine WBC 0-5 Ur Squamous Epith Cells 0-2 Urine Bacteria None Seen Hyaline Casts 11-20 Stool Occult Blood COVID-19 (AMINA) Positive A COVID-19 [facility] Com See Note Influenza Type A (TONE) Negative Influenza Type B (TONE) Negative Influenza A & B Note See Note Blood Type O Negative Antibody Screen NEGATIVE 08/24/25 23:47 MCV MCH MCHC RDW Plt Count MPV Immature Gran % (Auto) Neut % (Auto) Lymph % (Auto) [place] % (Auto) Eos % (Auto) Baso % (Auto) Lymph # (Auto) [place] # (Auto) Eos # (Auto) Baso # (Auto) Abs Immat Gran (auto) Absolute Neuts (auto) Absolute Nucleated RBC Nucleated RBC % (auto) Anion Gap Estim Creat Clear Calc Estimated GFR Random Glucose Calcium Total Bilirubin AST ALT Alkaline Phosphatase Troponin I High Sens Total Protein Albumin Lipase Urine Color Urine Appearance Urine pH Ur Specific [place] Urine Protein Urine Glucose (UA) Urine Ketones Urine Blood Urine Nitrite Ur Leukocyte Esterase Urine RBC Urine WBC Ur Squamous Epith Cells Urine Bacteria Hyaline Casts Stool Occult Blood POSITIVE COVID-19 (AMINA) COVID-19 [facility] Com Influenza Type A (TONE) Influenza Type B (TONE) Influenza A & B Note Blood Type Antibody Screen Assessment and Plan (1) GI bleed: Status: Acute (2) Microcytic anemia: Status: Acute (3) Acute kidney injury superimposed on CKD: Status: Acute (4) COVID: Status: Acute Plan Patient is a 60-year-old male with a past medical history significant for hypertension, hyper lipidemia, diabetes, CAD/stent on plavix, who presented to the ED due to abnormal labs with a hemoglobin of 7.2 with shortness of breath for the past 7 months with about a 20 lb weight loss over the past 9 months. Found to have significant microcytic anemia, requiring 2 units PRBC. MINERVA on CKD as well as COVID. GI bleed, Microcytic iron def anemia, hemoglobin 7.5 - 2 units PRBC - NPO pending GI consult - B12, folate pending - monitor CBC unintentional weight loss, 25lbs in 9 months - GI consult as above MINERVA on CKD - avoid nephrotoxins COVID - supportive care HTN - continue home meds HLD - continue home meds Diabetes - pt has insulin pump - POC Q6H CAD/stent - hold Plavix Med rec pending Full code VTE prophylaxis: Pneumoboots Patient with microcytic anemia complicated by unintentional weight loss and MINERVA on CKD, requiring admission for at least 2 midnight stay for further evaluation and monitoring. Quality Stroke Does the patient have a stroke diagnosis?: No VTE Prior VTE?: No VTE Risk Level:: Medical - moderate - high VTE Device Contraindication: N/A - Device Ordered VTE Drug Contraindication: Treatment Not Indicated
[2025-08-25 01:22] LABS: Iron 16 mcg/dL (45-160); Percent Iron Saturation 5 % (15-50); Total Iron Binding Capacity 345 mcg/dL (228-428); Unsaturated Iron Binding 329 ug/dL
--- NOTE | 2025-08-25 01:23 | PC.NURSE ---
Assumed care of this Pt at 2300. At this time 1st unit of blood being infused, Pt denies any adverse reaction. Pt A&Ox3, denies any pain, ambulates independently with steady gait.
--- NOTE | 2025-08-25 07:32 | HO.PM.IMPN ---
Subjective Subjective Date of Service: 08/25/25 Interval History: f/u on anemia, acute blood loss, positive hemocult, covid, Aung has no new complaint, no sob. H and H is better, hemoglobin now 9.4 Physical Exam Vital Signs: Vital Signs: Last Vital Signs Temp 96.9 F 08/25/25 06:28 Pulse 70 08/25/25 06:28 Resp 18 08/25/25 06:28 BP 152/72 H 08/25/25 06:28 Pulse Ox 100 08/24/25 20:00 O2 Del Method Room Air 08/24/25 20:00 BMI result Body Mass Index 22.0 Const: Other: General: AO X 3, no acute distress Resp: CTA bilateral CVS: S1,S2,RRR GI: +BS, NT, no distention Skin: No rash Neuro: motor grossly intact Psych: appropriate affect Objective Data Active Medications Acetaminophen (Acetaminophen 325 Mg Tablet) 975 mg PO Q6H PRN PRN Reason: Pain, Mild 1-3,fever,headache Calcium Carbonate (Calcium Carbonate 750 Mg Tab.Chew) 750 mg PO Q4H PRN PRN Reason: Heartburn Dextrose (Dextrose 50 % 25 Gm/50 Ml Syringe) 25 gm IVPUSH Q15M PRN; Protocol PRN Reason: per Hypoglycemia Standing Ord. Glucose (Glucose Gel 15 Gm Gel..Gram.) 15 gm PO Q15M PRN; Protocol PRN Reason: per Hypoglycemia Standing Ord. Magnesium Hydroxide (Milk Of Magnesia 30 Ml Oral.Susp) 30 ml PO DAILY PRN PRN Reason: Constipation Melatonin (Melatonin 3 Mg Tablet) 6 mg PO BEDTIME PRN PRN Reason: Insomnia Ondansetron HCl (Ondansetron Hcl 4 Mg/2 Ml Vial) 4 mg IVPUSH Q8H PRN PRN Reason: Nausea and Vomiting Oxycodone HCl (Oxycodone Hcl Immed Release 5 Mg Tablet) 5 mg PO Q6H PRN PRN Reason: Pain, Severe (Pain Scale 7-10) Sodium Chloride (0.9 % Sodium Chloride Flush 3 Ml Syringe) 3 ml IVFLUSH QSHIFT [facility] Tramadol HCl (Tramadol Hcl 50 Mg Tablet) 50 mg PO Q6H PRN PRN Reason: Pain, Moderate(Pain Scale 4-6) Labs 08/25/25 07:53 08/25/25 07:53 Labs: Laboratory Results - last 24 hr 08/24/25 08/24/25 08/24/25 18:24 18:25 18:26 MCV 70.4 L MCH 21.1 L MCHC 30.0 L RDW 17.4 H Plt Count 230 D MPV 9.8 Immature Gran % (Auto) 0.0 Neut % (Auto) 68.5 Lymph % (Auto) 17.9 L [place] % (Auto) 7.4 Eos % (Auto) 5.9 H Baso % (Auto) 0.3 Lymph # (Auto) 0.6 L [place] # (Auto) 0.2 Eos # (Auto) 0.2 Baso # (Auto) 0.0 Abs Immat Gran (auto) 0.00 Absolute Neuts (auto) 2.2 Absolute Nucleated RBC 0.000 Nucleated RBC % (auto) 0.0 Anion Gap 12 Estim Creat Clear Calc 47.8 Estimated GFR 46 Random Glucose 262 H Calcium 9.3 Iron 16 L TIBC 345 % Saturation 5 L Unsat Iron Binding 329 Total Bilirubin 0.5 AST 30 ALT 14 Alkaline Phosphatase 68 Troponin I High Sens 6.2 Total Protein 6.5 Albumin 4.2 Lipase 9 TSH 1.38 Urine Color Dark Yellow Urine Appearance Clear Urine pH 5.0 Ur Specific [place] 1.020 Urine Protein Trace Urine Glucose (UA) 250 H Urine Ketones Trace Urine Blood Negative Urine Nitrite Negative Ur Leukocyte Esterase Trace H Urine RBC 0-2 Urine WBC 0-5 Ur Squamous Epith Cells 0-2 Urine Bacteria None Seen Hyaline Casts 11-20 Stool Occult Blood COVID-19 (AMINA) Positive A COVID-19 Clin Com See Note Influenza Type A (TONE) Negative Influenza Type B (TONE) Negative Influenza A & B Note See Note Blood Type O Negative Antibody Screen NEGATIVE Crossmatch See Detail 08/24/25 23:47 MCV MCH MCHC RDW Plt Count MPV Immature Gran % (Auto) Neut % (Auto) Lymph % (Auto) [place] % (Auto) Eos % (Auto) Baso % (Auto) Lymph # (Auto) [place] # (Auto) Eos # (Auto) Baso # (Auto) Abs Immat Gran (auto) Absolute Neuts (auto) Absolute Nucleated RBC Nucleated RBC % (auto) Anion Gap Estim Creat Clear Calc Estimated GFR Random Glucose Calcium Iron TIBC % Saturation Unsat Iron Binding Total Bilirubin AST ALT Alkaline Phosphatase Troponin I High Sens Total Protein Albumin Lipase TSH Urine Color Urine Appearance Urine pH Ur Specific [place] Urine Protein Urine Glucose (UA) Urine Ketones Urine Blood Urine Nitrite Ur Leukocyte Esterase Urine RBC Urine WBC Ur Squamous Epith Cells Urine Bacteria Hyaline Casts Stool Occult Blood POSITIVE COVID-19 (AMINA) COVID-19 Clin Com Influenza Type A (TONE) Influenza Type B (TONE) Influenza A & B Note Blood Type Antibody Screen Crossmatch Assessment and Plan (1) GI bleed: Status: Acute (2) Acute blood loss anemia: Status: Acute Plan Patient is a 60-year-old male with a past medical history significant for hypertension, hyper lipidemia, diabetes, CAD/stent on plavix, who presented to the ED due to abnormal labs with a hemoglobin of 7.2 with shortness of breath for the past 7 months with about a 20 lb weight loss over the past 9 months. Found to have significant microcytic anemia, requiring 2 units PRBC. AUNG on CKD as well as COVID. The patient presented with shortness of breath and was found to have symptomatic anemia with a positive occult blood test, unintentional weight loss of 25 lbs over 9 months, and microcytic iron deficiency anemia. Initial hemoglobin was 7.5 g/dL. He also had acute kidney injury on chronic kidney disease and tested positive for COVID-19. He received 2 units of RBCs with good response; hemoglobin increased to 9.4 g/dL. Plavix has been held. Gastroenterology consultation is pending for further evaluation with EGD and colonoscopy; however, the patient prefers to have all procedures performed on an outpatient basis. GI office will coordinate outpatient scheduling. He has been advised to discontinue Plavix. The AUNG, likely secondary to anemia, has resolved with creatinine returning to baseline (1.3 mg/dL). His COVID-19 infection remains asymptomatic; shortness of breath is attributed to anemia, so supportive care is recommended. He should continue his usual medications otherwise. Echocardiogram from June showed preserved ejection fraction and no wall motion abnormalities. He understands it is his decision to pursuit work up on an outpatient basis AUNG on CKD, possibly related to above, Creatine back to baseline - avoid nephrotoxins COVID - supportive care HTN - continue home meds HLD - continue home meds Diabetes - pt has insulin pump - POC Q6H CAD/stent - hold Plavix Full code VTE prophylaxis: Pneumoboots Patient with microcytic anemia complicated by unintentional weight loss and AUNG on CKD, requiring admission for at least 2 midnight stay for further evaluation and monitoring. Quality Stroke Does the patient have a stroke diagnosis?: No VTE Prior VTE?: No VTE Risk Level:: Medical - moderate - high VTE Device Contraindication: N/A - Device Ordered VTE Drug Contraindication: Treatment Not Indicated
--- NOTE | 2025-08-25 07:47 | PC.NURSE ---
Assumed care of pt. Pt to be admitted and waiting on bed. Pt doesn't want to stay. States he has animals at home that have to be cared for and that he will do everything outpatient. Requesting to speak to admitting MD. Azucena PULIDO states pt can leave AMA or wait for GI consult. MD at bedside to discuss plan with pt.
[2025-08-25 08:00] LABS: Hematocrit 29.4 % (42.0-52.0); Hemoglobin 9.4 g/dl (14.0-18.0); Mean Corpuscular HGB Conc 32.0 g/dl (31.0-36.0); Mean Corpuscular Hemoglobin 23.6 pg (27.0-33.0); Mean Corpuscular Volume 73.7 fL (80.0-98.0); NRBC Abs Auto 0.000 X10*3/uL (0.0-0.012); NRBC Pct Auto 0.0 /100WBC (0.0-0.2); Platelet Count 230 X10*3/uL (160-400); Red Blood Count 3.99 X10*6/uL (4.60-5.80); White Blood Count 3.6 X10*3/uL (4.8-10.8)
[2025-08-25 08:13] LABS: D Dimer High Sensitivity 545 NG/ML
[2025-08-25 08:16] LABS: Anion Gap 12 (12-20); Blood Urea Nitrogen 20 mg/dL (9-16); Calcium 9.1 mg/dL (8.4-10.2); Carbon Dioxide 27 mmol/L (22-29); Chloride 106 mmol/L (96-108); Creatinine Clr Calc Pharmacy 55.4; Estimated Glomerular Filt Rate 55; Potassium 4.2 mmol/L (3.3-5.1); Sodium 141 mmol/L (135-145)
--- NOTE | 2025-08-25 08:43 | PM.DS ---
DS: Providers Provider Date of Service: 08/25/25 Date of admission: 08/25/25 00:22 Date of discharge: 08/25/25 Primary care physician: Samira Quispe MD Consults: 08/25/25 00:31 Consult to Gastroenterology Routine Consulting Provider: Sanjana Mckeon Reason for consultation: anemia, +FOBT Has provider been notified: No DS: Diagnosis Discharge Diagnosis (1) GI bleed: Status: Acute (2) Acute blood loss anemia: Status: Acute DS: Summary Hospital Course Hospital Course: Chief Complaint: anemia Patient is a 60-year-old male with a past medical history significant for hypertension, hyper lipidemia, diabetes, CAD/stent on plavix, who presented to the ED due to abnormal labs with a hemoglobin of 7.2 with shortness of breath for the past 7 months with about a 20 lb weight loss over the past 9 months. The patient reports worsening shortness of breath with ambulation. He has been feeling malaise, weakness and cough for the past 2 days. He denies any melena, abdominal pain, fever, chills, nausea, vomiting or urinary symptoms including frequency, urgency or dysuria. just came back from [facility] to [place], drove both ways. Workup in the ED with microcytic anemia, hemoglobin 7.5, positive occult blood stool. Patient also COVID positive with MINERVA on CKD. Order for 2 units PRBC placed in ED. hospital course The patient presented with shortness of breath and was found to have symptomatic anemia with a positive occult blood test, unintentional weight loss of 25 lbs over 9 months, and microcytic iron deficiency anemia. Initial hemoglobin was 7.5 g/dL. He also had acute kidney injury on chronic kidney disease and tested positive for COVID-19. He received 2 units of RBCs with good response; hemoglobin increased to 9.4 g/dL. Plavix has been held. Gastroenterology consultation is pending for further evaluation with EGD and colonoscopy; however, the patient prefers to have all procedures performed on an outpatient basis.Dr. Mckeon GI office will coordinate outpatient scheduling. He has been advised to discontinue Plavix and aspirin. The MINERVA, likely secondary to anemia, has resolved with creatinine returning to baseline (1.3 mg/dL). His COVID-19 infection remains asymptomatic; shortness of breath is attributed to anemia and predates covid, so supportive care is recommended. He should continue his usual medications otherwise. Echocardiogram from June showed preserved ejection fraction and no wall motion abnormalities. He understands it is his decision to pursuit work up on an outpatient basis Time Attestation Discharge Coordination Time (in mins): 40 Quality: Safe Use of Opioids Does Pt have an Active Cancer Diagnosis on the Problem List?: No Quality: Stroke Does the patient have a stroke diagnosis?: No Physical Exam Exam: Exam: General: AO X 3, no acute distress Resp: CTA bilateral CVS: S1,S2,RRR GI: +BS, NT, no distention Skin: No rash Neuro: motor grossly intact Psych: appropriate affect Vital Signs: Vital Signs: Last Vital Signs Temp 96.9 F 08/25/25 06:28 Pulse 70 08/25/25 06:28 Resp 18 08/25/25 06:28 BP 152/72 H 08/25/25 06:28 Pulse Ox 100 08/24/25 20:00 O2 Del Method Room Air 08/24/25 20:00 BMI result Body Mass Index 22.0 DS: Data Data Completed and Pending Labs on day of discharge: Laboratory Results - last 24 hr 08/24/25 08/24/25 08/24/25 18:24 18:25 18:26 WBC 3.2 L RBC 3.55 L Hgb 7.5 L Hct 25.0 L MCV 70.4 L MCH 21.1 L MCHC 30.0 L RDW 17.4 H Plt Count 230 D MPV 9.8 Immature Gran % (Auto) 0.0 Neut % (Auto) 68.5 Lymph % (Auto) 17.9 L [place] % (Auto) 7.4 Eos % (Auto) 5.9 H Baso % (Auto) 0.3 Lymph # (Auto) 0.6 L [place] # (Auto) 0.2 Eos # (Auto) 0.2 Baso # (Auto) 0.0 Abs Immat Gran (auto) 0.00 Absolute Neuts (auto) 2.2 Absolute Nucleated RBC 0.000 Nucleated RBC % (auto) 0.0 D-Dimer High Sensitivty Sodium 135 Potassium 4.8 Chloride 103 Carbon Dioxide 25 Anion Gap 12 BUN 18 H Creatinine 1.53 H Estim Creat Clear Calc 47.8 Estimated GFR 46 Random Glucose 262 H Calcium 9.3 Iron 16 L TIBC 345 % Saturation 5 L Unsat Iron Binding 329 Total Bilirubin 0.5 AST 30 ALT 14 Alkaline Phosphatase 68 Troponin I High Sens 6.2 Total Protein 6.5 Albumin 4.2 Lipase 9 TSH 1.38 Urine Color Dark Yellow Urine Appearance Clear Urine pH 5.0 Ur Specific [place] 1.020 Urine Protein Trace Urine Glucose (UA) 250 H Urine Ketones Trace Urine Blood Negative Urine Nitrite Negative Ur Leukocyte Esterase Trace H Urine RBC 0-2 Urine WBC 0-5 Ur Squamous Epith Cells 0-2 Urine Bacteria None Seen Hyaline Casts 11-20 Stool Occult Blood COVID-19 (AMINA) Positive A COVID-19 Clin Com See Note Influenza Type A (TONE) Negative Influenza Type B (TONE) Negative Influenza A & B Note See Note Blood Type O Negative Antibody Screen NEGATIVE Crossmatch See Detail 08/24/25 08/25/25 23:47 07:53 WBC 3.6 L RBC 3.99 L Hgb 9.4 L D Hct 29.4 L MCV 73.7 L MCH 23.6 L MCHC 32.0 RDW 19.2 H Plt Count 230 MPV 9.8 Immature Gran % (Auto) Neut % (Auto) Lymph % (Auto) [place] % (Auto) Eos % (Auto) Baso % (Auto) Lymph # (Auto) [place] # (Auto) Eos # (Auto) Baso # (Auto) Abs Immat Gran (auto) Absolute Neuts (auto) Absolute Nucleated RBC 0.000 Nucleated RBC % (auto) 0.0 D-Dimer High Sensitivty 545 Sodium 141 Potassium 4.2 Chloride 106 Carbon Dioxide 27 Anion Gap 12 BUN 20 H Creatinine 1.32 Estim Creat Clear Calc 55.4 Estimated GFR 55 Random Glucose 63 Calcium 9.1 Iron TIBC % Saturation Unsat Iron Binding Total Bilirubin AST ALT Alkaline Phosphatase Troponin I High Sens Total Protein Albumin Lipase TSH Urine Color Urine Appearance Urine pH Ur Specific [place] Urine Protein Urine Glucose (UA) Urine Ketones Urine Blood Urine Nitrite Ur Leukocyte Esterase Urine RBC Urine WBC Ur Squamous Epith Cells Urine Bacteria Hyaline Casts Stool Occult Blood POSITIVE COVID-19 (AMINA) COVID-19 Clin Com Influenza Type A (TONE) Influenza Type B (TONE) Influenza A & B Note Blood Type Antibody Screen Crossmatch Discharge Plan Discharge Anticipated Discharge Date/Time: 08/25/25 08:46 Patient Disposition: Home, Self-Care Discharge Diagnosis: Acute blood loss anemia, GIB, MINERVA, Covid + Referrals: Samira Quispe MD [Primary Care Provider, Internal Medicine] - 1 Week Sanjana Mckeon MD [Physician, Gastroenterology] - 1 Week Discharge Medications: Continued metoprolol succinate 25 mg tablet extended release 24 hr 25 mg PO DAILY Qty: 90 3RF tadalafil 10 mg tablet 10 mg PO DAILY 90 Days Qty: 90 1RF magnesium oxide 400 mg (241.3 mg magnesium) tablet 400 mg PO DAILY Qty: 90 4RF atorvastatin 80 mg tablet 80 mg PO DAILY Qty: 90 3RF calcium carbonate 500 mg calcium (1,250 mg) tablet 500 mg PO BID Qty: 180 2RF GlucaGen HypoKit 1 mg recon soln 1 mg subcut Q20M PRN (Reason: hypoglycemia) Qty: 1 0RF Rx Instructions: until target blood sugar attained. Use only in case of severe hypoglycemia, and not being able to eat or drink insulin lispro [Admelog U-100 Insulin lispro] 100 unit/mL solution 60 sliding scale dose subcut USEASDIRECTD Rx Instructions: via insulin pump (DME) Omnipod 5 G6 Pods (Gen 5) Cartridge See Rx Instructions subcut Q OTHER DAY Qty: 5 Rx Instructions: As directed lisinopril 2.5 mg tablet 1.25 mg PO DAILY Discontinued clopidogrel 75 mg tablet 75 mg PO DAILY Qty: 90 3RF No Action aspirin 81 mg tablet,delayed release (DR/EC) 81 mg PO DAILY Qty: 90 3RF Diet: Advance to usual diet Activity on Discharge: As tolerated Stand Alone Forms: Patient Portal Discharge page Print Language: Turkish Care Plan Goals: recovery from acute blood loss anemia, covid, [facility] Concerns: symptomatic anemia, acute blood loss anemia, weight loss, minerva, +covid Plan of Treatment: you have been transfused 2 unit of blood with good effect, you will need further testing with EGD and colonoscpy through Dr. Mckeon's office Stop taking Plavix. Take covid precaution including wearing mask in pu[place] follow up with your pcp in 7 to 10 days, Assessment: see above
[2025-08-25 08:52] LABS: Folate 11.3 ng/mL (> or = 4.0); Vitamin B12 575 pg/mL (200-900)
--- NOTE | 2025-08-25 09:46 | PHA.MEDREC ---
Pharmacy Consult ? Medication Reconciliation Pharmacy has completed the medication reconciliation. Spoke with pt at bedtime to confirm medications. Pt takes all medications at bedtime except Cialis, and magnesium. Pt takes Cialis scheduled every other day along with famitidone BID QOD on the days he takes Cialis. Pt has an insulin pump with max dose of 60 units daily. Last took his medications yesterday.
--- NOTE | 2025-08-25 10:04 | PC.NURSE ---
Pt in stable condition for discharge. All of discharge instructions reviewed with pt. Pt with good understanding of plan of care and is comfortable with plan of care. VSS. IV removed. Ambulated out of department
--- NOTE | 2025-08-25 10:40 | MHC.CM.PN ---
PT REPORTS HE LIVES ALONE AND HAS DAILY PROCESS CONTROL TECH SERVICES HE USES A CANE PRN HE REPORTS HE HAS A HCP NAMING HIS FRIEND, CRYSTAL MACHUCA, HIS AGENT. COPY REQUESTED PCP: CORINNE SMITH DCP: PT WILL DC HOME TODAY VIA PRIVATE TRANSPORT
== END 2025-08-25 10:05 | disposition home or self-care (01) | DRG 253 ==
LOC: HO.ED 21:16 → HO.EDOVER 08-25 00:27
PROVIDERS: Physician Assistant; Admitting Provider Physician Assistant; Emergency Provider Emergency Medicine Emergency Medical Services; PCP Internal Medicine; Visit Provider Internal Medicine
DX: K92.2 Gastrointestinal hemorrhage, unspecified (principal); U07.1 COVID-19; N17.9 Acute kidney failure, unspecified; D62 Acute posthemorrhagic anemia; I25.10 Atherosclerotic heart disease of native coronary artery without angina pectoris; I12.9 Hypertensive chronic kidney disease with stage 1 through stage 4 chronic kidney disease, or unspecified chronic kidney disease; N18.9 Chronic kidney disease, unspecified; E11.22 Type 2 diabetes mellitus with diabetic chronic kidney disease; E78.5 Hyperlipidemia, unspecified; R63.4 Abnormal weight loss; Z68.22 Body mass index [BMI] 22.0-22.9, adult; Z95.5 Presence of coronary angioplasty implant and graft; Z96.41 Presence of insulin pump (external) (internal); Z79.4 Long term (current) use of insulin; Z79.02 Long term (current) use of antithrombotics/antiplatelets; Z87.891 Personal history of nicotine dependence; Z79.899 Other long term (current) drug therapy
CPT/HCPCS: 36415; 71250; 74176; 80048; 80053; 81001; 82272; 82607; 82746; 83540; 83690; 84443; 84484; 85025; 85027; 85379; 86850; 86900; 86901; 86920; 87502; 87635; 93005; 99221; 99285; P9016

== ENCOUNTER → 2025-08-24 23:52 | Outpatient (BNV) | payer MEDICAID, SELFPAY ==
[2023-05-04 12:01] VITALS: BP 102/46; BP 134/60
== END ==
PROVIDERS: Admitting Provider Physician Assistant; Emergency Provider Emergency Medicine Emergency Medical Services; PCP Internal Medicine; Visit Provider Internal Medicine Cardiovascular Disease
DX: R06.02 Shortness of breath (principal)
CPT/HCPCS: 93010

== ENCOUNTER 2025-08-25 00:22 | Outpatient (BNV) | payer MEDICAID, SELFPAY ==
[2023-05-04 12:01] VITALS: BP 102/46; BP 134/60
== END 2025-08-25 00:39 ==
PROVIDERS: Admitting Provider Physician Assistant; Emergency Provider Emergency Medicine Emergency Medical Services; PCP Internal Medicine; Visit Provider Student in an Organized Health Care Education/Training Program
DX: D64.9 Anemia, unspecified (principal); R63.4 Abnormal weight loss; J43.9 Emphysema, unspecified; R91.1 Solitary pulmonary nodule
CPT/HCPCS: 71250; 74176

== ENCOUNTER → 2025-08-25 00:22 | Outpatient (BNV) | payer MEDICAID, SELFPAY ==
[2023-05-04 12:01] VITALS: BP 102/46; BP 134/60
== END ==
PROVIDERS: Admitting Provider Physician Assistant; Emergency Provider Emergency Medicine Emergency Medical Services; PCP Internal Medicine; Visit Provider Internal Medicine
DX: K92.2 Gastrointestinal hemorrhage, unspecified (principal); D50.9 Iron deficiency anemia, unspecified; N17.9 Acute kidney failure, unspecified; N18.9 Chronic kidney disease, unspecified; U07.1 COVID-19; D62 Acute posthemorrhagic anemia
CPT/HCPCS: 99223; 99232

== ENCOUNTER 2025-09-06 13:06 | Day surgery (SDC) | payer OTHER, SELFPAY ==
[2023-05-04 12:01] VITALS: BP 102/46; BP 134/60
--- OUTSIDE RECORDS SUMMARY | 2025-08-30 06:23 | XMS_ITS | Encounter Summary ---
Author Organization [facility] Address [address] [place] [address] Phone Care Team Providers Care Snipper Name Role Phone Alan Armando MD Primary Care Provider [phone] aRdha Dunn LOKIE ENGINEER Unavailable Unavailable Quoc Gallardo Unavailable Maureen Chang NP Unavailable Benjamín Younger MD Unavailable Orly Wilson MD Unavailable [phone] Alan Armando MD Unavailable Mary Crenshaw MD Unavailable [phone] Don Rao MD Unavailable [phone] Brittani Madison RN Primary Care Provider Unavaila [facility] Brittani Madison RN Unavailable Unavailable Alan Armando MD Primary Care Provider [phone] Samira Quispe MD Primary Care Provider Encounter [...] Info) Description 10/04/2025 3:00 PM EST Nutrition [facility] [address] [place] [address] [place] [address] Radha Morales LDN [address] [address] 01/08/2026 2:40 PM EST Office Visit [facility] [address] [place] [address] Orly Wilson MD [address] [address] documented as of this encounter Procedures Procedure Name Priority Date/Time Associated Diagnosis Comments OUTSIDE LAB Routine 09/02/2017 documented in this encounter Results * Outside Lab (09/02/2017) us Historical Provider LAB BLOOD ORDERABLES Alyssa l Result documented in this encounter Visit Diagnoses Not on filedocumented in this encounter Care Teams Snipper Relationship Specialty Start Date End Date Alan Armando MD PCP - General 09/14/17 10/12/17 Brittani Madison RN [address] [place] [address] PCP - General 10/13/17 10/13/17 Alan Armando MD PCP - General Internal Medicine 10/14/17 03/11/20 Samira Quispe MD [address] [place] [address] [place] [address] PCP - General Internal Medicine 03/12/20 Radha Dunn NP [address] [place] [address] Historical LMR Provider 09/14/1702/27 Quoc Gallardo PA [address] [place] [address] Historical LMR Provider 09/14/17 2 Maureen Chang NP [address] [place] [address] [place] [address] Historical LMR Provider 09/14/1703/11 Benjamín Younger MD [address] [place] [address] Historical LMR Provider 09/14/1703/11 Orly Wilson MD [address] [place] [address], [address] [place] [address] [email or web address] Historical LMR Provider 09/14/17 Alan Armando MD [address] [place] [address] Historical LMR Provider 09/14/17 03/11/20 Mary Crenshaw MD [address] [place] [address] [facility], [place] [address] Historical LMR Provider 09/14/17 Don Rao MD [address] [place] [address] Historical LMR Provider 09/14/17 Brittani Madison RN [address] [place] [address] Registered Nurse 10/13/17 documented as of this encounter Additional Source Comments The information contained in this document represents components of the legal health record. It is not the complete legal health record.[facility]
--- OUTSIDE RECORDS SUMMARY | 2025-08-30 06:23 | XMS_ITS | Clinical Summary ---
Author Organization [facility] Address [address] [place] [address] Phone Care Team Providers Care Auto Bench Mechanic Name Role Phone Orly Wilson MD Unavailable [phone] Brittani Madison RN Unavailable Unavailable Samira Quispe MD Primary Care Provider [phone] Allergies No known active allergies Medications lisinopril [...] EDT): Followed by Dr. Anthony Delaney at [facility] Had follow up last month Blindness [...] glucose alerts as set on Dexcom G6 engineering scientist Automated Mode started today, though we reviewed [...] dose Blood pressure remains in excellent range [place] blood pressure goal given CAD and CKD [...] may be due to omission of ACEi [place] blood pressure goal given CAD and CKD [...] borderline today, advised to discuss ACEi with environmental monitoring technician Blood sugar control is also in good [...] dehydration to discuss this therapy with his environmental monitoring technician, Deidra has not yet done this Blood [...] on ACEi Coronary artery disease invo lving emmonak coronary artery of [place] heart without angina pectoris 01/07/2018 Assessment & [...] test scheduled and has met with his quality control lead about these symptoms, he is advised to [...] Unable to obtain download due to no [employer] account, attempted to set this up today [...] Dexcom to G6, this will work with [employer] once this launches; we discussed other [...] Description 07/17/2025 3:00 PM EDT Office Visit [facility] [address] [place] [address] Orly Wilson MD Type 1 diabetes mellitus with polyneuropathy (Primary Dx); Type 1 diabetes mellitus with nephropathy; 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, macular edema presence unspecified; Insulin pump in place; Hypercholesterolemia; Essential hypertension; Coronary artery disease involving [place]monak coronary artery of [place] heart without angina pectoris 06/05/2025 Refill [facility] [address] [place] [address] Orly Wilson MD Medication Refill from Last [...] Info) Description 10/04/2025 3:00 PM EST Nutrition [facility] [address] [place] [address] Radha Morales, HOLLIS [address] [place] [address] Radha Morales LDN [address] [place] [address] 01/08/2026 2:40 PM EST Office Visit [facility] [address] [place] [address] Orly Wilson MD [address] [place] [address] Health Maintenance Due Date Last Done Comments [...] Most Recently Relevant to Health Maintenance [place] [place] [address] [place] [place] [address] [place] [place] [address] [place] [address] [place] [address] [place] [address] [place] [address] [place] [place] [address] [employer] Care Teams Auto Bench Mechanic Relationship Specialty Start Date End Date Samira Quispe MD [address] [facility] [address] PCP - General Internal Medicine 03/12/20 Orly Wilson MD [address] [place] [address] Historical LMR Provider 09/14/17 Brittani Madison RN [address] [place] [address] Registered Nurse 10/13/17 Additional Source Comments The information contained in this document represents components of the legal health record. It is not the complete legal health record.[facility]
--- OUTSIDE RECORDS SUMMARY | 2025-08-30 06:23 | XMS_ITS | Clinical Summary ---
Author Organization [facility] Address [address] [place] [address] [place] [address] Phone Care Team Providers Care Chemical Plant Manager Name Role Phone Samira Quispe MD Primary Care Provider [phone] Allergies No known active allergies Medications aspirin [...] Plan: Followed by Dr. Anthony Delaney at [facility] Had follow up last month Blindness [...] Dexcom to G6, this will work with [employer] once this launches; we discussed other insulin [...] % PVNMA 05/21/2020 us Rtama Conversion LAB [id number] LICITED RESULTS Final Result PVNMA from Last 3 Months or Most Recently Relevant to Health Maintenance Insurance [facility] Medicaid Member Subscriber Plan / Payer (Ef fective 2020-Present) Name:Servando Tan Relation to Subscriber:Self Name:Servando Tan Payer ID:Not on file Group ID:[id number] Type:Not on file Address: [address] [facility] Medicaid Care Teams Chemical Plant Manager Relationship Specialty Start Date End Date Samira Quispe [place] [address] PCP - General 12/09/20
[2025-09-04 15:34] VITALS: BMI 22.9
[2025-09-04 16:15] VITALS: BMI 23.6
--- NOTE | 2025-09-05 11:46 | HO.ANESPROP2 ---
Documented by User: Mallory Camejo NP 09/05/25 11:59 HPI - Anesthesia Eval Consult details Narrative: 60 yr old male for Upper Endoscopy and Colonoscopy Discharged from [facility] [place] 08/25/25 from acute blood loss anemia admission; Hgb 9.4 at discharge on 08/25/25 CAD: s/p stent in 2021, on plavix; echo updated 07/26/25 *see below Follows [facility] [place] cardiology: last visit 04/2025, reported SOB, stress testing, cardiac US ordered, pt later found to have significant anemia likely causing SOB; Dr. Leong said okay to proceed with endo procedures without testing in work load ms 08/29/25 Type 1 DM PMFSH Active Problems Active Problems: All Active Problems Acute blood loss anemia (Acute) GI bleed (Acute) Anemia (Acute) COVID (Acute) Anemia (Acute) Diabetic nephropathy (Acute) Epidermoid cyst of skin of back (Acute) Microcytic anemia (Acute) Encounter for general adult medical examination with abnormal findings (Acute) CKD (chronic kidney disease) stage 3, GFR 30-59 ml/min (Acute) ERIC on CPAP (Acute) Annual physical exam (Acute) Difficulty sleeping (Acute) Fatigue (Acute) Excessive sleepiness (Acute) Stented coronary artery (Acute) S/P cardiac catheterization (Acute) S/P cardiac catheterization (Acute) Abnormal nuclear stress test (Acute) Nephropathy (Acute) Lipid disorder (Acute) Erectile dysfunction due to diabetes mellitus (Acute) Major depression, recurrent (Acute) Trigger finger of left thumb (Acute) Disorder of eye, left (Acute) Pre-op evaluation (Acute) Erectile dysfunction (Acute) Bladder outlet obstruction (Acute) Atherosclerotic cardiovascular disease (Acute) Type 1 diabetes mellitus with unspecified complications (Acute) History of non-ST elevation myocardial infarction (NSTEMI) (Acute) Hypogonadism in male (Acute) Hypogonadism (Acute) Blind left eye (Acute) Depression (Acute) Hypertension (Acute) Dyslipidemia (Acute) Diabetic neuropathy associated with type 1 diabetes mellitus (Acute) Coronary artery disease (Acute) Diabetic retinopathy associated with type 1 diabetes mellitus (Acute) Diabetes type 1, controlled (Acute) Osteoporosis (Acute) Hyperparathyroidism (Acute) Past Medical History Medical History Eye globe prosthesis Hx of fracture of tibia Hx of retinal detachment Chronic renal insufficiency COVID-19 vaccine administered Myocardial infarction Low vitamin B12 level Hypogonadism in male Hypogonadism Blind left eye Depression Hypertension Dyslipidemia Diabetic neuropathy associated with type 1 diabetes mellitus Coronary artery disease Diabetic retinopathy associated with type 1 diabetes mellitus Diabetes type 1, controlled Osteoporosis Hyperparathyroidism Family History Family History Father Cancer CVD (cardiovascular disease) Mother CVD (cardiovascular disease) Hypertension High cholesterol Surgical History Surgical History H/O heart artery stent S/P eye surgery History of surgery Hx of eye surgery Hx of knee surgery Hx of excision of epidermal inclusion cyst Hx of colonoscopy Social History Social History Housing: Apartment Are you a primary child care specialist to a significant other at home: No Do you presently have visiting nurse or other home services: Yes ([employer] daily) Alcohol intake: never Patient Tobacco Use Status: Former Tobacco user Tobacco use type: Cigarette Years Smoked: 28 e-Cigarette/Vaping Use: Former Use Use of substances other than those prescribed or required for medical reasons: No Have you been hit, kicked, punched, or otherwise hurt by someone within the past year? If so, by whom?: No Are you DNR?: No Advance Directives: No Advance Directives Information Provided: Yes Advance Directives on File: No Advance Directives Date on File: 09/09/11 Poor oral hygiene: No service: No Current occupational status: disabled Current occupation: rt handed Cognitive needs: No Hearing needs: No Vision needs: No Meds Allergies Allergy/AdvReac Type Severity Reaction Status Date / Time No Known Allergies Allergy Verified 08/24/25 17:43 Home Medications ?Medication ?Instructions ?Recorded ?Confirmed ?Last Taken ?Type insulin lispro 100 unit/mL 60 sliding scale dose subcut 11/19/22 09/04/25 08/24/25 History subcutaneous solution (Admelog USEASDIRECTD U-100 Insulin lispro) insulin pump cart,automated,BT #5 ea 07/28/23 08/23/25 Unknown History (Omnipod 5 G6 Pods (Gen 5) subcutaneous cartridge) lisinopril 2.5 mg tablet 1.25 mg PO BEDTIME 06/20/25 09/04/25 08/24/25 History atorvastatin 80 mg tablet 80 mg PO BEDTIME 08/25/25 09/04/25 08/24/25 History famotidine 10 mg tablet 10 mg PO Q2D@0900,2100 08/25/25 09/04/25 08/23/25 History metoprolol succinate 25 mg 25 mg PO BEDTIME 08/25/25 09/04/25 08/24/25 History tablet,extended release 24 hr tadalafil 10 mg tablet 10 mg PO Q2D@0900 prostate 08/25/25 09/04/25 2 Days Ago History ~08/23/25 aspirin 81 mg tablet,delayed 81 mg PO DAILY 09/04/25 09/04/25 08/25/25 History release clopidogrel 75 mg tablet 75 mg PO DAILY 09/04/25 09/04/25 08/25/25 History Exam Height,Weight and Vital Signs: Height 5 ft 9 in Weight 72.575 kg Narrative Narrative: ECHO 06/2025 Conclusions: - The left ventricular systolic function is normal. The calculated ejection fraction is 62% by biplane method. - No obvious valvular pathology seen on this study. EKG 07/2025 Test Reason : SHORTNESS OF BREATH Blood Pressure : */* mmHG Vent. Rate : 74 BPM Atrial Rate : 74 BPM P-R Int : 166 ms QRS Dur : 76 ms QT Int : 378 ms P-R-T Axes : 81 47 55 degrees QTcB Int : 419 ms Normal sinus rhythm Normal ECG When compared with ECG of 12-Jan-2025 00:14, No significant change was found Documented by User: Terell Ceballos MD 09/06/25 13:51 [facility] Past Medical History Medical History Eye globe prosthesis Hx of fracture of tibia Hx of retinal detachment Chronic renal insufficiency COVID-19 vaccine administered Myocardial infarction Low vitamin B12 level Hypogonadism in male Hypogonadism Blind left eye Depression Hypertension Dyslipidemia Diabetic neuropathy associated with type 1 diabetes mellitus Coronary artery disease Diabetic retinopathy associated with type 1 diabetes mellitus Diabetes type 1, controlled Osteoporosis Hyperparathyroidism Cognitive capacity: normal Family History Family History Father Cancer CVD (cardiovascular disease) Mother CVD (cardiovascular disease) Hypertension High cholesterol Surgical History Surgical History H/O heart artery stent S/P eye surgery History of surgery Hx of eye surgery Hx of knee surgery Hx of excision of epidermal inclusion cyst Hx of colonoscopy History of Problems with Anesthesia: No Social History Social History Housing: Apartment Are you a primary child care specialist to a significant other at home: No Do you presently have visiting nurse or other home services: Yes ([employer] daily) Alcohol intake: never Patient Tobacco Use Status: Former Tobacco user Tobacco use type: Cigarette Years Smoked: 28 e-Cigarette/Vaping Use: Former Use Use of substances other than those prescribed or required for medical reasons: No Have you been hit, kicked, punched, or otherwise hurt by someone within the past year? If so, by whom?: No Are you DNR?: No Advance Directives: No Advance Directives Information Provided: Yes Advance Directives on File: No Advance Directives Date on File: 09/09/11 Poor oral hygiene: No service: No Current occupational status: disabled Current occupation: rt handed Cognitive needs: No Hearing needs: No Vision needs: No Meds Allergies Allergy/AdvReac Type Severity Reaction Status Date / Time No Known Allergies Allergy Verified 08/24/25 17:43 Home Medications ?Medication ?Instructions ?Recorded ?Confirmed ?Last Taken ?Type insulin lispro 100 unit/mL 60 sliding scale dose subcut 11/19/22 09/04/25 08/24/25 History subcutaneous solution (Admelog USEASDIRECTD U-100 Insulin lispro) insulin pump cart,automated,BT #5 ea 07/28/23 08/23/25 Unknown History (Omnipod 5 G6 Pods (Gen 5) subcutaneous cartridge) lisinopril 2.5 mg tablet 1.25 mg PO BEDTIME 06/20/25 09/04/25 08/24/25 History atorvastatin 80 mg tablet 80 mg PO BEDTIME 08/25/25 09/04/25 08/24/25 History famotidine 10 mg tablet 10 mg PO Q2D@0900,2100 08/25/25 09/04/25 08/23/25 History metoprolol succinate 25 mg 25 mg PO BEDTIME 08/25/25 09/04/25 08/24/25 History tablet,extended release 24 hr tadalafil 10 mg tablet 10 mg PO Q2D@0900 prostate 08/25/25 09/04/25 2 Days Ago History ~08/23/25 aspirin 81 mg tablet,delayed 81 mg PO DAILY 09/04/25 09/04/25 08/25/25 History release clopidogrel 75 mg tablet 75 mg PO DAILY 09/04/25 09/04/25 08/25/25 History Assessment and Plan Final Anesthetic Review History of Problems with Anesthesia: No
--- NOTE | 2025-09-06 13:06 | MHC.SHP ---
Pre-Procedural Eval Section A - 24 Hr Update-Section A only Date of Service: 09/14/25 Section B - Complete if H&P > 30 days Chief Complaint: Gastrointestinal hemorrhage,anemia, Details of Present Illness: 60 yo M seen in ER for severe anemia. Booked for urgent bidirectional endoscopy for evaluation of occult GIB. Allergies: Allergies Allergy/AdvReac Type Severity Reaction Status Date / Time No Known Allergies Allergy Verified 08/24/25 17:43 Plan Diagnosis/Plan: Change I have reviewed the history and physical and performed a pertinent physical examination on my patient. No changes have occurred unless specified. Procedure was performed by dr lizama due to change in anesthesia availability. Time Spent With Patient Time: Total time managing care of this patient today ____ minutes.
[2025-09-06 13:23] VITALS: BMI 22.8
[2025-09-06 13:29] VITALS: BP 104/43; PULSE 94; RESP 16; TEMP 36.2; O2SAT 100
[2025-09-06 13:33] LABS: Hematocrit 32.4 % (42.0-52.0); Hemoglobin 9.8 g/dl (14.0-18.0); Mean Corpuscular HGB Conc 30.2 g/dl (31.0-36.0); Mean Corpuscular Hemoglobin 23.1 pg (27.0-33.0); Mean Corpuscular Volume 76.2 fL (80.0-98.0); NRBC Abs Auto 0.000 X10*3/uL (0.0-0.012); NRBC Pct Auto 0.0 /100WBC (0.0-0.2); Platelet Count 432 X10*3/uL (160-400); Red Blood Count 4.25 X10*6/uL (4.60-5.80); White Blood Count 7.1 X10*3/uL (4.8-10.8)
[2025-09-06] MEDS: Lactated Ringers 1,000 ML 100 ML IVCONT (13:48)
--- NOTE | 2025-09-06 13:49 | P.HPSUR_ITS ---
Pre-Procedural Eval Section A - 24 Hr Update-Section A only Date of Service: 09/06/25 Section B - Complete if H&P > 30 days Chief Complaint: Gastrointestinal hemorrhage,anemia, Relevant Family History (Specify if Yes): No Relevant Social History: None Present Medications: see Short Stay Collaborative assessment Medical History: Significant History (Hx of fracture of tibia Hx of retinal detachment Chronic renal insufficiency COVID-19 vaccine administered Myocardial infarction Low vitamin B12 level Hypogonadism in male Hypogonadism Blind left eye Depression Hypertension Dyslipidemia Diabetic neuropathy associated with type 1 diabetes mellitus Co) History of Previous Operations: Relevant previous surgery/procedure and date(s) (H/O heart artery stent S/P eye surgery History of surgery Hx of eye surgery Hx of knee surgery Hx of excision of epidermal inclusion cyst Hx of colonoscopy) Allergies: Allergies Allergy/AdvReac Type Severity Reaction Status Date / Time No Known Allergies Allergy Verified 08/24/25 17:43 Review of Systems Sugical H&P ROS: Negative: Constitution, Cardiovascular, Respiratory, Neurological, Psychiatric, Hem-Onc, Allergic/Immunologic, Gastrointestinal, Genitourinary, Musculoskeletal, Integumentary, Endocrine and Eyes/Ears/No se/Throat Exam Surgical H&P Exam: Normal: HEENT, Normal: Heart, Normal: Lungs, Normal: Extremities, Normal: Abdomen, Normal: Skin and Normal: Neurological Plan Diagnosis/Plan: Unchanged I have reviewed the history and physical and performed a pertinent physical examination on my patient. No changes have occurred unless specified. Time Spent With Patient Time: Total time managing care of this patient today ____ minutes.
--- NOTE | 2025-09-06 14:33 | HO.OPN-COLON ---
Colonoscopy Operative Note Operative Note Date of Service: 09/06/25 Narrative: Operative Information Procedure Description: EGD, Colonoscopy Indication: anemia Anesthesia: MAC FLEXIBLE TRANSORAL UPPER GASTROINTESTINAL ENDOSCOPY AND COLONOSCOPY PROCEDURE NOTE UPPER ENDOSCOPY Consent: Indications for the procedure and potential complications of bleeding, perforation, reaction to medications and missed diagnosis were discussed with the patient and informed consent was obtained. Instrument: Olympus GIF H 190 J mid size upper endoscope Monitoring: Vital signs and clinical assessment, continuous EKG monitoring, Pulse oximetry, Carbon Dioxide monitoring and blood pressure monitoring were done throughout the procedure. Procedure: The patient was placed in the left lateral decubitis position and pre-procedure medications were administered and a bite block was placed. The endoscope was inserted into the mouth and advanced under direct vision to the third part of duodenum. A careful inspection was made as the upper endoscope was withdrawn including a retroflexed examination of the proximal stomach; Findings and interventions are described below. Findings: Larynx:normal Esophagus: GE junction at 40 cm, diaphragm hiatus at 40 cm, mild esophagitis Stomach: mild erythema. Biopsies were obtained. Grade 2 flap valve on retroflexed examination of the cardia. Duodenum: Normal bulb and descending duodenum, bx taken to r/o celiac sprue Intervention: Biopsies as noted above, COLONOSCOPY Instrument: Olympus variable stiffness pediatric scope 190L Colonoscopy Monitoring: Vital signs and clinical assessment, continuous EKG monitoring, Pulse oximetry, Carbon Dioxide monitoring and blood pressure monitoring were done throughout the procedure. Colon withdrawal time was 20 minutes. Procedure: The patient was placed in the left lateral decubitis position and pre-procedure medications were administered. After a digital rectal examination of the ano-rectum, the video colonoscope was inserted into the rectum and advanced through the colon to the cecum/TI. The colonoscope was slowly withdrawn in a retrograde panoramic fashion and the colon mucosa was carefully examined including a retroflexed view of the rectum. Findings and interventions are described below. Procedure Difficulty:moderate Findings: Terminal Ileum- granular mucosa bx taken Cecum: 10 mm lateral spreading polyp lifted with eleveiw and removed with cold snare Ascending Colon: normal Transverse Colon -12 mm sessile polyp raised with eleview and removed with cold snare, x 1 clip applied for hemostasis Descending Colon: x 2 sessile polyps, one was 2-3 mm and removed with cold forceps, the other was 8-9 mm and removed with cold snare Sigmoid Colon: moderate severe diverticulosis, x2 sessile polyps 7-9 mm removed with cold snare Rectum: Retroflexion with small internal hemorrhoids, grade I, 10 mm semi pedunculated polyp removed with cold snare Anorectum - normal Colon preparation: [place] Bowel Preparation Scale Right colon; 2 Transverse colon: 2 Left colon; 1-2 (0 = Unprepared colon segment with mucosa not seen due to solid stool that cannot be cleared. 1 = Portion of mucosa of the colon segment seen, but other areas of the colon segment not well seen due to staining, residual stool and/or opaque liquid. 2 = Minor amount of residual staining, small fragments of stool and/or opaque liquid, but mucosa of colon segment seen well. 3 = Entire mucosa of colon segment seen well with no residual staining, small fragments of stool or opaque liquid) Impression and Post Procedure Diagnosis: Endoscopy Findings: mild esophagitis and gastritis Colonoscopy Findings: diverticulosis colon polyps x 6 internal hemorrhoids Plan: Await Pathology results Repeat Colonoscopy in 1 year due to polyp burden and fair prep in some areas or earlier if clinically indicated High fiber diet leaflet avoid straining at stool, epsom salts and sitz bath, anusol supps or cream if bx neg then capsule endo if need to restart plavix can restart after 3 days Above findings were reviewed with the patient and relevant handouts were provided if indicated.
[2025-09-06 14:40] VITALS: BP 102/44; PULSE 101; RESP 16; TEMP 36.4; O2SAT 100
[2025-09-06 14:55] VITALS: BP 93/42; PULSE 102; RESP 16; TEMP 36.6; O2SAT 100
== END 2025-09-06 15:08 | disposition home or self-care (01) ==
PROVIDERS: Nurse Practitioner; PCP Internal Medicine; Visit Provider Internal Medicine Gastroenterology
PROC: (CPT 45380; principal; 2025-09-06 13:20)
DX: D64.9 Anemia, unspecified (principal); K20.90 Esophagitis, unspecified without bleeding; K29.70 Gastritis, unspecified, without bleeding; K57.30 Diverticulosis of large intestine without perforation or abscess without bleeding; D12.7 Benign neoplasm of rectosigmoid junction; D12.0 Benign neoplasm of cecum; D12.4 Benign neoplasm of descending colon; D12.5 Benign neoplasm of sigmoid colon; D12.3 Benign neoplasm of transverse colon; K64.0 First degree hemorrhoids
CPT/HCPCS: 45380; 45385; 45381; 43239; 36415; 85027; 88305; 88313; 88342; J2250; J2371; J2704

== ENCOUNTER → 2025-09-06 13:06 | Outpatient (BNV) | payer OTHER, SELFPAY ==
[2023-05-04 12:01] VITALS: BP 102/46; BP 134/60
== END ==
PROVIDERS: PCP Internal Medicine; Visit Provider Internal Medicine Gastroenterology
DX: D64.9 Anemia, unspecified (principal); K20.90 Esophagitis, unspecified without bleeding; K29.70 Gastritis, unspecified, without bleeding; D12.0 Benign neoplasm of cecum; D12.3 Benign neoplasm of transverse colon; D12.5 Benign neoplasm of sigmoid colon; D12.8 Benign neoplasm of rectum; K57.30 Diverticulosis of large intestine without perforation or abscess without bleeding; K64.0 First degree hemorrhoids
CPT/HCPCS: 43239; 45381; 45385

== ENCOUNTER 2025-10-09 12:32 | Outpatient (AMB) | payer OTHER, SELFPAY ==
[2023-05-04 12:01] VITALS: BP 102/46; BP 134/60
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
[2025-10-09 12:35] VITALS: BP 128/68; PULSE 68; BMI 24.1
--- NOTE | 2025-10-09 12:35 | MHC.OFFVIS ---
Vital Signs 10/09/25 12:35 Height 5 ft 9 in Weight 163 lb 2.273 oz BMI 24.1 BP 128/68 Blood Pressure Location Lt brachial Position Sitting Pulse 68 Pulse Source Pulse Oximeter Intake Visit Reasons: 6m follow up Allergies No Known Allergies Allergy (Verified 08/24/25 17:43) Medication List - Last Reconciled 10/09/25 by Darryl Leong MD atorvastatin 80 mg PO BEDTIME bisacodyl (Dulcolax (bisacodyl)) 10 mg (2 x 5 mg) PO ONCE 1 day calcium carbonate 500 mg PO BID clopidogrel (Plavix) 75 mg PO DAILY famotidine 10 mg PO Q2D@0900,2100 insulin lispro (Admelog U-100 Insulin lispro) 60 sliding scale doses subcut USEASDIRECTD insulin pump cart,automated,BT (Omnipod 5 G6 Pods (Gen 5) subcutaneous cartridge) As directed lisinopril 1.25 mg PO BEDTIME magnesium oxide 400 mg PO DAILY metoprolol succinate ER 25 mg PO BEDTIME peg 3350-electrolytes 236-22.74-6.74 -5.86 gram 240 mL PO Q10M tadalafil 10 mg PO Q2D@0900 HPI Comments Details: Servando returns for follow-up regarding coronary disease. Due to long history of type 1 diabetes, he underwent ischemia workup. He was also complaining of shortness of breath with activity. Stress test was positive, and that in turn led to coronary CTA and diagnostic catheterization. He has undergone multivessel PCI. During prior visit, he was complaining of tiredness and shortness of breath. We are planning ischemic workup again but during the blood test, hemoglobin was found to be quite low explaining his symptoms. After that, it seems he got some blood transfusions and GI workup and now he states he feels fine. He has got no symptoms like angina or shortness of breath. He is off aspirin as well as Plavix. Otherwise, getting along fine. [facility] Medical History Eye globe prosthesis Hx of fracture of tibia Hx of retinal detachment Chronic renal insufficiency COVID-19 vaccine administered Myocardial infarction Low vitamin B12 level Hypogonadism in male Hypogonadism Blind left eye Depression Hypertension Dyslipidemia Diabetic neuropathy associated with type 1 diabetes mellitus Coronary artery disease Diabetic retinopathy associated with type 1 diabetes mellitus Diabetes type 1, controlled Osteoporosis Hyperparathyroidism Surgical History H/O heart artery stent S/P eye surgery History of surgery Hx of eye surgery Hx of knee surgery Hx of excision of epidermal inclusion cyst Hx of colonoscopy Family History Father Cancer CVD (cardiovascular disease) Mother CVD (cardiovascular disease) Hypertension High cholesterol Social History Housing: Apartment Are you a primary memory care program resident to a significant other at home: No Do you presently have visiting nurse or other home services: Yes ([employer] daily) Alcohol intake: never Patient Tobacco Use Status: Former Tobacco user Tobacco use type: Cigarette Years Smoked: 28 e-Cigarette/Vaping Use: Former Use Advance Directives Date on File: 09/09/11 service: No Current occupational status: disabled Current occupation: rt handed Cognitive needs: No Hearing needs: No Vision needs: No Review of Systems Const Denies weakness ENT Denies dizziness Card Denies chest pain, Denies chest pain with activity, Denies syncope, Denies rapid heart rate, Denies pedal edema, Denies edema, Denies leg edema, Denies lightheadedness, Denies palpitations, Denies dyspnea, Denies dyspnea on exertion and Denies orthopnea Resp Denies cough, Denies dyspnea and Denies dyspnea on exertion GI Denies hematochezia and Denies change in stool character Musc Denies abnormal gait, Denies muscle cramps, Denies muscle weakness, Denies numbness, Denies radiating pain into limb and Denies tingling Neuro Denies abnormal gait, Denies dizziness, Denies syncope, Denies numbness, Denies tingling and Denies weakness Endo Denies palpitations Physical Exam Vital Signs: Last Vital Signs Pulse 68 10/09/25 12:35 BP 128/68 10/09/25 12:35 BMI result Body Mass Index 24.1 Const General: comfortable and no acute distress Orientation/consciousness: patient oriented x3 HEENT Other: Unremarkable Head: Yes normal to inspection Neck Neck: Yes normal visual inspection Chest Chest palpation & inspection: normal inspection of the chest Resp Auscultation: clear to auscultation bilaterally Cardio Palpation: normal PMI Heart sounds: S1 normal heart sound present, S2 normal heart sound present, no gallops, no murmurs and no rubs GI Palpation (GI): Soft to palpation Back/Spine/Pelvis Other: unremarkable Skin General skin exam: no rashes or lesions noted Neuro General: patient oriented x3 Extrem General: Yes normal to inspection Psych Mental Status: mental status grossly normal Assessment & Plan Assessment & Plan (1) Atherosclerotic cardiovascular disease: Code(s): I25.10 - Atherosclerotic heart disease of agdaagux coronary artery without angina pectoris Category: Medical (2) Type 1 diabetes mellitus with unspecified complications: Code(s): E10.8 - Type 1 diabetes mellitus with unspecified complications Category: Medical (3) Anemia: Code(s): D64.9 - Anemia, unspecified Category: Medical Plan s/p PCI to LAD, circumflex and RCA. Recent symptoms of shortness of breath and fatigue are most likely related to anemia and seems resolved after transfusions. He is off both aspirin and Plavix. Considering his multivessel PCI, recommend to be at least on one antiplatelet drugs and he can take Plavix rather. We discussed about this today. Otherwise, continue beta-blockers, statins. Most recent LDL is 31 mg/dL. With regard to diabetes, last hemoglobin A1c is 7.3%. Discussion Notes During the consultation, I discussed with the patient the management of anemia, including the need for monitoring of hemoglobin levels. We reviewed the findings from the colonoscopy, which revealed polyps, and the suspicion of gastrointestinal bleeding as the source of anemia. I advised the patient to resume Plavix while discontinuing aspirin to balance cardiovascular risk and potential bleeding. Patient was informed and verbally consented to the use of an ambient scribe for clinic note documentation during this visit. Patient Instructions: - Resume taking Plavix as prescribed. - Discontinue aspirin to reduce bleeding risk. - Follow up with your primary care physician for blood work to monitor hemoglobin levels. Coding Level of Care Code Est Pt Level 4 (22875) Complex EM visit Add On G2211 Diagnoses Atherosclerotic cardiovascular disease I25.10 Type 1 diabetes mellitus with unspecified complications E10.8 Anemia D64.9
--- OUTSIDE RECORDS SUMMARY | 2025-10-09 14:21 | XMS_ITS | Encounter Summary ---
Author Organization [facility] Address [address] [place] [address] [place] [address] Phone Care Team Providers Care Therapy Coordinator Name Role Phone Orly Wilson MD Unavailable [phone] Brittani Madison RN Unavailable Unavailable Samira Quispe MD Primary Care Provider [phone] Reason for Visit * Reason Onset Date Comments Omnipod & Wellsense 09/11/2025 Omnipod & We llsense Encounter Details Date Type Department Care Team (Late st Contact Info) Description 09/11/2025 Telephone Conti [facility] [address] [place] [address] Orly Wilson MD 22 [facility], 1st [place] [address] [email or web address] Omnipod & Wellsense (Omnipod & Wellsense) Social History Tobacco Use Types Packs/Day Years [...] with a working camera? Not on file 05 / Sex and Gender Information Value Date Recorded Sex Assigned at Male 08/27/2019 2:28 PM EDT Legal Sex Male 9:44 PM EDT Gender Identity Male 08/27/2019 2:28 PM EDT Sexual Orientation Straight 06/16/2023 2: 36 AM EDT documented as of this encounter Progress Notes * Patricia Jones MA - 10/04/2025 9:13 AM EST Called and left a voicemail for Servando informing him I sent a PG message on 10/01 asking for him toupload a copy of his insurance card as the one on file is from 2018 and when trying to send a priorauth to insurance for [email or web address], he isn't active. I asked him to either upload a copy of his insurance card to the portal or to give the office a call back to update his insurance in order to send a modesta or auth to his insurance. * Orly Wilson MD - 09/29/2025 3:53 PM EDT Letter written if needed for appeal for sufficient quantity * Nilda Mcleod MA - 09/24/2025 10:57 AM EDT Called patient and he has to sometimes change pod every 2 days because his skin gets irritated and bruised.. * Orly Wilson MD - 09/13/2025 2:54 PM EDT It's not a denial of coverage, just a quantity limit of 30 pods for 90 days or 1 pod per 3 days; ifDeidra uses pods more frequently than this then he just needs to let us know why so that we can appeal this quantity limit on medical necessity grounds; if he is ok using pods every 3 days then therewill be no issue with this * Nilda Mcleod MA - 09/12/2025 2:20 PM EDT Please see message. * Ambreen Morgan - 09/11/2025 3:26 PM EDT Servando calls to let Dr. Wilson know that he received a letter from his insurance stating that they are discontinuing coverage of the Omnipod pumps. See copy of same letter in Media dated 08/31/25. He would like a call back with her advice moving forward. Also he was told that his phone (Android) will soon no longer support Dexcom services. documented in this encounter Plan of Treatment Upcoming Encounters Date Type Department Care Team (Late st Contact Info) Description 01/08/2026 2:40 PM EST Office Visit [facility] [address] [place] [phone] Orly Wilson MD 22 [facility], [address] [place] [address] 04/04/2026 3:00 PM EDT Nutrition [facility] [address] [place] [address] Radha Morales LDN 22 [facility], [address] [place] [address] documented as of this encounter Visit Diagnoses Not on filedocumented in this encounter Care Teams Therapy Coordinator Relationship Specialty Start Date End Date Samira Quispe MD [facility] [place] [address] PCP - General Internal Medicine 03/12/20 Orly Wilson MD [address] [place] [address] [email or web address] Historical LMR Provider 09/14/17 Brittani Madison RN [address] [place] [address] Registered Nurse 10/13/17 documented as of this encounter Additional Source Comments The information contained in this document represents components of the legal health record. It is not the complete legal health record.[facility]
--- OUTSIDE RECORDS SUMMARY | 2025-10-09 14:21 | XMS_ITS | Encounter Summary ---
Author Organization [facility] Address [address] [place] [address] Phone Care Team Providers Care Contact Lens Molder Name Role Phone Alan Armando MD Primary Care Provider [phone] Radha Dunn AGRICULTURE EXTENSION SPECIALIST Unavailable Unavailable Quoc Gallardo Unavailable [phone] Maureen Chang NP Unavailable Benjamín Younger MD Unavailable Orly Wilson MD Unavailable [phone] Alan Armando MD Unavailable Mary Crenshaw MD Unavailable Don Rao MD Unavailable Brittani Madison RN Primary Care Provider [facility] Brittani Madison RN Unavailable Unavailable Alan Armando MD Primary Care Provider [phone] Samira Quispe MD Primary Care Provider [phone] Encounter Details Date Type Department Care Team [...] Description 01/08/2026 2:40 PM EST Office Visit [facility] [address] [place] [phone] Orly Wilson MD 22 [facility], [address] [place] [address] [email or web address] 04/04/2026 3:00 PM EDT Nutrition [facility] [address] [place] [phone] Radha Morales LDN [address] [address] [email or web address] documented as of this encounter Procedures Procedure Name Priority Date/Time Associated Diagnosis Comments OUTSIDE LAB Routine 09/02/2017 documented in this encounter Results * Outside Lab (09/02/2017) us Historical Provider LAB BLOOD BKR ORDERABLES Final Result documented in this encounter Visit Diagnoses Not on filedocumented in this encounter Care Teams Contact Lens Molder Relationship Specialty Start Date End Date Alan Armando MD PCP - General 09/14/17 10/12/17 Brittani Madison RN [address] [place] [address] PCP - General 10/13/17 10/13/17 Alan Armando MD PCP - General Internal Medicine 10/14/17 03/11/20 Samira Quispe MD [address] [place] [address] [place] [address] PCP - General Internal Medicine 03/12/20 Radha Dunn AGRICULTURE EXTENSION SPECIALIST [address] [place] [address] Historical LMR Provider 09/14/1702/27 Quoc Gallardo PA [address] [place] [address] Historical LMR Provider 09/14/17 Maureen Nguyen NP [address] [place] [address] Historical LMR Provider 09/14/1703/11 Benjamín Younger MD [address] [place] [address] Historical LMR Provider 09/14/1703/11 Orly Wilson MD [address] [place] [address], [address] [place] [address] [email or web address] Historical LMR Provider 09/14/17 Alan Armando MD [address] [place] [address] [email or web address] Historical LMR Provider 09/14/17 03/11/20 Mary Crenshaw MD [address] [place] [address] Orthopedics & Sports Medicine, [facility] [place] [address] Historical LMR Provider 09/14/17 Don Rao MD [address] [place] [address] Historical LMR Provider 09/14/17 rBittani Madison RN [address] [place] [address] Registered Nurse 10/13/17 documented as of this encounter Additional Source Comments The information contained in this document represents components of the legal health record. It is not the complete legal health record.[facility]
--- OUTSIDE RECORDS SUMMARY | 2025-10-09 14:21 | XMS_ITS | Encounter Summary ---
Author Organization [facility] Address [address] [facility] [address] [place] [address] Phone Care Team Providers Care Consulting Psychologist Name Role Phone Orly Wilson MD Unavailable [phone] Brittani Madison RN Unavailable Unavailable Samira Quispe MD Primary Care Provider [phone] Reason for Visit * Reason Comments Med Change Request Encounter Details Date Type Department Care Team (Late st Contact Info) Description 10/07/2025 Refill [facility] [address] [place] [address] Orly Wilson MD 22 [facility], 1st [place] [address] [email or web address] Med Change Request Social History Tobacco Use Types Packs/Day Years [...] Progress Notes * Patricia Jones MA - 10/08/2025 11:12 AM EST Images from the original note were not included. Attempted a prior auth for OMNIPOD 5, G6/PADMINI 2 PLUS, Crtg . Prior auth not needed. documented in this encounter Plan of Treatment Upcoming Encounters Date Type Department Care Team (Late st Contact Info) Description 01/08/2026 2:40 PM EST Office Visit [facility] [address] [place] [address] Orly Wilson MD [address] [place] [address] 04/04/2026 3:00 PM EDT Nutrition [facility] [address] [place] [address] Radha Morales LDN [address] [place] [address] documented as of this encounter Visit Diagnoses Diagnosis 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, not stated as uncontrolled 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, macular edema presence unspecified Type 1 diabetes mellitus with nephropathy Insulin pump in place Insulin pump status documented in this encounter Care Teams Consulting Psychologist Relationship Specialty Start Date End Date Samira Quispe MD [address] [place] [address] PCP - General Internal Medicine 03/12/20 Orly Wilson MD [address] [place] [address] [email or web address] Historical LMR Provider 09/14/17 Brittani Madison RN [address] [place] [address] Registered Nurse 10/13/17 documented as of this encounter Additional Source Comments The information contained in this document represents components of the legal health record. It is not the complete legal health record.[facility]
--- OUTSIDE RECORDS SUMMARY | 2025-10-09 14:21 | XMS_ITS | Clinical Summary ---
Author Organization [facility] Address [address] [place] [phone] Phone Care Team Providers Care Director Speech And Hearing Name Role Phone Orly Wilson MD Unavailable [phone] Brittani Madison RN Unavailable Unavailable Samira Quispe MD Primary Care Provider [phone] Allergies No known active allergies Medications lisinopril (PRINIVIL,ZESTRIL) 2.5 MG tablet Take by mouth daily. Active aspirin 81 MG EC tablet Take 81 mg by mouth daily. Active FREESTYLE LITE METER meter kitIndications:Type 1 diabetes mellitus with polyneuropathy Use to check BG in times of CGM failure, up to 2x/day 1 each 02/16/20 23 Active alendronate 70 mg TbEF Take 70 mg by mouth every 7 days. Active calcium carbonate-vitamin D3 500 mg-400 units per tablet Take 1 tablet by mouth daily. Active OMNIPOD 5 G6 PODS, GEN 5, CrtgIndications:Typ e 1 diabetes mellitus with polyneuropathy Inject 1 each under the skin every other day. 15 each 09/27/20 23 Active ACCU-CHEK SOFTCLIX LANCETSIndications: Type 1 diabetes mellitus with polyneuropathy USE TO TEST BLOOD SUGAR 1-2 TIMES DAILY 50 each 2 01/21/20 24 Active OMNIPOD 5 G6-G7 PODS, GEN 5, CrtgIndications:Typ e 1 diabetes mellitus with diabetic polyneuropathy INJECT 1 EACH UNDER THE SKIN EVERY OTHER DAY. 15 each 10/02/20 24 Active insulin lispro (ADMELOG, HUMALOG) 100 unit/mL injection vialIndications:Typ e 1 diabetes mellitus with polyneuropathy INJECT 60 UNITS DAILY VIA INSULIN PUMP. 20 mL 11 06/05/20 25 Active magnesium oxide (MAG-OX) 400 mg (241.3 mg elemental) tablet Take 1 tablet by mouth every morning. 04/29/20 25 Active metoprolol succinate (TOPROL-XL) 25 MG 24 hr tablet Take 1 tablet by mouth every morning. 07/08/20 25 Active FREESTYLE LITE Strp stripsIndications:T ype 1 diabetes mellitus with polyneuropathy Use to check BG in times of CGM failure, up to 2x/day 100 strip 3 07/17/20 25 Active atorvastatin (LIPITOR) 80 MG tablet Take 80 mg by mouth daily. Active OMNIPOD 5, G6/PADMINI 2 PLUS, CrtgIndications:Typ e 1 diabetes mellitus with polyneuropathy,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, macular edema presence unspecified,Type 1 diabetes mellitus with nephropathy,Insulin pump in place Inject 1 each under the skin every other day. E10.42 45 each 3 10/07/20 25 Active FREESTYLE PADMINI 2 PLUS SENSOR DeviIndications:Typ e 1 diabetes mellitus with polyneuropathy,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, macular edema presence unspecified,Type 1 diabetes mellitus with nephropathy,Insulin pump in place 1 each by Miscellaneous route every 15 (fifteen) days. E10.42 Z96.41 6 each 3 10/07/20 25 Active DEXCOM G7 SENSOR DeviIndications:Typ e 1 diabetes mellitus with polyneuropathy Apply as directed every 10 days E10.42 9 each 3 07/17/20 25 2024 Disconti nued(No longer taking) Active Problems Problem Noted Date Diagnosed Date Other osteoporosis without current pathological fracture 03/12/2020 Assessment & Plan (03/12/2020 3:05 PM EDT): Followed by Dr. Anthony Delaney at [facility] Had follow up last month Blindness of [...] glucose alerts as set on Dexcom G6 baby nurse Automated Mode started today, though we reviewed [...] due for update , discussed future Omnipod AqueSys technology which will incorporate hypo/hyper minimizer with [...] dose Blood pressure remains in excellent range [place] blood pressure goal given CAD and CKD [...] may be due to omission of ACEi [place] blood pressure goal given CAD and CKD [...] borderline today, advised to discuss ACEi with home aide Blood sugar control is also in good [...] dehydration to discuss this therapy with his home aide, Deidra has not yet done this Blood [...] on ACEi Coronary artery disease invo lving [place] coronary artery of [place] heart without angina pectoris 01/07/2018 Assessment & [...] test scheduled and has met with his merchandise clerk about these symptoms, he is advised to [...] Unable to obtain download due to no 5 examples account, attempted to set this up today [...] Dexcom to G6, this will work with Vessel[employer]angu[employer] once this launches; we discussed other insulin [...] Encounters Date Type Department Care Team Description 10/07/2025 Refill [facility] [place] [address] [place] [address] Orly Wilson MD Med Change Request 10/05/[address] [place] [address] Radha Morales LDN 10/04/2025 3:00 PM EST Nutrition [facility] [address] [facility] [place] [address] Dawicki, Jessica Jeanne, LDN 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, macular edema presence unspecified (Primary Dx); Insulin pump in place 09/11/[address] [place] [address] Orly Wilson MD Omnipod & Wellsense (Omnipod & Wellsense) 07/17/2025 3:00 PM EDT Office Visit [facility] [place] [address] [place] [address] Orly Wilson MD Type 1 diabetes mellitus with polyneuropathy (Primary Dx); Type 1 diabetes mellitus with nephropathy; 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, macular edema presence unspecified; Insulin pump in place; Hypercholesterolemia; Essential hypertension; Coronary artery disease involving [place] coronary artery of [place] heart without angina pectoris from Last 3 Months Immunizations Immunization Administration [...] EDT Inhaled Oxygen Concentration - - Weight 73 kg (161 lb) 10/04/2025 3:11 PM EST Height 175.3 cm (5' 9.02 ) 01/16/2025 2:20 PM ES T Body Mass Index 23.76 01/16/2025 2:20 PM EST Plan of Treatment Upcoming Encounters Date Type Department Care Team (Late st Contact Info) Description 01/08/2026 2:40 PM EST Office Visit [facility] [address] [place] [address] Orly Wilson MD 22 [facility], [address] [place] [address] [email or web address] 04/04/2026 3:00 PM EDT Nutrition [facility] [address] [place] [phone] Radha Morales LDN 22 [facility], [address] [place] [address] Health Maintenance Due Date Last Done Comments DEPRESSION SCREENING 1975 HEPATITIS C SCREENING 1981 HIV ONE-TIME SCREENING (18-65 YEARS) 1981 COLOGUARD 2008 FIT TEST 2008 FOBT 2008 SIGMOIDOSCOPY 2008 VIRTUAL COLONOSCOPY 2008 RSV VACCINE (1 - Risk 50-74 years 1-dose series) 2013 ZOSTER VACCINES (1 of 2) 2013 PNEUMOCOCCAL VACCINES (50+ years) (2 of 2 - PCV) 02/23/2016 02/22/2015 DIABETIC EYE EXAM 10/13/2017 Adult Td,Tdap Booster 10/13/2022 10/13/2012 COLONOSCOPY 01/22/2024 01/22/2014 COLORECTAL CANCER SCREENING 01/22/2024 [...] on patient's age to complete this topic IPV VACCINES Aged Out No longer eligi ble [...] diabetes mellitus with polyneuropathy BASIC METABOLIC PANEL (BMP) Routine 03/23/2023 from Last 3 Months or Most Recently Relevant to Health Maintenance Results * (ABNORMAL) POCT Hemoglobin A1c (07/17/2025 3:30 PM EDT) Hemoglobin A1c 6.5(A) 4.2 - 5.6 % Other 07/17/2025 3:30 PM EDT us Matthew Tovar MD LAB POCT ENTER/EDIT ORDERA BLES Final Result * Basic metabolic panel (03/23/2023) us Samira Quispe MD LAB BLOOD BKR ORDERABLES Final R esult from Last 3 Months or Most Recently Relevant to Health Maintenance Insurance [facility] [place] [address] [place] [address] [address] [place] [address] ACO [facility] [facility] [employer] Care Teams Director Speech And Hearing Relationship Specialty Start Date End Date Samira Quispe MD [address] [facility] [place] [address] PCP - General Internal Medicine 03/12/20 Orly Wilson MD [address] [place] [address] [email or web address] Historical LMR Provider 09/14/17 Brittani Madison RN [address] [place] [address] Registered Nurse 10/13/17 Additional Source Comments The information contained in this document represents components of the legal health record. It is not the complete legal health record.[facility]
--- OUTSIDE RECORDS SUMMARY | 2025-10-09 14:21 | XMS_ITS | Encounter Summary ---
Author Organization 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, macular edema presence unspecified Type 1 diabetes mellitus with nephropathy Insulin pump in place Orly Wilson MD [address] [address] Phone: tel: fax: [email or web address] Referral ID Status Reason Start Date Expiration Date Visits Re quested Visits Authorized [id number] Closed 1 1 Encounter Details Date Type Department Care Team (Late st Contact Info) Description 10/05/2025 Telephone [facility] [address] [place] [address] Radha Morales LDN 22 [facility], [address] [place] [address] [email or web address] Social History Tobacco Use Types Packs/Day Years [...] as of this encounter Progress Notes * Orly Wilson MD - 10/07/2025 12:43 PM EST Prescriptions sent to [facility] * Radha Morales LDN - 10/05/2025 1:51 PM EST Jose Villalba, I saw [employer] yesterday, per his phone it will no longer support the Dexcom lio on it after the first week of October. Taina contacted the rep who confirmed this is accurate. We discussed option of switching to [place] 2 plus sensors and pods to stay in automated mode which he is ok with as he can start on his PDM. We discussed how to change sensor on PDM If you are ok with change can you send orders for [place] 2 plus sensors and Charlotte 2 plus pods Thanks! documented in this encounter Plan of Treatment Upcoming Encounters Date Type Department Care Team (Late st Contact Info) Description 01/08/2026 2:40 PM EST Office Visit [facility] [address] [place] [phone] Orly Wilson MD [address] [address] [email or web address] 04/04/2026 3:00 PM EDT Nutrition [facility] [address] [place] [address] Radha Morales LDN [address] [address] documented as of this encounter Visit Diagnoses Diagnosis Type 1 diabetes mellitus with polyneuropathy- Primary Type I (juvenile type) diabetes mellitus with neurological manifestations, not stated as uncontrolled 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, macular edema presence unspecified Type 1 diabetes mellitus with nephropathy Insulin pump in place Insulin pump status documented in this encounter Care Teams Coremaker Helper Relationship Specialty Start Date End Date Samira Quispe MD [address] [facility] [place] [address] PCP - General Internal Medicine 03/12/20 Orly Wilson MD [address] [place] [address] [email or web address] Historical LMR Provider 09/14/17 Brittani Madison, GARTH [address] [place] [address] Registered Nurse 10/13/17 documented as of this encounter Additional Source Comments The information contained in this document represents components of the legal health record. It is not the complete legal health record.[facility]
== END 2025-10-09 12:46 | disposition home or self-care (01) ==
LOC: HO.HCS 12:33
PROVIDERS: PCP Internal Medicine; Visit Provider Internal Medicine
DX: I25.10 Atherosclerotic heart disease of native coronary artery without angina pectoris (principal); E10.8 Type 1 diabetes mellitus with unspecified complications; D64.9 Anemia, unspecified
CPT/HCPCS: 99214

== ENCOUNTER → 2025-10-09 12:32 | Outpatient (BNVA) | payer OTHER, SELFPAY ==
[2023-05-04 12:01] VITALS: BP 102/46; BP 134/60
== END ==
PROVIDERS: PCP Internal Medicine; Visit Provider Internal Medicine
DX: I25.10 Atherosclerotic heart disease of native coronary artery without angina pectoris (principal); E10.8 Type 1 diabetes mellitus with unspecified complications; D64.9 Anemia, unspecified; Z95.5 Presence of coronary angioplasty implant and graft
CPT/HCPCS: 99212

== ENCOUNTER → 2025-10-11 14:16 | Outpatient (BNV) | payer OTHER, SELFPAY ==
[2023-05-04 12:01] VITALS: BP 102/46; BP 134/60
== END ==
PROVIDERS: PCP Internal Medicine; Visit Provider Internal Medicine
DX: D50.9 Iron deficiency anemia, unspecified (principal)
CPT/HCPCS: 99204

== ENCOUNTER 2025-11-12 09:09 | Day surgery (SDC) | payer OTHER, SELFPAY ==
[2023-05-04 12:01] VITALS: BP 102/46; BP 134/60
--- NOTE | 2025-11-07 12:05 | P.CONAN_ITS ---
HPI - Anesthesia Eval Consult details Narrative: 60 yr old male for excision on back PMFSH Active Problems Active Problems: All Active Problems (Updated 10/30/25 @ 15:44 by Ryder Wilburn MD) Epidermal inclusion cyst (Acute) Acute blood loss anemia (Acute) GI bleed (Acute) Anemia (Acute) COVID (Acute) Anemia (Acute) Diabetic nephropathy (Acute) Epidermoid cyst of skin of back (Acute) Microcytic anemia (Acute) Encounter for general adult medical examination with abnormal findings (Acute) CKD (chronic kidney disease) stage 3, GFR 30-59 ml/min (Acute) ERIC on CPAP (Acute) Annual physical exam (Acute) Difficulty sleeping (Acute) Fatigue (Acute) Excessive sleepiness (Acute) Stented coronary artery (Acute) S/P cardiac catheterization (Acute) S/P cardiac catheterization (Acute) Abnormal nuclear stress test (Acute) Nephropathy (Acute) Lipid disorder (Acute) Erectile dysfunction due to diabetes mellitus (Acute) Major depression, recurrent (Acute) Trigger finger of left thumb (Acute) Disorder of eye, left (Acute) Pre-op evaluation (Acute) History of non-ST elevation myocardial infarction (NSTEMI) (Acute) Type 1 diabetes mellitus with unspecified complications (Acute) Atherosclerotic cardiovascular disease (Acute) Bladder outlet obstruction (Acute) Erectile dysfunction (Acute) Hypogonadism in male (Acute) Hypogonadism (Acute) Blind left eye (Acute) Depression (Acute) Hypertension (Acute) Dyslipidemia (Acute) Diabetic neuropathy associated with type 1 diabetes mellitus (Acute) Coronary artery disease (Acute) Diabetic retinopathy associated with type 1 diabetes mellitus (Acute) Diabetes type 1, controlled (Acute) Osteoporosis (Acute) Hyperparathyroidism (Acute) Past Medical History Medical History Eye globe prosthesis Hx of fracture of tibia Hx of retinal detachment Chronic renal insufficiency COVID-19 vaccine administered Myocardial infarction Low vitamin B12 level Hypogonadism in male Hypogonadism Blind left eye Depression Hypertension Dyslipidemia Diabetic neuropathy associated with type 1 diabetes mellitus Coronary artery disease Diabetic retinopathy associated with type 1 diabetes mellitus Diabetes type 1, controlled Osteoporosis Hyperparathyroidism Family History Family History Father Cancer CVD (cardiovascular disease) Mother CVD (cardiovascular disease) Hypertension High cholesterol Surgical History Surgical History H/O heart artery stent S/P eye surgery History of surgery Hx of eye surgery Hx of knee surgery Hx of excision of epidermal inclusion cyst Hx of colonoscopy History of Problems with Anesthesia: No Social History Social History Household Members: None Housing: Apartment Are you a primary manager intensive care unit to a significant other at home: No Do you presently have visiting nurse or other home services: Yes (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 BAIT PROCESSING 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 daily) Alcohol intake: never Patient Tobacco Use Status: Current everyday Tobacco user Tobacco use type: Cigarette Years Smoked: 28 e-Cigarette/Vaping Use: Former Use Advance Directives Date on File: 09/09/11 service: No Current occupational status: disabled Current occupation: rt handed Cognitive needs: No Hearing needs: No Vision needs: No Meds Allergies Allergy/AdvReac Type Severity Reaction Status Date / Time No Known Allergies Allergy Verified 10/30/25 15:32 Home Medications ?Medication ?Instructions ?Recorded ?Confirmed ?Last Taken ?Type insulin lispro 100 unit/mL 60 sliding scale dose subcu t 11/19/22 10/30/25 08/24/25 History subcutaneous solution (Admelog USEASDIRECTD U-100 Insulin lispro) insulin pump cart,automated,BT #5 ea 07/28/23 10/30/25 Unknown History (Omnipod 5 G6 Pods (Gen 5) subcutaneous cartridge) lisinopril 2.5 mg tablet 1.25 mg PO BEDTIME 06/20/25 10/30/25 08/24/25 History atorvastatin 80 mg tablet 80 mg PO BEDTIME 08/25/2508/24/25 History famotidine 10 mg tablet 10 mg PO Q2D@0900,2100 08/2510/30/25 08/23/25 History metoprolol succinate 25 mg 25 mg PO BEDTIME 08/25/25 1 12/31/24 08/24/25 History tablet,extended release 24 hr tadalafil 10 mg tablet 10 mg PO Q2D@0900 prostate 0 08/25/25 10/30/25 2 Days Ago History ~08/23/25 clopidogrel 75 mg tablet (Plavix) 75 mg PO DAILY 10/0910/30/25 Unknown History Assessment and Plan Final Anesthetic Review History of Problems with Anesthesia: No
--- NOTE | 2025-11-07 12:09 | HO.ANESPROP2 ---
HPI - Anesthesia Eval Consult details Narrative: 60yo M for Excision Cyst on Back, 11/12/25 CAD: s/p stent in 2021, on plavix; echo updated 07/26/25 *see below Follows [facility] cardiology: last visit 09/2025. Reports SOB and angina resolved with treatment of acute blood loss anemia via GI. Restarted on Plavix for hx multivessel CAD s/p EGD and [place] 08/2025 with TIVA Type 1 DM PMFSH Active Problems Active Problems: All Active Problems Epidermal inclusion cyst (Acute) Acute blood loss anemia (Acute) GI bleed (Acute) Anemia (Acute) COVID (Acute) Anemia (Acute) Diabetic nephropathy (Acute) Epidermoid cyst of skin of back (Acute) Microcytic anemia (Acute) Encounter for general adult medical examination with abnormal findings (Acute) CKD (chronic kidney disease) stage 3, GFR 30-59 ml/min (Acute) ERIC on CPAP (Acute) Annual physical exam (Acute) Difficulty sleeping (Acute) Fatigue (Acute) Excessive sleepiness (Acute) Stented coronary artery (Acute) S/P cardiac catheterization (Acute) S/P cardiac catheterization (Acute) Abnormal nuclear stress test (Acute) Nephropathy (Acute) Lipid disorder (Acute) Erectile dysfunction due to diabetes mellitus (Acute) Major depression, recurrent (Acute) Trigger finger of left thumb (Acute) Disorder of eye, left (Acute) Pre-op evaluation (Acute) History of non-ST elevation myocardial infarction (NSTEMI) (Acute) Type 1 diabetes mellitus with unspecified complications (Acute) Atherosclerotic cardiovascular disease (Acute) Bladder outlet obstruction (Acute) Erectile dysfunction (Acute) Hypogonadism in male (Acute) Hypogonadism (Acute) Blind left eye (Acute) Depression (Acute) Hypertension (Acute) Dyslipidemia (Acute) Diabetic neuropathy associated with type 1 diabetes mellitus (Acute) Coronary artery disease (Acute) Diabetic retinopathy associated with type 1 diabetes mellitus (Acute) Diabetes type 1, controlled (Acute) Osteoporosis (Acute) Hyperparathyroidism (Acute) Past Medical History Medical History Eye globe prosthesis Hx of fracture of tibia Hx of retinal detachment Chronic renal insufficiency COVID-19 vaccine administered Myocardial infarction Low vitamin B12 level Hypogonadism in male Hypogonadism Blind left eye Depression Hypertension Dyslipidemia Diabetic neuropathy associated with type 1 diabetes mellitus Coronary artery disease Diabetic retinopathy associated with type 1 diabetes mellitus Diabetes type 1, controlled Osteoporosis Hyperparathyroidism Family History Family History Father Cancer CVD (cardiovascular disease) Mother CVD (cardiovascular disease) Hypertension High cholesterol Surgical History Surgical History H/O heart artery stent S/P eye surgery History of surgery Hx of eye surgery Hx of knee surgery Hx of excision of epidermal inclusion cyst Hx of colonoscopy History of Problems with Anesthesia: No Social History Social History Household Members: None Housing: Apartment Are you a primary career placement services counselor to a significant other at home: No Do you presently have visiting nurse or other home services: Yes (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) Alcohol intake: never Patient Tobacco Use Status: Current everyday Tobacco user Tobacco use type: Cigarette Years Smoked: 28 e-Cigarette/Vaping Use: Former Use Advance Directives Date on File: 09/09/11 service: No Current occupational status: disabled Current occupation: rt handed Cognitive needs: No Hearing needs: No Vision needs: No Meds Allergies Allergy/AdvReac Type Severity Reaction Status Date / Time No Known Allergies Allergy Verified 10/30/25 15:32 Home Medications ?Medication ?Instructions ?Recorded ?Confirmed ?Last Taken ?Type insulin lispro 100 unit/mL 60 sliding scale dose subcut 11/19/22 10/30/25 08/24/25 History subcutaneous solution (Admelog USEASDIRECTD U-100 Insulin lispro) insulin pump cart,automated,BT #5 ea 07/28/23 10/30/25 Unknown History (Omnipod 5 G6 Pods (Gen 5) subcutaneous cartridge) lisinopril 2.5 mg tablet 1.25 mg PO BEDTIME 06/20/25 10/30/25 08/24/25 History atorvastatin 80 mg tablet 80 mg PO BEDTIME 08/25/25 10/30/25 08/24/25 History famotidine 10 mg tablet 10 mg PO Q2D@0900,2100 08/25/25 10/30/25 08/23/25 History metoprolol succinate 25 mg 25 mg PO BEDTIME 08/25/25 10/30/25 08/24/25 History tablet,extended release 24 hr tadalafil 10 mg tablet 10 mg PO Q2D@0900 prostate 08/25/25 10/30/25 2 Days Ago History ~08/23/25 clopidogrel 75 mg tablet (Plavix) 75 mg PO DAILY 10/09/25 10/30/25 Unknown History Exam Pertinent Lab Results Pertinent Lab Results: Laboratory Tests 08/25/25 10/11/25 07:53 14:56 WBC 5.5 Hgb 10.3 L Hct 33.0 L Plt Count 278 D Sodium 141 Potassium 4.2 Chloride 106 Carbon Dioxide 27 BUN 20 H Creatinine 1.32 Narrative Narrative: ECHO 06/2025 Conclusions: - The left ventricular systolic function is normal. The calculated ejection fraction is 62% by biplane method. - No obvious valvular pathology seen on this study. EKG 07/2025 Vent. Rate : 74 BPM Atrial Rate : 74 BPM P-R Int : 166 ms QRS Dur : 76 ms QT Int : 378 ms P-R-T Axes : 81 47 55 degrees QTcB Int : 419 ms Normal sinus rhythm Normal ECG When compared with ECG of 12-Jan-2025 00:14, No significant change was found Assessment and Plan Assessment Anesthesia Assessment: Chart Reviewed Final Anesthetic Review History of Problems with Anesthesia: No
[2025-11-12 09:35] VITALS: BP 137/72; PULSE 76; RESP 16; TEMP 36.9; O2SAT 99
[2025-11-12 12:37] VITALS: BP 179/75; PULSE 82; RESP 18; TEMP 37.2; O2SAT 99
[2025-11-12 12:55] VITALS: BP 109/61
--- NOTE | 2025-11-12 12:59 | P.OP_ITS ---
Operative Note Operative Note Date of Service: 11/12/25 Narrative: Preoperative diagnosis: Right upper back sebaceous cyst Postoperative diagnosis: Right upper back sebaceous cyst the in-line procedure performed excisional biopsy of right upper back sebaceous cyst Surgeon: Ryder Wilburn MD Associate Professor Of Pathology: SAMARA Pete Specimen right upper back sebaceous cyst The patient was brought to the operating room and placed prone on the operating table. At his request no sedation or anesthesia was used apart from local infiltration. His right upper back was then prepped and draped in a standard sterile fashion. Once this was done approximately 40 cc of Marcaine with epinephrine were infused in the skin around the soft tissue of a previously marked right upper back cyst. A 4 cm long stab incision was then created transversely directly over the cyst. The cyst was then completely mobilized with sharp dissection so the entire capsule was excised from the surrounding soft tissue attachments. It was then passed off table as a specimen. It measured approximately 3 cm in diameter. Hemostasis was achieved with cautery. The deep dermals were closed with 0 Polysorb on a UR 6 needle. The skin was then closed with 4-0 Vicryl in a buried subcuticular fashion. Steri-Strips and sterile occlusive dressings were applied. The patient tolerated procedure well, was returned supine on the operating table then transported to the recovery room in good condition. The sponge instrument needle counts were correct at the end of the case and I directly supervised or performed all aspects of the case. I also discussed the details of the case with the patient after it.
== END 2025-11-12 13:05 | disposition home or self-care (01) ==
PROVIDERS: PCP Internal Medicine; Visit Provider Surgery
PROC: (CPT 11403; principal; 2025-11-12 11:20)
DX: L72.0 Epidermal cyst (principal); E10.22 Type 1 diabetes mellitus with diabetic chronic kidney disease; I12.9 Hypertensive chronic kidney disease with stage 1 through stage 4 chronic kidney disease, or unspecified chronic kidney disease; N18.30 Chronic kidney disease, stage 3 unspecified; E10.40 Type 1 diabetes mellitus with diabetic neuropathy, unspecified; E10.319 Type 1 diabetes mellitus with unspecified diabetic retinopathy without macular edema; I25.10 Atherosclerotic heart disease of native coronary artery without angina pectoris; Z95.5 Presence of coronary angioplasty implant and graft; I25.2 Old myocardial infarction; M81.0 Age-related osteoporosis without current pathological fracture; Z79.4 Long term (current) use of insulin; Z79.02 Long term (current) use of antithrombotics/antiplatelets; Z79.899 Other long term (current) drug therapy; F17.210 Nicotine dependence, cigarettes, uncomplicated
CPT/HCPCS: 11403; 88304; J2003; J2004

== ENCOUNTER 2025-11-12 13:09 | Outpatient (REF) | payer OTHER, SELFPAY ==
[2023-05-04 12:01] VITALS: BP 102/46; BP 134/60
[2025-11-12 15:34] LABS: Anion Gap 12 (12-20); Blood Urea Nitrogen 14 mg/dL (9-16); Carbon Dioxide 24 mmol/L (22-29); Chloride 110 mmol/L (96-108); Estimated Glomerular Filt Rate > 60; Magnesium 1.8 mg/dL (1.6-2.6); Potassium 4.2 mmol/L (3.3-5.1); Sodium 142 mmol/L (135-145)
[2025-11-12 16:28] LABS: Total Protein Urine Random < 7 mg/dL (<12)
--- OUTSIDE RECORDS SUMMARY | 2025-11-12 19:07 | XMS_ITS | Encounter Summary ---
Author Organization [facility] Address [address] [facility] [address] [place] [address] Phone Care Team Providers Care Night Time Babysitter Name Role Phone Orly Wilson MD Unavailable [phone] Brittani Madison RN Unavailable Unavailable Samira Quispe MD Primary Care Provider [phone] Reason for Visit * Reason Comments Med Change Request Encounter Details Date Type Department Care Team (Late st Contact Info) Description 10/07/2025 Refill [facility] Medical [facility] [address] [place] [address] Orly Wilson MD 22 [facility], 1st [place] [address] [email or web address] Med Change Request Social History Tobacco Use [...] Progress Notes * Patricia Jones MA - 11/02/2025 8:04 AM EST Faxed new PA for OMNIPOD 5, G6/PADMINI 2 PLUS, Crtg to [facility] fax # [phone] for quality limit * Patricia Jones MA - 10/12/2025 2:32 PM EST See TE from 09/11/25. Faxed and confirmed prior auth for OMNIPOD 5, G6/PADMINI 2 PLUS, Crtg to [facility] through [employer] to fax # [phone] * Patricia Jones MA - 10/10/2025 9:11 AM EST Called and left a voicemail for Servando informing him I sent a PG message regarding his insurance for a prior auth that is needed on his omnipod pods. When I try the prior auth, insurance states theycannot find him in the system. I am looking for him to send us an updated copy of his insurance card as the one on file is from 2018. I will need this in order to send the prior auth to the correct insurance. If he is unable to get into his PG, if he could give the office a call to make sure his insurance is updated in his chart and to give them his insurance phone number for us to get in contactwith. * Patricia Jones MA - 10/08/2025 11:12 AM EST Images from the original note were not included. Attempted a prior auth for OMNIPOD 5, G6/PADMINI 2 PLUS, Crtg . Prior auth not needed. documented in this encounter Plan of Treatment Upcoming Encounters Date Type Department Care Team (Late st Contact Info) Description 01/08/2026 2:40 PM EST Office Visit [facility] [address] [place] [address] Orly Wilson MD [address] [address] 04/04/2026 3:00 PM EDT Nutrition [facility] [address] [place] [address] Radha Morales LDN [address] [place] [address] documented as of this encounter Visit Diagnoses Diagnosis 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, not stated as uncontrolled 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, macular edema presence unspecified Type 1 diabetes mellitus with nephropathy Insulin pump in place Insulin pump status documented in this encounter Care Teams Night Time Babysitter Relationship Specialty Start Date End Date Samira Quispe MD [address] [place] [address] PCP - General Internal Medicine 03/12/20 Orly iWlson MD [address] [address] Historical LMR Provider 09/14/17 Brittani Madison RN [address] [place] [address] Registered Nurse 10/13/17 documented as of this encounter Additional Source Comments The information contained in this document represents components of the legal health record. It is not the complete legal health record.[facility]
--- OUTSIDE RECORDS SUMMARY | 2025-11-12 19:07 | XMS_ITS | Clinical Summary ---
Author Organization [facility] Address [address] [place] [address] Phone Care Team Providers Care Boat Driver Name Role Phone Orly Wilson MD Unavailable [phone] Brittani Madison RN Unavailable Unavailable Samira Quispe MD Primary Care Provider [phone] Allergies No known active allergies Medications lisinopril [...] Z96.41 6 each 3 10/07/20 25 Active Active Problems Problem Noted Date Diagnosed Date Other osteoporosis without current pathological fracture 03/12/2020 Assessment & Plan (03/12/2020 3:05 PM EDT): Followed by Dr. Anthony Delaney at [facility] Had follow up last month Blindness of [...] look more into this, advising we have [employer] download capability, but am unaware of Xdrip. [...] glucose alerts as set on Dexcom G6 marketing database coordinator Automated Mode started today, though we reviewed [...] dose Blood pressure remains in excellent range [place] Pk blood pressure goal given CAD and CKD [...] may be due to omission of ACEi [place] Pk blood pressure goal given CAD and CKD [...] borderline today, advised to discuss ACEi with statistical geneticist Blood sugar control is also in good [...] dehydration to discuss this therapy with his statistical geneticist, Deidra has not yet done this Blood [...] on ACEi Coronary artery disease invo lving [place] coronary artery of [place] heart without angina pectoris 01/07/2018 Assessment & [...] test scheduled and has met with his event specialist food demonstrator about these symptoms, he is advised to [...] Unable to obtain download due to no [employer] account, attempted to set this up today [...] Dexcom to G6, this will work with [employer] once this launches; we discussed other insulin [...] Encounters Date Type Department Care Team Description 11/01/2025 Refill [facility] [place] [address] [place] [address] Orly Wilson MD Med Change Request 10/07/2025 Refill [facility] [place] [address] [place] [address] Orly Wilson MD Med Change Request 10/05/2025 Telephone [facility] [address] [place] [address] Radha Morales LDN 10/04/2025 3:00 PM EST Nutrition [facility] [address] [place] [address] Radha Morales, Radha Dodd, GHISLAINE 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, [address] [place] [address] [email or web address] Health Maintenance Due Date Last Done Comments [...] 08/29/2021, 08/28/2020, Additional history exists COVID-19 VACCINE ( season) 2025 11/08/2023, 08/31/2022, 12/24/2021, Additional history [...] Most Recently Relevant to Health Maintenance Insurance [facility] [place] [address] [place] [address] [place] [address] [address] [place] [address] [place] [place] [address] [employer] Care Teams Boat Driver Relationship Specialty Start Date End Date Samira Quispe MD [address] [facility] [place] [address] PCP - General Internal Medicine 03/12/20 Orly Wilson MD [address] [address] [email or web address] Historical LMR Provider 09/14/17 Brittani Madison RN [address] [place] [address] Registered Nurse 10/13/17 Additional Source Comments The information contained in this document represents components of the legal health record. It is not the complete legal health record.[facility]
--- OUTSIDE RECORDS SUMMARY | 2025-11-12 19:07 | XMS_ITS | Encounter Summary ---
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, macular edema presence unspecified Type 1 diabetes mellitus with nephropathy Insulin pump in place Orly Wilson MD [address] [address] Phone: tel: fax: [email or web address] Referral ID Status Reason Start Date Expiration Date Visits Re quested Visits Authorized [id number] Closed 1 1 Encounter Details Date Type Department Care Team (Late st Contact Info) Description 10/05/2025 Telephone [facility] [address] [place] [address] Radha Morales LDN 22 [facility], [address] [place] [address] [email or web address] Social History Tobacco Use Types Packs/Day Years [...] 10/07/2025 12:43 PM EST Prescriptions sent to [facility] * Radha Morales LDN - 10/05/2025 1:51 [...] Description 01/08/2026 2:40 PM EST Office Visit [facility] [address] [place] [address] Orly Wilson MD [address] [address] [email or web address] 04/04/2026 3:00 PM EDT Nutrition [facility] [address] [place] [address] Radha Morales LDN [address] [address] documented as of this encounter Visit Diagnoses Diagnosis Type 1 diabetes mellitus with polyneuropathy- Primary Type I (juvenile type) diabetes mellitus with neurological manifestations, not stated as uncontrolled 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, macular edema presence unspecified Type 1 diabetes mellitus with nephropathy Insulin pump in place Insulin pump status documented in this encounter Care Teams Senior Reliability Engineer Relationship Specialty Start Date End Date Samira Quispe MD [address] [place] [address] PCP - General Internal Medicine 03/12/20 Orly Wilson MD [address] [place] [address] [email or web address] Historical LMR Provider 09/14/17 Brittani Madison, GARTH [address] [place] [address] Registered Nurse 10/13/17 documented as of this encounter Additional Source Comments The information contained in this document represents components of the legal health record. It is not the complete legal health record.[facility]
--- OUTSIDE RECORDS SUMMARY | 2025-11-12 19:07 | XMS_ITS | Encounter Summary ---
Author Organization [facility] Address [address] [facility] [address] [place] [address] Phone Care Team Providers Care Retrieval Specialist Name Role Phone Orly Wilson MD Unavailable [phone] Brittani Madison RN Unavailable Unavailable Samira Quispe MD Primary Care Provider [phone] Reason for Visit * Reason Comments Med Change Request Encounter Details Date Type Department Care Team (Late st Contact Info) Description 11/01/2025 Refill [facility] Medical [facility] [address] [place] [address] Orly Wilson MD 22 [facility], 1st [place] [address] [email or web address] Med [...] Description 01/08/2026 2:40 PM EST Office Visit [facility] [address] [place] [address] Orly Wilson MD [address] [address] 04/04/2026 3:00 PM EDT Nutrition [facility] [address] [place] [address] Radha Morales LDN [address] [place] [address] documented as of this encounter Visit Diagnoses Diagnosis 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, not stated as uncontrolled 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, macular edema presence unspecified Type 1 diabetes mellitus with nephropathy Insulin pump in place Insulin pump status documented in this encounter Care Teams Retrieval Specialist Relationship Specialty Start Date End Date Samira Quispe MD [address] [place] [address] PCP - General Internal Medicine 03/12/20 Orly Wilson MD [address] [address] Historical LMR Provider 09/14/17 Brittani Madison RN [address] [place] [address] Registered Nurse 10/13/17 documented as of this encounter Additional Source Comments The information contained in this document represents components of the legal health record. It is not the complete legal health record.[facility]
--- OUTSIDE RECORDS SUMMARY | 2025-11-12 19:07 | XMS_ITS | Encounter Summary ---
Author Organization [facility] Address [address] [place] [address] Phone Care Team Providers Care Paper Sealer Name Role Phone Alan Armando MD Primary Care Provider [phone] Radha Dunn GAUGE AND WEIGH MACHINE ADJUSTER Unavailable Unavailable Quoc Gallardo Unavailable [phone] Maureen Chang NP Unavailable Benjamín Younger MD Unavailable Orly Wilson MD Unavailable [phone] Alan Armando MD Unavailable Mary Crenshaw MD Unavailable Don Rao MD Unavailable Brittani Madison RN Primary Care Provider [facility] Brittani Madison RN Unavailable Unavailable Alan Armando MD Primary Care Provider [phone] Samira Quispe MD Primary Care Provider Encounter [...] Description 01/08/2026 2:40 PM EST Office Visit [facility] [address] [place] [address] Orly Wilson MD 22 [facility], [address] [place] [address] [email or web address] 04/04/2026 3:00 PM EDT Nutrition [facility] [address] [place] [phone] Radha Morales LDN [address] [address] [email or web address] documented as of this encounter Procedures Procedure Name Priority Date/Time Associated Diagnosis Comments OUTSIDE LAB Routine 09/02/2017 documented in this encounter Results * Outside Lab (09/02/2017) us Historical Provider LAB BLOOD BKR ORDERABLES Final Result documented in this encounter Visit Diagnoses Not on filedocumented in this encounter Care Teams Paper Sealer Relationship Specialty Start Date End Date Alan Armando MD PCP - General 09/14/17 10/12/17 Brittani Madison RN [address] [place] [address] PCP - General 10/13/17 10/13/17 Alan Armando MD PCP - General Internal Medicine 10/14/17 03/11/20 Samira Quispe MD [address] [place] [address] [place] [address] PCP - General Internal Medicine 03/12/20 Radha Dunn GAUGE AND WEIGH MACHINE ADJUSTER [address] [place] [address] Historical LMR Provider 09/14/1702/27 Quoc Gallardo PA [address] [place] [address] Historical LMR Provider 09/14/17 Maureen Nguyen NP [address] [place] [address] Historical LMR Provider 09/14/1703/11 Benjamín Younger MD [address] [place] [address] Historical LMR Provider 09/14/1703/11 Orly Wilson MD [address] [place] [address], [address] [place] [address] [email or web address] Historical LMR Provider 09/14/17 Alan Armando MD [address] [place] [address] [email or web address] Historical LMR Provider 09/14/17 03/11/20 Mary Crenshaw MD [address] [place] [address] Orthopedics & Sports Medicine, [facility] [place] [address] Historical LMR Provider 09/14/17 Don Rao MD [address] [place] [address] Historical LMR Provider 09/14/17 Brittani Madison RN [address] [place] [address] Registered Nurse 10/13/17 documented as of this encounter Additional Source Comments The information contained in this document represents components of the legal health record. It is not the complete legal health record.[facility]
== END 2025-11-12 13:10 | disposition home or self-care (01) ==
LOC: HO.LAB 13:09
PROVIDERS: PCP Internal Medicine; Visit Provider Internal Medicine Nephrology
DX: E10.22 Type 1 diabetes mellitus with diabetic chronic kidney disease (principal); N18.31 Chronic kidney disease, stage 3a; D64.9 Anemia, unspecified
CPT/HCPCS: 36415; 80051; 82565; 82570; 83735; 84156; 84520

== ENCOUNTER 2025-11-16 13:47 | Outpatient (AMB) | payer OTHER, SELFPAY ==
[2023-05-04 12:01] VITALS: BP 102/46; BP 134/60
--- NOTE | 2025-11-16 13:50 | HO.NEPHOV_ITS ---
Vital Signs 11/16/25 14:00 Height 5 ft 9 in Weight 160 lb 6 oz BMI 23.7 BP 102/54 L Blood Pressure Location Lt brachial Position Sitting Pulse 64 Pulse Source Pulse Oximeter Pulse Oximetry (%) 97 Oxygen Delivery Method Room Air Intake Visit Reasons: 3mon f/u w/labs-Conf Manager Management Required: No Accompanied by: Self / Same As Patient Allergies No Known Allergies Allergy (Verified 11/16/25 13:59) HPI Comments Details: Servando was seen in follow-up of his chronic kidney disease. His blood sugar is pretty well controlled. He is a type 1 diabetic on insulin pump.He has a history of coronary disease needing PCI and stent insertion. He does not have any significant proteinuria. He denies taking nonsteroidal anti-inflammatories. He has no urinary symptoms . He does not have any chest pain, shortness of breath, hypoglycemia, pedal edema, hematuria. He is compliant with his medications. He takes anticoagulants PFSH Medical History Eye globe prosthesis Hx of fracture of tibia Hx of retinal detachment Chronic renal insufficiency COVID-19 vaccine administered Myocardial infarction Low vitamin B12 level Hypogonadism in male Hypogonadism Blind left eye Depression Hypertension Dyslipidemia Diabetic neuropathy associated with type 1 diabetes mellitus Coronary artery disease Diabetic retinopathy associated with type 1 diabetes mellitus Diabetes type 1, controlled Osteoporosis Hyperparathyroidism Surgical History H/O heart artery stent S/P eye surgery History of surgery Hx of eye surgery Hx of knee surgery Hx of excision of epidermal inclusion cyst Hx of colonoscopy Family History Father Cancer CVD (cardiovascular disease) Mother CVD (cardiovascular disease) Hypertension High cholesterol Social History Household Members: None Housing: Apartment Are you a primary wound care rn to a significant other at home: No Do you presently have visiting nurse or other home services: Yes (BIOCHEMISTRY TECHNICIAN daily) Alcohol intake: never Patient Tobacco Use Status: Current everyday Tobacco user Tobacco use type: Cigarette Years Smoked: 28 e-Cigarette/Vaping Use: Former Use Advance Directives Date on File: 09/09/11 service: No Current occupational status: disabled Current occupation: rt handed Cognitive needs: No Hearing needs: No Vision needs: No Review of Systems Const All systems reviewed & are unremarkable except as noted in HPI and below Physical Exam Const General: comfortable and no acute distress Orientation/consciousness: patient oriented x3 HEENT Head: Yes normocephalic Mouth: Normal oral and palatal mucosa present Eyes EOM: EOMs intact bilaterally Neck Neck: Yes supple Resp Auscultation: clear to auscultation bilaterally Cardio Jugular venous distension: no JVD Rate: regular rate GI Palpation (GI): Soft to palpation Auscultation: normal bowel sounds General: Yes no CVA tenderness Back/Spine/Pelvis Back: no CVA tenderness Skin General skin exam: no rashes or lesions noted Neuro General: patient oriented x3 and moves all extremities Extrem General: Yes no pedal edema Results Reviewed Nephrology Results: Hgb, (14.0-18.0) 10.3 g/dl L 10/11/25 WBC, (4.8-10.8) 5.5 X10*3/uL 10/11/25 Plt Count, (160-400) 278 X10*3/uL Δ 10/11/25 Sodium, (135-145) 142 mmol/L 11/12/25 Potassium, (3.3-5.1) 4.2 mmol/L 11/12/25 Chloride, (96-108) 110 mmol/L H 11/12/25 Carbon Dioxide, (22-29) 24 mmol/L 11/12/25 BUN, (9-16) 14 mg/dL 11/12/25 Creatinine, (0.5-1.4) 1.15 mg/dL 11/12/25 Urine Creatinine 117.51 mg/dL 11/12/25 Protein/Creatinin Ratio TNP 11/12/25 Assessment & Plan Assessment & Plan (1) CKD (chronic kidney disease) stage 3, GFR 30-59 ml/min: Code(s): N18.30 - Chronic kidney disease, stage 3 unspecified Category: Medical Qualifiers: Chronic kidney disease stage 3 subtype: stage 3a (GFR 45-59) Qualified Code(s): N18.31 - Chronic kidney disease, stage 3a (2) Hypertension: Code(s): I10 - Essential (primary) hypertension Category: Medical Qualifiers: Hypertension type: primary hypertension Qualified Code(s): I10 - Essential (primary) hypertension Plan Servando is type 1 diabetic. He does not have any proteinuria. His renal functions are stable. His serum potassium is normal. He is on insulin pump. He maintains good hydration. He avoids nonsteroidal anti-inflammatories. He has history of coronary artery disease needing stenting. He is not a candidate for Farxiga or Jardiance. ( Type 1 DM). C/W lisinopril 1.25 mg daily. I did not make any other medication changes today. I discussed all his lab work in detail.Follow-up appointment given Orders: Orders Electrolytes 6 Months I10 - Essential (primary) hypertension, N18.31 - Chronic kidney disease, stage 3a Creatinine 6 Months I10 - Essential (primary) hypertension, N18.31 - Chronic kidney disease, stage 3a Protein Creatinine Ratio, Ur 6 Months I10 - Essential (primary) hypertension, N18.31 - Chronic kidney disease, stage 3a Blood Urea Nitrogen 6 Months I10 - Essential (primary) hypertension, N18.31 - Chronic kidney disease, stage 3a Coding Level of Care Code Est Pt Level 4 (91894) Diagnoses Stage 3a chronic kidney disease N18.31 Chronic kidney disease stage 3 subtype: stage 3a (GFR 45-59) Primary hypertension I10 Hypertension type: primary hypertension
[2025-11-16 14:00] VITALS: BP 102/54; PULSE 64; O2SAT 97; BMI 23.7
--- OUTSIDE RECORDS SUMMARY | 2025-11-16 15:26 | XMS_ITS | Encounter Summary ---
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 Referral ID Status Reason Start Date Expiration Date Visits Re quested Visits Authorized [id number] Closed 1 1 Encounter Details Date Type Department Care Team (Late st Contact Info) Description 10/05/2025 Telephone [facility] 22 [place] [address] Radha Morales LDN 22 [facility], [address] [place] [address] [email or web address] Social History Tobacco Use Types Packs/Day Years [...] 10/07/2025 12:43 PM EST Pres[place] [facility] [place] Radha [place] LDN - 10/05/2025 1:51 [...] Description 01/08/2026 2:40 PM EST Office Visit [facility] Diabetes [facility] [address] [place] [address] Orly Wilson MD [address] [address] [email or web address] 04/04/2026 3:00 PM EDT Nutrition [facility] 40 [place] [address] Radha Morales LDN [address] [address] 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 Historical LMR Provider 09/14/17 Brittani Madison RN [address] [place] [address] Registered Nurse 10/13/17 documented as of this encounter Additional Source Comments The information contained in this document represents components of the legal health record. It is not the complete legal health record.[facility]
--- OUTSIDE RECORDS SUMMARY | 2025-11-16 15:26 | XMS_ITS | Encounter Summary ---
Author Organization [facility] Address [address] [facility] [address] [place] [address] Phone Care Team Providers Care Wax Ball Knock Out Worker Name Role Phone Orly Wilson MD Unavailable [phone] Brittani Madison RN Unavailable Unavailable Samira Quispe MD Primary Care Provider [phone] Reason for Visit * Reason Comments Med Change Request Encounter Details Date Type Department Care Team (Late st Contact Info) Description 11/01/2025 Refill [facility] 22 [place] [address] Orly Wilson MD 22 [facility], 1st [place] [address] [email or web address] Med Change Request Social History Tobacco Use [...] Description 01/08/2026 2:40 PM EST Office Visit [facility] 234 [place] [address] Orly Wilson MD [address] [address] 04/04/2026 3:00 PM EDT Nutrition [facility] 40 [place] [address] Radha [place]ales LDN [address] [place] [address] documented as of this encounter Visit Diagnoses Diagnosis 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, not stated as uncontrolled 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, macular edema presence unspecified Type 1 diabetes mellitus with nephropathy Insulin pump in place Insulin pump status documented in this encounter Care Teams Wax Ball Knock Out Worker Relationship Specialty Start Date End Date Samira Quispe MD [address] [facility] [place] [address] PCP - General Internal Medicine 03/12/20 Orly Wilson MD [address] [address] Historical LMR Provider 09/14/17 Brittani Madison RN [address] [place] [address] Registered Nurse 10/13/17 documented as of this encounter Additional Source Comments The information contained in this document represents components of the legal health record. It is not the complete legal health record.[facility]
--- OUTSIDE RECORDS SUMMARY | 2025-11-16 15:26 | XMS_ITS | Encounter Summary ---
Author Organization [facility] Address [address] [place] [address] Phone Care Team Providers Care Assistant Professor Of Life Sciences Name Role Phone Alan Armando MD Primary Care Provider [phone] Radha Dunn FLASK FITTER Unavailable Unavailable Quoc Gallardo Unavailable Maureen Chang NP Unavailable Benjamín Younger MD Unavailable Orly Wilson MD Unavailable [phone] Alan Armando MD Unavailable Mary Crenshaw MD Unavailable Don Rao MD Unavailable Brittani Madison RN Primary Care Provider [facility] Brittani Madison RN Unavailable Unavailable Alan Armando MD Primary Care Provider [phone] Samira Quispe MD Primary Care Provider [phone] Encounter Details Date Type Department Care Team [...] Description 01/08/2026 2:40 PM EST Office Visit [facility] 234 [place] [address] Orly Wilson MD 22 [facility], [address] [place] [address] [email or web address] 04/04/2026 3:00 PM EDT Nutrition [facility] Diabetes [facility] 40 [place] [address] Radha [place]ales LDN [address] [address] [email or web address] documented as of this encounter Procedures Procedure Name Priority Date/Time Associated Diagnosis Comments OUTSIDE LAB Routine 09/02/2017 documented in this encounter Results * Outside Lab (09/02/2017) us Historical Provider LAB BLOOD BKR ORDERABLES Final Result documented in this encounter Visit Diagnoses Not on filedocumented in this encounter Care Teams Assistant Professor Of Life Sciences Relationship Specialty Start Date End Date Alan Armando MD PCP - General 09/14/17 10/12/17 Brittani Madison RN [address] [place] [address] PCP - General 10/13/17 10/13/17 Alan Armando MD PCP - General Internal Medicine 10/14/17 03/11/20 Samira Quispe MD [address] [place] [address] [place] [address] PCP - General Internal Medicine 03/12/20 Radha Dunn FLASK FITTER [address] [place] [address] Historical LMR Provider 09/14/1702/27 Quoc Gallardo PA [address] [place] [address] Historical LMR Provider 09/14/17 Maureen Nguyen NP [address] [place] [address] Historical LMR Provider 09/14/1703/11 Benjamín Younger MD [address] [place] [address] Historical LMR Provider 09/14/1703/11 Orly Wilson MD [address] [place] [address], [address] [place] [address] [email or web address] Historical LMR Provider 09/14/17 Alan Armando MD [address] [place] [address] [email or web address] Historical LMR Provider 09/14/17 03/11/20 Mary Crenshaw MD [address] [place] [address] Orthopedics & Sports Medicine, [facility] [place] [address] Historical LMR Provider 09/14/17 Don Rao MD [address] [place] [address] Historical LMR Provider 09/14/17 Brittani Madison RN [address] [place] [address] Registered Nurse 10/13/17 documented as of this encounter Additional Source Comments The information contained in this document represents components of the legal health record. It is not the complete legal health record.[facility]
--- OUTSIDE RECORDS SUMMARY | 2025-11-16 15:26 | XMS_ITS | Clinical Summary ---
Author Organization [facility] Address [address] [facility] [address] [place] [address] [place] [address] Phone Care Team Providers Care Gate Agent Name Role Phone Samira Quispe MD Primary Care Provider [phone] Allergies No known active allergies Medications aspirin [...] Plan: Followed by Dr. Anthony Delaney at [facility] Had follow up last month Blindness [...] Dexcom to G6, this will work with [employer] once this launches; we discussed other insulin [...] % PVNMA 05/21/2020 us Rtama Conversion LAB [id number] LICITED RESULTS Final Result PVNMA from Last 3 Months or Most Recently Relevant to Health Maintenance Insurance [facility] Medicaid Member Subscriber Plan / Payer (Ef fective 2020-Present) Name:Servando Tan Relation to Subscriber:Self Name:Servando Tan Payer ID:Not on file Group ID:[id number] Type:Not on file Address: [address] [facility] Medicaid Care Teams Gate Agent Relationship Specialty Start Date End Date Samira Quispe MD [employer] [place] [address] PCP - General 12/09/20
--- OUTSIDE RECORDS SUMMARY | 2025-11-16 15:26 | XMS_ITS | Encounter Summary ---
Author Organization [facility] Address [address] [facility] [address] [place] [address] Phone Care Team Providers Care Vice President Global Digital Marketing Name Role Phone Orly Wilson MD Unavailable [phone] Brittani Madison RN Unavailable Unavailable Samira Quispe MD Primary Care Provider [phone] Reason for Visit * Reason Comments Med Change Request Encounter Details Date Type Department Care Team ([facility] st Contact Info) Description 10/07/2025 Refill [facility] 22 [place] [address] Orly Wilson MD 22 [facility], 1st [place] [address] [email or web address] Med Change Request Social History Tobacco Use [...] OMNIPOD 5, G6/PADMINI 2 PLUS, Crtg to [facility] fax # [phone] for quality limit * Patricia Jones [place] - 10/12/2025 2:32 PM EST See TE from 09/11/25. Faxed and confirmed prior auth for OMNIPOD 5, G6/PADMINI 2 PLUS, Crtg to [facility] through [employer] to fax # [phone] * Patricia Jones [place] - 10/10/2025 9:11 [...] Description 01/08/2026 2:40 PM EST Office Visit [facility] Diabetes [facility] [address] [place] [address] Orly Wilson MD [address] [address] 04/04/2026 3:00 PM EDT Nutrition [facility] Diabetes [facility] 40 [place] [address] Radha Morales LDN [address] [place] [address] documented as of this encounter Visit Diagnoses Diagnosis 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, not stated as uncontrolled 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, macular edema presence unspecified Type 1 diabetes mellitus with nephropathy Insulin pump in place Insulin pump status documented in this encounter Care Teams Vice President Global Digital Marketing Relationship Specialty Start Date End Date Samira Quispe MD [address] [facility] [place] [address] PCP - General Internal Medicine 03/12/20 Orly Wilson MD [address] [address] Historical LMR Provider 09/14/17 Brittani Madison RN [address] [place] [address] Registered Nurse 10/13/17 documented as of this encounter Additional Source Comments The information contained in this document represents components of the legal health record. It is not the complete legal health record.[facility]
--- OUTSIDE RECORDS SUMMARY | 2025-11-16 15:27 | XMS_ITS | Clinical Summary ---
Author Organization [facility] Address [address] [place] [address] Phone Care Team Providers Care Dividend Deposit Voucher Clerk Name Role Phone Orly Wilson MD Unavailable [phone] Brittani Madison RN Unavailable Unavailable Samira Quispe MD Primary Care Provider [phone] Allergies No known active allergies Medications lisinopril [...] EDT): Followed by Dr. Anthony Delaney at [facility] Had follow up last month Blindness [...] look more into this, advising we have [employer] download capability, but am unaware of Xdrip. [...] glucose alerts as set on Dexcom G6 proof carrier Automated Mode started today, though we reviewed [...] dose Blood pressure remains in excellent range [place] blood pressure goal given CAD and CKD [...] may be due to omission of ACEi [place] blood pressure goal given CAD and CKD [...] borderline today, advised to discuss ACEi with supervisor transcribing operators Blood sugar control is also in good [...] dehydration to discuss this therapy with his supervisor transcribing operators, Deidra has not yet done this Blood [...] on ACEi Coronary artery disease invo lving [place] coronary artery of [place] heart without angina pectoris 01/07/2018 Assessment & [...] test scheduled and has met with his burn crew member about these symptoms, he is advised to [...] Unable to obtain download due to no [employer] account, attempted to set this up today [...] Dexcom to G6, this will work with [employer] once this launches; we discussed other insulin [...] Type Department Care Team Description 11/01/2025 Refill [facility] Diabetes [facility] [address] [place] [address] Orly Wilson MD Med Change Request 10/07/2025 Refill [facility] Diabetes [facility] [address] [place] [address] Orly Wilson MD Med Change Request 10/05/2025 Telephone [facility] Diabetes [facility] [address] [place] [address] Radha Morales LDN 10/04/2025 3:00 PM EST Nutrition [facility] Diabetes 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 [address] [place] [address] Orly Wilson MD Omnipod & Wellsense (Omnipod [...] Description 01/08/2026 2:40 PM EST Office Visit [facility] Diabetes [facility] [address] [place] [address] Orly Wilson MD [address] [address] 04/04/2026 3:00 PM EDT Nutrition [facility] Diabetes [facility] 40 [place] [address] Radha Morales LDN [address] [address] [email or web address] Health Maintenance Due Date Last Done Comments [...] Most Recently Relevant to Health Maintenance Insurance [facility] [place] [address] [place] [address] [place] [address] [place] [address] [place] [address] [place] [address] [place] [address] [place] [address] [employer] Care Teams Dividend Deposit Voucher Clerk Relationship Specialty Start Date End Date Samira Quispe MD [address] [facility] [place] [address] PCP - General Internal Medicine 03/12/20 Orly Wilson MD [address] [address] [email or web address] Historical LMR Provider 09/14/17 Brittani Madison RN [address] [place] [address] Registered Nurse 10/13/17 Additional Source Comments The information contained in this document represents components of the legal health record. It is not the complete legal health record.[facility]
== END 2025-11-16 14:18 | disposition home or self-care (01) ==
LOC: HO.HKA 13:47
PROVIDERS: PCP Internal Medicine; Visit Provider Internal Medicine Nephrology
DX: N18.31 Chronic kidney disease, stage 3a (principal); I10 Essential (primary) hypertension
CPT/HCPCS: 99214

== ENCOUNTER → 2025-11-16 13:47 | Outpatient (BNVA) | payer OTHER, SELFPAY ==
[2023-05-04 12:01] VITALS: BP 102/46; BP 134/60
== END ==
PROVIDERS: PCP Internal Medicine; Visit Provider Internal Medicine Nephrology
DX: I12.9 Hypertensive chronic kidney disease with stage 1 through stage 4 chronic kidney disease, or unspecified chronic kidney disease (principal); N18.31 Chronic kidney disease, stage 3a; E10.22 Type 1 diabetes mellitus with diabetic chronic kidney disease; F17.210 Nicotine dependence, cigarettes, uncomplicated; Z96.41 Presence of insulin pump (external) (internal); Z86.79 Personal history of other diseases of the circulatory system; Z79.899 Other long term (current) drug therapy
CPT/HCPCS: 99212

== ENCOUNTER 2025-11-20 14:32 | Outpatient (AMB) | payer OTHER, SELFPAY ==
[2023-05-04 12:01] VITALS: BP 102/46; BP 134/60
[2025-11-20 14:34] VITALS: BP 132/72; PULSE 78; BMI 23.6
--- NOTE | 2025-11-20 14:34 | A.OFFVIS_ITS ---
Vital Signs 11/20/25 14:34 Height 5 ft 9 in Weight 160 lb BMI 23.6 BP 132/72 Blood Pressure Location Rt brachial Position Sitting Pulse 78 Intake Visit Reasons: s/p excision back cyst Intake Note: Patient here s/p cyst excision on back. Patient c/o: itch along tegaderm dressing. Steri strips removed without incident. WLE (CHAS): 11-12-2025 Press Clipper Required: No Accompanied by: Self / Same As Patient Allergies No Known Allergies Allergy (Verified 11/20/25 14:40) HPI HPI s/p excision back cyst: Details: He has no concerns. Denies pain from the incision site. Denies any drainage from the incision site. [facility] Medical History (Updated 10/30/25 @ 15:44 by Ryder Wilburn MD) Eye globe prosthesis Hx of fracture of tibia Hx of retinal detachment Chronic renal insufficiency COVID-19 vaccine administered Myocardial infarction Low vitamin B12 level Hypogonadism in male Hypogonadism Blind left eye Depression Hypertension Dyslipidemia Diabetic neuropathy associated with type 1 diabetes mellitus Coronary artery disease Diabetic retinopathy associated with type 1 diabetes mellitus Diabetes type 1, controlled Osteoporosis Hyperparathyroidism Surgical History (Updated 11/21/25 @ 12:46 by Swapnil London PA-C) Hx of surgical procedure (11/12/25) H/O heart artery stent S/P eye surgery History of surgery Hx of eye surgery Hx of knee surgery Hx of excision of epidermal inclusion cyst Hx of colonoscopy Family History Father Cancer CVD (cardiovascular disease) Mother CVD (cardiovascular disease) Hypertension High cholesterol Social History Household Members: None Housing: Apartment Are you a primary healthcare account manager to a significant other at home: No Do you presently have visiting nurse or other home services: Yes (SALES SERV[employer] REP daily) Alcohol intake: never Patient Tobacco Use Status: Current everyday Tobacco user Tobacco use type: Cigarette Years Smoked: 28 e-Cigarette/Vaping Use: Former Use Advance Directives Date on File: 09/09/11 service: No Current occupational status: disabled Current occupation: rt handed Cognitive needs: No Hearing needs: No Vision needs: No Physical Exam Vital Signs: Last Vital Signs Pulse 78 11/20/25 14:34 BP 132/72 11/20/25 14:34 BMI result Body Mass Index 23.6 Const General: comfortable and no acute distress Orientation/consciousness: patient oriented x3 Skin Other: Well healed incision site on right mid back no fluid collection, no erythema, nontender. Neuro General: patient oriented x3 Assessment & Plan Assessment & Plan (1) Hx of surgical procedure: Onset Date: 11/12/25 Comment: Excision: Epidermal inclusion cyst~ Back Ryder Butler Code(s): Z98.890 - Other specified postprocedural states Category: Medical Plan 60-year-old male s/p excision of a right mid back mass on 11/12/[address] Wilburn returning to the office for postop visit. He is doing well, has no conc erns. Denying pain, bleeding, oozing, discharge from incision site. Denies fevers at home. On exam the incision site appears well healed, there was no concern for any current infectious process. Pathology report showing epidermal inclusion cysts, gave patient copy of results. He is no longer requiring follow up, can follow up as needed with any concerns in the future Coding Level of Care Code Est Pt Level 3 (74152) Diagnoses Hx of surgical procedure Z98.890
--- OUTSIDE RECORDS SUMMARY | 2025-11-20 15:50 | XMS_ITS | Encounter Summary ---
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, macular edema presence unspecified Type 1 diabetes mellitus with nephropathy Insulin pump in place Orly Wilson MD 22 [facility], [address] [place] [address] Phone: tel: fax: mailto:[email or web address] Referral ID Status Reason Start Date Expiration Date Visits Re quested Visits Authorized [id number] Closed 1 1 Encounter Details Date Type Department Care Team (Late st Contact Info) Description 10/05/2025 Telephone [facility] 22 [place] [address] Radha Morales LDN 22 [facility], [address] [place] [address] [email or web address] Social History Tobacco Use [...] 10/07/2025 12:43 PM EST Prescriptions sent to [facility] * Radha Morales LDN - 10/05/2025 1:51 [...] 01/08/2026 2:40 PM EST Office Visit [facility] [address] [place] [address] Orly Wilson MD [address] [address] [email or web address] 04/04/2026 3:00 PM EDT Nutrition [facility] 40 [place] [address] Radha Morales LDN [address] [address] [email or web address] documented as of this encounter Visit Diagnoses Diagnosis Type 1 diabetes mellitus with polyneuropathy- Primary Type I (juvenile type) diabetes mellitus with neurological manifestations, not stated as uncontrolled 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, macular edema presence unspecified Type 1 diabetes mellitus with nephropathy Insulin pump in place Insulin pump status documented in this encounter Care Teams Shuttle Fixer Relationship Specialty Start Date End Date Samira Quispe MD [address] [place] [address] PCP - General Internal Medicine 03/12/20 Orly Wilson MD [address] [place] [address] [email or web address] Historical LMR Provider 09/14/17 Brittani Madison RN [address] [place] [address] Registered Nurse 10/13/17 documented as of this encounter Additional Source Comments The information contained in this document represents components of the legal health record. It is not the complete legal health record.[facility]
--- OUTSIDE RECORDS SUMMARY | 2025-11-20 15:50 | XMS_ITS | Encounter Summary ---
Author Organization [facility] Address [address] [place] [address] Phone Care Team Providers Care Naval Aircrewman Mechanical Name Role Phone Alan Armando MD Primary Care Provider [phone] Radha Dunn TERRAZZO LABORER Unavailable Unavailable Quoc Gallardo Unavailable Maureen Chang NP Unavailable [phone] Benjamín Younger MD Unavailable Orly Wilson MD Unavailable [phone] Alan Armando MD Unavailable Mary Crenshaw MD Unavailable Don Rao MD Unavailable Brittani Madison RN Primary Care Provider Unavaila [facility] Brittani Madison RN Unavailable Unavailable Alan Armando MD Primary Care Provider [phone] Samira Quispe MD Primary Care Provider [phone] Encounter Details Date Type Department Care Team [...] Description 01/08/2026 2:40 PM EST Office Visit [facility] Diabetes [facility] [address] [place] [address] Orly Wilson MD 22 [facility], [address] [place] [address] [email or web address] 04/04/2026 3:[address] [facility] Diabetes [facility] [address] [place] [phone] Radha Morales LDN [address] [address] [email or web address] documented as of this encounter Procedures Procedure Name Priority Date/Time Associated Diagnosis Comments OUTSIDE LAB Routine 09/02/2017 documented in this encounter Results * Outside Lab (09/02/2017) us Historical Provider LAB BLOOD BKR ORDERABLES Final Result documented in this encounter Visit Diagnoses Not on filedocumented in this encounter Care Teams Naval Aircrew[employer] Mechanical Relationship Specialty Start Date End Date Alan Armando MD PCP - General 09/14/17 10/12/17 Brittani Madison RN [address] [place] [address] PCP - General 10/13/17 10/13/17 Alan Armando MD PCP - General Internal Medicine 10/14/17 03/11/20 Samira Quispe MD [address] [place] [address] [place] [address] PCP - General Internal Medicine 03/12/20 Radha Dunn TERRAZZO LABORER [address] [place] [address] Historical LMR Provider 09/14/1702/27 Quoc Gallardo PA [address] [place] [address] Historical LMR Provider 09/14/17 Maureen Nguyen NP [address] [place] [address] Historical LMR Provider 09/14/1703/11 Benjamín Younger MD [address] [place] [address] Historical LMR Provider 09/14/1703/11 Orly Wilson MD [address] [place] [address], [address] [place] [address] [email or web address] Historical LMR Provider 09/14/17 Alan Armando MD [address] [place] [address] [email or web address] Historical LMR Provider 09/14/17 03/11/20 Mary Crenshaw MD [address] [place] [address] Orthopedics & Sports Medicine, [facility] [place] [address] Historical LMR Provider 09/14/17 Don Rao MD [address] [place] [address] Historical LMR Provider 09/14/17 Brittani Madison RN [address] [place] [address] Registered Nurse 10/13/17 documented as of this encounter Additional Source Comments The information contained in this document represents components of the legal health record. It is not the complete legal health record.[facility]
--- OUTSIDE RECORDS SUMMARY | 2025-11-20 15:50 | XMS_ITS | Clinical Summary ---
Author Organization [facility] Address [address] [place] [address] Phone Care Team Providers Care Warehouse Representative Name Role Phone Orly Wilson MD Unavailable [phone] Brittani Madison RN Unavailable Unavailable Samira Quispe MD Primary Care Provider [phone] Allergies No known active allergies Medications lisinopril [...] EDT): Followed by Dr. Anthony Delaney at [facility] Had follow up last month Blindness of [...] look more into this, advising we have Pongr download capability, but am unaware of Xdrip. [...] glucose alerts as set on Dexcom G6 centrifugal casting machine tender Automated Mode started today, though we reviewed [...] dose Blood pressure remains in excellent range [place] blood pressure goal given CAD and CKD [...] may be due to omission of ACEi [place] blood pressure goal given CAD and CKD [...] borderline today, advised to discuss ACEi with design sales consultant Blood sugar control is also in good [...] dehydration to discuss this therapy with his design sales consultant, Deidra has not yet done this Blood [...] on ACEi Coronary artery disease invo lving [place] coronary artery of [place] heart without angina pectoris 01/07/2018 Assessment & [...] test scheduled and has met with his aeronautical design engineer about these symptoms, he is advised to [...] Unable to obtain download due to no [employer] account, attempted to set this up today [...] Dexcom to G6, this will work with [employer] once this launches; we discussed other insulin [...] Type Department Care Team Description 11/01/2025 Refill [facility] [address] [place] [address] Orly Wilson MD Med Change Request 10/07/2025 Refill [facility] [address] [place] [address] Orly Wilson MD Med Change Request 10/05/2025 Telephone [facility] [address] [place] [address] Radha Morales LDN 10/04/2025 3:00 PM EST Nutrition [facility] [address] [facility] [place] [address] Radha Morales, Radha Dodd LDN 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 [address] [place] [address] Orly Wilson MD Omnipod [employer] Wellsense (Omnipod [...] 01/08/2026 2:40 PM EST Office Visit [facility] [address] [place] [phone] Orly Wilson MD [address] [address] 04/04/2026 3:00 PM EDT Nutrition [facility] [address] [place] [address] Radha Morales LDN [address] [address] [email or web address] Health Maintenance Due Date Last Done Comments [...] Most Recently Relevant to Health Maintenance Insurance [facility] [place] [address] [place] [address] [place] [address] [place] [address] [place] [address] [place] [address] [place] [place] [address] ACO [employer] Care Teams Warehouse Representative Relationship Specialty Start Date End Date Samira Quispe MD [address] [facility] [place] [address] PCP - General Internal Medicine 03/12/20 Orly Wilson MD [address] [address] [email or web address] Historical LMR Provider 09/14/17 Brittani Madison RN [address] [place] [address] Registered Nurse 10/13/17 Additional Source Comments The information contained in this document represents components of the legal health record. It is not the complete legal health record.[facility]
--- OUTSIDE RECORDS SUMMARY | 2025-11-20 15:50 | XMS_ITS | Encounter Summary ---
Author Organization [facility] Address [address] [facility] [address] [place] [address] Phone Care Team Providers Care Real Estate Closer Name Role Phone Orly Wilson MD Unavailable Brittani Madison RN Unavailable Unavailable Samira Quispe MD Primary Care Provider [phone] Reason for Visit * Reason Comments Med Change Request Encounter Details Date Type Department Care Team ([facility] st Contact Info) Description 10/07/2025 Refill [facility] [address] [place] [address] Orly Wilson MD 22 [facility], 1st [place] [address] [email or web address] Med Change Request Social History Tobacco Use [...] 5, G6/PADMINI 2 PLUS, Crtg to [facility] fax # [phone] for quality limit * Patricia Jones [place] - 10/12/2025 2:32 PM EST See TE from 09/11/25. Faxed and confirmed prior auth for OMNIPOD 5, G6/PADMINI 2 PLUS, Crtg to [facility] through [employer] to fax # [phone] * Patricia Jones [place] - 10/10/2025 9:11 [...] Description 01/08/2026 2:40 PM EST Office Visit [facility] Diabetes [facility] [address] [place] [address] Orly Wilson MD [address] [address] 04/04/2026 3:00 PM EDT Nutrition [facility] Diabetes [facility] [address] [place] [address] Radha Morales LDN [address] [place] [address] documented as of this encounter Visit Diagnoses Diagnosis 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, not stated as uncontrolled 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, macular edema presence unspecified Type 1 diabetes mellitus with nephropathy Insulin pump in place Insulin pump status documented in this encounter Care Teams Real Estate Closer Relationship Specialty Start Date End Date Samira Quispe MD [address] [facility] [place] [address] PCP - General Internal Medicine 03/12/20 Orly Wilson MD [address] [address] Historical LMR Provider 09/14/17 Brittani Madison RN [address] [place] [address] Registered Nurse 10/13/17 documented as of this encounter Additional Source Comments The information contained in this document represents components of the legal health record. It is not the complete legal health record.[facility]
--- OUTSIDE RECORDS SUMMARY | 2025-11-20 15:50 | XMS_ITS | Clinical Summary ---
Author Organization [facility] Address [address] [place] [address] [place] [address] Phone Care Team Providers Care Folding Machine Tender Name Role Phone Samira Quispe MD Primary Care Provider [phone] Allergies No known active allergies Medications aspirin [...] Plan: Followed by Dr. Anthony Delaney at [facility] Had follow up last month [...] Dexcom to G6, this will work with [employer] once this launches; we discussed other insulin [...] % PVNMA 05/21/2020 us [facility] Conversion LAB [id number] LICITED RESULTS Final Result PVNMA from Last 3 Months or Most Recently Relevant to Health Maintenance Insurance [facility] Medicaid Member Subscriber Plan / Payer (Ef fective 2020-Present) Name:Servando Tan Relation to Subscriber:Self Name:Servando Tan Payer ID:Not on file Group ID:[id number] Type:Not on file Address: [address] [facility] Medicaid Care Teams Folding Machine Tender Relationship Specialty Start Date End Date Samira Quispe MD [place] [address] PCP - General 12/09/20
--- OUTSIDE RECORDS SUMMARY | 2025-11-20 15:50 | XMS_ITS | Encounter Summary ---
Author Organization [facility] Address [address] [facility] [address] [place] [address] Phone Care Team Providers Care Local Telephone Operator Name Role Phone Orly Wilson MD Unavailable [phone] Brittani Madison RN Unavailable Unavailable Samira Quispe MD Primary Care Provider [phone] Reason for Visit * Reason Comments Med Change Request Encounter Details Date Type Department Care Team (Late st Contact Info) Description 11/01/2025 Refill [facility] [address] [place] [address] Orly Wilson MD 22 [facility], 1st [place] [address] [email or web address] Med Change Request Social History Tobacco Use [...] Description 01/08/2026 2:40 PM EST Office Visit [facility] Diabetes [facility] [address] [place] [address] Orly Wilson MD [address] [address] 04/04/2026 3:00 PM EDT Nutrition [facility] Diabetes [facility] [address] [place] [address] Radha Morales LDN [address] [place] [address] documented as of this encounter Visit Diagnoses Diagnosis 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, not stated as uncontrolled 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, macular edema presence unspecified Type 1 diabetes mellitus with nephropathy Insulin pump in place Insulin pump status documented in this encounter Care Teams Local Telephone Operator Relationship Specialty Start Date End Date Samira Quispe MD [address] [facility] [place] [address] PCP - General Internal Medicine 03/12/20 Orly Wilson MD [address] [address] Historical LMR Provider 09/14/17 Brittani Madison RN [address] [place] [address] Registered Nurse 10/13/17 documented as of this encounter Additional Source Comments The information contained in this document represents components of the legal health record. It is not the complete legal health record.[facility]
== END 2025-11-20 14:41 | disposition home or self-care (01) ==
LOC: HO.HGS 14:33
PROVIDERS: PCP Internal Medicine
DX: Z98.890 Other specified postprocedural states (principal)
CPT/HCPCS: 99024

== ENCOUNTER → 2025-11-20 14:32 | Outpatient (BNVA) | payer OTHER, SELFPAY ==
[2023-05-04 12:01] VITALS: BP 102/46; BP 134/60
== END ==
PROVIDERS: PCP Internal Medicine
DX: Z48.817 Encounter for surgical aftercare following surgery on the skin and subcutaneous tissue (principal); Z98.890 Other specified postprocedural states
CPT/HCPCS: 99212